=== PATIENT | male | born 1945 | race Hispanic/Latino ===

== ENCOUNTER 2016-10-09 11:49 | Inpatient (IN) | payer MEDICARE, OTHER ==
[2016-10-09 11:49] VITALS: BMI 27.1
[2016-10-09] MEDS ORDERED: Sodium Chloride 0.9% 1,000 ML IV STA (12:28)
--- NOTE | 2016-10-09 12:30 | ED PDOC ---
Arrival/HPI - General Chief Complaint: Abdominal Pain Time Seen by Provider: 10/09/16 12:14 Historian: Patient - History of Present Illness Narrative History of Present Illness (Text): 10/09/16 12:29 71 year old male with a past medical history that includes GI bleed, stage 4 prostate cancer, COPD, and hypertension, presents to the emergency department complaining of rectal bleeding overnight. Patient reports bright red blood. Denies vomiting, hematemesis, or other symptoms. PMD: Dr. Sandhu Oncologist: Dr. Clemens GI: Dr. Anderson Time/Duration: 24 hours Symptom Onset: Sudden Symptom Course: Unchanged Modifying Factors (Text): None Past Medical History - Provider Review Nursing Documentation Reviewed: Yes - Past History Past History: No Previous - Infectious Disease Hx of Infectious Diseases: None - Tetanus Immunization Tetanus Immunization: Unknown - Cardiac Hx Cardiac Disorders: Yes Hx Hypertension: Yes - Pulmonary Hx Respiratory Disorders: Yes Hx Chronic Obstructive Pulmonary Disease (COPD): Yes - Neurological Hx Neurological Disorder: Yes HX Cerebrovascular Accident: Yes - HEENT Hx HEENT Disorder: No - Renal Hx Renal Disorder: No - Endocrine/Metabolic Hx Endocrine Disorders: No - Hematological/Oncological Hx Blood Disorders: Yes Hx Blood Transfusions: No Hx Blood Transfusion Reaction: No Hx Cancer: Yes (prostate) Hx Chemotherapy: Yes - Integumentary Hx Dermatological Disorder: No - Musculoskeletal/Rheumatological Hx Arthritis: No Hx Fractures: No Hx Osteoarthritis: No - Gastrointestinal Hx Gastrointestinal Disorders: Yes Hx Gall Bladder Disease: Yes (Cholesctectomy) - Genitourinary/Gynecological Hx Genitourinary Disorders: Yes Hx Prostate Problems: Yes - Psychiatric Hx Psychophysiologic Disorder: Yes Hx Anxiety: No Hx Depression: Yes Hx Substance Use: No - Surgical History Hx Appendectomy: Yes Hx Orthopedic Surgery: Yes Other/Comment: prostate - Anesthesia Hx Anesthesia Reactions: No Hx Malignant Hyperthermia: No - Suicidal Assessment Feels Threatened In Home Enviroment: No Family/Social History - Physician Review Nursing Documentation Reviewed: Yes Family/Social History: Unknown Family HX Smoking Status: Former Smoker Hx Alcohol Use: No Hx Substance Use: No Hx Substance Use Treatment: No Allergies/Home Meds Allergies/Adverse Reactions: Allergies No Known Allergies Allergy (Verified 10/09/16 12:07) Home Medications: Home Meds Medication Instructions Recorded Confirmed Enoxaparin [Lovenox] 40 mg SC DAILY 11/09/13 10/09/16 Losartan [Cozaar] 25 mg PO DAILY 03/22/14 10/09/16 Ergocalciferol (Vitamin D2) 50,000 unit PO QWK 08/07/16 10/09/16 [Vitamin D] Fluticasone/Salmeterol 250/50 1 dsk IH DAILY 08/07/16 10/09/16 [Advair Diskus 250/50] Pantoprazole [Protonix EC Tab] 20 mg PO DAILY 08/07/16 10/09/16 Prednisone [Orin] 5 mg PO BID 08/07/16 10/09/16 Risperidone [Risperdal] 0.25 mg PO BID 08/07/16 10/09/16 Zolpidem [Ambien] 5 mg PO HS 08/07/16 10/09/16 Abiraterone Acetate [Zytiga] 250 mg PO DAILY 10/09/16 10/09/16 Review of Systems - Physician Review All systems were reviewed & negative as marked: Yes - Review of Systems Respiratory: absent: SOB Cardiovascular: absent: Chest Pain Gastrointestinal: Other (Rectal bleed). absent: Vomiting, Hematemesis Neurological: absent: Dizziness Physical Exam Vital Signs Reviewed: Yes Vital Signs Temp Pulse Resp BP Pulse Ox 10/09/16 13:44 73 16 126/67 94 L 10/09/16 12:08 98.5 F 83 16 111/72 93 L Temperature: Afebrile Blood Pressure: Normal Pulse: Regular Respiratory Rate: Normal Appearance: Positive for: Well-Appearing, Non-Toxic, Comfortable Pain Distress: None Mental Status: Positive for: Alert and Oriented X 3 - Systems Exam Head: Present: Atraumatic, Normocephalic Pupils: Present: PERRL Extroacular Muscles: Present: EOMI Conjunctiva: Present: Normal Mouth: Present: Moist Mucous Membranes Neck: Present: Normal Range of Motion Respiratory/Chest: Present: Clear to Auscultation, Good Air Exchange. No: Respiratory Distress, Accessory Muscle Use Cardiovascular: Present: Regular Rate and Rhythm, Normal S1, S2. No: Murmurs Abdomen: Present: Normal Bowel Sounds. No: Tenderness, Distention, Peritoneal Signs Rectal: Present: Other (Brown stool, guaiac positive) Back: Present: Normal Inspection Upper Extremity: Present: Normal Inspection. No: Cyanosis, Edema Lower Extremity: Present: Normal Inspection. No: Edema Neurological: Present: GCS=15, CN II-XII Intact, Speech Normal Skin: Present: Warm, Dry, Normal Color. No: Rashes Psychiatric: Present: Alert, Oriented x 3, Normal Insight, Normal Concentration Medical Decision Making ED Course and Treatment: Impression: 71 year old male with a past medical history that includes GI bleed , stage 4 prostate cancer, COPD, and hypertension, presents to the emergency department complaining of rectal bleeding overnight. Differential Diagnosis include but are not limited to: GI bleed Plan: -- EKG, Chest X-ray -- Labs -- Reassess and disposition Prior Visits: Notes and results from previous visits were reviewed. Patient last seen in ED on 08/07/16 for rectal bleed and admitted for GI bleed. Progress Notes: Chest X-ray Pottery Decoration Designer: Donovan Damon MD IMPRESSION: No active disease 10/09/16 14:[address] Clemens, accepts for admission. Case discussed with Dr. Anderson who states plan for colonoscopy tomorrow. - Lab Interpretations Lab Results: 10/09/16 13:28 10/09/16 13:28 Lab Results 10/09/16 13:28: WBC 8.0, RBC 3.87, Hgb 11.3 L, Hct 35.3 L, MCV 91.2, MCH 29.2, MCHC 32.0, RDW 15.1 H, Plt Count 215, MPV 9.5, Gran % 78.3 H, Lymph % (Auto) 13.3 L, Coke % (Auto) 6.8 H, Eos % (Auto) 1.1 L, Baso % (Auto) 0.5, Gran # 6.27 , Lymph # 1.1 L, Coke # 0.5, Eos # 0.1, Baso # 0.04, PT 10.0, INR 0.93, APTT 19.2 L, Sodium 136, Potassium 3.9, Chloride 100, Carbon Dioxide 29, Anion Gap 11 , BUN 16, Creatinine 0.7, Est GFR ( Amer) > 60, Est GFR (Non-Af Amer) > 60, Random Glucose 84, Calcium 9.1, Total Bilirubin 0.6, AST 26, ALT 31, Alkaline Phosphatase 83, Lactate Dehydrogenase 364, Total Creatine Kinase 39, Troponin I < 0.01, Total Protein 7.1, Albumin 3.6, Globulin 3.5, Albumin/ Globulin Ratio 1.0 L, Amylase 43, Lipase 12 L, Urine Color Straw, Urine Appearance Cloudy, Urine pH 7.5, Ur Specific [place] 1.015, Urine Protein Negative, Urine Glucose (UA) Negative, Urine Ketones Negative, Urine Blood Small H, Urine Nitrate Positive H, Urine Bilirubin Negative, Urine Urobilinogen 0.2, Ur Leukocyte Esterase Large H, Urine RBC 10 - 15, Urine WBC 15 - 20, Ur Epithelial Cells Many, Amorphous Sediment Moderate, Urine Bacteria Trace 10/09/16 13:20: Blood Type A POSITIVE, Antibody Screen Negative, BBK History Checked Patient has bt - RAD Interpretation Radiology Orders: 10/09/16 12:28 CHEST PORTABLE [RAD] Stat - EKG Interpretation EKG Interpretation (Text): EKG shows NSR at [address]/T wave changes Interpreted by ED Physician: Yes Type: 12 lead EKG - Medication Orders Current Medication Orders: Sodium Chloride (Sodium Chloride 0.9%) 1,000 mls @ 100 mls/hr IV .Q10H STA Stop: 10/09/16 22:27 Last Admin: 10/09/16 13:31 Dose: 100 MLS/HR eMAR Start Stop Document 10/09/16 13:31 HI (Rec: 10/09/16 13:31 [place] [id number]) Intravenous Solution Start Date 10/09/16 Start Time 13:31 Discontinued Medications Ceftriaxone Sodium (Rocephin 1 Gram Ivpb) 100 mls @ 200 mls/hr IVPB STAT STA PRN Reason: Protocol Stop: 10/09/16 14:27 Last Admin: 10/09/16 15:17 Dose: 200 MLS/HR eMAR Start Stop Document 10/09/16 15:17 HI (Rec: 10/09/16 15:17 [id number] Intravenous Solution Start Date 10/09/16 Start Time 15:17 Polyethylene Glycol/Electrolytes (Golytely) 4,000 ml PO ONCE ONE Stop: 10/09/16 16:36 Last Admin: 10/09/16 17:02 Dose: Not Given Non-Admin Reason: Patient Refused - Scribe Statement The provider has reviewed the documentation as recorded by the Laura Chau Provider Scribe Attestation: All medical record entries made by the Scribe were at my direction and personally dictated by me. I have reviewed the chart and agree that the record accurately reflects my personal performance of the history, physical exam, medical decision making, and the department course for this patient. I have also personally directed, reviewed, and agree with the discharge instructions and disposition. Disposition/Present on Arrival - Present on Arrival Any Indicators Present on Arrival: No History of DVT/PE: No History of Uncontrolled Diabetes: No Urinary Catheter: Yes History of Decub. Ulcer: No History Surgical Site Infection Following: None - Disposition Have Diagnosis and Disposition been Completed?: Yes Diagnosis: Gastrointestinal hemorrhage Disposition: HOSPITALIZED Disposition Time: 17:37 Patient Problems: Current Active Problems Problem Status Diagnosed Rectal bleeding Acute Hypotension Acute Prostate carcinoma Acute Retroperitoneal hematoma Acute Condition: FAIR
--- NOTE | 2016-10-09 13:14 | RAD ---
HISTORY: abd pain COMPARISON: 08/08/2016 FINDINGS: LUNGS: No active pulmonary disease. PLEURA: No significant pleural effusion identified, no pneumothorax apparent. CARDIOVASCULAR: Normal. OSSEOUS STRUCTURES: No significant abnormalities. VISUALIZED UPPER ABDOMEN: Normal. OTHER FINDINGS: Mild aortic tortuosity. Left-sided central line terminates in the SVC IMPRESSION: No active disease.
[2016-10-09 13:46] LABS: ADD MANUAL DIFF? NO
[2016-10-09 13:55] LABS: BASO # 0.04 K/mm3 (0.0-2.0); BASO % 0.5 % (0.0-3.0); EOS # 0.1 (0.0-0.7); EOS % 1.1 % (1.5-5.0); GRAN # 6.27 (1.4-6.5); GRAN % 78.3 % (50.0-68.0); HEMATOCRIT 35.3 % (42.0-52.0); LYMPH # 1.1 (1.2-3.4); LYMPH % 13.3 % (22.0-35.0); MEAN CELL VOLUME 91.2 fL (80.0-105.0); MEAN CORPUSCULAR HEMOGLOBIN 29.2 pg (25.0-35.0); MEAN PLATELET VOLUME 9.5 fl (7.0-11.0); MONO # 0.5 (0.1-0.6); MONO % 6.8 % (1.0-6.0); PH,URINE 7.5 (4.7-8.0); PLATELET COUNT 215 10^3/uL (120.0-450.0); RED CELL DISTRIBUTION WIDTH 15.1 % (11.5-14.5); URINE BILIRUBIN NEGATIVE (NEGATIVE); URINE BLOOD SMALL (NEGATIVE); URINE GLUCOSE (UA) NEGATIVE (NEGATIVE); URINE KETONE NEGATIVE (NEGATIVE); URINE LEUKOCYTE ESTERASE LARGE Leu/uL (NEGATIVE); URINE PROTEIN NEGATIVE mg/dL (<30 mg/dL); URINE UROBILINOGEN 0.2 E.U./dL (<1 E.U./dL)
[2016-10-09 13:57] LABS: URINE APPEARANCE CLOUDY (CLEAR); URINE COLOR STRAW (YELLOW)
[2016-10-09] MEDS ORDERED: cefTRIAXone 1 gm 100 ML IVPB STA (13:58)
[2016-10-09 14:01] LABS: INR 0.93 (0.93-1.08); PARTIAL THROMBOPLASTIN TIME 19.2 Seconds (23.7-30.8)
[2016-10-09 14:07] LABS: ALKALINE PHOSPHATASE 83 U/L (38-133); ALT/SGPT 31 U/L (7-56); AMYLASE 43 U/L (35-125); AST/SGOT 26 U/L (15-59); BILIRUBIN,TOTAL 0.6 mg/dL (0.2-1.3); BLOOD UREA NITROGEN 16 mg/dL (7-21); CALCIUM 9.1 mg/dL (8.4-10.5); CARBON DIOXIDE 29 mmol/L (21-33); CHLORIDE 100 mmol/L (98-107); GFR AFRICAN-AMERICAN > 60; GLUCOSE,RANDOM 84 mg/dL (70-110); LIPASE 12 U/L (23-300); POTASSIUM 3.9 mmol/L (3.6-5.0); SODIUM 136 mmol/L (132-148); TOTAL PROTEIN 7.1 g/dL (5.8-8.3)
[2016-10-09 14:17] LABS: TROPONIN I < 0.01 ng/mL
[2016-10-09 14:18] LABS: URINE AMORPHOUS SEDIMENT MODERATE; URINE BACTERIA TRACE (NEG); URINE EPITHELIAL CELLS MANY /hpf (0-5); URINE WBC 15 - 20 /hpf (0-6)
--- NOTE | 2016-10-09 14:33 | CARD ---
APPROVED REPORT EKG Measurement Heart [id number] <Conclusion> Normal sinus rhythm Left anterior fascicular block Abnormal ECG
[2016-10-09] MEDS ORDERED: Peg-Electrolyte Oral Soln 4L (Golytely) PO ONE (16:35)
[2016-10-09] MEDS ORDERED: Bisacodyl 5mg EC Tab PO STA (17:47)
[2016-10-09] MEDS ORDERED: Magnesium Citrate Oral SOL (300 ml) PO ONE (17:47)
--- NOTE | 2016-10-09 19:33 | CON ---
DATE: 10/09/2016 This patient was seen and evaluated earlier in the Emergency Room. 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 He also has a larger polyp in the ascending colon measuring about close to 3 cm. Biopsies were don e, which was reported ____, only tubular adenoma. In view of the large polypectomy done on the right side and the left side, and the patient needs to be on anticoagulation, the decision was made to marguerite ctively consider the colonoscopy for removal of the right polyp. Meanwhile, the patient has been on home Lovenox in view of the history of DVT, PE in the past. The patient had a few episodes of rectal bleeding. The patient presented to the Emergency Room. No complaints of vomiting blood. No abdomi nal pain. His other past medical history is significant as above, history of status post cholecystec patel, status post appendectomy, spine surgery. SOCIAL HISTORY: Ex-smoker. Denies alcohol. ALLERGIES: No known drug allergy. FAMILY HISTORY: Noncontributory. REVIEW OF SYSTEMS: Positive as above. All other systems reviewed. Just including the past medical history. Also, history of hypertension, COPD, dyslipidemia, status post cerebrovascular accident, se izure disorder. PHYSICAL EXAMINATION: GENERAL: The patient is lying on the bed, not in acute distress. Temperature is 98.5, pulse is 73, blood pressure 126/87. HEENT: Atraumatic, anicteric. NECK: Supple. HEART: S1, S2 heard. LUNGS: Bilateral air entry present. ABDOMEN: Soft. There is no mass palpable. No tenderness. EXTREMITIES: No cyanosis. No clubbing. LABORATORY DATA: Hemoglobin 11.3, hematocrit 35.3, WBC is 8, platelets 215. BUN 16, creatinine 0.7. ASSESSMENT AND PLAN: This 71-year-old patient admitted with gastrointestinal bleeding, history of la rge polyp, status post EMR in the past, has a large polyp in right colon. Also, has hemorrhoids and diverticulosis. This patient has multiple comorbidities. With limited mobility at home, it is reaso nable to consider colonoscopic evaluation and close monitoring of the hemoglobin and hematocrit. Wou ld recommend followup of the hemoglobin, hematocrit and place the patient on a clear liquid diet. Wi ll prepare the patient for colonoscopy tomorrow. To further evaluate his other comorbidities includi ng metastatic prostate cancer status post decompressive laminectomy, seizure disorder, status post ce rebrovascular accident. Will continue to closely follow up his care. Thank you very much for allowing us to participate in the care of the patient. Afua Anderson MD cc: [id number] TT: 10/09/2016 19:32:30 Confirmation # [id number] Dictation # [id number] mn
--- NOTE | 2016-10-09 23:09 | HP ---
HISTORY OF PRESENT ILLNESS: This is a 71-year-old white male well known to me for many years, has a diagnosis of metastatic stage IV carcinoma of the prostate with documented bone metastasis, status po st decompressive laminectomy of the thoracic spine for cord compression about 5 years ago, currently maintained Zytiga and Zoladex along with oral prednisone, who is now admitted through the ER with new onset of rectal bleeding. The patient was also noted to be anemic. In the recent past, in May , the patient had several episodes of rectal bleeding. He was admitted to the hospital, had a colono scopy and was found to have a large polyp in the rectosigmoid area for which he underwent EMR which w as a tubulovillous adenoma, which was removed. Colonoscopy at that time showed a polyp in the ascend ing colon, which was not removed at the same time as the EMR because of the patient's medical status including history of hypercoag state and being on Lovenox with history of DVT and PE. The biopsy of a right colonic lesion showed tubular adenoma. The patient was told that somewhere down the road, he will need an elective colonoscopy for removal of the right-sided colonic polyp. The patient has bee n maintained on Lovenox for DVT and PE in the past. The patient since then has had few episodes of r ectal bleeding and he came into the ER now with complaints of rectal bleeding on and off for the past 2-3 days without any complaints of nausea, vomiting blood or abdominal pain. PAST MEDICAL AND SURGICAL HISTORY: The patient has a history of cholecystectomy, status post appende ctomy and more importantly status post decompressive laminectomy for metastatic prostate cancer. SOCIAL HISTORY: The patient is an ex-smoker, denies any ethanolism. ALLERGIES: No known drug allergies. FAMILY HISTORY: Not contributory. REVIEW OF SYSTEMS: A 14 point review of systems is noncontributory except for the HPI. PAST MEDICAL HISTORY: Hypertension, COPD, dyslipidemia and seizure disorder for which he is on appro priate medicines. PHYSICAL EXAMINATION: GENERAL: The patient is awake, alert, and oriented, in no acute distress. The patient is examined i n bed. VITAL SIGNS: T-max is 98.4, pulse is 73, blood pressure is 126/87. HEENT: Head is normocephalic, atraumatic. Conjunctivae are pale. Sclerae are anicteric. Pupils ar e equally reactive to light and accommodation. Examination of the oropharynx reveals no oropharyngea l lesions. NECK: Supple. There is no adenopathy. No jugular venous distention is noted. LUNGS: Reveal good air entry bilaterally. No adventitious sounds are heard. HEART: Reveals PMI to be in the 5th intercostal space inside the midclavicular line. S1 and S2 are normal. No gallop or murmur is heard. ABDOMEN: Soft, nontender. Bowel sounds are present. Liver and spleen are not palpable. The patien t has an indwelling Shipman catheter. EXTREMITIES: Reveals no cyanosis, clubbing or edema. NEUROLOGIC: Reveals no gross focal deficits given even though the patient has difficulty in getting in and out of bed and ambulating. The patient is able to use a walker for activities of daily living . He has no focalizing findings. LABORATORY DATA: Reveals a hemoglobin of 11.3, hematocrit 36. White count is 8 with a platelet coun t of 215, BUN is 16, creatinine 0.7. ASSESSMENT NOTES AND PLAN: The patient has stage IV metastatic carcinoma of the prostate, bone metas tasis, new onset of lower gastrointestinal bleeding in the presence of colonic adenoma on the right s arielle which was a villous adenoma that probably needs to come out. Dr. Anderson has already seen the p atient, has been scheduled for a colonoscopy in the a.m. In the meantime, will continue to monitor t he patient. Hold off on Lovenox 12 hours before the procedure and will continue all his other medica tions that he is currently on at home. Routine post exam instructions have been given to the patient . We will make sure that all his home medicines are carried through into the hospital. Labs for a.m. have been requested. Ant Clemens MD cc: [id number] TT: 10/09/2016 23:08:00 jn
--- NOTE | 2016-10-09 23:33 | CP.PCM.PN ---
Subjective - Date & Time of Evaluation Date of Evaluation: 10/09/16 Time of Evaluation: 23:30 - Subjective Subjective: s:Patient was seen because he requested a sleeping pill. States that he takes Ambien 5 mg at home for sleep. Has no other complaints now. Denies chest pain, sob. Pertinent medical record was reviewed. O: Last Vital Signs 3 Temp 98.5 F 10/09/16 12:08 Pulse 65 10/09/16 16:36 Resp 16 10/09/16 16:36 BP 122/69 10/09/16 16:36 Pulse Ox 95 10/09/16 16:36 Awake, alert, not in distress. LUNGS:Normal breathing pattern. NEURO:Speech - normal . A:Insomnia. P:Ambien 5 mg PO now. Objective - Vital Signs/Intake and Output Vital Signs (last 24 hours): Temp Pulse Resp BP Pulse Ox 98.5 F 65 16 122/69 95 10/09/16 12:08 10/09/16 16:36 10/09/16 16:36 10/09/16 16:36 10/09/16 16:36 Intake and Output: 10/09/16 10/10/16 18:59 06:59 Intake Total 720 Output Total 1500 Balance -780 - Medications Medications: Current Medications Bisacodyl (Dulcolax) 10 mg PO ONCE ONE Stop: 10/10/16 05:01 Bisacodyl (Dulcolax) 10 mg PO ONCE ONE Stop: 10/10/16 08:01 Magnesium Citrate (Citrate Of Mag) 300 ml PO ONCE ONE Stop: 10/10/16 05:01 - Labs Labs: PT 10.0 Seconds (9.9-11.8) 10/09/16 13:28 INR 0.93 (0.93-1.08) 10/09/16 13:28 APTT 19.2 Seconds (23.7-30.8) L 10/09/16 13:28
[2016-10-10] MEDS ORDERED: Pneumococcal 23-Valent Vaccine IM ONE (00:50)
[2016-10-10] MEDS ORDERED: Bisacodyl 5mg EC Tab PO ONE ×2 (05:00→08:00)
[2016-10-10] MEDS ORDERED: Magnesium Citrate Oral SOL (300 ml) PO ONE (05:00)
[2016-10-10] MEDS ORDERED: Fluticasone-Salmeterol 250-50mcg Diskus IH SCH ×2 (11:00→11:08)
[2016-10-10] MEDS: ABIRATERONE ACETATE 250 MG PO SCH (11:10)
[2016-10-10] MEDS: Pantoprazole 20 mg EC Tab PO SCH (11:20)
[2016-10-10] MEDS ORDERED: Nystatin 100,000 Units/gm Topical Pow(15 gm) TOP SCH (14:00)
[2016-10-10] MEDS: Budesonide 0.5 mg/2 ml Inhal Susp UD IH SCH (16:58)
[2016-10-10] MEDS: Arformoterol 15 mcg/2 ml Inh Sol IH SCH (16:58)
[2016-10-10] MEDS ORDERED: Peg-Electrolyte Oral Soln 4L (Golytely) PO ONE (18:22)
--- NOTE | 2016-10-10 22:53 | PN ---
DATE: 10/10/2016 This patient was seen and evaluated earlier. The patient is scheduled for a colonoscopy in view of the history of bleeding per rectum. The patient needs to be on anticoagulation, Lovenox, in view of the history of DVT/PE. On examination, afebrile. Temperature is 98.4, pulse 92, blood pressure 124/80 , respirations 18. HENT: Anicteric. Atraumatic. NECK: Supple. HEART: S1, S2 heard. LUNGS: Bilateral air entry present. ABDOMEN: Soft. No tenderness. RECTAL: Revealed semi-solid stool material. LABORATORY DATA: Hemoglobin ____ CBC the patient will benefit from. IMPRESSION: This patient is admitted with lower gastrointestinal bleeding. The patient does have a large polypoid lesion in the right colon. The patient needs to be on Lovenox for history of DVT/PE. The concern is in view the setting of active bleeding, need to have colonoscopy and evaluation prior to restarting the anticoagulation. Unfortunately, the patient, in spite of bowel preparation, he was not clear, and we will consider restarting the patient on GoLYTELY preparation. Yesterday the patient was completely reluctant about having GoLYTELY. After persuasion, he is now agreeable for GoLYTELY. The patient will be rescheduled for the procedure. The patient has a history of metastatic prostate cancer with status post laminectomy, with limited mobility. This patient is not an ideal candidate for outpatient evaluation of the colonoscopy in view of this existing comorbidities and history of his active bleeding at the time of admission. I explained to the patient again, and finally is agreeable to taking half- of GoLYTELY. Will reevaluate the patient again in the morning, and we have given him half- in the morning. Will continue to closely follow up his care and suggest further management based on the clinical course. The case was also discussed with Dr. Clemens. Afua Anderson MD cc: [id number] TT: 10/10/2016 22:52:47 Confirmation # [id number] Dictation # [id number] janice HERNDON
--- NOTE | 2016-10-10 23:37 | PN ---
DATE: 10/10/2016 LOCATION: The patient is in room 260, bed 1. HISTORY OF PRESENT ILLNESS: This is a 71-year-old white male well known to me for many years, has a diagnosis of metastatic stage IV carcinoma of the prostate and documented bone metastasis, status pos t decompressive laminectomy of the thoracic spine for cord compression about 5 years ago, currently m aintained on Zytiga and Zoladex along with oral prednisone and is now admitted through the Emergency Room with new onset of rectal bleeding. The patient was also noted to be anemic in the recent past i n May. The patient had several episodes of rectal bleeding, was admitted to the hospital, had a colonoscopy and found to have a large polyp in the sigmoid, especially in the high rectum, , f or which he underwent EMR. This turned out to be a tubulovillous adenoma, which was removed. Colon oscopy at that time showed a polyp in the ascending colon, which was not removed at the same time as the EMR because of the patient's medical status including history of hypercoag state and being on Danny enox for history of DVT and PE. Bilateral right colonic lesion showed tubular adenoma. The patient was told that, somewhere down the road, he would need an elective colonoscopy for the removal of the right-sided colonic polyp. The patient has been maintained on Lovenox for DVT and PE in the past. T he patient, since then, has had a few episodes of rectal bleeding, came to the ER with complaints of rectal bleeding on and off for the last 2-3 days without any complaints of nausea, vomiting, or abdom inal pain. The patient was scheduled to have the endoscopy for colonoscopy today, but could not have it done as he was not completely prepped and the colonoscopy has been rescheduled for tomorrow. The patient's medications were reviewed and he is still on all his home medicines except the Lovenox. PHYSICAL EXAMINATION: GENERAL: The patient is awake, alert, and oriented, in no acute distress. The patient is examined i n bed. VITAL SIGNS: Stable as stated on the chart. HEENT: Head is normocephalic, atraumatic. Conjunctivae pale. Sclerae are anicteric. Pupils are eq ually reactive to light and accommodation. Examination of the oropharynx reveals no oropharyngeal le sions. NECK: Supple. There is no adenopathy. LUNGS: Clear to percussion and auscultation with good air entry bilaterally. No adventitious sounds are heard. HEART: Reveals PMI in the 5th intercostal space inside the midclavicular line, S1 and S2 are normal. No gallop or murmur is heard. ABDOMEN: Soft, nontender. Bowel sounds are present. No rebound, rigidity or guarding is noted. Th e patient has an indwelling Shipman catheter. EXTREMITIES: Reveals no cyanosis, clubbing or edema. NEUROLOGIC: Reveals no gross focal deficits. The patient is weak. He is able to and has difficulty getting in and out of the bed, ambulating, uses a walker, but he has been able to get around with hi s walker for his activities of daily living. LABORATORY DATA: From today were reviewed and, basically, the patient has not had a tremendous drop in his counts. Today's lab data is unchanged from last night. Chemistries are holding. PLAN: Since the patient's test has been on hold, I spoke with Dr. Anderson. They are going to give him additional GoLYTELY to clean out his colon so he can go for the procedure first thing in the [facility]. Routine post exam instructions have been given to the patient. Blood work for him has been req uested. Ant Clemens MD cc: [id number] TT: 10/10/2016 23:37:02 Confirmation # [id number] Dictation # [id number] libby
[2016-10-11] MEDS ORDERED: Bisacodyl 5mg EC Tab PO ONE (07:55)
[2016-10-11] MEDS ORDERED: Magnesium Citrate Oral SOL (300 ml) PO ONE (07:55)
[2016-10-11] MEDS: Budesonide 0.5 mg/2 ml Inhal Susp UD IH SCH (08:00)
[2016-10-11] MEDS: Arformoterol 15 mcg/2 ml Inh Sol IH SCH (08:49)
[2016-10-11] MEDS: ABIRATERONE ACETATE 250 MG PO SCH (11:14)
[2016-10-11] MEDS: Pantoprazole 20 mg EC Tab PO SCH (11:16)
[2016-10-11 13:46] LABS: HEMATOCRIT 33.7 % (42.0-52.0); MEAN CELL VOLUME 90.8 fL (80.0-105.0); MEAN CORPUSCULAR HEMOGLOBIN 29.1 pg (25.0-35.0); RED CELL DISTRIBUTION WIDTH 14.8 % (11.5-14.5); WHITE BLOOD COUNT 7.2 10^3/ul (4.5-11.0)
[2016-10-11 13:55] LABS: ALKALINE PHOSPHATASE 88 U/L (38-133); ALT/SGPT 42 U/L (7-56); AST/SGOT 24 U/L (15-59); BILIRUBIN,TOTAL 0.6 mg/dL (0.2-1.3); BLOOD UREA NITROGEN 9 mg/dL (7-21); CALCIUM 7.3 mg/dL (8.4-10.5); CARBON DIOXIDE 30 mmol/L (21-33); CHLORIDE 103 mmol/L (98-107); GFR AFRICAN-AMERICAN > 60; GLUCOSE,RANDOM 85 mg/dL (70-110); POTASSIUM 3.5 mmol/L (3.6-5.0); SODIUM 141 mmol/L (132-148); TOTAL PROTEIN 6.5 g/dL (5.8-8.3)
[2016-10-11] MEDS ORDERED: Methylene Blue 10 mg/ml (1ml) Inj ONE (13:59)
[2016-10-11] MEDS ORDERED: Midazolam 2 MG/2 ML VIAL ONE (14:23)
[2016-10-11] MEDS ORDERED: Propofol 10 mg/ml Inj (20 ML) ONE (14:23)
[2016-10-11] MEDS ORDERED: Etomidate 20 mg/10ml Inj IV ONE (14:24)
--- NOTE | 2016-10-11 15:20 | CP.PCM.CON ---
History of Present Illness - History of Present Illness History of Present Illness: 71 year old male with PMH of Methicillin resistant Coagulase negative Staph bacteremia, E. 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 He was noted to have irritation of his sacral skin area and Infectious Diseases consult is requested to further evaluate and manage. The patient denies fever or chills, no nausea or vomiting, no chest pain, no SOB, no cough or colds, no sore throat, no headache or dizziness, no diarrhea, no dysuria. Review of Systems - Review of Systems All systems: reviewed and no additional remarkable complaints except (as per HPI ) Past Patient History - Infectious Disease Hx of Infectious Diseases: None - Tetanus Immunizations Tetanus Immunization: Unknown - Past Social History Smoking Status: Current Some Days Smoker - CARDIAC Hx Pacemaker: No - PULMONARY Hx Respiratory Disorders: Yes (SMOKES CIGARETTES 10 CIG) Hx Chronic Obstructive Pulmonary Disease (COPD): Yes - NEUROLOGICAL Hx Neurological Disorder: Yes HX Cerebrovascular Accident: Yes - HEENT Hx HEENT Problems: No - RENAL Hx Chronic Kidney Disease: No - ENDOCRINE/METABOLIC Hx Endocrine Disorders: No - HEMATOLOGICAL/ONCOLOGICAL Hx Blood Transfusions: No Hx Blood Transfusion Reaction: No - INTEGUMENTARY Hx Dermatological Problems: Yes (SKIN CA WITH SKIN DRYNESS,SKIN LUMPS AND INDENTATION.) Other/Comment: [id number] BUTTOCKS WITH REDDENEDRASH. IASD. BILATERAL GROIN RASH- IASD. SKIN FOLDS OF BREAST AND STOMACH FOLD-MASD - MUSCULOSKELETAL/RHEUMATOLOGICAL Hx Musculoskeletal Disorders: Yes (DECOMPRESSED LAMINECTOMY) - GASTROINTESTINAL Hx Gastrointestinal Disorders: Yes (GI BLEED) Hx Diverticulitis: Yes Hx Gall Bladder Disease: Yes (CholecYStectomy) Other/Comment: LARGE POLYP - GENITOURINARY/GYNECOLOGICAL Hx Genitourinary Disorders: Yes Hx Incontinence: Yes Hx Prostate Problems: Yes - PSYCHIATRIC Hx Emotional Abuse: No Hx Physical Abuse: No Hx Substance Use: No - SURGICAL HISTORY Hx Surgeries: Yes - ANESTHESIA Hx Anesthesia Reactions: No Meds Allergies/Adverse Reactions: Allergies Allergy/AdvReac Type Severity Reaction Status Date / Time No Known Allergies Allergy Verified 10/09/16 19:54 - Medications Medications: Current Medications Arformoterol Tartrate (Brovana) 15 mcg IH DAILY [facility] Last Admin: 10/10/16 16:58 Dose: Not Given Budesonide (Pulmicort Respules) 0.5 mg IH DAILY [facility] Last Admin: 10/10/16 16:58 Dose: Not Given Ergocalciferol (Drisdol 50,000 Intl Units Cap) 1 cap PO QWK [facility] Fluconazole (Diflucan) 100 mg PO DAILY [facility] PRN Reason: Protocol Stop: 10/13/16 10:00 Last Admin: 10/10/16 18:48 Dose: 100 mg Ketoconazole (Nizoral) 1 gm TOP Q8H [facility] Last Admin: 10/10/16 18:48 Dose: 2 cre Levetiracetam (Keppra) 500 mg PO BID [facility] Last Admin: 10/10/16 18:47 Dose: 500 mg Losartan Potassium (Cozaar) 25 mg PO DAILY [facility] Abiraterone Acetate [Zytiga] 250 Mg ( Home Med) 250 mg PO DAILY [facility] Last Admin: 10/10/16 11:10 Dose: Not Given Pantoprazole Sodium (Protonix Ec Tab) 20 mg PO DAILY [facility] Last Admin: 10/10/16 11:20 Dose: 20 mg Prednisone (Prednisone Tab) 5 mg PO BID [facility] Last Admin: 10/10/16 18:48 Dose: 5 mg Risperidone (Risperdal Tab) 0.25 mg PO BID [facility] PRN Reason: Protocol Last Admin: 10/10/16 18:47 Dose: 0.25 mg Zolpidem Tartrate (Ambien) 5 mg PO [facility] PRN Reason: Protocol Last Admin: 10/10/16 22:03 Dose: 5 mg Physical Exam - Constitutional Appears: Non-toxic, No Acute Distress - Head Exam Head Exam: NORMAL INSPECTION - ENT Exam ENT Exam: Mucous Membranes Moist - Neck Exam Neck exam: Negative for: Lymphadenopathy, Meningismus - Respiratory Exam Respiratory Exam: Decreased Breath Sounds - Cardiovascular Exam Cardiovascular Exam: +S1, +S2 - GI/Abdominal Exam GI & Abdominal Exam: Soft. absent: Tenderness - Skin Skin Exam: Rash (noted on the sacral area without note of ulcer, no discharge) Results - Vital Signs Recent Vital Signs: Last Vital Signs Temp 98.4 F 10/10/16 18:10 Pulse 92 H 10/10/16 18:10 Resp 18 10/10/16 18:10 BP 124/80 10/10/16 18:10 Pulse Ox 96 10/10/16 17:55 - Labs Result Diagrams: 10/11/16 13:35 10/11/16 13:35 Assessment & Plan - Assessment and Plan (Free Text) Plan: Assessment Sacral area irritant dermatitis GI bleeding history of Methicillin resistant Coagulase negative Staph bacteremia, E. 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
[2016-10-11] MEDS ORDERED: Sodium Chloride 0.9% 1,000 ML IV SCH (16:45)
--- NOTE | 2016-10-11 19:26 | PN ---
DATE: 10/11/2016 This is patient's hospital visit on the telemetry floor. For Dr. Clemens. SUBJECTIVE: The patient is a 71-year-old male admitted via the Emergency Room for rectal bleeding, n oted to have metastatic stage IV cancer of the prostate with bony metastases, status post decompressi ve laminectomy approximately 5 years ago for cord compression, maintained on Zytiga and Zoladex rachel g with oral prednisone, admitted via the Emergency Room for rectal bleed. With this, the patient did have colonoscopy for which a polyp was determined by Dr. Anderson after prep was redone. He also has history of DVT, PE and is on Lovenox for a significant period of time. With this, the patient is no w feeling better. Bleeding has stopped and he is possibly for discharge tomorrow if stable. OBJECTIVE: PHYSICAL EXAMINATION: VITAL SIGNS: Temperature 97.8, pulse 73, respirations 16, blood pressure 112/71, pulse ox 95%. HEENT: Unremarkable. The patient has poor dentition. NECK: Supple. HEART: Regular rate. LUNGS: Clear. ABDOMEN: Soft, nontender. EXTREMITIES: No edema. However, significant weakness of the lower extremities with patient unable t o ambulate except for transfers to bed and wheelchair with a walker at times. NEUROLOGIC: Awake, alert, except as above. SKIN: Otherwise, warm, dry and clear. LABORATORY DATA: The patient's labs were done. White blood cell count of 7.2, hemoglobin 10.8, colin tocrit 33.7, platelet count of 190,000 with a chem metabolic panel showing a potassium of 3.5 with a calcium of 7.3, INR of 0.9 two days prior. His urine was positive for a small amount of blood, nitri te positive. He does have a large amount of leukocyte esterase. He does have a chronic indwelling F oley, which is changed periodically by the visiting nurses. The patient did have a colonoscopy done earlier today with EMR tattooing argon laser plasma coagulati on. Preop diagnosis is rectal bleeding. Postop diagnosis is colon polyp. ASSESSMENT: Rectal bleed, colon polyp, anemia, stage IV metastatic carcinoma of the prostate, bony me ts, status post decompressive laminectomy, gait disturbance, history of pulmonary embolism, deep veno us thrombosis, seizure disorder, history of cerebrovascular accident, chronic indwelling Shipman. PLAN: The patient is to repeat his labs in the a.m. We will advance his diet. Will ask for a socia l worker evaluation for discharge planning with planned discharge tomorrow home if he is stable on pr esent medical regimen, and as per Dr. Anderson's recommendations. Will ask for a urine culture. Brent Dawson MD cc: [phone] TT: 10/11/2016 19:25:50 Confirmation # [id number] Dictation # [id number] rn
--- NOTE | 2016-10-11 23:04 | PN ---
DATE: 10/11/2016 This patient had underwent a colonoscopy and a large piecemeal endoscopic mucosal resection of the la rge polypoid lesion in the ascending colon. The patient tolerated the procedure. Polyp fragments we re sent for histology. The patient has been on Lovenox, but will hold the Lovenox in view of the lar ge piecemeal EMR, the risk of bleeding. The patient was started on a clear liquid diet and slowly ad vanced the diet. Will consider restarting the anticoagulation after 48 hours. We are going to follo w up the hemoglobin and hematocrit. Thank you very much for allowing us to participate in the care of the patient. Afua Anderson MD cc: [phone] TT: 10/11/2016 23:03:19 Confirmation # [id number] Dictation # [id number] lily
--- NOTE | 2016-10-12 01:26 | CP.PCM.PN ---
Subjective - Date & Time of Evaluation Date of Evaluation: 10/12/16 Time of Evaluation: 01:26 (Earlier.) - Subjective Subjective: # 16 F Shipman catheter was reinserted. Objective - Vital Signs/Intake and Output Vital Signs (last 24 hours): Temp Pulse Resp BP Pulse Ox 97 F L 88 23 134/86 95 10/11/16 18:45 10/11/16 18:45 10/11/16 18:45 10/11/16 18:45 10/11/16 17:12 Intake and Output: 10/11/16 10/12/16 18:59 06:59 Intake Total 480 Output Total 1300 Balance -820 - Medications Medications: Current Medications Arformoterol Tartrate (Brovana) 15 mcg IH DAILY [facility] Last Admin: 10/11/16 08:49 Dose: Not Given Budesonide (Pulmicort Respules) 0.5 mg IH DAILY [facility] Last Admin: 10/11/16 08:00 Dose: Not Given Ergocalciferol (Drisdol 50,000 Intl Units Cap) 1 cap PO QWK [facility] Fluconazole (Diflucan) 100 mg PO DAILY [facility] PRN Reason: Protocol Stop: 10/13/16 10:00 Last Admin: 10/11/16 11:15 Dose: 100 mg Ketoconazole (Nizoral) 1 gm TOP Q8H [facility] Last Admin: 10/11/16 18:30 Dose: 1 cre Levetiracetam (Keppra) 500 mg PO BID [facility] Last Admin: 10/11/16 18:31 Dose: 500 mg Losartan Potassium (Cozaar) 25 mg PO DAILY [facility] Last Admin: 10/11/16 11:15 Dose: 25 mg Mupirocin (Bactroban Ointment) 0 gm TOP BID [facility] Last Admin: 10/11/16 18:30 Dose: 1 applic Abiraterone Acetate [Zytiga] 250 Mg ( Home Med) 250 mg PO DAILY [facility] Last Admin: 10/11/16 11:14 Dose: Not Given Pantoprazole Sodium (Protonix Ec Tab) 20 mg PO DAILY [facility] Last Admin: 10/11/16 11:16 Dose: 20 mg Prednisone (Prednisone Tab) 5 mg PO BID [facility] Last Admin: 10/11/16 18:31 Dose: 5 mg Risperidone (Risperdal Tab) 0.25 mg PO BID [facility] PRN Reason: Protocol Last Admin: 10/11/16 18:29 Dose: 0.25 mg Zolpidem Tartrate (Ambien) 5 mg PO HS [facility] PRN Reason: Protocol Last Admin: 10/11/16 22:49 Dose: 5 mg - Labs Labs: 10/11/16 13:35 10/11/16 13:35 PT 10.0 Seconds (9.9-11.8) 10/09/16 13:28 INR 0.93 (0.93-1.08) 10/09/16 13:28 APTT 19.2 Seconds (23.7-30.8) L 10/09/16 13:28
[2016-10-12 06:09] LABS: ADD MANUAL DIFF? NO
[2016-10-12 06:11] VITALS: O2SAT 94
[2016-10-12 06:26] LABS: ALB/GLOB RATIO 0.9 (1.1-1.8); ALKALINE PHOSPHATASE 79 U/L (38-133); ALT/SGPT 43 U/L (7-56); AST/SGOT 27 U/L (15-59); BILIRUBIN,TOTAL 0.5 mg/dL (0.2-1.3); BLOOD UREA NITROGEN 7 mg/dL (7-21); CARBON DIOXIDE 28 mmol/L (21-33); CHLORIDE 106 mmol/L (98-107); GFR AFRICAN-AMERICAN > 60; GLUCOSE,RANDOM 81 mg/dL (70-110); POTASSIUM 3.9 mmol/L (3.6-5.0); SODIUM 140 mmol/L (132-148); TOTAL PROTEIN 6.1 g/dL (5.8-8.3)
[2016-10-12 06:27] LABS: BASO # 0.02 K/mm3 (0.0-2.0); BASO % 0.3 % (0.0-3.0); EOS # 0.2 (0.0-0.7); EOS % 2.5 % (1.5-5.0); GRAN # 4.96 (1.4-6.5); HEMATOCRIT 32.2 % (42.0-52.0); LYMPH # 1.3 (1.2-3.4); LYMPH % 18.5 % (22.0-35.0); MEAN CELL VOLUME 91.5 fL (80.0-105.0); MEAN CORPUSCULAR HEMOGLOBIN 29.3 pg (25.0-35.0); MEAN PLATELET VOLUME 9.2 fl (7.0-11.0); MONO # 0.4 (0.1-0.6); MONO % 5.7 % (1.0-6.0); PLATELET COUNT 192 10^3/uL (120.0-450.0); RED CELL DISTRIBUTION WIDTH 14.7 % (11.5-14.5); WHITE BLOOD COUNT 6.8 10^3/ul (4.5-11.0)
[2016-10-12 07:16] LABS: CALCIUM 6.9 mg/dL (8.4-10.5)
[2016-10-12] MEDS: Budesonide 0.5 mg/2 ml Inhal Susp UD IH SCH (07:33)
[2016-10-12] MEDS: Arformoterol 15 mcg/2 ml Inh Sol IH SCH (07:33)
[2016-10-12] MEDS: Pantoprazole 20 mg EC Tab PO SCH (09:16)
[2016-10-12 11:53] VITALS: BP 141/89; RESP 18; TEMP 98.6
[2016-10-12 13:17] VITALS: PULSE 89
--- NOTE | 2016-10-12 22:24 | DS ---
This is the patient's discharge summary. For Dr. Clemens. SUBJECTIVE: The patient is a 71-year-old male for discharge home today, feeling better. Admitted to the telemetry floor for rectal bleeding. Known to suffer from stage IV metastatic prostate CA with bony metastases, with cord compression with decompression laminectomy 5 years prior. Now for dischar ge home after colonoscopy showed colonic polyp, with laser coagulation done by Dr. Anderson. The pat ient is in no acute distress for discharge today. OBJECTIVE: PHYSICAL EXAMINATION: VITAL SIGNS: Temperature 98.6, pulse 89, respirations 18, blood pressure 141/89, pulse ox of 94%. HEENT: Unremarkable. Poor dentition. NECK: Supple. HEART: Regular rate, occasional ectopic beat. LUNGS: Clear. ABDOMEN: Soft, nontender. EXTREMITIES: No edema. SKIN: Warm, dry, and clear. NEUROLOGIC: Awake, alert, however, weakness of lower extremities, with the patient noted to have a F oley catheter recently changed. Chronic indwelling Shipman. The patient's labs were done. White blood cell count of 6.8, hemoglobin 10.3, hematocrit 32.2, plate let count 192,000, with a chem metabolic panel showing a normal chem metabolic panel, except for calc ium of 6.9 which will be repeated, with an otherwise normal chem metabolic panel. The patient's discharge medications are his medications on admission, to include prednisone 5 mg b.i. d., Lovenox once a day, Ambien p.r.n., Zytiga 250 mg once a day, Advair Diskus, Keppra, Protonix, R isperdal, Nizoral, Cozaar, Brovana, Pulmicort, Bactroban, vitamin D once a week. The assessment for this patient is that of rectal bleeding, colon polyp, anemia, stage IV metastatic carcinoma of the prostate, bony metastases, status post decompressive laminectomy, gait disturbance, history of pulmonary embolism, DVT, seizure disorder, history of CVA, chronic indwelling Shipman. The plan for this patient is to continue present medical regimen as listed above with his medications , to follow up with Dr. Clemens in 1 week's time, or earlier in the office, with a regular diet. Brent Samir NULL cc: [phone] TT: 10/12/2016 22:23:46 jn
[2016-10-17] MEDS ORDERED: Ergocalciferol 50,000 Intl Units Cap PO SCH (10:00)
== END 2016-10-12 16:11 | disposition home health service (06) | DRG 378 ==
LOC: ED 11:49 → ERH 14:52 → 2RNO 17:32
PROVIDERS: ADMIT Family Medicine; ATTEND Family Medicine
PROC: 3E0F7GC Introduction of Other Therapeutic Substance into Respiratory Tract, Via Natural or Artificial Opening (ICD-10-PCS; principal; 2016-10-11 13:30)
PROC: 0DBK8ZZ Excision of Ascending Colon, Via Natural or Artificial Opening Endoscopic (ICD-10-PCS; 2016-10-11 13:30)
DX: K62.5 Hemorrhage of anus and rectum (principal); C79.51 Secondary malignant neoplasm of bone; F03.90 Unspecified dementia, unspecified severity, without behavioral disturbance, psychotic disturbance, mood disturbance, and anxiety; C61 Malignant neoplasm of prostate; D64.9 Anemia, unspecified; I10 Essential (primary) hypertension; D12.2 Benign neoplasm of ascending colon; J44.9 Chronic obstructive pulmonary disease, unspecified; G40.909 Epilepsy, unspecified, not intractable, without status epilepticus; E78.5 Hyperlipidemia, unspecified; I25.10 Atherosclerotic heart disease of native coronary artery without angina pectoris; L30.9 Dermatitis, unspecified; G47.00 Insomnia, unspecified; R26.9 Unspecified abnormalities of gait and mobility; K64.8 Other hemorrhoids; K57.30 Diverticulosis of large intestine without perforation or abscess without bleeding; Z86.73 Personal history of transient ischemic attack (TIA), and cerebral infarction without residual deficits; Z86.010 Personal history of colon polyps; Z86.711 Personal history of pulmonary embolism; Z86.718 Personal history of other venous thrombosis and embolism; Z79.01 Long term (current) use of anticoagulants; Z90.49 Acquired absence of other specified parts of digestive tract; Z87.891 Personal history of nicotine dependence

== ENCOUNTER 2017-05-31 07:46 | Inpatient (IN) | payer MEDICARE, OTHER ==
--- NOTE | 2017-05-31 08:10 | ED PDOC ---
Arrival/HPI - General Chief Complaint: Male Genitourinary Time Seen by Provider: 05/31/17 07:50 Historian: Patient, Family - History of Present Illness Narrative History of Present Illness (Text): 05/31/17 08:01 A 71 year old male, whose past medical history includes GI bleed, stage 4 prostate cancer, COPD, and hypertension, presents to the emergency department for blood in Willson catheter. The patient reports last night his son noticed there was some blood in his catheter and this morning there was a larger amount. The patient states he is completely asymptomatic and feels fine. He denies any recent traumas, fever, abdominal pain, back pain, or any other complaints at this time. Time/Duration: Other (x 12 hours) Symptom Onset: Sudden Symptom Course: Unchanged Activities at Onset: Rest Context: Home Past Medical History - Provider Review Nursing Documentation Reviewed: Yes - Past History Past History: No Previous - Infectious Disease Hx of Infectious Diseases: None - Tetanus Immunization Tetanus Immunization: Unknown - Cardiac Hx Pacemaker: No - Pulmonary Hx Respiratory Disorders: Yes (SMOKES CIGARETTES 10 CIG) Hx Chronic Obstructive Pulmonary Disease (COPD): Yes - Neurological Hx Neurological Disorder: Yes HX Cerebrovascular Accident: Yes - HEENT Hx HEENT Disorder: No - Renal Hx Renal Disorder: No - Endocrine/Metabolic Hx Endocrine Disorders: No - Hematological/Oncological Hx Blood Transfusions: No Hx Blood Transfusion Reaction: No - Integumentary Hx Dermatological Disorder: Yes (SKIN CA WITH SKIN DRYNESS,SKIN LUMPS AND INDENTATION.) Other/Comment: [id number] BUTTOCKS WITH REDDENEDRASH. IASD. BILATERAL GROIN RASH- IASD. SKIN FOLDS OF BREAST AND STOMACH FOLD-MASD - Musculoskeletal/Rheumatological Hx Musculoskeletal Disorders: Yes (DECOMPRESSED LAMINECTOMY) - Gastrointestinal Hx Gastrointestinal Disorders: Yes (GI BLEED) Hx Diverticulitis: Yes Hx Gall Bladder Disease: Yes (CholecYStectomy) Other/Comment: LARGE POLYP - Genitourinary/Gynecological Hx Genitourinary Disorders: Yes Hx Incontinence: Yes Hx Prostate Problems: Yes - Psychiatric Hx Emotional Abuse: No Hx Physical Abuse: No Hx Substance Use: No - Surgical History Hx Appendectomy: Yes Hx Orthopedic Surgery: Yes Other/Comment: prostate - Anesthesia Hx Anesthesia: No Hx Anesthesia Reactions: No Hx Malignant Hyperthermia: No - Suicidal Assessment Feels Threatened In Home Enviroment: No Family/Social History - Physician Review Nursing Documentation Reviewed: Yes Family/Social History: Unknown Family HX Smoking Status: Current Some Days Smoker Hx Alcohol Use: No Hx Substance Use: No Hx Substance Use Treatment: No Allergies/Home Meds Allergies/Adverse Reactions: Allergies No Known Allergies Allergy (Verified 10/09/16 19:54) Home Medications: Home Meds Medication Instructions Recorded Confirmed Enoxaparin [Lovenox] 40 mg SC DAILY 11/09/13 05/31/17 Losartan [Cozaar] 25 mg PO DAILY 03/22/14 05/31/17 Ergocalciferol (Vitamin D2) 50,000 unit PO QWK 08/07/16 05/31/17 [Vitamin D] Fluticasone/Salmeterol 250/50 1 dsk IH DAILY 08/07/16 05/31/17 [Advair Diskus 250/50] Pantoprazole [Protonix EC Tab] 20 mg PO DAILY 08/07/16 05/31/17 Prednisone [Orin] 5 mg PO BID 08/07/16 05/31/17 Risperidone [Risperdal] 0.25 mg PO BID 08/07/16 05/31/17 Zolpidem [Ambien] 5 mg PO HS 08/07/16 05/31/17 Abiraterone Acetate [Zytiga] 250 mg PO DAILY 10/09/16 05/31/17 Methenamine Hippurate [Hiprex] 1 gm PO DAILY 05/31/17 05/31/17 Review of Systems - Physician Review All systems were reviewed & negative as marked: Yes - Review of Systems Constitutional: absent: Fevers Gastrointestinal: absent: Abdominal Pain Genitourinary Male: Other (blood in willson catheter ) Musculoskeletal: absent: Back Pain Physical Exam Vital Signs Reviewed: Yes Vital Signs Temp Pulse Resp BP Pulse Ox 05/31/17 10:54 98.0 F 72 18 130/70 95 05/31/17 09:47 92 H 18 142/80 92 L 05/31/17 07:55 97.9 F 91 H 18 147/88 90 L Temperature: Afebrile Blood Pressure: Normal Pulse: Tachycardic Respiratory Rate: Apneic Appearance: Positive for: Well-Appearing, Non-Toxic, Comfortable Pain Distress: None Mental Status: Positive for: Alert and Oriented X 3 - Systems Exam Head: Present: Atraumatic, Normocephalic Pupils: Present: PERRL Extroacular Muscles: Present: EOMI Conjunctiva: Present: Normal Mouth: Present: Moist Mucous Membranes Neck: Present: Normal Range of Motion Respiratory/Chest: Present: Clear to Auscultation, Good Air Exchange. No: Respiratory Distress, Accessory Muscle Use Cardiovascular: Present: Regular Rate and Rhythm, Normal S1, S2. No: Murmurs Abdomen: Present: Normal Bowel Sounds. No: Tenderness, Distention, Peritoneal Signs Genitourinary Male: Present: Other (gross blood in Willson catheter) Back: Present: Normal Inspection Upper Extremity: Present: Normal Inspection. No: Cyanosis, Edema Lower Extremity: Present: Normal Inspection. No: Edema Neurological: Present: GCS=15, CN II-XII Intact, Speech Normal Skin: Present: Warm, Dry, Normal Color. No: Rashes Psychiatric: Present: Alert, Oriented x 3, Normal Insight, Normal Concentration Medical Decision Making ED Course and Treatment: 05/31/17 08:02 Impression: A 81 year old male with blood in Willson catheter. Differential Diagnosis included but are not limited to: Plan: -- Labs -- Urinalysis -- Reassess and disposition Progress Notes: 05/31/17 09:[address] Olivo who is covering for Dr. Madera, who recommends the patient have a Willson catheter and bladder irrigation and be admitted to the hospital. 05/31/17 10:56 EKG: Ordered, reviewed, and independently interpreted the EKG. Rate : 79 BPM Rhythm : NSR Interpretation : No ST-segment elevations or depressions, no T-wave inversions, normal intervals. Comparison : No previous EKG for comparison. - Lab Interpretations Microbiology Results: Microbiology Results 05/31/17 08:06 Urine Urine Culture - Final > 100,000 CFU/ML. MULTIPLE SPECIES. SUGGEST REPEAT SPECIMEM. Lab Results: 05/31/17 08:20 05/31/17 08:20 Lab Results 05/31/17 08:20: Sodium 140, Potassium 3.7, Chloride 102, Carbon Dioxide 27, Anion Gap 14, BUN 10, Creatinine 0.8, Est GFR ( Amer) > 60, Est GFR (Non- Af Amer) > 60, Random Glucose 92, Calcium 9.0, Total Bilirubin 0.4, AST 25, ALT 34, Alkaline Phosphatase 84, Total Protein 6.9, Albumin 3.7, Globulin 3.3, Albumin/Globulin Ratio 1.1 05/31/17 08:20: PT 11.0, INR 1.00, APTT 29.6 05/31/17 08:20: WBC 8.6 D, RBC 4.13, Hgb 11.9 L, Hct 37.6 L, MCV 91.0, MCH 28.8 , MCHC 31.6, RDW 14.9 H, Plt Count 224, MPV 9.6, Gran % 71.1 H, Lymph % (Auto) 18.4 L, Stearns % (Auto) 7.0 H, Eos % (Auto) 3.0, Baso % (Auto) 0.5, Gran # 6.13, Lymph # 1.6, Stearns # 0.6, Eos # 0.3, Baso # 0.04 - Medication Orders Current Medication Orders: Discontinued Medications Arformoterol Tartrate (Brovana) 15 mcg IH [id number] [facility] Last Admin: 06/01/17 08:19 Dose: 15 mcg Budesonide (Pulmicort Respules) 0.5 mg IH [id number] [facility] Last Admin: 06/01/17 08:19 Dose: 0.5 mg Home Med (Home Med) 1 unit PO DAILY [facility] Home Med (Home Med) 1 unit PO DAILY [facility] Levetiracetam (Keppra) 500 mg PO BID [facility] Last Admin: 06/01/17 10:16 Dose: 500 mg Losartan Potassium (Cozaar) 25 mg PO DAILY [facility] Last Admin: 06/01/17 10:15 Dose: 25 mg [facility] Pulse and Blood Pressure Document 06/01/17 10:15 [facility] (Rec: 06/01/17 10:15 [facility] [id number]) Pulse Pulse Rate (60-90) 86 Blood Pressure Blood Pressure (100/60-150/90) 122/73 Nystatin/Triamcinolone Acetonide (Nystatin/Triamcinolone Cream) 0 ea TOP BID [facility] Last Admin: 05/31/17 18:21 Dose: 1 applic Pantoprazole Sodium (Protonix Ec Tab) 20 mg PO DAILY [facility] Last Admin: 06/01/17 10:15 Dose: 20 mg Pneumococcal Polyvalent Vaccine (Pneumovax 23 Vaccine) 0.5 ml IM .ONCE ONE Stop: 05/31/17 13:48 Last Admin: 05/31/17 16:05 Dose: Immunization Registry Document 05/31/17 16:05 [facility] (Rec: 05/31/17 16:05 [facility] [id number]) Immunization Registry Consent Date 05/31/17 Prednisone (Prednisone Tab) 5 mg PO BID [facility] Last Admin: 06/01/17 10:16 Dose: 5 mg Risperidone (Risperdal Tab) 0.25 mg PO BID [facility] PRN Reason: Protocol Last Admin: 06/01/17 10:16 Dose: 0.25 mg Behavioural Document 06/01/17 10:16 [facility] (Rec: 06/01/17 10:16 [facility] [id number]) Maintenance Maintenance Dose Yes Nonmedicinal Nonmedicinal Interventions Therapeutic Communication Re-Assess: Reassess Psych Meds Document 06/01/17 11:16 [facility] (Rec: 06/01/17 14:01 [facility] [id number]) Reassess Psych Med Effective Zolpidem Tartrate (Ambien) 5 mg PO HS [facility] PRN Reason: Protocol Last Admin: 05/31/17 21:40 Dose: 5 mg Behavioural Document 05/31/17 21:40 [place] (Rec: 05/31/17 21:41 [place] [id number]) Maintenance Maintenance Dose Yes Re-Assess: Reassess Psych Meds Document 05/31/17 22:40 [place] (Rec: 06/01/17 02:28 [place] [id number]) Reassess Psych Med Effective - Scribe Statement The provider has reviewed the documentation as recorded by the Winstonibkait Solares Provider Scribe Attestation: All medical record entries made by the Scribe were at my direction and personally dictated by me. I have reviewed the chart and agree that the record accurately reflects my personal performance of the history, physical exam, medical decision making, and the department course for this patient. I have also personally directed, reviewed, and agree with the discharge instructions and disposition. Disposition/Present on Arrival - Present on Arrival Any Indicators Present on Arrival: No History of DVT/PE: No History of Uncontrolled Diabetes: No Urinary Catheter: Yes History of Decub. Ulcer: No History Surgical Site Infection Following: None - Disposition Have Diagnosis and Disposition been Completed?: Yes Diagnosis: Hematuria Disposition: HOSPITALIZED Disposition Time: 05:00 Condition: GOOD
[2017-05-31 08:31] LABS: BASO # 0.04 K/mm3 (0.0-2.0); BASO % 0.5 % (0.0-3.0); EOS # 0.3 (0.0-0.7); GRAN # 6.13 (1.4-6.5); GRAN % 71.1 % (50.0-68.0); HEMATOCRIT 37.6 % (42.0-52.0); LYMPH # 1.6 (1.2-3.4); LYMPH % 18.4 % (22.0-35.0); MEAN CORPUSCULAR HEMOGLOBIN 28.8 pg (25.0-35.0); MEAN CORPUSCULAR HGB CONC 31.6 g/dl (31.0-37.0); MEAN PLATELET VOLUME 9.6 fl (7.0-11.0); MONO # 0.6 (0.1-0.6); RED CELL DISTRIBUTION WIDTH 14.9 % (11.5-14.5); WHITE BLOOD COUNT 8.6 10^3/ul (4.5-11.0)
[2017-05-31 08:40] LABS: PARTIAL THROMBOPLASTIN TIME 29.6 Seconds (25.1-36.5)
[2017-05-31 09:02] LABS: ALB/GLOB RATIO 1.1 (1.1-1.8); ALKALINE PHOSPHATASE 84 U/L (38-126); ALT/SGPT 34 U/L (7-56); AST/SGOT 25 U/L (17-59); BILIRUBIN,TOTAL 0.4 mg/dL (0.2-1.3); BLOOD UREA NITROGEN 10 mg/dL (7-21); CARBON DIOXIDE 27 mmol/L (21-33); CHLORIDE 102 mmol/L (98-107); GFR AFRICAN-AMERICAN > 60; GLUCOSE,RANDOM 92 mg/dL (70-110); POTASSIUM 3.7 mmol/L (3.6-5.0); SODIUM 140 mmol/L (132-148); TOTAL PROTEIN 6.9 g/dL (5.8-8.3)
[2017-05-31 10:54] VITALS: O2SAT 95
--- NOTE | 2017-05-31 13:04 | CP.PCM.HP ---
<DaysisgRadha joe - Last Filed: 05/31/17 14:26> History of Present Illness - History of Present Illness History of Present Illness: CC: Hematuria since yesterday Mr. 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 Patient states last night his son noticed blood in the Shipman bag. Then this morning he noticed blood blood. Patient states this has never happened before. Patient thinks he might have pushed on the Shipman. Denies pain, denies burning, denies abdominal pain. Denies nausea, vomiting or diarrhea. No fever or chills. No dizziness, lightheadedness. 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 PShx: appendectomy, cholecystectomy, prostate surgery, hip surgery and decompressive laminectomy. FMHx: mom is alive age 98, has multiple medical problems, dad at age 78 from alcohol related issues. Social: former tobacco, stopped 1 yr and 9 months ago, denies alcohol or illicit drug use. Lives with son and . walks with a walker. Son helps with everything. Allergy: NKDA Home meds: please see emr for full list. Present on Admission - Present on Admission Any Indicators Present on Admission: No History of DVT/PE: Yes History of Uncontrolled Diabetes: No Urinary Catheter: No Decubitus Ulcer Present: No History Surgical Site Infection Following: None Review of Systems - Review of Systems All systems: reviewed and no additional remarkable complaints except Review of Systems: As per HPI. Past Patient History - Infectious Disease Hx of Infectious Diseases: None - Tetanus Immunizations Tetanus Immunization: Unknown - Past Social History Smoking Status: Former Smoker Alcohol: None Drugs: Denies Home Situation {Lives}: With Family - CARDIAC Hx Pacemaker: No - PULMONARY Hx Respiratory Disorders: Yes (SMOKES CIGARETTES 10 CIG) Hx Chronic Obstructive Pulmonary Disease (COPD): Yes - NEUROLOGICAL Hx Neurological Disorder: Yes HX Cerebrovascular Accident: Yes - HEENT Hx HEENT Problems: No - RENAL Hx Chronic Kidney Disease: No - ENDOCRINE/METABOLIC Hx Endocrine Disorders: No - HEMATOLOGICAL/ONCOLOGICAL Hx Blood Transfusions: No Hx Blood Transfusion Reaction: No - INTEGUMENTARY Hx Dermatological Problems: Yes (SKIN CA WITH SKIN DRYNESS,SKIN LUMPS AND INDENTATION.) Other/Comment: [id number] BUTTOCKS WITH REDDENEDRASH. IASD. BILATERAL GROIN RASH- IASD. SKIN FOLDS OF BREAST AND STOMACH FOLD-MASD - MUSCULOSKELETAL/RHEUMATOLOGICAL Hx Musculoskeletal Disorders: Yes (DECOMPRESSED LAMINECTOMY) - GASTROINTESTINAL Hx Gastrointestinal Disorders: Yes (GI BLEED) Hx Diverticulitis: Yes Hx Gall Bladder Disease: Yes (CholecYStectomy) Other/Comment: LARGE POLYP - GENITOURINARY/GYNECOLOGICAL Hx Genitourinary Disorders: Yes Hx Incontinence: Yes Hx Prostate Problems: Yes - PSYCHIATRIC Hx Emotional Abuse: No Hx Physical Abuse: No Hx Substance Use: No - SURGICAL HISTORY Hx Appendectomy: Yes Hx Orthopedic Surgery: Yes Other/Comment: prostate - ANESTHESIA Hx Anesthesia: No Hx Anesthesia Reactions: No Hx Malignant Hyperthermia: No Meds Allergies/Adverse Reactions: Allergies Allergy/AdvReac Type Severity Reaction Status Date / Time No Known Allergies Allergy Verified 10/09/16 19:54 Physical Exam - Constitutional Appears: No Acute Distress, Chronically Ill - Head Exam Head Exam: ATRAUMATIC, NORMAL INSPECTION, NORMOCEPHALIC - Eye Exam Eye Exam: Normal appearance Pupil Exam: NORMAL ACCOMODATION - ENT Exam ENT Exam: Mucous Membranes Moist - Neck Exam Neck exam: Positive for: Normal Inspection - Respiratory Exam Respiratory Exam: Clear to Auscultation Bilateral, NORMAL BREATHING PATTERN. absent: Rales, Rhonchi, Wheezes, Respiratory Distress, Stridor - Cardiovascular Exam Cardiovascular Exam: REGULAR RHYTHM, RRR, +S1, +S2 - GI/Abdominal Exam GI & Abdominal Exam: Normal Bowel Sounds, Soft. absent: Distended, Firm, Guarding, Rigid, Tenderness - Extremities Exam Extremities exam: Positive for: normal inspection - Back Exam Back exam: NORMAL INSPECTION - Neurological Exam Neurological exam: Alert, Oriented x3, Reflexes Normal - Psychiatric Exam Psychiatric exam: Normal Affect, Normal Mood - Skin Skin Exam: Dry, Intact, Warm Results - Vital Signs Recent Vital Signs: Last Vital Signs Temp 98.0 F 12/07/17 10:54 Pulse 72 05/31/17 10:54 Resp 18 05/31/17 10:54 BP 130/70 05/31/17 10:54 Pulse Ox 95 05/31/17 10:54 - Labs Result Diagrams: 05/31/17 08:20 05/31/17 08:20 Assessment & Plan - Assessment and Plan (Free Text) Assessment: Mr. Lopez kameron 71 y/o male with pmhx of stage IV hormone refractory prostate cancer (on zytegia and prednione) with bone metastasis with cord compression s/p decompressive laminectomy and XRT, with chronic indwelling Shipman catheter, previous remote hx of PE and DVT on Lovenox , h/o rectal bleeding after recent polypectomy on screening colonoscopy whom presented with hematuria likely due to trauma. Nurses were not able to change the Shipman catheter, thus patient is admitted on the floor pending urology eval. Plan: 1) Hematurtia likely due to trauma - Urology consulted - H/h stable - will continue to monitor 2) history of PE/DVT - Lovenox on hold pending urology eval 3) history stage 4 prostate cancer - patient to bring zytiga from home, continue with prednisone 4) h/o seizures- continue with keppra 5) Insomnia- c/w Ambien 6) Chronic indwelling Shipman catheter- will bring hiprex from home 7) COPD: Continue with brovana and pulmocort. No advair inhouse. 8) Htn- continue with cozaar 9) DVT and Gi prophylaxis: compressive device and protonix. Patient seen, examined and case discussed with Dr Clemens. - Date & Time Date: 05/31/17 Time: 14:20 <Ant Clemens P - Last Filed: 06/02/17 23:17> Results - Vital Signs Recent Vital Signs: Last Vital Signs Temp 98.5 F 06/01/17 08:49 Pulse 86 06/01/17 10:15 Resp 18 06/01/17 08:49 BP 122/73 06/01/17 10:15 Pulse Ox 95 06/01/17 08:49 - Labs Result Diagrams: 06/01/17 06:00 06/01/17 06:00 Attending/Attestation - Attestation I have personally seen and examined this patient.: Yes I have fully participated in the care of the patient.: Yes I have reviewed all pertinent clinical information: Yes
[2017-05-31 13:46] VITALS: BMI 27.8
[2017-05-31] MEDS ORDERED: Pneumococcal 23-Valent Vaccine IM ONE (13:47)
[2017-05-31] MEDS ORDERED: Influenza Vaccine 60 mcg/0.5 mL SYR (4YR UP) IM ONE (13:47)
--- NOTE | 2017-05-31 15:04 | CP.PCM.CON ---
History of Present Illness - History of Present Illness History of Present Illness: 71 year old male seen and evaluated at bedside for painful elongated nails. Patient hemodynamically stable and NAD. Patient states his nails cause him discomfort when wearing shoes and with ambulation. Denies N/V/F/D/C/SOB/calf pain. No other pedal complaints. Review of Systems - Review of Systems All systems: reviewed and no additional remarkable complaints except (as per HPI ) Past Patient History - Infectious Disease Hx of Infectious Diseases: None - Tetanus Immunizations Tetanus Immunization: Unknown - Past Social History Smoking Status: Former Smoker Alcohol: None Drugs: Denies Home Situation {Lives}: With Family - CARDIAC Hx Pacemaker: No - PULMONARY Hx Respiratory Disorders: Yes (SMOKES CIGARETTES 10 CIG) Hx Chronic Obstructive Pulmonary Disease (COPD): Yes - NEUROLOGICAL Hx Neurological Disorder: Yes HX Cerebrovascular Accident: Yes - HEENT Hx HEENT Problems: No - RENAL Hx Chronic Kidney Disease: No - ENDOCRINE/METABOLIC Hx Endocrine Disorders: No - HEMATOLOGICAL/ONCOLOGICAL Hx Blood Transfusions: No Hx Blood Transfusion Reaction: No - INTEGUMENTARY Hx Dermatological Problems: Yes (SKIN CA WITH SKIN DRYNESS,SKIN LUMPS AND INDENTATION.) Other/Comment: [id number] BUTTOCKS WITH REDDENEDRASH. IASD. BILATERAL GROIN RASH- IASD. SKIN FOLDS OF BREAST AND STOMACH FOLD-MASD - MUSCULOSKELETAL/RHEUMATOLOGICAL Hx Musculoskeletal Disorders: Yes (DECOMPRESSED LAMINECTOMY) - GASTROINTESTINAL Hx Gastrointestinal Disorders: Yes (GI BLEED) Hx Diverticulitis: Yes Hx Gall Bladder Disease: Yes (CholecYStectomy) Other/Comment: LARGE POLYP - GENITOURINARY/GYNECOLOGICAL Hx Genitourinary Disorders: Yes Hx Incontinence: Yes Hx Prostate Problems: Yes - PSYCHIATRIC Hx Emotional Abuse: No Hx Physical Abuse: No Hx Substance Use: No - SURGICAL HISTORY Hx Appendectomy: Yes Hx Orthopedic Surgery: Yes Other/Comment: prostate - ANESTHESIA Hx Anesthesia: No Hx Anesthesia Reactions: No Hx Malignant Hyperthermia: No Meds Allergies/Adverse Reactions: Allergies Allergy/AdvReac Type Severity Reaction Status Date / Time No Known Allergies Allergy Verified 10/09/16 19:54 - Medications Medications: Current Medications Arformoterol Tartrate (Brovana) 15 mcg IH [id number] NIALL Budesonide (Pulmicort Respules) 0.5 mg IH [id number] NIALL Home Med (Home Med) 1 unit PO DAILY NIALL Home Med (Home Med) 1 unit PO DAILY NIALL Levetiracetam (Keppra) 500 mg PO BID NIALL Losartan Potassium (Cozaar) 25 mg PO DAILY NIALL Nystatin/Triamcinolone Acetonide (Nystatin/Triamcinolone Cream) 0 ea TOP BID NIALL Pantoprazole Sodium (Protonix Ec Tab) 20 mg PO DAILY NIALL Prednisone (Prednisone Tab) 5 mg PO BID NIALL Risperidone (Risperdal Tab) 0.25 mg PO BID NIALL PRN Reason: Protocol Zolpidem Tartrate (Ambien) 5 mg PO HS NIALL PRN Reason: Protocol Physical Exam - Constitutional Appears: Well, Non-toxic, No Acute Distress - Extremities Exam Additional comments: VASC: DP and PT pulses palpable. CFT WNL b/l. Temperature gradient warm to warm. No edema noted. NEURO: Gross sensation intact bilaterally. DERM: Nails 1-5 are thickened, elongated, and dystrophic with the presence of subungual debris. No open lesions noted. Erythema and xerosis noted to plantar aspect of foot b/l in a moccasin distribution. ORTHO: Tenderness to palpation nails 1-5 b/l. - Neurological Exam Neurological exam: Alert, Oriented x3 - Psychiatric Exam Psychiatric exam: Normal Affect, Normal Mood Results - Vital Signs Recent Vital Signs: Last Vital Signs Temp 97.7 F 05/31/17 13:07 Pulse 95 H 05/31/17 13:07 Resp 17 05/31/17 13:07 BP 138/101 H 05/31/17 13:07 Pulse Ox 95 05/31/17 10:54 - Labs Result Diagrams: 05/31/17 08:20 05/31/17 08:20 Assessment & Plan - Assessment and Plan (Free Text) Assessment: 71 year old male with onychomycosis Plan: Patient seen and evaluated at bedside with attending, Dr. Miller Labs and vitals reviewed Nails 1-5 b/l debrided in thickness and length without incident Stable per podiatry standpoint Thank you for the consult, please reconsult podiatry as needed Will sign off at this time.
[2017-05-31 17:40] VITALS: RESP 18
[2017-05-31] MEDS ORDERED: Nystatin-Triamcinolone Cream(30 gm) TOP SCH (18:00)
--- NOTE | 2017-05-31 18:38 | CARD ---
APPROVED REPORT EKG Measurement Heart [id number] <Conclusion> Sinus rhythm with 1st degree AV block with premature supraventricular complexes Pulmonary disease pattern Left anterior fascicular block Prolonged QT Abnormal ECG
[2017-05-31] MEDS: Arformoterol 15 mcg/2 ml Inh Sol IH SCH (19:37)
[2017-05-31] MEDS: Budesonide 0.5 mg/2 ml Inhal Susp UD IH SCH (19:37)
--- NOTE | 2017-06-01 01:39 | CON ---
CONSULTATION DATE: 05/31/2017 CHIEF COMPLAINT: Gross hematuria. HISTORY OF PRESENT ILLNESS: This is a 71-year-old male with known stage IV metastatic prostate cancer, COPD, hypertension and DVT. The patient has a history of urinary retention for many years and has been managed with a chronic indwelling Shipman, which is changed monthly. The patient reports taking Lovenox injections at home as he had a DVT and a large pulmonary embolus in the past. Yesterday, the patient had some blood in the Shipman catheter, this seemed to worsen overnight and the patient was brought to the hospital. In the emergency room, the Shipman catheter was changed, bladder was irrigated, and the patient was started on CBI. No noted fever or chills. There is question that the patient may have pulled the Shipman unintentionally yesterday. PAST MEDICAL HISTORY: Significant for metastatic prostate cancer, COPD, hypertension, skin cancer, DVT, pulmonary embolus. MEDICATIONS: Currently include Ambien, Brovana, Cozaar, Keppra, nystatin, prednisone, Protonix, Pulmicort and Risperdal. ALLERGIES: NO KNOWN DRUG ALLERGIES. FAMILY HISTORY: Noncontributory. SOCIAL HISTORY: No smoking or EtOH use. REVIEW OF SYSTEMS: The patient is awake, alert and answering questions. He reports gross hematuria. He denies any chest pain or palpitations. Denies any cough or shortness of breath. He denies any acute bony pain or any acute problems other than the gross hematuria. All systems were asked and the patient denied any other significant symptoms. PHYSICAL EXAMINATION: GENERAL: The patient is awake, alert, answering questions. VITAL SIGNS: He is afebrile, temperature 97.7, pulse 95, respirations 16, BP 138/101. NECK: Supple. There is no noted adenopathy. CHEST: Reveals a normal inspiratory effort. CARDIAC: Shows positive S1 and S2. There is mild peripheral edema noted. ABDOMEN: The abdomen is soft, nontender, nondistended. There is no hepatosplenomegaly. There is no costovertebral angle tenderness. Bladder is not palpably distended. GENITOURINARY: Phallus has a splitting of the urethra down to the midshaft. There is a 3-way Shipman catheter in place, which is draining clear urine on slow CBI. Scrotum, mild edema. Testes bilaterally descended, nontender, no masses. Epididymides are normal. EXTREMITIES: No cyanosis. There is some mild peripheral edema noted. LABORATORY EXAMINATION: WBC count 8.6, hemoglobin 11.9. Creatinine 0.8 with GFR of greater than 60. No pertinent imaging was done. IMPRESSION AND PLAN: A 71-year-old male with metastatic prostate cancer. The patient has been maintained on Zytiga and prednisone and is reportedly doing very well with no evidence of active disease. Urologically, Shipman catheter with gross hematuria and this is likely from trauma to the Shipman catheter and the patient being on Lovenox. The plan for now will be to hold Lovenox temporarily. We will shut off the CBI at this point and if the urine remains clear, the patient can be discharged home with the Shipman catheter. From my standpoint, Shipman catheter should be changed on a regular schedule. The patient will restart Lovenox as per Dr. Clemens's instructions. He should continue the Zytiga and prednisone and continue his followup with Dr. Clemens regarding the metastatic prostate cancer. Lonnie Olivo MD
[2017-06-01 06:50] LABS: BASO # 0.04 K/mm3 (0.0-2.0); BASO % 0.5 % (0.0-3.0); EOS # 0.2 (0.0-0.7); GRAN # 5.29 (1.4-6.5); GRAN % 67.9 % (50.0-68.0); HEMATOCRIT 33.6 % (42.0-52.0); LYMPH # 1.7 (1.2-3.4); LYMPH % 21.9 % (22.0-35.0); MEAN CELL VOLUME 91.3 fl (80.0-105.0); MEAN CORPUSCULAR HEMOGLOBIN 28.8 pg (25.0-35.0); MEAN CORPUSCULAR HGB CONC 31.5 g/dl (31.0-37.0); MEAN PLATELET VOLUME 10.1 fl (7.0-11.0); MONO # 0.5 (0.1-0.6); MONO % 6.7 % (1.0-6.0); WHITE BLOOD COUNT 7.8 10^3/ul (4.5-11.0)
[2017-06-01 07:02] LABS: ALB/GLOB RATIO 1.1 (1.1-1.8); ALKALINE PHOSPHATASE 76 U/L (38-126); ALT/SGPT 39 U/L (7-56); AST/SGOT 24 U/L (17-59); BILIRUBIN,TOTAL 0.5 mg/dL (0.2-1.3); BLOOD UREA NITROGEN 10 mg/dL (7-21); CALCIUM 8.2 mg/dL (8.4-10.5); CARBON DIOXIDE 28 mmol/L (21-33); CHLORIDE 104 mmol/L (98-107); GFR AFRICAN-AMERICAN > 60; GLUCOSE,RANDOM 87 mg/dL (70-110); POTASSIUM 3.6 mmol/L (3.6-5.0); SODIUM 139 mmol/L (132-148); TOTAL PROTEIN 6.3 g/dL (5.8-8.3)
--- NOTE | 2017-06-01 07:20 | CP.PCM.DIS ---
<Radha Wahl - Last Filed: 06/01/17 11:04> Provider - Provider Date of Admission: 05/31/17 09:26 Attending physician: Brent Dawson MD Consults: Urology: Dr Pritchard Time Spent in preparation of Discharge (in minutes): 45 Diagnosis - Discharge Diagnosis (1) Urinary retention Status: Chronic (2) Hematuria Status: Resolved (3) Prostate carcinoma Status: Chronic Hospital Course - Lab Results Lab Results: Most Recent Lab Values WBC 7.8 10^3/ul (4.5-11.0) 06/01/17 06:00 RBC 3.68 10^6/uL (3.5-6.1) 06/01/17 06:00 Hgb 10.6 g/dL (14.0-18.0) L 06/01/17 06:00 Hct 33.6 % (42.0-52.0) L 06/01/17 06:00 MCV 91.3 fl (80.0-105.0) 06/01/17 06:00 MCH 28.8 pg (25.0-35.0) 06/01/17 06:00 MCHC 31.5 g/dl (31.0-37.0) 06/01/17 06:00 RDW 15.0 % (11.5-14.5) H 06/01/17 06:00 Plt Count 210 10^3/uL (120.0-450.0) 06/01/17 06:00 MPV 10.1 fl (7.0-11.0) 06/01/17 06:00 Gran % 67.9 % (50.0-68.0) 06/01/17 06:00 Lymph % (Auto) 21.9 % (22.0-35.0) L 06/01/17 06:00 Jessamine % (Auto) 6.7 % (1.0-6.0) H 06/01/17 06:00 Eos % (Auto) 3.0 % (1.5-5.0) 06/01/17 06:00 Baso % (Auto) 0.5 % (0.0-3.0) 06/01/17 06:00 Gran # 5.29 (1.4-6.5) 06/01/17 06:00 Lymph # 1.7 (1.2-3.4) 06/01/17 06:00 Jessamine # 0.5 (0.1-0.6) 06/01/17 06:00 Eos # 0.2 (0.0-0.7) 06/01/17 06:00 Baso # 0.04 K/mm3 (0.0-2.0) 06/01/17 06:00 PT 11.0 SECONDS (9.4-12.5) 05/31/17 08:20 INR 1.00 (0.93-1.08) 05/31/17 08:20 APTT 29.6 Seconds (25.1-36.5) 05/31/17 08:20 Sodium 139 mmol/L (132-148) 06/01/17 06:00 Potassium 3.6 mmol/L (3.6-5.0) 06/01/17 06:00 Chloride 104 mmol/L (98-107) 06/01/17 06:00 Carbon Dioxide 28 mmol/L (21-33) 06/01/17 06:00 Anion Gap 12 (10-20) 06/01/17 06:00 BUN 10 mg/dL (7-21) 06/01/17 06:00 Creatinine 0.7 mg/dl (0.8-1.5) L 06/01/17 06:00 Est GFR ( Amer) > 60 06/01/17 06:00 Est GFR (Non-Af Amer) > 60 06/01/17 06:00 Random Glucose 87 mg/dL (70-110) 06/01/17 06:00 Calcium 8.2 mg/dL (8.4-10.5) L 06/01/17 06:00 Total Bilirubin 0.5 mg/dL (0.2-1.3) 06/01/17 06:00 AST 24 U/L (17-59) 06/01/17 06:00 ALT 39 U/L (7-56) 06/01/17 06:00 Alkaline Phosphatase 76 U/L (38-126) 06/01/17 06:00 Total Protein 6.3 g/dL (5.8-8.3) 06/01/17 06:00 Albumin 3.2 g/dL (3.0-4.8) 06/01/17 06:00 Globulin 3.1 gm/dL 06/01/17 06:00 Albumin/Globulin Ratio 1.1 (1.1-1.8) 06/01/17 06:00 - Hospital Course Hospital Course: Mr. Lopez kameron 71 y/o male with pmhx of stage IV hormone refractory prostate cancer (on zytega and prednione) with bone metastasis with cord compression s/p decompressive laminectomy and XRT, with chronic indwelling Willson catheter, previous remote hx of PE and DVT on Lovenox , h/o rectal bleeding after recent polypectomy on screening colonoscopy whom presented with hematuria. Attempts were made to change willson in the ED, with no success. Patient's private urologist, Dr Madera was contacted, and his partner Dr Olivo recommended patient be admitted for CBI. CBI was performed, Willson catheter replaced and patient was observed overnight, with resolution of the hematuria. Hematuria was deemed to be likely 2nd to Lovenox and trauma. Lovenox was held, and to be resumed this Sunday at home. Furthermore, patient had infected looking toe nails, patient requested demurrage clerk consult to help trim the nails. Patient was also noted to have rashes on the arm pit, and buttocks region, nystatin was applied to the region. Script for nystatin sent to patient's pharmacy. Patient to be discharged and to fallow up with Dr Clemens as outpatient. Diet: heart healthy Activity: encouraged ambulation as tolerated with the help from a family member. - Date & Time of H&P Date of H&P: 06/01/17 Time of H&P: 13:03 Discharge Exam - Head Exam Head Exam: ATRAUMATIC, NORMAL INSPECTION, NORMOCEPHALIC - Eye Exam Eye Exam: Normal appearance Pupil Exam: NORMAL ACCOMODATION - ENT Exam ENT Exam: Mucous Membranes Moist - Neck Exam Neck exam: Normal Inspection - Respiratory Exam Respiratory Exam: Clear to PA & Lateral, NORMAL BREATHING PATTERN, UNREMARKABLE. absent: Prolonged Expiratory Phase, Rales, Rhonchi, Wheezes, Respiratory Distress, Stridor - Cardiovascular Exam Cardiovascular Exam: REGULAR RHYTHM, RRR, +S1, +S2 - GI/Abdominal Exam GI & Abdominal Exam: Normal Bowel Sounds, Unremarkable. absent: Distended, Firm , Guarding, Rigid, Soft, Tenderness - Extremities Exam Extremities exam: normal inspection - Back Exam Back exam: NORMAL INSPECTION - Neurological Exam Neurological exam: Alert, Oriented x3, Reflexes Normal - Psychiatric Exam Psychiatric exam: Normal Affect, Normal Mood - Skin Skin Exam: Dry, Intact, Normal Color, Warm Discharge Plan - Discharge Medications Prescriptions: Nystatin/Triamcinolone [Nystatin/Triamcinolone Cream] 1 tub TOP BID 30 Days #1 tube - Follow Up Plan Condition: GOOD Disposition: HOME/ ROUTINE Patient education suggested?: Yes Instructions: Urinary Retention in Men (GEN), Acute Hematuria (DC) Additional Instructions: Hold off Lovenox and start it on Sunday Follow up with Dr Clemens as scheduled Continue with the rest of your medications Use the nystatin cream for the rash area ( sent to your pharmacy). If there is a return of your symptoms, please go to the ER. If you experience shortness of breath, chest pain or unusual bleeding, please call 911 or go to the ER. Referrals: Ant Clemens MD [Staff Provider] - Zohaib Pritchard MD [Staff Provider] - <Ant Clemens - Last Filed: 06/02/17 22:57> Provider - Provider Date of Admission: 05/31/17 09:26 Attending physician: Brent Dawson MD Hospital Course - Lab Results Lab Results: Most Recent Lab Values WBC 7.8 10^3/ul (4.5-11.0) 06/01/17 06:00 RBC 3.68 10^6/uL (3.5-6.1) 06/01/17 06:00 Hgb 10.6 g/dL (14.0-18.0) L 06/01/17 06:00 Hct 33.6 % (42.0-52.0) L 06/01/17 06:00 MCV 91.3 fl (80.0-105.0) 06/01/17 06:00 MCH 28.8 pg (25.0-35.0) 06/01/17 06:00 MCHC 31.5 g/dl (31.0-37.0) 06/01/17 06:00 RDW 15.0 % (11.5-14.5) H 06/01/17 06:00 Plt Count 210 10^3/uL (120.0-450.0) 06/01/17 06:00 MPV 10.1 fl (7.0-11.0) 06/01/17 06:00 Gran % 67.9 % (50.0-68.0) 06/01/17 06:00 Lymph % (Auto) 21.9 % (22.0-35.0) L 06/01/17 06:00 Jessamine % (Auto) 6.7 % (1.0-6.0) H 06/01/17 06:00 Eos % (Auto) 3.0 % (1.5-5.0) 06/01/17 06:00 Baso % (Auto) 0.5 % (0.0-3.0) 06/01/17 06:00 Gran # 5.29 (1.4-6.5) 06/01/17 06:00 Lymph # 1.7 (1.2-3.4) 06/01/17 06:00 Jessamine # 0.5 (0.1-0.6) 06/01/17 06:00 Eos # 0.2 (0.0-0.7) 06/01/17 06:00 Baso # 0.04 K/mm3 (0.0-2.0) 06/01/17 06:00 PT 11.0 SECONDS (9.4-12.5) 05/31/17 08:20 INR 1.00 (0.93-1.08) 05/31/17 08:20 APTT 29.6 Seconds (25.1-36.5) 05/31/17 08:20 Sodium 139 mmol/L (132-148) 06/01/17 06:00 Potassium 3.6 mmol/L (3.6-5.0) 06/01/17 06:00 Chloride 104 mmol/L (98-107) 06/01/17 06:00 Carbon Dioxide 28 mmol/L (21-33) 06/01/17 06:00 Anion Gap 12 (10-20) 06/01/17 06:00 BUN 10 mg/dL (7-21) 06/01/17 06:00 Creatinine 0.7 mg/dl (0.8-1.5) L 06/01/17 06:00 Est GFR ( Amer) > 60 06/01/17 06:00 Est GFR (Non-Af Amer) > 60 06/01/17 06:00 Random Glucose 87 mg/dL (70-110) 06/01/17 06:00 Calcium 8.2 mg/dL (8.4-10.5) L 06/01/17 06:00 Total Bilirubin 0.5 mg/dL (0.2-1.3) 06/01/17 06:00 AST 24 U/L (17-59) 06/01/17 06:00 ALT 39 U/L (7-56) 06/01/17 06:00 Alkaline Phosphatase 76 U/L (38-126) 06/01/17 06:00 Total Protein 6.3 g/dL (5.8-8.3) 06/01/17 06:00 Albumin 3.2 g/dL (3.0-4.8) 06/01/17 06:00 Globulin 3.1 gm/dL 06/01/17 06:00 Albumin/Globulin Ratio 1.1 (1.1-1.8) 06/01/17 06:00 Attending/Attestation - Attestation I have personally seen and examined this patient.: Yes I have fully participated in the care of the patient.: Yes I have reviewed all pertinent clinical information, including history, physical exam and plan: Yes
[2017-06-01] MEDS: Arformoterol 15 mcg/2 ml Inh Sol IH SCH (08:19)
[2017-06-01] MEDS: Budesonide 0.5 mg/2 ml Inhal Susp UD IH SCH (08:19)
[2017-06-01 08:50] VITALS: BP 122/73; PULSE 86; TEMP 98.5
[2017-06-01] MEDS ORDERED: Fluticasone-Salmeterol 250-50mcg Diskus IH SCH (10:00)
[2017-06-01] MEDS ORDERED: ZYTIGA 250 MG PO SCH (10:00)
[2017-06-01] MEDS ORDERED: HIPREX 1 GM PO SCH (10:00)
[2017-06-01] MEDS ORDERED: Pantoprazole 20 mg EC Tab PO SCH (10:00)
[2017-06-01] MEDS ORDERED: Influenza Vaccine 60 mcg/0.5 mL SYR (4YR UP) IM ONE (14:46)
== END 2017-06-01 15:56 | disposition home health service (06) | DRG 696 ==
LOC: ED 07:46 → ERH 09:26 → 3RNO 11:32
PROVIDERS: ADMIT Family Medicine; ATTEND Family Medicine
PROC: 0HBRXZZ Excision of Toe Nail, External Approach (ICD-10-PCS; principal; 2017-05-31)
PROC: 0HBRXZZ Excision of Toe Nail, External Approach (ICD-10-PCS; 2017-05-31)
PROC: 0HBRXZZ Excision of Toe Nail, External Approach (ICD-10-PCS; 2017-05-31)
PROC: 0HBRXZZ Excision of Toe Nail, External Approach (ICD-10-PCS; 2017-05-31)
PROC: 0HBRXZZ Excision of Toe Nail, External Approach (ICD-10-PCS; 2017-05-31)
PROC: 0HBRXZZ Excision of Toe Nail, External Approach (ICD-10-PCS; 2017-05-31)
PROC: 0HBRXZZ Excision of Toe Nail, External Approach (ICD-10-PCS; 2017-05-31)
PROC: 0HBRXZZ Excision of Toe Nail, External Approach (ICD-10-PCS; 2017-05-31)
PROC: 0HBRXZZ Excision of Toe Nail, External Approach (ICD-10-PCS; 2017-05-31)
PROC: 0HBRXZZ Excision of Toe Nail, External Approach (ICD-10-PCS; 2017-05-31)
DX: R31.0 Gross hematuria (principal); C79.51 Secondary malignant neoplasm of bone; C61 Malignant neoplasm of prostate; R33.9 Retention of urine, unspecified; B35.1 Tinea unguium; I10 Essential (primary) hypertension; G40.909 Epilepsy, unspecified, not intractable, without status epilepticus; J44.9 Chronic obstructive pulmonary disease, unspecified; Y84.6 Urinary catheterization as the cause of abnormal reaction of the patient, or of later complication, without mention of misadventure at the time of the procedure; R21 Rash and other nonspecific skin eruption; Z86.711 Personal history of pulmonary embolism; Z87.891 Personal history of nicotine dependence; Z86.718 Personal history of other venous thrombosis and embolism; Z79.01 Long term (current) use of anticoagulants; Z79.52 Long term (current) use of systemic steroids; Z85.828 Personal history of other malignant neoplasm of skin; Z79.890 Hormone replacement therapy

== ENCOUNTER 2018-03-21 21:26 | Inpatient (IN) | payer MEDICARE, OTHER ==
[2018-03-21 21:41] VITALS: BMI 26.4
--- NOTE | 2018-03-21 21:58 | ED PDOC ---
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 Patient states onset of symptoms after coming back from the doctor's office this morning and has been unchanged since then. Patient informs good compliance with diet and fluid intake and denies any recent changes to physical exertion. Patient denies any other associated symptoms. Patient denies any fever, chills, nausea, vomiting, diarrhea, abdominal pain, chest pain, shortness of breath, back pain, neck pain, headache or any other complaints. Patient states he has a reducible ventral hernia but denies any discomfort to the area. PMD: Dr. Sandhu Oncologist: Dr. Clemens Time/Duration: 4-6 hours Symptom Onset: Gradual Symptom Course: Unchanged Activities at Onset: Light Context: Home Past Medical History - Provider Review Nursing Documentation Reviewed: Yes - Past History Past History: No Previous - Infectious Disease Hx of Infectious Diseases: None - Tetanus Immunization Tetanus Immunization: Unknown - Cardiac Hx Pacemaker: No - Pulmonary Hx Respiratory Disorders: Yes (SMOKES CIGARETTES 10 CIG) Hx Chronic Obstructive Pulmonary Disease (COPD): Yes - Neurological Hx Neurological Disorder: Yes HX Cerebrovascular Accident: Yes - HEENT Hx HEENT Disorder: No - Renal Hx Renal Disorder: No - Endocrine/Metabolic Hx Endocrine Disorders: No - Hematological/Oncological Hx Blood Transfusions: No Hx Blood Transfusion Reaction: No - Integumentary Hx Dermatological Disorder: Yes (SKIN CA WITH SKIN DRYNESS,SKIN LUMPS AND INDENTATION.) Other/Comment: [id number] BUTTOCKS WITH REDDENEDRASH. IASD. BILATERAL GROIN RASH- IASD. SKIN FOLDS OF BREAST AND STOMACH FOLD-MASD - Musculoskeletal/Rheumatological Hx Musculoskeletal Disorders: Yes (DECOMPRESSED LAMINECTOMY) - Gastrointestinal Hx Gastrointestinal Disorders: Yes (GI BLEED) Hx Diverticulitis: Yes Hx Gall Bladder Disease: Yes (CholecYStectomy) Other/Comment: LARGE POLYP - Genitourinary/Gynecological Hx Genitourinary Disorders: Yes Hx Incontinence: Yes Hx Prostate Problems: Yes - Psychiatric Hx Emotional Abuse: No Hx Physical Abuse: No Hx Substance Use: No - Surgical History Hx Appendectomy: Yes Hx Orthopedic Surgery: Yes Other/Comment: prostate - Anesthesia Hx Anesthesia: No Hx Anesthesia Reactions: No Hx Malignant Hyperthermia: No - Suicidal Assessment Feels Threatened In Home Enviroment: No Family/Social History - Physician Review Nursing Documentation Reviewed: Yes Family/Social History: No Known Family HX Smoking Status: Current Some Days Smoker Hx Alcohol Use: No Hx Substance Use: No Hx Substance Use Treatment: No Allergies/Home Meds Allergies/Adverse Reactions: Allergies No Known Allergies Allergy (Verified 10/09/16 19:54) Home Medications: Home Meds Medication Instructions Recorded Confirmed Enoxaparin [Lovenox] 40 mg SC DAILY 11/09/13 03/21/18 Losartan [Cozaar] 25 mg PO DAILY 03/22/14 03/21/18 Ergocalciferol (Vitamin D2) 50,000 unit PO QWK 08/07/16 03/21/18 [Vitamin D] Fluticasone/Salmeterol 250/50 1 dsk IH DAILY 08/07/16 03/21/18 [Advair Diskus 250/50] Pantoprazole [Protonix EC Tab] 20 mg PO DAILY 08/07/16 03/21/18 Prednisone [Orin] 5 mg PO BID 08/07/16 03/21/18 Risperidone [Risperdal] 0.25 mg PO BID 08/07/16 03/21/18 Zolpidem [Ambien] 5 mg PO HS 08/07/16 03/21/18 Abiraterone Acetate [Zytiga] 250 mg PO DAILY 10/09/16 03/21/18 Methenamine Hippurate [Hiprex] 1 gm PO DAILY 05/31/17 03/21/18 Review of Systems - Physician Review All systems were reviewed & negative as marked: Yes - Review of Systems Constitutional: Other (generalized weakness). absent: Fevers Respiratory: absent: SOB Cardiovascular: absent: Chest Pain Gastrointestinal: absent: Abdominal Pain, Diarrhea, Nausea, Vomiting Musculoskeletal: absent: Back Pain, Neck Pain Neurological: absent: Headache, Dizziness Physical Exam Vital Signs Reviewed: Yes Vital Signs Temp Pulse Resp BP Pulse Ox 03/21/18 21:41 98.9 F 96 H 18 128/82 94 L Temperature: Afebrile Blood Pressure: Normal Pulse: Regular Respiratory Rate: Normal Appearance: Positive for: Well-Appearing, Non-Toxic, Comfortable Pain Distress: None Mental Status: Positive for: Alert and Oriented X 3 - Systems Exam Head: Present: Atraumatic, Normocephalic Pupils: Present: PERRL Extroacular Muscles: Present: EOMI Conjunctiva: Present: Normal Mouth: Present: Moist Mucous Membranes Neck: Present: Normal Range of Motion Respiratory/Chest: Present: Clear to Auscultation, Good Air Exchange. No: Respiratory Distress, Accessory Muscle Use Cardiovascular: Present: Regular Rate and Rhythm, Normal S1, S2. No: Murmurs Abdomen: Present: Hernias (reducible ventral hernia). No: Tenderness, Distention, Peritoneal Signs Back: Present: Normal Inspection Upper Extremity: Present: Normal Inspection. No: Cyanosis, Edema Lower Extremity: Present: Normal Inspection. No: Edema Neurological: Present: GCS=15, CN II-XII Intact, Speech Normal Skin: Present: Warm, Dry, Normal Color. No: Rashes Psychiatric: Present: Alert, Oriented x 3, Normal Insight, Normal Concentration Medical Decision Making ED Course and Treatment: 03/21/18 22:01 Impression: 72 year old male presents to the Emergency Department complaining of generalized weakness. Differential Diagnosis included but are not limited to: Infection vs. dehydration Plan: -- VBG -- EKG -- Labs -- Chest X-ray -- Blood Culture -- Urine Culture -- Procalcitonin -- Reassess and disposition Prior Visits: Notes and results from previous visits were reviewed. Progress Notes: 03/21/18 22:36: Code sepsis called. 03/21/18 23:14: Case discussed in detail with Dr. Clemens who requested a consult with Dr. Rich for ID. Patient's treated with Rocephin. Dr. Clemens recommended placing the patient only on observation and he will reassess patient tomorrow morning. - RAD Interpretation Radiology Orders: 03/21/18 21:49 CHEST PORTABLE [RAD] Stat - Scribe Statement The provider has reviewed the documentation as recorded by the Scribe Tayler Olsen. All medical record entries made by the Scribe were at my direction and personally dictated by me. I have reviewed the chart and agree that the record accurately reflects my personal performance of the history, physical exam, medical decision making, and the department course for this patient. I have also personally directed, reviewed, and agree with the discharge instructions and disposition. Disposition/Present on Arrival - Present on Arrival Any Indicators Present on Arrival: Yes History of DVT/PE: No History of Uncontrolled Diabetes: No Urinary Catheter: Yes History of Decub. Ulcer: No History Surgical Site Infection Following: None - Disposition Have Diagnosis and Disposition been Completed?: Yes Diagnosis: UTI (urinary tract infection), Weakness Disposition: HOSPITALIZED Disposition Time: 23:17 Patient Plan: Observation Condition: FAIR Discharge Instructions (ExitCare): Weakness (ED) Referrals: Shay Sandhu MD [Primary Care Provider] - Follow up with primary Forms: [email or web address] (Slovak)
[2018-03-21 22:20] LABS: VENOUS BLOOD GAS BASE EXCESS -1.3 mmol/L (0.0-2.0); VENOUS BLOOD GAS PO2 75 mm/Hg (30-55); VENOUS BLOOD PH 7.38 (7.32-7.43)
[2018-03-21 22:25] LABS: BASO # 0.03 K/mm3 (0.0-2.0); BASO % 0.3 % (0.0-3.0); EOS % 0.3 % (1.5-5.0); GRAN % 89.9 % (50.0-68.0); HEMOGLOBIN 11.5 g/dL (14.0-18.0); LYMPH # 0.5 (1.2-3.4); LYMPH % 4.7 % (22.0-35.0); MEAN CELL VOLUME 87.3 fl (80.0-105.0); MEAN CORPUSCULAR HEMOGLOBIN 28.7 pg (25.0-35.0); MEAN CORPUSCULAR HGB CONC 32.9 g/dl (31.0-37.0); MONO # 0.5 (0.1-0.6); MONO % 4.8 % (1.0-6.0); PLATELET COUNT 248 10^3/uL (120.0-450.0); RBC 4.01 10^6/uL (3.5-6.1); RED CELL DISTRIBUTION WIDTH 14.5 % (11.5-14.5); WHITE BLOOD COUNT 11.3 10^3/ul (4.5-11.0)
[2018-03-21] MEDS ORDERED: cefTRIAXone 1 gm 1 GM/100 ML BAG IVPB STA (22:35)
[2018-03-21] MEDS ORDERED: Sodium Chloride 0.9% 1,000 ML IV STA (22:35)
[2018-03-21 22:39] LABS: INR 0.97; PARTIAL THROMBOPLASTIN TIME 26.5 Seconds (25.1-36.5)
[2018-03-21 22:40] LABS: ALB/GLOB RATIO 1.2 (1.1-1.8); ALBUMIN 3.8 g/dL (3.0-4.8); ALT/SGPT 72 U/L (7-56); AST/SGOT 39 U/L (17-59); BLOOD UREA NITROGEN 13 mg/dL (7-21); CALCIUM 9.1 mg/dL (8.4-10.5); GFR NON-AFRICAN AMERICAN > 60
[2018-03-21 23:22] LABS: BASOPHIL 1 % (0.0-1.0); LYMPHOCYTE 7 % (22.0-35.0); MONOCYTE 5 % (1.0-6.0); NEUTROPHIL 87 % (50.0-70.0); PLATELET ESTIMATE NORMAL (NORMAL)
[2018-03-22 00:17] LABS: URINE BILIRUBIN NEGATIVE (NEGATIVE); URINE BLOOD MODERATE (NEGATIVE); URINE GLUCOSE (UA) NEGATIVE (NEGATIVE); URINE LEUKOCYTE ESTERASE LARGE Leu/uL (NEGATIVE); URINE PROTEIN TRACE mg/dL (<30 mg/dL); URINE UROBILINOGEN 0.2 E.U./dL (<1 E.U./dL)
[2018-03-22 00:19] LABS: URINE APPEARANCE SL CLOUDY (CLEAR); URINE COLOR YELLOW (YELLOW)
[2018-03-22 00:30] LABS: URINE BACTERIA SMALL (NEG); URINE EPITHELIAL CELLS 0 - 2 /hpf (0-5)
[2018-03-22 02:14] LABS: VENOUS BLOOD GAS BASE EXCESS -1.1 mmol/L (0.0-2.0); VENOUS BLOOD GAS PO2 47 mm/Hg (30-55)
--- NOTE | 2018-03-22 04:21 | PCM.SEPTIC ---
<Nabila Call - Last Filed: 03/23/18 00:46> Sepsis Progress Note - Reassessment Type Date of Evaluation: 03/22/18 Time of Evaluation: 04:20 Reassessment Type: Non-invasive reassessment - Non Invasive Reassessment Were the most recent vital sign reviewed: Yes Vital Sign (Latest): Temp Pulse Resp BP Pulse Ox 98.6 F 82 20 138/74 96 03/22/18 00:40 03/22/18 00:40 03/22/18 01:14 03/22/18 00:40 03/22/18 00:40 Cardiovascular: Yes: Regular Rate, Rhythm. No: Murmur Respiratory: Yes: Normal Breath Sounds. No: Crackles, Rales Capillary Refill: Normal (Less than 2 sec) Pulses: Normal Radial, Normal Dorsalis Pedis Skin: Warm, Dry <Megan Mcfarlane - Last Filed: 03/23/18 02:15> Sepsis Progress Note - Non Invasive Reassessment Vital Sign (Latest): Temp Pulse Resp BP Pulse Ox 97.9 F 85 20 150/98 H 95 03/23/18 00:12 03/23/18 00:12 03/23/18 00:12 03/23/18 00:12 03/23/18 00:12 Attending/Attestation - Attestation I have personally seen and examined this patient.: No I have fully participated in the care of the patient.: Yes I have reviewed all pertinent clinical information, including history, physical exam and plan: Yes
[2018-03-22] MEDS: Sodium Chloride 0.9% 1,000 ML IV SCH (05:15)
--- NOTE | 2018-03-22 08:08 | RAD ---
Date of service: 03/21/2018 HISTORY: Sepsis Patient COMPARISON: Portable chest 10/09/2016. FINDINGS: LUNGS: Left PICC unchanged in position. No right-sided airspace disease. Limited left basilar patchy airspace disease is in question potentially underlying small pleural effusion. No right pleural effusion. No pneumothorax bilaterally. PLEURA: As above. CARDIOVASCULAR: Stable cardiac silhouette. No pulmonary vascular congestion. OSSEOUS STRUCTURES: Thoracolumbar fusion hardware reiterated. VISUALIZED UPPER ABDOMEN: Normal. OTHER FINDINGS: None. IMPRESSION: Increased left basilar density may reflect increased small pleural effusion with underlying airspace disease not excluded.
--- NOTE | 2018-03-22 08:25 | CP.PCM.CON ---
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 Patient states he felt weak while walking yesterday and fell multiple times. Denies fever or chills. No nausea, vomiting or diarrhea. No focal weakness. Denies abdominal pain, no pain in the groin. Patient's Willson catheter was replaced in the ED. 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 PSHx: Appendectomy, cholecystectomy, prostate surgery, hip surgery and dec ompressive laminectomy. FMHx: Non contributory Social: former tobacco, denies alcohol or illicit drug use. Lives with son and . walks with a walker. Son helps with everything. Allergy: NKDA Home meds: Please see MAR for full list Review of Systems - Constitutional Constitutional: absent: Chills, Fatigue, Fever, Headache, Lethargy - EENT Eyes: absent: Blurred Vision, Pain Ears: absent: Dizziness Nose/Mouth/Throat: absent: Nasal Congestion, Neck Pain - Cardiovascular Cardiovascular: absent: Chest Pain, Edema, Lightheadedness, Syncope - Respiratory Respiratory: absent: Cough, Dyspnea, Wheezing - Gastrointestinal Gastrointestinal: absent: Abdominal Pain, Bloating, Nausea, Vomiting - Genitourinary Genitourinary: Urinary Incontinence (chronic willson catheter ), Freq UTI, Hx /R enal Surgery - Musculoskeletal Musculoskeletal: Deformity, Limited Range of Motion, Other (bone metastasis) - Integumentary Integumentary: Rash (on the neck and face, erythema, flaky scales. ) - Neurological Neurological: Abnormal Gait, Tremor, Other (recurrent falls.). absent: Diz ziness, Weakness - Psychiatric Psychiatric: absent: Anxiety - Endocrine Endocrine: Fatigue, Other (diabetic). absent: Palpitations - Hematologic/Lymphatic Hematologic: absent: Lymphadenopathy Past Patient History - Infectious Disease Hx of Infectious Diseases: None - Tetanus Immunizations Tetanus Immunization: Unknown - Past Social History Smoking Status: Former Smoker Alcohol: None Drugs: Denies Home Situation {Lives}: With Family - CARDIAC Hx Cardiac Disorders: Yes Hx Hypertension: Yes Hx Pacemaker: No - PULMONARY Hx Respiratory Disorders: Yes (SMOKES CIGARETTES 10 CIG) Hx Chronic Obstructive Pulmonary Disease (COPD): Yes - NEUROLOGICAL Hx Neurological Disorder: Yes HX Cerebrovascular Accident: Yes Hx Seizures: Yes - HEENT Hx HEENT Problems: No - RENAL Hx Chronic Kidney Disease: No - ENDOCRINE/METABOLIC Hx Endocrine Disorders: No - HEMATOLOGICAL/ONCOLOGICAL Hx Blood Disorders: Yes (sepsis) Hx Anemia: No Hx Cancer: Yes (prostate WITH METS TO BONES STAGE 4) Hx Chemotherapy: Yes (ON PILLS) - INTEGUMENTARY Hx Dermatological Problems: Yes (SKIN CA WITH SKIN DRYNESS,SKIN LUMPS AND INDENTATION.) Other/Comment: BILATERAL BUTTOCKS WITH REDDENEDRASH. IASD. SKIN FOLDS OF BREAST AND STOMACH FOLD-MASD - MUSCULOSKELETAL/RHEUMATOLOGICAL Hx Falls: Yes - GASTROINTESTINAL Hx Gastrointestinal Disorders: Yes (GI BLEED) Hx Diverticulitis: Yes Hx Gall Bladder Disease: Yes (CholecYStectomy) Other/Comment: LARGE POLYP - GENITOURINARY/GYNECOLOGICAL Hx Genitourinary Disorders: Yes Hx Incontinence: Yes Hx Prostate Problems: Yes Hx Urinary Tract Infection: Yes - PSYCHIATRIC Hx Emotional Abuse: No Hx Physical Abuse: No - SURGICAL HISTORY Hx Surgeries: Yes (laminectomy) Hx Appendectomy: Yes Hx Orthopedic Surgery: Yes Other/Comment: prostatectomy - ANESTHESIA Hx Anesthesia: No Hx Anesthesia Reactions: No Hx Malignant Hyperthermia: No Meds Allergies/Adverse Reactions: Allergies Allergy/AdvReac Type Severity Reaction Status Date / Time No Known Allergies Allergy Verified 10/09/16 19:54 - Medications Medications: Current Medications Sodium Chloride (Sodium Chloride 0.9%) 1,000 mls @ 30 mls/hr IV .Q24H [facility] Last Admin: 03/22/18 05:15 Dose: 30 mls/hr Zolpidem Tartrate (Ambien) 5 mg PO HS [facility]; Protocol Physical Exam - Constitutional Appears: No Acute Distress, Chronically Ill - Head Exam Head Exam: ATRAUMATIC, NORMAL INSPECTION, NORMOCEPHALIC - Eye Exam Eye Exam: EOMI, Normal appearance Pupil Exam: NORMAL ACCOMODATION - ENT Exam ENT Exam: Mucous Membranes Moist - Neck Exam Neck exam: Positive for: Normal Inspection - Respiratory Exam Respiratory Exam: Clear to Auscultation Bilateral, NORMAL BREATHING PATTERN. absent: Rales, Rhonchi, Wheezes, Respiratory Distress, Stridor - Cardiovascular Exam Cardiovascular Exam: REGULAR RHYTHM, +S1, +S2 - GI/Abdominal Exam GI & Abdominal Exam: Normal Bowel Sounds, Soft. absent: Distended, Firm, Guarding, Rigid, Tenderness Additional comments: Obese abdomen. - Extremities Exam Extremities exam: Negative for: tenderness Additional comments: Chronic skin discoloration. - Back Exam Back exam: tenderness. absent: CVA tenderness (L), CVA tenderness (R) - Neurological Exam Neurological exam: Alert, Oriented x3 - Psychiatric Exam Psychiatric exam: Normal Affect, Normal Mood - Skin Skin Exam: Rash (multiple scaly rashes on the face and neck with erythema.), Warm Results - Vital Signs Recent Vital Signs: Last Vital Signs Temp 97.7 F 03/22/18 01:00 Pulse 84 03/22/18 01:00 Resp 20 03/22/18 01:14 BP 153/86 H 03/22/18 01:00 Pulse Ox 95 03/22/18 01:00 - Labs Result Diagrams: 03/21/18 22:19 03/21/18 22:19 Labs: Laboratory Results - last 24 hr 03/21/18 03/21/18 03/21/18 22:16 22:19 22:19 WBC 11.3 H D RBC 4.01 Hgb 11.5 L Hct 35.0 L MCV 87.3 D MCH 28.7 MCHC 32.9 RDW 14.5 Plt Count 248 MPV 9.0 Gran % 89.9 H Lymph % (Auto) 4.7 L [place] % (Auto) 4.8 Eos % (Auto) 0.3 L Baso % (Auto) 0.3 Gran # 10.20 H Lymph # (Auto) 0.5 L [place] # (Auto) 0.5 Eos # (Auto) 0.0 Baso # (Auto) 0.03 Neutrophils % (Manual) 87 H Lymphocytes % (Manual) 7 L Monocytes % (Manual) 5 Basophils % (Manual) 1 Platelet Evaluation Normal PT 11.0 INR 0.97 APTT 26.5 pO2 75 H VBG pH 7.38 VBG pCO2 40.0 VBG HCO3 23.7 VBG Total CO2 24.9 VBG O2 Sat (Calc) 95.8 H VBG Base Excess -1.3 L VBG Potassium 3.7 Sodium 131.0 L Chloride 98.0 Glucose 124 H Lactate 3.7 H FiO2 21.0 Potassium Carbon Dioxide Anion Gap BUN Creatinine Est GFR ( Amer) Est GFR (Non-Af Amer) Random Glucose Calcium Phosphorus Magnesium Total Bilirubin AST ALT Alkaline Phosphatase Total Protein Albumin Globulin Albumin/Globulin Ratio Venous Blood Potassium 3.7 Urine Color Urine Appearance Urine pH Ur Specific [place] Urine Protein Urine Glucose (UA) Urine Ketones Urine Blood Urine Nitrate Urine Bilirubin Urine Urobilinogen Ur Leukocyte Esterase Urine RBC Urine WBC Ur Epithelial Cells Urine Bacteria 03/21/18 03/22/18 03/22/18 22:19 00:04 01:50 WBC RBC Hgb Hct MCV MCH MCHC RDW Plt Count MPV Gran % Lymph % (Auto) [place] % (Auto) Eos % (Auto) Baso % (Auto) Gran # Lymph # (Auto) [place] # (Auto) Eos # (Auto) Baso # (Auto) Neutrophils % (Manual) Lymphocytes % (Manual) Monocytes % (Manual) Basophils % (Manual) Platelet Evaluation PT INR APTT pO2 47 VBG pH 7.30 L VBG pCO2 53.0 VBG HCO3 26.1 VBG Total CO2 27.7 VBG O2 Sat (Calc) 79.0 H VBG Base Excess -1.1 L VBG Potassium 3.5 L Sodium 132 135.0 Chloride 97 L 102.0 Glucose 144 H Lactate 2.2 H FiO2 21.0 Potassium 3.7 Carbon Dioxide 23 Anion Gap 16 BUN 13 Creatinine 0.9 Est GFR ( Amer) > 60 Est GFR (Non-Af Amer) > 60 Random Glucose 123 H Calcium 9.1 Phosphorus 3.3 Magnesium 1.8 Total Bilirubin 0.6 AST 39 ALT 72 H Alkaline Phosphatase 102 Total Protein 6.9 Albumin 3.8 Globulin 3.1 Albumin/Globulin Ratio 1.2 Venous Blood Potassium 3.5 L Urine Color Yellow Urine Appearance Sl cloudy Urine pH 7.0 Ur Specific [place] <= 1.005 Urine Protein Trace H Urine Glucose (UA) Negative Urine Ketones Negative Urine Blood Moderate H Urine Nitrate Negative Urine Bilirubin Negative Urine Urobilinogen 0.2 Ur Leukocyte Esterase Large H Urine RBC 2 - 5 Urine WBC 10 - 15 Ur Epithelial Cells 0 - 2 Urine Bacteria Small Assessment & Plan - Assessment and Plan (Free Text) Assessment: 72 y/o male with r/o UTI Less likely sepsis Chronic indwelling Willson catheter Weakness H/o multiple UTIs with pseudomona, enterococcus feacalus, ecoli, klebsiella Stage IV hormone refractory prostate cancer with bone metastasis with cord compression s/p decompressive laminectomy and XRT, on chemo, Prostate surgery Anemia CVA, seizures, h/o DVT/PE s/p IVC filter. H/o appendectomy, cholecystectomy, hip surgery Plan: On presentation patient's was afebrile, no tachycardia, and hemodynamically stable, wbc, mild leukocytosis. UA with large leukocyte esterase, moderate blood, trace protein, 10-15 wbc, small bacteria and 0-2 epithelial in the setting of chronic indwelling Willson catheter. S/p a dose of Rocephin in the ED. Patient is at risk for UTI, will start Cefepime 1gm q12 hour based on previous urine cultures. Blood and urine culture sent. Chest x-ray with small pleural effusions with airspace disease. Lactic acidosis, however less likely sepsis. Continue with medical management as per primary. Neurology consulted for weakness. Patient seen, examined and case discussed with Dr. Cruz. - Date & Time Date: 03/22/18 Time: 10:25 <Manan Cruz - Last Filed: 03/22/18 18:24> Meds - Medications Medications: Current Medications Arformoterol Tartrate (Brovana) 15 mcg IH [id number] [facility] Budesonide (Pulmicort Respules) 0.5 mg IH [id number] [facility] Enoxaparin Sodium (Lovenox) 40 mg SC DAILY [facility]; Protocol Last Admin: 03/22/18 13:34 Dose: 40 mg Ergocalciferol (Drisdol 50,000 Intl Units Cap) 1 cap PO Q7D [facility] Sodium Chloride (Sodium Chloride 0.9%) 1,000 mls @ 30 mls/hr IV .Q24H [facility] Last Admin: 03/22/18 05:15 Dose: 30 mls/hr Cefepime HCl (Maxipime 1gm) 1 gm in 100 mls @ 100 mls/hr IVPB Q12 [facility]; Protocol Levetiracetam (Keppra) 500 mg PO BID [facility] Last Admin: 03/22/18 17:19 Dose: 500 mg Losartan Potassium (Cozaar) 25 mg PO DAILY [facility] Last Admin: 03/22/18 13:31 Dose: 25 mg Abiraterone Acetate [Zytiga] 250 Mg ( Home Med) 250 mg PO DAILY [facility] Last Admin: 03/22/18 13:31 Dose: Not Given Nystatin/Triamcinolone Acetonide (Nystatin/Triamcinolone Cream) 0 ea TOP BID [facility] Last Admin: 03/22/18 17:19 Dose: 1 applic Pantoprazole Sodium (Protonix Ec Tab) 20 mg PO DAILY [facility] Last Admin: 03/22/18 13:35 Dose: 20 mg Prednisone (Prednisone Tab) 5 mg PO BID [facility] Last Admin: 03/22/18 17:19 Dose: 5 mg Risperidone (Risperdal Tab) 0.25 mg PO BID [facility]; Protocol Last Admin: 03/22/18 17:20 Dose: 0.25 mg Zolpidem Tartrate (Ambien) 5 mg PO HS [facility]; Protocol Results - Vital Signs Recent Vital Signs: Last Vital Signs Temp 97.6 F 03/22/18 16:45 Pulse 104 H 03/22/18 16:45 Resp 20 03/22/18 16:45 BP 150/93 H 03/22/18 16:45 Pulse Ox 96 03/22/18 16:45 - Labs Result Diagrams: 03/21/18 22:19 03/21/18 22:19 Labs: Laboratory Results - last 24 hr 03/21/18 03/21/18 03/21/18 22:16 22:19 22:19 WBC 11.3 H D RBC 4.01 Hgb 11.5 L Hct 35.0 L MCV 87.3 D MCH 28.7 MCHC 32.9 RDW 14.5 Plt Count 248 MPV 9.0 Gran % 89.9 H Lymph % (Auto) 4.7 L [place] % (Auto) 4.8 Eos % (Auto) 0.3 L Baso % (Auto) 0.3 Gran # 10.20 H Lymph # (Auto) 0.5 L [place] # (Auto) 0.5 Eos # (Auto) 0.0 Baso # (Auto) 0.03 Neutrophils % (Manual) 87 H Lymphocytes % (Manual) 7 L Monocytes % (Manual) 5 Basophils % (Manual) 1 Platelet Evaluation Normal PT INR APTT pO2 75 H VBG pH 7.38 VBG pCO2 40.0 VBG HCO3 23.7 VBG Total CO2 24.9 VBG O2 Sat (Calc) 95.8 H VBG Base Excess -1.3 L VBG Potassium 3.7 Sodium 131.0 L Chloride 98.0 Glucose 124 H Lactate 3.7 H FiO2 21.0 Potassium Carbon Dioxide Anion Gap BUN Creatinine Est GFR ( Amer) Est GFR (Non-Af Amer) Random Glucose Calcium Phosphorus Magnesium Total Bilirubin AST ALT Alkaline Phosphatase Total Protein Albumin Globulin Albumin/Globulin Ratio Vitamin B12 Procalcitonin 0.07 L Venous Blood Potassium 3.7 Urine Color Urine Appearance Urine pH Ur Specific [place] Urine Protein Urine Glucose (UA) Urine Ketones Urine Blood Urine Nitrate Urine Bilirubin Urine Urobilinogen Ur Leukocyte Esterase Urine RBC Urine WBC Ur Epithelial Cells Urine Bacteria 03/21/18 03/21/18 03/22/18 22:19 22:19 00:04 WBC RBC Hgb Hct MCV MCH MCHC RDW Plt Count MPV Gran % Lymph % (Auto) [place] % (Auto) Eos % (Auto) Baso % (Auto) Gran # Lymph # (Auto) [place] # (Auto) Eos # (Auto) Baso # (Auto) Neutrophils % (Manual) Lymphocytes % (Manual) Monocytes % (Manual) Basophils % (Manual) Platelet Evaluation PT 11.0 INR 0.97 APTT 26.5 pO2 VBG pH VBG pCO2 VBG HCO3 VBG Total CO2 VBG O2 Sat (Calc) VBG Base Excess VBG Potassium Sodium 132 Chloride 97 L Glucose Lactate FiO2 Potassium 3.7 Carbon Dioxide 23 Anion Gap 16 BUN 13 Creatinine 0.9 Est GFR ( Amer) > 60 Est GFR (Non-Af Amer) > 60 Random Glucose 123 H Calcium 9.1 Phosphorus 3.3 Magnesium 1.8 Total Bilirubin 0.6 AST 39 ALT 72 H Alkaline Phosphatase 102 Total Protein 6.9 Albumin 3.8 Globulin 3.1 Albumin/Globulin Ratio 1.2 Vitamin B12 Procalcitonin Venous Blood Potassium Urine Color Yellow Urine Appearance Sl cloudy Urine pH 7.0 Ur Specific [place] <= 1.005 Urine Protein Trace H Urine Glucose (UA) Negative Urine Ketones Negative Urine Blood Moderate H Urine Nitrate Negative Urine Bilirubin Negative Urine Urobilinogen 0.2 Ur Leukocyte Esterase Large H Urine RBC 2 - 5 Urine WBC 10 - 15 Ur Epithelial Cells 0 - 2 Urine Bacteria Small 03/22/18 03/22/18 01:50 11:45 WBC RBC Hgb Hct MCV MCH MCHC RDW Plt Count MPV Gran % Lymph % (Auto) [place] % (Auto) Eos % (Auto) Baso % (Auto) Gran # Lymph # (Auto) [place] # (Auto) Eos # (Auto) Baso # (Auto) Neutrophils % (Manual) Lymphocytes % (Manual) Monocytes % (Manual) Basophils % (Manual) Platelet Evaluation PT INR APTT pO2 47 VBG pH 7.30 L VBG pCO2 53.0 VBG HCO3 26.1 VBG Total CO2 27.7 VBG O2 Sat (Calc) 79.0 H VBG Base Excess -1.1 L VBG Potassium 3.5 L Sodium 135.0 Chloride 102.0 Glucose 144 H Lactate 2.2 H FiO2 21.0 Potassium Carbon Dioxide Anion Gap BUN Creatinine Est GFR ( Amer) Est GFR (Non-Af Amer) Random Glucose Calcium Phosphorus Magnesium Total Bilirubin AST ALT Alkaline Phosphatase Total Protein Albumin Globulin Albumin/Globulin Ratio Vitamin B12 231 L Procalcitonin Venous Blood Potassium 3.5 L Urine Color Urine Appearance Urine pH Ur Specific [place] Urine Protein Urine Glucose (UA) Urine Ketones Urine Blood Urine Nitrate Urine Bilirubin Urine Urobilinogen Ur Leukocyte Esterase Urine RBC Urine WBC Ur Epithelial Cells Urine Bacteria Assessment & Plan - Assessment and Plan (Free Text) Plan: Infectious diseases attending physician addendum Patient discussed with medical insurance biller. I have reviewed the pertinent clinical information. I agree with the above findings, assessment and plan and in addition, will start Cefepime for possible complicated UTI with SIRS in this patient with chronic Willson catheter use. Will follow up urine cx.
--- NOTE | 2018-03-22 10:15 | CARD ---
APPROVED REPORT Date of service: 03/21/2018 EKG Measurement Heart [id number] <Conclusion> Normal sinus rhythm with 1st degree A VB and sinus arrhythmia Left anterior fascicular block PRWP V 1 - 6 Prolonged QTc No change
--- NOTE | 2018-03-22 11:21 | CP.PCM.HP ---
History of Present Illness - History of Present Illness History of Present Illness: Steve Parker PGY2 Heme/Onc H&P Note for Dr. Clemens cc: weakness and leg giving out Mr. 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 Clemens in the office earlier in the day for infusion of Xgeva, Lupron and Zytiva. He states that he "felt his legs go "and did not have his usual strength. He denies any fevers/chills, nausea/vomiting/diarrhea/constipation, chest pain, shortness of breath, leg swelling, dizziness, headaches, changes in vision/hearing. 12 point ROS was reviewed and is otherwise unremarkable. In the ED, UA was positive for leukocyte esterase with WBCs and lactate on VBG was noted to be 3.7, so code sepsis was activated. Patient has a history of UTIs secondary to Pseudomonas, Klebsiella and E. coli PMH: As above PSH: Decompressive thoracic laminectomy, appendectomy, cholecystectomy Meds: As per MAR, reviewed Allergies: NKDA SHx: Former smoker, denies any ethanol or drug use. Uses walker for ambulation. Lives with and child FHx: Noncontributory Present on Admission - Present on Admission Any Indicators Present on Admission: No History of DVT/PE: Yes Review of Systems - Review of Systems All systems: reviewed and no additional remarkable complaints except (as per hPI) Past Patient History - Infectious Disease Hx of Infectious Diseases: None - Tetanus Immunizations Tetanus Immunization: Unknown - Past Medical History & Family History Past Medical History?: Yes Past Family History: Reviewed and not pertinent - Past Social History Smoking Status: Former Smoker Alcohol: None Drugs: Denies Home Situation {Lives}: With Family - CARDIAC Hx Cardiac Disorders: Yes Hx Hypercholesterolemia: Yes Hx Hypertension: Yes Hx Pacemaker: No - PULMONARY Hx Chronic Obstructive Pulmonary Disease (COPD): Yes - NEUROLOGICAL Hx Neurological Disorder: Yes HX Cerebrovascular Accident: Yes Hx Seizures: Yes - HEENT Hx HEENT Problems: No - RENAL Hx Chronic Kidney Disease: No - ENDOCRINE/METABOLIC Hx Endocrine Disorders: No - HEMATOLOGICAL/ONCOLOGICAL Hx Blood Disorders: Yes (sepsis) Hx Anemia: No Hx Cancer: Yes (prostate WITH METS TO BONES STAGE 4) Hx Chemotherapy: Yes - INTEGUMENTARY Hx Dermatological Problems: Yes Other/Comment: BILATERAL BUTTOCKS WITH REDDENEDRASH. IASD. SKIN FOLDS OF BREAST AND STOMACH FOLD-MASD - MUSCULOSKELETAL/RHEUMATOLOGICAL Hx Falls: Yes Hx Unsteady Gait: Yes - GASTROINTESTINAL Hx Gastrointestinal Disorders: Yes (GI BLEED) Hx Diverticulitis: Yes Hx Gall Bladder Disease: Yes Other/Comment: LARGE POLYP - GENITOURINARY/GYNECOLOGICAL Hx Genitourinary Disorders: Yes Hx Incontinence: Yes Hx Prostate Problems: Yes Hx Urinary Tract Infection: Yes - PSYCHIATRIC Hx Emotional Abuse: No Hx Physical Abuse: No - SURGICAL HISTORY Hx Surgeries: Yes (laminectomy) Hx Appendectomy: Yes Hx Orthopedic Surgery: Yes Other/Comment: prostatectomy - ANESTHESIA Hx Anesthesia: No Hx Anesthesia Reactions: No Hx Malignant Hyperthermia: No Meds Allergies/Adverse Reactions: Allergies Allergy/AdvReac Type Severity Reaction Status Date / Time No Known Allergies Allergy Verified 10/09/16 19:54 Physical Exam - Constitutional Appears: Well, Non-toxic, No Acute Distress - Head Exam Head Exam: NORMAL INSPECTION - Eye Exam Eye Exam: EOMI, Normal appearance, PERRL - ENT Exam ENT Exam: Mucous Membranes Moist - Neck Exam Neck exam: Negative for: Lymphadenopathy Additional comments: chronic erythematous at base of neck - Respiratory Exam Respiratory Exam: NORMAL BREATHING PATTERN. absent: Rales, Rhonchi, Wheezes - Cardiovascular Exam Cardiovascular Exam: RRR, +S1, +S2 - GI/Abdominal Exam GI & Abdominal Exam: Normal Bowel Sounds, Soft. absent: Distended, Tenderness - Exam Additional comments: chronic indwelling willson catheter - Extremities Exam Extremities exam: Positive for: normal inspection. Negative for: pedal edema - Back Exam Back exam: rash noted (sacral) - Neurological Exam Neurological exam: Alert, Oriented x3 Additional comments: limited ROM in RLE due to hip discomfort otherwise 5/5 muscle strength - Psychiatric Exam Psychiatric exam: Normal Mood - Skin Skin Exam: Rash (sacral, groin and neck), Warm Results - Vital Signs Recent Vital Signs: Last Vital Signs Temp 98 F 03/22/18 06:00 Pulse 81 03/22/18 06:00 Resp 18 03/22/18 06:00 BP 145/88 03/22/18 06:00 Pulse Ox 94 L 03/22/18 06:00 - Labs Result Diagrams: 03/21/18 22:19 03/21/18 22:19 Labs: Laboratory Results - last 24 hr 03/21/18 03/21/18 03/21/18 22:16 22:19 22:19 WBC 11.3 H D RBC 4.01 Hgb 11.5 L Hct 35.0 L MCV 87.3 D MCH 28.7 MCHC 32.9 RDW 14.5 Plt Count 248 MPV 9.0 Gran % 89.9 H Lymph % (Auto) 4.7 L [place] % (Auto) 4.8 Eos % (Auto) 0.3 L Baso % (Auto) 0.3 Gran # 10.20 H Lymph # (Auto) 0.5 L [place] # (Auto) 0.5 Eos # (Auto) 0.0 Baso # (Auto) 0.03 Neutrophils % (Manual) 87 H Lymphocytes % (Manual) 7 L Monocytes % (Manual) 5 Basophils % (Manual) 1 Platelet Evaluation Normal PT 11.0 INR 0.97 APTT 26.5 pO2 75 H VBG pH 7.38 VBG pCO2 40.0 VBG HCO3 23.7 VBG Total CO2 24.9 VBG O2 Sat (Calc) 95.8 H VBG Base Excess -1.3 L VBG Potassium 3.7 Sodium 131.0 L Chloride 98.0 Glucose 124 H Lactate 3.7 H FiO2 21.0 Potassium Carbon Dioxide Anion Gap BUN Creatinine Est GFR ( Amer) Est GFR (Non-Af Amer) Random Glucose Calcium Phosphorus Magnesium Total Bilirubin AST ALT Alkaline Phosphatase Total Protein Albumin Globulin Albumin/Globulin Ratio Venous Blood Potassium 3.7 Urine Color Urine Appearance Urine pH Ur Specific [place] Urine Protein Urine Glucose (UA) Urine Ketones Urine Blood Urine Nitrate Urine Bilirubin Urine Urobilinogen Ur Leukocyte Esterase Urine RBC Urine WBC Ur Epithelial Cells Urine Bacteria 03/21/18 03/22/18 03/22/18 22:19 00:04 01:50 WBC RBC Hgb Hct MCV MCH MCHC RDW Plt Count MPV Gran % Lymph % (Auto) [place] % (Auto) Eos % (Auto) Baso % (Auto) Gran # Lymph # (Auto) [place] # (Auto) Eos # (Auto) Baso # (Auto) Neutrophils % (Manual) Lymphocytes % (Manual) Monocytes % (Manual) Basophils % (Manual) Platelet Evaluation PT INR APTT pO2 47 VBG pH 7.30 L VBG pCO2 53.0 VBG HCO3 26.1 VBG Total CO2 27.7 VBG O2 Sat (Calc) 79.0 H VBG Base Excess -1.1 L VBG Potassium 3.5 L Sodium 132 135.0 Chloride 97 L 102.0 Glucose 144 H Lactate 2.2 H FiO2 21.0 Potassium 3.7 Carbon Dioxide 23 Anion Gap 16 BUN 13 Creatinine 0.9 Est GFR ( Amer) > 60 Est GFR (Non-Af Amer) > 60 Random Glucose 123 H Calcium 9.1 Phosphorus 3.3 Magnesium 1.8 Total Bilirubin 0.6 AST 39 ALT 72 H Alkaline Phosphatase 102 Total Protein 6.9 Albumin 3.8 Globulin 3.1 Albumin/Globulin Ratio 1.2 Venous Blood Potassium 3.5 L Urine Color Yellow Urine Appearance Sl cloudy Urine pH 7.0 Ur Specific [place] <= 1.005 Urine Protein Trace H Urine Glucose (UA) Negative Urine Ketones Negative Urine Blood Moderate H Urine Nitrate Negative Urine Bilirubin Negative Urine Urobilinogen 0.2 Ur Leukocyte Esterase Large H Urine RBC 2 - 5 Urine WBC 10 - 15 Ur Epithelial Cells 0 - 2 Urine Bacteria Small Assessment & Plan - Assessment and Plan (Free Text) Assessment: 72-year-old male with a PMH of 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 CODE SEPSIS was activated. Given history of resistance bacteria in urine and his hypercoagulable state, the patient is admitted for ruling out neurologic cause of stroke and for IV antibiotics. Plan: 1. Weakness likely due to UTI and hx bone mets - urine and blood cultures ordered - ID consulted, recs appreciated - started on cefepime by ID; was given Rocephin in ED - Continue NS 30 - Neurology consulted to rule out neurological cause, recs appreciated - Wound nurse consulted for rashes - PT eval pending 2. History of prostate CA - Continue home Zytiga and prednisone therapy - Indwelling Willson was changed in the ED 3. History of seizures - Continue home Keppra 4. History DVT/PE - Continue home Lovenox (dose was confirmed with pharmacy) 5. History of HTN - Continue home losartan 6. History of COPD - Continue home Advair or equivalent 7. Prophylactic measures - Continue Pepcid for GI prophylaxis - Continue Lovenox for DVT prophylaxis - HHD Case was reviewed and discussed with attending, Dr. Sarath Parker PGY2
[2018-03-22] MEDS ORDERED: Fluticasone-Salmeterol 250-50mcg Diskus IH SCH (11:30)
[2018-03-22] MEDS: ABIRATERONE ACETATE 250 MG PO SCH (13:31)
[2018-03-22] MEDS: Enoxaparin 40 mg Syringe SC SCH (13:34)
[2018-03-22] MEDS: Pantoprazole 20 mg EC Tab PO SCH (13:35)
[2018-03-22] MEDS: Nystatin-Triamcinolone Cream(30 gm) TOP SCH ×2 (13:36→17:19)
--- NOTE | 2018-03-22 14:55 | CP.PCM.CON ---
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 Patient states that he usually has LE weakness due to his bone mets, uses a walker normally. Reports left lower extremity weakness more than right. However, yesterday, he was having more difficulty getting up on his feet. Once he was up with difficulty and walking, he also felt weak on his feet and fell down on his knees. His son then brought him to ED. Denies any other focal weakness, headache, fevers, chills, nausea, vomiting, sob, cp, leg swelling. Neurology consulted for worsening lower extremity weakness. 12 point ROS obtained and negative, except as per HPI. PMD: Dr. Sandhu Oncologist: Dr. 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 PSHx: Appendectomy, cholecystectomy, prostate surgery, hip surgery and decompressive laminectomy. FMHx: Non contributory Social: former tobacco, denies alcohol or illicit drug use. Lives with son and . walks with a walker. Son helps with everything. Allergy: NKDA Home meds: Please see MAR for full list Review of Systems - Review of Systems All systems: reviewed and no additional remarkable complaints except Review of Systems: as per hPI Past Patient History - Infectious Disease Hx of Infectious Diseases: None - Tetanus Immunizations Tetanus Immunization: Unknown - Past Social History Smoking Status: Former Smoker Alcohol: None Drugs: Denies Home Situation {Lives}: With Family - CARDIAC Hx Cardiac Disorders: Yes Hx Hypertension: Yes Hx Pacemaker: No - PULMONARY Hx Respiratory Disorders: Yes (SMOKES CIGARETTES 10 CIG) Hx Chronic Obstructive Pulmonary Disease (COPD): Yes - NEUROLOGICAL Hx Neurological Disorder: Yes HX Cerebrovascular Accident: Yes Hx Seizures: Yes - HEENT Hx HEENT Problems: No - RENAL Hx Chronic Kidney Disease: No - ENDOCRINE/METABOLIC Hx Endocrine Disorders: No - HEMATOLOGICAL/ONCOLOGICAL Hx Blood Disorders: Yes (sepsis) Hx Anemia: No Hx Cancer: Yes (prostate WITH METS TO BONES STAGE 4) Hx Chemotherapy: Yes (ON PILLS) - INTEGUMENTARY Hx Dermatological Problems: Yes (SKIN CA WITH SKIN DRYNESS,SKIN LUMPS AND INDENTATION.) Other/Comment: BILATERAL BUTTOCKS WITH REDDENEDRASH. IASD. SKIN FOLDS OF BREAST AND STOMACH FOLD-MASD - MUSCULOSKELETAL/RHEUMATOLOGICAL Hx Falls: Yes - GASTROINTESTINAL Hx Gastrointestinal Disorders: Yes (GI BLEED) Hx Diverticulitis: Yes Hx Gall Bladder Disease: Yes (CholecYStectomy) Other/Comment: LARGE POLYP - GENITOURINARY/GYNECOLOGICAL Hx Genitourinary Disorders: Yes Hx Incontinence: Yes Hx Prostate Problems: Yes Hx Urinary Tract Infection: Yes - PSYCHIATRIC Hx Emotional Abuse: No Hx Physical Abuse: No - SURGICAL HISTORY Hx Surgeries: Yes (laminectomy) Hx Appendectomy: Yes Hx Orthopedic Surgery: Yes Other/Comment: prostatectomy - ANESTHESIA Hx Anesthesia: No Hx Anesthesia Reactions: No Hx Malignant Hyperthermia: No Meds Allergies/Adverse Reactions: Allergies Allergy/AdvReac Type Severity Reaction Status Date / Time No Known Allergies Allergy Verified 10/09/16 19:54 - Medications Medications: Current Medications Arformoterol Tartrate (Brovana) 15 mcg IH [id number] [facility] Budesonide (Pulmicort Respules) 0.5 mg IH [id number] [facility] Enoxaparin Sodium (Lovenox) 40 mg SC DAILY [facility]; Protocol Last Admin: 03/22/18 13:34 Dose: 40 mg Ergocalciferol (Drisdol 50,000 Intl Units Cap) 1 cap PO Q7D [facility] Sodium Chloride (Sodium Chloride 0.9%) 1,000 mls @ 30 mls/hr IV .Q24H [facility] Last Admin: 03/22/18 05:15 Dose: 30 mls/hr Cefepime HCl (Maxipime 1gm) 1 gm in 100 mls @ 100 mls/hr IVPB Q12 [facility]; Protocol Levetiracetam (Keppra) 500 mg PO BID [facility] Last Admin: 03/22/18 13:33 Dose: 500 mg Losartan Potassium (Cozaar) 25 mg PO DAILY [facility] Last Admin: 03/22/18 13:31 Dose: 25 mg Abiraterone Acetate [Zytiga] 250 Mg ( Home Med) 250 mg PO DAILY [facility] Last Admin: 03/22/18 13:31 Dose: Not Given Nystatin/Triamcinolone Acetonide (Nystatin/Triamcinolone Cream) 0 ea TOP BID [facility] Last Admin: 03/22/18 13:36 Dose: 1 applic Pantoprazole Sodium (Protonix Ec Tab) 20 mg PO DAILY [facility] Last Admin: 03/22/18 13:35 Dose: 20 mg Prednisone (Prednisone Tab) 5 mg PO BID [facility] Last Admin: 03/22/18 13:34 Dose: 5 mg Risperidone (Risperdal Tab) 0.25 mg PO BID [facility]; Protocol Zolpidem Tartrate (Ambien) 5 mg PO HS [facility]; Protocol Physical Exam - Constitutional Appears: Non-toxic, No Acute Distress - Head Exam Head Exam: ATRAUMATIC, NORMOCEPHALIC - Eye Exam Eye Exam: EOMI, PERRL. absent: Conjunctival injection, Nystagmus, Scleral icterus Pupil Exam: NORMAL ACCOMODATION, PERRL. absent: Fixed, Irregular, Miosis, Unequal - ENT Exam ENT Exam: Mucous Membranes Moist - Neck Exam Neck exam: Positive for: Full Rom - Respiratory Exam Respiratory Exam: Clear to Auscultation Bilateral, NORMAL BREATHING PATTERN. absent: Accessory Muscle Use, Rhonchi, Wheezes - Cardiovascular Exam Cardiovascular Exam: RRR, +S1, +S2. absent: Systolic Murmur - GI/Abdominal Exam GI & Abdominal Exam: Normal Bowel Sounds, Soft. absent: Distended, Firm, Guarding, Organomegaly, Rebound, Tenderness - Extremities Exam Extremities exam: Negative for: calf tenderness, pedal edema Additional comments: venous stasis changes b/l - Neurological Exam Neurological exam: Alert, CN II-XII Intact, Oriented x3, Reflexes Normal - Expanded Neurological Exam Expanded Cranial nerves: EOM's Intact: Normal Upper motor neuron: Babinski Sign: Normal, Anthony Neglect: Normal Neuro motor strength exam: Left Upper Extremity: 4, Right Upper Extremity: 4, Left Lower Extremity: 2/1, Right Lower Extremity: 2/1 DTR: Achilles Tendon Left: 2+, Achilles Tendon Right: 2+, Bicep Left: 2+, Bicep Right: 2+, Brachioradialis Left: 2+, Brachioradialis Right: 2+ Coma Scale Eye Opening: SPONTANEOUS Coma Scale Motor Response: OBEYS COMMANDS Coma Scale Verbal: Oriented Coma Scale Total: 15 - Psychiatric Exam Psychiatric exam: Normal Affect, Normal Mood - Skin Skin Exam: Normal Color, Warm Results - Vital Signs Recent Vital Signs: Last Vital Signs Temp 98 F 03/22/18 06:00 Pulse 81 03/22/18 13:31 Resp 18 03/22/18 06:00 BP 145/88 03/22/18 13:31 Pulse Ox 94 L 03/22/18 06:00 - Labs Result Diagrams: 03/21/18 22:19 03/21/18 22:19 Labs: Laboratory Results - last 24 hr 03/21/18 03/21/18 03/21/18 22:16 22:19 22:19 WBC 11.3 H D RBC 4.01 Hgb 11.5 L Hct 35.0 L MCV 87.3 D MCH 28.7 MCHC 32.9 RDW 14.5 Plt Count 248 MPV 9.0 Gran % 89.9 H Lymph % (Auto) 4.7 L [place] % (Auto) 4.8 Eos % (Auto) 0.3 L Baso % (Auto) 0.3 Gran # 10.20 H Lymph # (Auto) 0.5 L [place] # (Auto) 0.5 Eos # (Auto) 0.0 Baso # (Auto) 0.03 Neutrophils % (Manual) 87 H Lymphocytes % (Manual) 7 L Monocytes % (Manual) 5 Basophils % (Manual) 1 Platelet Evaluation Normal PT INR APTT pO2 75 H VBG pH 7.38 VBG pCO2 40.0 VBG HCO3 23.7 VBG Total CO2 24.9 VBG O2 Sat (Calc) 95.8 H VBG Base Excess -1.3 L VBG Potassium 3.7 Sodium 131.0 L Chloride 98.0 Glucose 124 H Lactate 3.7 H FiO2 21.0 Potassium Carbon Dioxide Anion Gap BUN Creatinine Est GFR ( Amer) Est GFR (Non-Af Amer) Random Glucose Calcium Phosphorus Magnesium Total Bilirubin AST ALT Alkaline Phosphatase Total Protein Albumin Globulin Albumin/Globulin Ratio Procalcitonin 0.07 L Venous Blood Potassium 3.7 Urine Color Urine Appearance Urine pH Ur Specific [place] Urine Protein Urine Glucose (UA) Urine Ketones Urine Blood Urine Nitrate Urine Bilirubin Urine Urobilinogen Ur Leukocyte Esterase Urine RBC Urine WBC Ur Epithelial Cells Urine Bacteria 03/21/18 03/21/18 03/22/18 22:19 22:19 00:04 WBC RBC Hgb Hct MCV MCH MCHC RDW Plt Count MPV Gran % Lymph % (Auto) [place] % (Auto) Eos % (Auto) Baso % (Auto) Gran # Lymph # (Auto) [place] # (Auto) Eos # (Auto) Baso # (Auto) Neutrophils % (Manual) Lymphocytes % (Manual) Monocytes % (Manual) Basophils % (Manual) Platelet Evaluation PT 11.0 INR 0.97 APTT 26.5 pO2 VBG pH VBG pCO2 VBG HCO3 VBG Total CO2 VBG O2 Sat (Calc) VBG Base Excess VBG Potassium Sodium 132 Chloride 97 L Glucose Lactate FiO2 Potassium 3.7 Carbon Dioxide 23 Anion Gap 16 BUN 13 Creatinine 0.9 Est GFR ( Amer) > 60 Est GFR (Non-Af Amer) > 60 Random Glucose 123 H Calcium 9.1 Phosphorus 3.3 Magnesium 1.8 Total Bilirubin 0.6 AST 39 ALT 72 H Alkaline Phosphatase 102 Total Protein 6.9 Albumin 3.8 Globulin 3.1 Albumin/Globulin Ratio 1.2 Procalcitonin Venous Blood Potassium Urine Color Yellow Urine Appearance Sl cloudy Urine pH 7.0 Ur Specific [place] <= 1.005 Urine Protein Trace H Urine Glucose (UA) Negative Urine Ketones Negative Urine Blood Moderate H Urine Nitrate Negative Urine Bilirubin Negative Urine Urobilinogen 0.2 Ur Leukocyte Esterase Large H Urine RBC 2 - 5 Urine WBC 10 - 15 Ur Epithelial Cells 0 - 2 Urine Bacteria Small 03/22/18 01:50 WBC RBC Hgb Hct MCV MCH MCHC RDW Plt Count MPV Gran % Lymph % (Auto) [place] % (Auto) Eos % (Auto) Baso % (Auto) Gran # Lymph # (Auto) [place] # (Auto) Eos # (Auto) Baso # (Auto) Neutrophils % (Manual) Lymphocytes % (Manual) Monocytes % (Manual) Basophils % (Manual) Platelet Evaluation PT INR APTT pO2 47 VBG pH 7.30 L VBG pCO2 53.0 VBG HCO3 26.1 VBG Total CO2 27.7 VBG O2 Sat (Calc) 79.0 H VBG Base Excess -1.1 L VBG Potassium 3.5 L Sodium 135.0 Chloride 102.0 Glucose 144 H Lactate 2.2 H FiO2 21.0 Potassium Carbon Dioxide Anion Gap BUN Creatinine Est GFR ( Amer) Est GFR (Non-Af Amer) Random Glucose Calcium Phosphorus Magnesium Total Bilirubin AST ALT Alkaline Phosphatase Total Protein Albumin Globulin Albumin/Globulin Ratio Procalcitonin Venous Blood Potassium 3.5 L Urine Color Urine Appearance Urine pH Ur Specific [place] Urine Protein Urine Glucose (UA) Urine Ketones Urine Blood Urine Nitrate Urine Bilirubin Urine Urobilinogen Ur Leukocyte Esterase Urine RBC Urine WBC Ur Epithelial Cells Urine Bacteria Assessment & Plan - Assessment and Plan (Free Text) Assessment: 72 year old male with PMH CVA, seizures, 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 Patient's son to bring [employer]'s number tomorrow to contact regarding compatibility with MRI - neuro checks - Physical therapy eval - monitor Case reviewed and discussed with attending, Dr Zhang.
[2018-03-22] MEDS: Arformoterol 15 mcg/2 ml Inh Sol IH SCH (19:46)
[2018-03-22] MEDS: Budesonide 0.5 mg/2 ml Inhal Susp UD IH SCH (19:46)
[2018-03-22] MEDS: Cefepime 1gm in NS 100ml 1 GM/100 ML BAG IVPB SCH (21:27)
[2018-03-23] MEDS: Budesonide 0.5 mg/2 ml Inhal Susp UD IH SCH ×2 (07:47→20:50)
[2018-03-23] MEDS: Arformoterol 15 mcg/2 ml Inh Sol IH SCH ×2 (07:47→20:50)
[2018-03-23] MEDS: ABIRATERONE ACETATE 250 MG PO SCH (09:14)
[2018-03-23] MEDS: Enoxaparin 40 mg Syringe SC SCH (09:15)
[2018-03-23] MEDS: Cefepime 1gm in NS 100ml 1 GM/100 ML BAG IVPB SCH ×2 (09:15→22:03)
[2018-03-23] MEDS: Nystatin-Triamcinolone Cream(30 gm) TOP SCH ×2 (09:16→17:17)
[2018-03-23] MEDS: Pantoprazole 20 mg EC Tab PO SCH (09:16)
[2018-03-23] MEDS: Sodium Chloride 0.9% 1,000 ML IV SCH (09:17)
--- NOTE | 2018-03-23 12:56 | CP.PCM.PN ---
Subjective - Date & Time of Evaluation Date of Evaluation: 03/23/18 Time of Evaluation: 12:15 - Subjective Subjective: No fevers, not in distress, more awake today, no vomiting, no diarrhea. Objective - Vital Signs/Intake and Output Vital Signs (last 24 hours): Temp Pulse Resp BP Pulse Ox 97.7 F 86 20 133/81 95 03/23/18 06:00 03/23/18 09:14 03/23/18 06:00 03/23/18 09:14 03/23/18 06:00 Intake and Output: 03/23/18 03/23/18 06:59 18:59 Intake Total 720 Output Total 900 Balance -180 - Medications Medications: Current Medications Arformoterol Tartrate (Brovana) 15 mcg IH [id number] [facility] Last Admin: 03/23/18 07:47 Dose: 15 mcg Budesonide (Pulmicort Respules) 0.5 mg IH [id number] [facility] Last Admin: 03/23/18 07:47 Dose: 0.5 mg Enoxaparin Sodium (Lovenox) 40 mg SC DAILY [facility]; Protocol Last Admin: 03/23/18 09:15 Dose: 40 mg Ergocalciferol (Drisdol 50,000 Intl Units Cap) 1 cap PO Q7D [facility] Sodium Chloride (Sodium Chloride 0.9%) 1,000 mls @ 30 mls/hr IV .Q24H [facility] Last Admin: 03/23/18 09:17 Dose: 30 mls/hr Cefepime HCl (Maxipime 1gm) 1 gm in 100 mls @ 100 mls/hr IVPB Q12 [facility]; Protocol Last Admin: 03/23/18 09:15 Dose: 100 mls/hr Levetiracetam (Keppra) 500 mg PO BID [facility] Last Admin: 03/23/18 09:15 Dose: 500 mg Losartan Potassium (Cozaar) 25 mg PO DAILY [facility] Last Admin: 03/23/18 09:14 Dose: 25 mg Abiraterone Acetate [Zytiga] 250 Mg ( Home Med) 250 mg PO DAILY [facility] Last Admin: 03/23/18 09:14 Dose: Not Given Nystatin/Triamcinolone Acetonide (Nystatin/Triamcinolone Cream) 0 ea TOP BID [facility] Last Admin: 03/23/18 09:16 Dose: 1 applic Pantoprazole Sodium (Protonix Ec Tab) 20 mg PO DAILY [facility] Last Admin: 03/23/18 09:16 Dose: 20 mg Prednisone (Prednisone Tab) 5 mg PO BID [facility] Last Admin: 03/23/18 09:16 Dose: 5 mg Risperidone (Risperdal Tab) 0.25 mg PO BID [facility]; Protocol Last Admin: 03/23/18 09:17 Dose: 0.25 mg Zolpidem Tartrate (Ambien) 5 mg PO HS [facility]; Protocol Last Admin: 03/23/18 00:02 Dose: 5 mg - Labs Labs: 03/21/18 22:19 03/21/18 22:19 PT 11.0 SECONDS (9.4-12.5) 03/21/18 22:19 INR 0.97 03/21/18 22:19 APTT 26.5 Seconds (25.1-36.5) 03/21/18 22:19 - Constitutional Appears: No Acute Distress, Chronically Ill - Head Exam Head Exam: NORMAL INSPECTION - Neck Exam Neck Exam: absent: Meningismus - Respiratory Exam Respiratory Exam: Decreased Breath Sounds - Cardiovascular Exam Cardiovascular Exam: +S1, +S2 - GI/Abdominal Exam GI & Abdominal Exam: Soft. absent: Tenderness Assessment and Plan - Assessment and Plan (Free Text) Plan: Assessment SIRS, R/O due to UTI history of Sacral area irritant dermatitis GI bleeding history of Methicillin resistant Coagulase negative Staph bacteremia, E. 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
--- NOTE | 2018-03-24 02:59 | PN ---
DATE: 03/22/2018 LOCATION: Patient is in room 361. 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 Currently on medications consisting of Zytiga, Lupron, prednisone, and several oral inhalers, has a chronic indwelling Shipman catheter with leg bag, has chronic mobility issues and usually in a wheelchair, able to walk with assistance, was in the office recently and then had new onset of weakness in the left lower extremity with a tendency to fall after he had gone home from a physician's office visit. Patient was admitted to make sure no new neurologic problems were involved especially from his metastatic CA of the prostate. Has significant weakness in the left lower extremity compared to the right. Patient also was noted to have slightly elevated white count and elevated lactic acid and evidence of urinary infection for which he was put empirically on antibiotics and IV fluids and has been seen by ID as well. 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 Subjectively, patient today has no fevers, not in any distress, more awake today. No nausea. No vomiting or diarrhea. Still bed bound with weakness in the left lower extremity. OBJECTIVE: VITAL SIGNS: Stable. T-max is 97.7, pulse is 86, respirations 20, blood pressure 133/81, pulse ox is 95% on room air. GENERAL: Patient is awake, alert, and oriented, appears to be chronically ill. HEENT: Head is normocephalic and atraumatic. Examination of the oropharynx reveals the patient to be edentulous. No oral lesions are noted. NECK: Supple. SKIN: No skin lesions per se are noted. Skin is dry with some erythema along the neck area. No major skin lesions are noted. LUNGS: Clear to percussion and auscultation with scattered wheezes bilaterally. CARDIOVASCULAR SYSTEM: PMI to be in the fifth intercostal space inside the midclavicular line. S1 and S2 are normal. No gallop or murmur is heard. ABDOMEN: Soft and nontender. Liver and spleen are not palpable. No other masses are noted. Patient has an indwelling Shipman catheter attached to a leg bag because the patient has difficulty voiding and the catheter has been exchanged every 4 weeks by the visiting nurses and he is under the care of Dr. Lonnie Olivo, the urologist. GENITOURINARY AND RECTAL: Deferred at this time. LABORATORY DATA: Patient's labs were reviewed. White count is 11.3, hemoglobin 11.5, hematocrit 35, platelet count 248,000. Sodium is 132, K is 3.7, chloride is 97, CO2 is 23, BUN 13, creatinine is 0.9, blood sugar is 123. PT and INR are within normal limit. MEDICATIONS: Meds were reviewed. He is on Brovana 15 mcg inhaled every 12 hours, budesonide/Pulmicort 0.5 mg every 12 hours, Lovenox 40 mg daily, and ergocalciferol one capsule every 7 days. He is on IV fluids 1000 mL at 60 mL an hour, cefepime 1 g every 12 hours. He is on Keppra 500 b.i.d., Cozaar 25 mg daily, Zytiga 250 mg 4 tablets daily. He is on nystatin and triamcinolone cream topically b.i.d. He is on pantoprazole 20 mg daily, prednisone 5 mg b.i.d. He is on risperidone 0.25 mg b.i.d., Ambien 5 mg p.o. at bedtime. 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 Neurologic consult has been appreciated. Workup is in progress. PLAN: We will continue current medications including antibiotics. Get neurologic input after assessing the scans including scans of the lower lumbar spine to rule out local regional disease. We will need change of his Shipman catheter as well and request for the same. Labs for a.m. have been requested. Patient will need to be started on aggressive physical therapy once the neurologic clearance is obtained. Time spent with the patient is greater than 80 minutes, out of which more than 50% of the time was spent in [id number] contact. Patient is agreed to go for a CAT scan which should be having today of the head. Please make a note, this is a complex patient with multiple comorbid medical issues. Family is at the bedside. Discussed in detail with his and his son. Ant Clemens MD
[2018-03-24 07:21] LABS: BASO # 0.01 K/mm3 (0.0-2.0); BASO % 0.1 % (0.0-3.0); EOS # 0.2 (0.0-0.7); EOS % 2.6 % (1.5-5.0); GRAN # 5.35 (1.4-6.5); GRAN % 76.3 % (50.0-68.0); HEMOGLOBIN 9.4 g/dL (14.0-18.0); LYMPH % 14.4 % (22.0-35.0); MEAN CELL VOLUME 88.6 fl (80.0-105.0); MEAN CORPUSCULAR HEMOGLOBIN 28.2 pg (25.0-35.0); MEAN CORPUSCULAR HGB CONC 31.9 g/dl (31.0-37.0); MEAN PLATELET VOLUME 8.9 fl (7.0-11.0); MONO # 0.5 (0.1-0.6); MONO % 6.6 % (1.0-6.0); RBC 3.33 10^6/uL (3.5-6.1); RED CELL DISTRIBUTION WIDTH 14.6 % (11.5-14.5)
[2018-03-24 07:40] LABS: ALB/GLOB RATIO 1.2 (1.1-1.8); ALBUMIN 2.8 g/dL (3.0-4.8); ALT/SGPT 65 U/L (7-56); AST/SGOT 25 U/L (17-59); BLOOD UREA NITROGEN 8 mg/dL (7-21); CALCIUM 7.6 mg/dL (8.4-10.5); GFR NON-AFRICAN AMERICAN > 60
[2018-03-24] MEDS: Arformoterol 15 mcg/2 ml Inh Sol IH SCH ×2 (08:30→20:50)
[2018-03-24] MEDS: Budesonide 0.5 mg/2 ml Inhal Susp UD IH SCH ×2 (08:30→20:50)
[2018-03-24] MEDS: Cefepime 1gm in NS 100ml 1 GM/100 ML BAG IVPB SCH (09:34)
[2018-03-24] MEDS: Pantoprazole 20 mg EC Tab PO SCH (09:34)
[2018-03-24] MEDS: Enoxaparin 40 mg Syringe SC SCH (09:35)
[2018-03-24] MEDS: Nystatin-Triamcinolone Cream(30 gm) TOP SCH ×2 (09:35→17:24)
[2018-03-24] MEDS: ABIRATERONE ACETATE 250 MG PO SCH (09:36)
--- NOTE | 2018-03-24 10:45 | CP.PCM.PN ---
Subjective - Date & Time of Evaluation Date of Evaluation: 03/24/18 Time of Evaluation: 09:50 - Subjective Subjective: No fevers, much more awake and alert, no nausea, no abdominal pain. Objective - Vital Signs/Intake and Output Vital Signs (last 24 hours): Temp Pulse Resp BP Pulse Ox 99.0 F 67 18 138/81 96 03/24/18 06:00 03/24/18 06:00 03/24/18 06:00 03/24/18 06:00 03/24/18 06:00 Intake and Output: 03/24/18 03/24/18 06:59 18:59 Intake Total 1640 Output Total 1800 Balance -160 - Medications Medications: Current Medications Arformoterol Tartrate (Brovana) 15 mcg IH [id number] [facility] Last Admin: 03/24/18 08:30 Dose: 15 mcg Budesonide (Pulmicort Respules) 0.5 mg IH [id number] [facility] Last Admin: 03/24/18 08:30 Dose: 0.5 mg Enoxaparin Sodium (Lovenox) 40 mg SC DAILY [facility]; Protocol Last Admin: 03/23/18 09:15 Dose: 40 mg Ergocalciferol (Drisdol 50,000 Intl Units Cap) 1 cap PO Q7D [facility] Sodium Chloride (Sodium Chloride 0.9%) 1,000 mls @ 30 mls/hr IV .Q24H [facility] Last Admin: 03/23/18 09:17 Dose: 30 mls/hr Cefepime HCl (Maxipime 1gm) 1 gm in 100 mls @ 100 mls/hr IVPB Q12 [facility]; Protocol Last Admin: 03/23/18 22:03 Dose: 100 mls/hr Levetiracetam (Keppra) 500 mg PO BID [facility] Last Admin: 03/23/18 17:17 Dose: 500 mg Losartan Potassium (Cozaar) 25 mg PO DAILY [facility] Last Admin: 03/23/18 09:14 Dose: 25 mg Abiraterone Acetate [Zytiga] 250 Mg ( Home Med) 250 mg PO DAILY [facility] Last Admin: 03/23/18 09:14 Dose: Not Given Nystatin/Triamcinolone Acetonide (Nystatin/Triamcinolone Cream) 0 ea TOP BID [facility] Last Admin: 03/23/18 17:17 Dose: 1 applic Pantoprazole Sodium (Protonix Ec Tab) 20 mg PO DAILY [facility] Last Admin: 03/23/18 09:16 Dose: 20 mg Prednisone (Prednisone Tab) 5 mg PO BID [facility] Last Admin: 03/23/18 17:18 Dose: 5 mg Risperidone (Risperdal Tab) 0.25 mg PO BID [facility]; Protocol Last Admin: 03/23/18 17:18 Dose: 0.25 mg Zolpidem Tartrate (Ambien) 5 mg PO HS [facility]; Protocol Last Admin: 03/23/18 22:03 Dose: 5 mg - Labs Labs: 03/24/18 06:30 03/24/18 06:30 PT 11.0 SECONDS (9.4-12.5) 03/21/18 22:19 INR 0.97 03/21/18 22:19 APTT 26.5 Seconds (25.1-36.5) 03/21/18 22:19 - Constitutional Appears: No Acute Distress, Chronically Ill - Head Exam Head Exam: NORMAL INSPECTION - Respiratory Exam Respiratory Exam: Decreased Breath Sounds - Cardiovascular Exam Cardiovascular Exam: +S1, +S2 - GI/Abdominal Exam GI & Abdominal Exam: Soft. absent: Tenderness Assessment and Plan - Assessment and Plan (Free Text) Plan: Assessment SIRS, unlikely UTI with less than 10k mixed organisms which probably more of contamination history of Sacral area irritant dermatitis GI bleeding history of Methicillin resistant Coagulase negative Staph bacteremia, E. coli UTI; Methicillin sensitive staph aureus colonization of the neck area Prostate CA with mets S/P appendectomy S/P cholecystectomy COPD CAD history of PE Plan on Cefepime day 3 and will discontinue and monitor clinically since he is still at risk for nosocomial infections will need regular change of his Shipman catheter
--- NOTE | 2018-03-24 12:10 | CT ---
Date of service: 03/24/2018 PROCEDURE: CT HEAD WITHOUT CONTRAST. HISTORY: weakness COMPARISON: 04/29/2014. TECHNIQUE: Axial computed tomography images were obtained through the head/brain without intravenous contrast. Supplemental Coronal and Sagittal projections created and reviewed. Radiation dose: Total exam DLP = 782.83 mGy-cm. This CT exam was performed using one or more of the following dose reduction techniques: Automated exposure control, adjustment of the mA and/or kV according to patient size, and/or use of iterative reconstruction technique. FINDINGS: HEMORRHAGE: No intracranial hemorrhage. BRAIN: No mass effect or edema. Cortical and cerebellar atrophy, periventricular small vessel disease. VENTRICLES: Unremarkable. No hydrocephalus. CALVARIUM: Unremarkable. PARANASAL SINUSES: Unremarkable as visualized. No significant inflammatory changes. MASTOID AIR CELLS: Unremarkable as visualized. No inflammatory changes. OTHER FINDINGS: None. IMPRESSION: No acute intracranial abnormalities. No significant findings to account for the clinical presentation. No significant interval change compared to the prior examination(s).
[2018-03-24 16:34] VITALS: O2SAT 95
[2018-03-24] MEDS: Sodium Chloride 0.9% 1,000 ML IV SCH (17:29)
--- NOTE | 2018-03-25 03:11 | PN ---
DATE: 03/24/2018 LOCATION: Patient is in room 361, bed 1. PROBLEMS: This is a 72-year-old white male with metastatic stage IV hormone refractory prostate cancer, currently on combination of medicines including Lupron, Zytiga, prednisone, and Xgeva; was admitted to the hospital with new onset of weakness in the left lower extremity, which has gotten progressively worse over the past few days. Along with this, patient had a low-grade temperature, elevated white count, elevated lactic acid. Patient was admitted to the hospital for systemic inflammatory response syndrome versus infection. Blood cultures and urine cultures were drawn, all of which have been negative. The patient received on three doses of antibiotics. Patient is getting a whole lot better. Subjectively, patient has no fevers, more awake and alert. No nausea, vomiting, or abdominal pain. The patient's Shipman catheter was exchanged in the ER upon this admission. MEDICATIONS: Patient's medications are reviewed, they are unchanged and include, she is Brovana 15 mcg inhaled every 12 hours, he is on Pulmicort Respules 0.5 mg inhaled every 12 hours, he is on Lovenox 40 mg subcu daily, vitamin D 50,000 units . He is on IV fluids 50 mL an hour. He is on cefepime 1 g IV piggyback every 12 hours, Keppra 500 b.i.d., Cozaar 25 mg daily, Zytiga 250 mg 4 tablets daily. He is on pantoprazole 20 mg daily. He is on prednisone 5 mg b.i.d. He is on Risperdal 0.25 mg p.o. b.i.d. and Ambien 5 mg p.o. at bedtime. OBJECTIVE: GENERAL: Patient is examined in bed. Patient appears in no acute distress, appears chronically ill. VITAL SIGNS: Stable. T-max is 99, pulse of 57, respirations are 18, blood pressure is 130/81, pulse ox is 96%. HEENT: Temporal muscle wasting is noted. Head is normocephalic and atraumatic. Patient has poor dentition. NECK: Supple. There is no adenopathy. No jugular venous distention noted. LUNGS: Relatively clear to percussion and auscultation with scattered wheezes bilaterally in the bases. CARDIOVASCULAR SYSTEM: Reveals PMI to be in the fifth intercostal space inside the midclavicular line. S1 and S2 are normal. No gallop or murmur is heard. Abdomen: Soft and nontender. Bowel sounds are present. No rebound, rigidity or guarding is noted. EXTREMITIES: Reveals no cyanosis, clubbing, or edema of both upper and lower extremities. Patient has chronic indwelling catheter with leg bag that was recently changed. LABORATORY DATA: Reveals the white count of 7, hemoglobin 9.4, hematocrit 29.5, platelet count 325,000. Sodium is 138, K is 3.8, chloride is 106, CO2 is 26, BUN is 18, creatinine 0.6, blood sugar is 90. Coags are within normal limit. ASSESSMENT: Systemic inflammatory response syndrome, unlikely urinary tract infection, , history of gastrointestinal bleeding, history of methicillin-resistant coagulase-negative staphylococcus bacteremia Escherichia coli urinary tract infection, methicillin-sensitive staphylococcus aureus colonization of the neck area, stage IV metastatic prostate cancer with documented metastasis, new onset of weakness in the left lower extremity, which appears to be more from deconditioning rather than progressive metastatic disease. Patient has already been evaluated by the neurologist. He had CAT scan of the head done yesterday, was negative. PLAN: Discussed with the nursing staff, reviewed Dr. Cruz of Infectious Disease notes. Cefepime is going to be discontinued after today. We will evaluate the patient for active physical therapy for deconditioning to strengthen his cord muscles, and specifically his lower extremities, so patient could be able to ambulate and use the walker and get back to doing the activities of daily living that he was doing at home. It appears that his son was recently sick who was the main person who was doing the therapy for his dad at home; and since son was not around for about a week, the patient had a deterioration in his physical condition. Labs for a.m. have been requested. We will try to see if the patient can be a candidate for TCU for deconditioning and active physical therapy. Time spent with the patient is greater than 45 minutes, in reviewing all the labs, discussing with the family regarding the findings of the CAT scan and treatment plans. Son and were present in the room during the entire conversation. Ant Clemens MD [facility] # [id number]
[2018-03-25 08:38] VITALS: BP 166/91; PULSE 71; RESP 20; TEMP 99.2
[2018-03-25] MEDS: Arformoterol 15 mcg/2 ml Inh Sol IH SCH (09:35)
[2018-03-25] MEDS: Budesonide 0.5 mg/2 ml Inhal Susp UD IH SCH (09:35)
[2018-03-25] MEDS: Pantoprazole 20 mg EC Tab PO SCH (09:39)
[2018-03-25] MEDS: Nystatin-Triamcinolone Cream(30 gm) TOP SCH ×2 (09:39→17:05)
[2018-03-25] MEDS: Enoxaparin 40 mg Syringe SC SCH (09:39)
[2018-03-25] MEDS: ABIRATERONE ACETATE 250 MG PO SCH (10:50)
[2018-03-25 11:11] LABS: HEMOGLOBIN 9.8 g/dL (14.0-18.0); MEAN CELL VOLUME 88.4 fl (80.0-105.0); MEAN CORPUSCULAR HEMOGLOBIN 28.3 pg (25.0-35.0); MEAN PLATELET VOLUME 8.5 fl (7.0-11.0); RBC 3.46 10^6/uL (3.5-6.1); RED CELL DISTRIBUTION WIDTH 14.5 % (11.5-14.5); WHITE BLOOD COUNT 6.4 10^3/ul (4.5-11.0)
[2018-03-25 11:29] LABS: ALB/GLOB RATIO 1.1 (1.1-1.8); ALT/SGPT 49 U/L (7-56); AST/SGOT 30 U/L (17-59); BLOOD UREA NITROGEN 7 mg/dL (7-21); GFR NON-AFRICAN AMERICAN > 60
--- NOTE | 2018-03-25 13:47 | CP.PCM.PN ---
Subjective - Date & Time of Evaluation Date of Evaluation: 03/25/18 Time of Evaluation: 10:40 - Subjective Subjective: Comfortable in bed, no fevers, no abdominal pain, no nausea, awake and alert. Objective - Vital Signs/Intake and Output Vital Signs (last 24 hours): Temp Pulse Resp BP Pulse Ox 99.2 F 71 20 166/91 H 95 03/25/18 08:35 03/25/18 09:38 03/25/18 08:35 03/25/18 09:38 03/25/18 08:35 Intake and Output: 03/25/18 03/25/18 06:59 18:59 Intake Total 2730 Output Total 2100 Balance 630 - Medications Medications: Current Medications Arformoterol Tartrate (Brovana) 15 mcg IH [id number] [facility] Last Admin: 03/25/18 09:35 Dose: 15 mcg Budesonide (Pulmicort Respules) 0.5 mg IH [id number] [facility] Last Admin: 03/25/18 09:35 Dose: 0.5 mg Enoxaparin Sodium (Lovenox) 40 mg SC DAILY [facility]; Protocol Last Admin: 03/25/18 09:39 Dose: 40 mg Ergocalciferol (Drisdol 50,000 Intl Units Cap) 1 cap PO Q7D [facility] Sodium Chloride (Sodium Chloride 0.9%) 1,000 mls @ 30 mls/hr IV .Q24H [facility] Last Admin: 03/24/18 17:29 Dose: 30 mls/hr Levetiracetam (Keppra) 500 mg PO BID [facility] Last Admin: 03/25/18 09:38 Dose: 500 mg Losartan Potassium (Cozaar) 25 mg PO DAILY [facility] Last Admin: 03/25/18 09:38 Dose: 25 mg Abiraterone Acetate [Zytiga] 250 Mg ( Home Med) 250 mg PO DAILY [facility] Last Admin: 03/25/18 10:50 Dose: Not Given Nystatin/Triamcinolone Acetonide (Nystatin/Triamcinolone Cream) 0 ea TOP BID [facility] Last Admin: 03/25/18 09:39 Dose: 1 applic Pantoprazole Sodium (Protonix Ec Tab) 20 mg PO DAILY [facility] Last Admin: 03/25/18 09:39 Dose: 20 mg Prednisone (Prednisone Tab) 5 mg PO BID [facility] Last Admin: 03/25/18 09:39 Dose: 5 mg Risperidone (Risperdal Tab) 0.25 mg PO BID [facility]; Protocol Last Admin: 03/25/18 09:40 Dose: 0.25 mg Zolpidem Tartrate (Ambien) 5 mg PO HS [facility]; Protocol Last Admin: 03/24/18 23:43 Dose: 5 mg - Labs Labs: 03/25/18 11:05 03/25/18 11:05 PT 11.0 SECONDS (9.4-12.5) 03/21/18 22:19 INR 0.97 03/21/18 22:19 APTT 26.5 Seconds (25.1-36.5) 03/21/18 22:19 - Constitutional Appears: Chronically Ill - Head Exam Head Exam: NORMAL INSPECTION - Respiratory Exam Respiratory Exam: Decreased Breath Sounds - Cardiovascular Exam Cardiovascular Exam: +S1, +S2 - GI/Abdominal Exam GI & Abdominal Exam: Soft. absent: Tenderness Assessment and Plan - Assessment and Plan (Free Text) Plan: Assessment SIRS, unlikely UTI with less than 10k mixed organisms which probably more of contamination history of Sacral area irritant dermatitis GI bleeding history of Methicillin resistant Coagulase negative Staph bacteremia, E. 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
--- NOTE | 2018-03-26 12:42 | CON ---
DATE: 03/26/2018 HISTORY OF PRESENT ILLNESS: In short, the patient is 72-year-old male with multiple medical issues including prostate cancer, history of GI bleed, COPD, CVA, seizures. The patient was admitted on the medical side for weakness. This tech writer got involved into the patient care because the patient is on Risperdal twice a day 0.5 mg. The patient was seen and examined today at the Transitional Care Unit. The patient presented to be alert, pleasant, cooperative. The patient denied that he feels depressed. Denied thoughts of harming himself or others. The patient is not aware why he is on Risperdal. This tech writer educated about risks, benefits and alternatives of that medication. The patient verbalized understanding. This tech writer also offered the patient to give medication as needed to make sure that the patient tolerated discontinuation of the medication well. The patient agreed with the plan. Besides that, there is no acute issues from the psychiatric standpoint. The patient denied being anxious. Denied any thoughts of harming himself. No psychosis was observed or reported. Vital signs were stable. Temperature 99.2, pulse 71, blood pressure 166/91, respiration 20, oxygen saturation is 95. Medications reviewed. This tech writer reviewed the previous orders. The patient was on Risperdal 0.25 mg twice a day as scheduled and the patient is on Ambien 5 mg at the nighttime. The patient reported that he has difficulty to fall asleep and to stay asleep and it was always like that for the patient. Labs reviewed. Microbiology reviewed. Reports reviewed. MENTAL STATUS EXAMINATION: The patient presented to be alert and oriented, pleasant, cooperative, seems to be in good spirit. Mood described, "I am not depressed." Affect was reactive. Mood congruent. Thought process was coherent and goal directed. Thought content, the patient denied visual, auditory, or tactile hallucinations. Denied paranoid ideation. The patient denied thoughts of harming himself or others. Denied intent or plan. The patient is not psychotic, not agitated. Insight and judgment seems to be improving. Impulses are well controlled. IMPRESSION: Most likely the patient was on psychotropic medication because of delirium. This tech writer is not sure. Overall, the patient presented well. Insomnia could be related to the medical issues. PLAN: Risperdal will be as needed for psychosis. The patient denied that he feels depressed. Denied any thoughts of killing himself. We will follow up on this patient tomorrow to make sure that the patient tolerates discontinuation of the Risperdal well. Thank you very much for letting me participate in the care of your patient. Should you have any questions give me a call back. Angela Quintero MD
--- NOTE | 2018-03-27 19:27 | PN ---
DATE: 03/27/2018 SUBJECTIVE: This fha underwriter changed the patient's Risperdal to as-needed. The patient did not have any agitation or aggression or confusion. The patient was seen today. The patient presented with a good spirit. The patient remembered this fha underwriter by her name. The patient reports his mood to be very good. The patient reports that his weakness is improving. The patient said that he is working with the physical therapist as well as feeling optimistic. VITAL SIGNS: Reviewed, seems to be stable. Temperature 99.2, blood pressure 166/91, respiration 20, oxygen saturation is 95. MEDICATIONS: The patient is only on ergocalciferol. LABORATORY DATA: Reviewed. MENTAL STATUS EXAMINATION: The patient presented to be alert and oriented, pleasant, cooperative. Mood described, "I feel better. I feel stronger." Affect was constricted, but reactive. Mood congruent. Thought process seems to be coherent and goal directed. Thought content, the patient denied visual, auditory, or tactile hallucinations. Denied paranoid ideation. The patient denied thoughts of harming himself or others. Denied intent or plan. Insight and judgment seems to be improving. Impulses are well controlled. IMPRESSION: Most likely, the patient was taking Risperdal for confusion and delirium. PLAN: Risperdal could be discontinued. There is no agitation or aggression. The patient pose no imminent danger to self or others. The patient denied being depressed. Denied thoughts of harming himself or others. This fha underwriter will sign off. Should you have any questions give me a call back. Thank you very much for letting me participate in care of your patient. Angela Quintero MD
[2018-03-29] MEDS ORDERED: Ergocalciferol 50,000 Intl Units Cap PO SCH (10:00)
== END 2018-03-25 18:02 | DRG 948 ==
LOC: ED 21:26 → ERH 23:14 → 3RNO 03-22 00:45 → OBSVTOIN 03-22 15:03
PROVIDERS: ADMIT Family Medicine; ATTEND Family Medicine
DX: R53.1 Weakness (principal); R65.10 Systemic inflammatory response syndrome (SIRS) of non-infectious origin without acute organ dysfunction; C79.51 Secondary malignant neoplasm of bone; D68.59 Other primary thrombophilia; J44.9 Chronic obstructive pulmonary disease, unspecified; C61 Malignant neoplasm of prostate; I10 Essential (primary) hypertension; G40.909 Epilepsy, unspecified, not intractable, without status epilepticus; D12.7 Benign neoplasm of rectosigmoid junction; Z86.718 Personal history of other venous thrombosis and embolism; I25.10 Atherosclerotic heart disease of native coronary artery without angina pectoris; Z86.711 Personal history of pulmonary embolism; K43.9 Ventral hernia without obstruction or gangrene; Z86.73 Personal history of transient ischemic attack (TIA), and cerebral infarction without residual deficits; R29.6 Repeated falls; Z87.891 Personal history of nicotine dependence; D64.9 Anemia, unspecified; E78.00 Pure hypercholesterolemia, unspecified; G47.00 Insomnia, unspecified; W19.XXXA Unspecified fall, initial encounter; Z74.01 Bed confinement status; Z85.46 Personal history of malignant neoplasm of prostate; Z87.440 Personal history of urinary (tract) infections; Z90.49 Acquired absence of other specified parts of digestive tract; R40.2412 Glasgow coma scale score 13-15, at arrival to emergency department

== ENCOUNTER 2018-03-25 18:02 | Inpatient (IN) | payer OTHER ==
[2018-03-25 18:42] VITALS: BMI 28.4
[2018-03-25] MEDS ORDERED: Sodium Chloride 0.9% 1,000 ML IV SCH (18:45)
[2018-03-25] MEDS: Arformoterol 15 mcg/2 ml Inh Sol IH SCH (20:40)
[2018-03-25] MEDS: Budesonide 0.5 mg/2 ml Inhal Susp UD IH SCH (20:40)
[2018-03-25] MEDS ORDERED: Pneumococcal 23-Valent Vaccine IM ONE (22:28)
[2018-03-25] MEDS ORDERED: Influenza Vaccine 60 mcg/0.5 mL SYR (4YR UP) IM ONE (22:28)
[2018-03-26] MEDS: Pantoprazole 20 mg EC Tab PO SCH (05:33)
[2018-03-26] MEDS: Enoxaparin 40 mg Syringe SC SCH (05:33)
[2018-03-26 07:12] LABS: BASO # 0.04 K/mm3 (0.0-2.0); BASO % 0.6 % (0.0-3.0); EOS # 0.2 (0.0-0.7); EOS % 3.4 % (1.5-5.0); GRAN # 4.23 (1.4-6.5); GRAN % 66.2 % (50.0-68.0); HEMOGLOBIN 9.8 g/dL (14.0-18.0); LYMPH # 1.4 (1.2-3.4); MEAN CORPUSCULAR HEMOGLOBIN 27.9 pg (25.0-35.0); MEAN CORPUSCULAR HGB CONC 31.7 g/dl (31.0-37.0); MONO # 0.5 (0.1-0.6); MONO % 7.8 % (1.0-6.0); RBC 3.51 10^6/uL (3.5-6.1); RED CELL DISTRIBUTION WIDTH 14.5 % (11.5-14.5); WHITE BLOOD COUNT 6.4 10^3/ul (4.5-11.0)
[2018-03-26] MEDS: Budesonide 0.5 mg/2 ml Inhal Susp UD IH SCH ×2 (07:19→19:45)
[2018-03-26] MEDS: Arformoterol 15 mcg/2 ml Inh Sol IH SCH ×2 (07:19→19:45)
[2018-03-26 07:27] LABS: ALB/GLOB RATIO 1.1 (1.1-1.8); ALBUMIN 3.1 g/dL (3.0-4.8); ALT/SGPT 47 U/L (7-56); AST/SGOT 21 U/L (17-59); BLOOD UREA NITROGEN 7 mg/dL (7-21); CALCIUM 7.8 mg/dL (8.4-10.5); GFR NON-AFRICAN AMERICAN > 60
[2018-03-26] MEDS ORDERED: levETIRAcetam Solution 100 MG/ML BOTTLE PO SCH (10:00)
[2018-03-26] MEDS ORDERED: Ergocalciferol 50,000 Intl Units Cap PO SCH (10:00)
--- NOTE | 2018-03-26 10:07 | CP.PCM.HP ---
Past Patient History - Infectious Disease Hx of Infectious Diseases: None - Tetanus Immunizations Tetanus Immunization: Unknown - Past Medical History & Family History Past Medical History?: Yes - Past Social History Smoking Status: Former Smoker - CARDIAC Hx Cardiac Disorders: Yes Hx Hypercholesterolemia: Yes Hx Hypertension: Yes Hx Pacemaker: No - PULMONARY Hx Chronic Obstructive Pulmonary Disease (COPD): Yes - NEUROLOGICAL Hx Neurological Disorder: Yes HX Cerebrovascular Accident: Yes Hx Seizures: Yes - HEENT Hx HEENT Problems: No - RENAL Hx Chronic Kidney Disease: No - ENDOCRINE/METABOLIC Hx Endocrine Disorders: No - HEMATOLOGICAL/ONCOLOGICAL Hx Blood Disorders: Yes (sepsis) Hx Anemia: No Hx Cancer: Yes (prostate WITH METS TO BONES STAGE 4) Hx Chemotherapy: Yes - INTEGUMENTARY Hx Dermatological Problems: Yes Other/Comment: BILATERAL BUTTOCKS WITH REDDENEDRASH. IASD. SKIN FOLDS OF BREAST AND STOMACH FOLD-MASD - MUSCULOSKELETAL/RHEUMATOLOGICAL Hx Falls: Yes - GASTROINTESTINAL Hx Gastrointestinal Disorders: Yes (RECTAL BLEED HERNIA ED, CHOLECYSTECTOMY,APPENDECTOMY) - GENITOURINARY/GYNECOLOGICAL Hx Genitourinary Disorders: Yes (UROSEPSIS) Hx Reproductive Disorders: Yes (PROSTATE CA STAGE 4,ENLARGED PROSTATE) - PSYCHIATRIC Hx Emotional Abuse: No Hx Physical Abuse: No - SURGICAL HISTORY Hx Surgeries: Yes (laminectomy) Hx Appendectomy: Yes Hx Orthopedic Surgery: Yes Other/Comment: prostatectomy - ANESTHESIA Hx Anesthesia: No Hx Anesthesia Reactions: No Hx Malignant Hyperthermia: No Meds Allergies/Adverse Reactions: Allergies Allergy/AdvReac Type Severity Reaction Status Date / Time No Known Allergies Allergy Verified 10/09/16 19:54 Results - Vital Signs Recent Vital Signs: Last Vital Signs Temp 98.1 F 03/25/18 22:04 Pulse 75 03/25/18 22:04 Resp 20 03/25/18 22:04 BP 160/91 H 03/25/18 22:04 Pulse Ox - Labs Result Diagrams: 03/26/18 07:00 03/26/18 07:00 Labs: Laboratory Results - last 24 hr 03/26/18 03/26/18 07:00 07:00 WBC 6.4 RBC 3.51 Hgb 9.8 L Hct 30.9 L MCV 88.0 MCH 27.9 MCHC 31.7 RDW 14.5 Plt Count 197 MPV 8.0 Gran % 66.2 Lymph % (Auto) 22.0 Bartholomew % (Auto) 7.8 H Eos % (Auto) 3.4 Baso % (Auto) 0.6 Gran # 4.23 Lymph # (Auto) 1.4 Bartholomew # (Auto) 0.5 Eos # (Auto) 0.2 Baso # (Auto) 0.04 Sodium 139 Potassium 3.6 Chloride 106 Carbon Dioxide 26 Anion Gap 10 BUN 7 Creatinine 0.5 L Est GFR ( Amer) > 60 Est GFR (Non-Af Amer) > 60 Random Glucose 83 Calcium 7.8 L Total Bilirubin 0.2 AST 21 ALT 47 Alkaline Phosphatase 70 Total Protein 5.9 Albumin 3.1 Globulin 2.8 Albumin/Globulin Ratio 1.1
[2018-03-26] MEDS: Nystatin 100,000 Units/gm Cream(15 gm) TOP SCH ×2 (11:26→18:17)
--- NOTE | 2018-03-26 13:50 | HP ---
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 In the emergency room, thought to having possibility of the infection, was treated with broad-spectrum antibiotics, improved. Blood cultures and urine cultures have been negative. The patient's antibiotics after course of 3 days were stopped. Impression is the patient has systemic inflammatory response syndrome. His Shipman catheter, which is permanent for now, was exchanged in the ER itself on admission. The patient's condition improved. CAT scan of the head was negative. The patient was then deemed to be just weak from multifactorial causes and has not been on therapy at home prior to the admission because his son has been sick who was primarily instrumental for the patient getting some form of physical therapy on the daily basis at home. Neurologically, there was no worsening of symptoms and the patient is not transferred to TCU for deconditioning and aggressive rehab was being maintained on his medications. The patient has long history of metastatic carcinoma of the prostate over the last 8 years with history of cord compression and decompression of the spine in the mid thoracic region. The patient with history of DVT, PE, and also has an IVC filter and maintained on Lovenox. He has advanced COPD. He is on multiple medications, which will be listed below. MEDICATIONS: The patient's active medications included Ambien 5 mg p.o. at bedtime, Brovana 15 mcg inhaled every 12 hours, losartan 25 mg p.o. daily, vitamin D3 50,000 units one time every 7 days. He is on Keppra 500 b.i.d. He is on nystatin cream topically to the neck area and to the lower back as needed and prednisone 5 mg b.i.d., Protonix 20 mg p.o. daily and Pulmicort Respules 0.5 mg inhaled every 12 hours. He is on risperidone 0.25 mg b.i.d. He is on Pulmicort 0.5 mg inhaled every 12 hours . REVIEW OF SYSTEMS: A 12-system review of systems was done and there was nothing contributory except what is mentioned in the HPI. PHYSICAL EXAMINATION: VITAL SIGNS: Revealed vital signs to be stable. T-max is 98.4, pulse of 75, blood pressure is 150/91, respiration is 20 on room air. HEENT: Head is normocephalic and atraumatic. Conjunctivae pale. Sclerae anicteric. Pupils are equally reactive to light and accommodation. Examination of the oropharynx reveals no oropharyngeal lesion. The patient is edentulous. There is no evidence of fungal infection. NECK: Supple. There is no adenopathy. No jugular venous distention noted. LUNGS: Relatively clear to percussion and auscultation. CARDIOVASCULAR SYSTEM: Reveals PMI to be in the fifth intercostal space inside the midclavicular line. S1 and S2 normal. No gallop or murmur is heard. ABDOMEN: Soft and nontender. Mildly protuberant. Liver and spleen are not palpable. No rebound, rigidity or guarding is noted. EXTREMITIES: Reveals no cyanosis or clubbing. The patient has trace edema in both ankles. The patient has an indwelling Shipman catheter with a leg bag. Urine is normal in color. Catheter was recently changed. NEUROLOGIC: No gross new findings. The patient had some weakness in the left lower extremity, probably proximal muscle weakness from lack of exercise. No new findings are noted at this point in time. GENITOURINARY: Deferred. RECTAL: Deferred. ASSESSMENT NOTES AND PLAN: Deconditioning with a background history of having extensive stage IV metastatic carcinoma of the prostate and documented bone metastasis, on multiple medications; chronic obstructive pulmonary disease; history of deep venous thrombosis and pulmonary embolism, on Lovenox. Plan is to start the patient is on aggressive physical therapy with the patient become independent in the activities of daily living. I have encouraged the patient to participate in the activity as far as physical therapy is concerned twice a day, so that he can go home and be independent again. The patient and the family are quite cognizant of all the things required for the patient to get better and they are going to try to help the patient now. Ant Clemens MD
[2018-03-26] MEDS: ABIRATERONE ACETATE PO SCH (18:13)
[2018-03-27] MEDS: Enoxaparin 40 mg Syringe SC SCH (05:29)
[2018-03-27] MEDS: Pantoprazole 20 mg EC Tab PO SCH (05:29)
--- NOTE | 2018-03-27 06:11 | CON ---
DATE: 03/26/2018 LOCATION: The patient seen earlier this morning in room 316. CHIEF COMPLAINT: Weakness times several days. HISTORY OF PRESENT ILLNESS: This is a 72-year-old male with prostate cancer with metastases who was in the acute care, who is being treated, now transferred to the Transitional Care for continuation of therapy, physical therapy and medical therapy. The patient initially was admitted for urinary tract infection and the patient has been on hormonal therapy and stage IV prostate cancer with bone metastases, cord compression and has had decompressive laminectomy and chemotherapy and radiation therapy and a patient with chronic obstructive lung disease, cerebrovascular accident, seizures, history of DVT and PE, history of IVC filter placement, GI bleed, hypertension and urinary tract infection. REVIEW OF SYSTEMS: A 12-point review of systems is performed. PAST MEDICAL HISTORY: Significant for prostate cancer with metastases, cord compression, chemotherapy, radiation, chronic obstructive lung disease, cerebrovascular accident, seizures, DVT, PE, GI bleed, hypertension, urinary tract infection. PAST SURGICAL HISTORY: Significant for decompressive laminectomy, IVC filter, cholecystectomy, appendectomy. ALLERGIES: NO KNOWN ALLERGIES. MEDICATIONS: Reviewed. PHYSICAL EXAMINATION: VITAL SIGNS: The patient's temperature is 98, blood pressure is 120/70, respiratory rate of 18. HEENT: Unremarkable. NECK: Supple. LUNGS: Have decreased breath sounds. HEART: Normal S1, S2. ABDOMEN: Soft, nontender. LABORATORY EXAMINATION: Reviewed. ASSESSMENT AND PLAN: A 72-year-old male with systemic inflammatory response syndrome with low count urinary tract infection of 10,000, history of gastrointestinal bleed, history of prostate cancer with metastases, chronic obstructive lung disease, coronary artery disease, off of antibiotics. The patient is at risk for developing nosocomial infections. We will follow with you. At this time, the patient has been afebrile. White count is normal. Cultures of multiple species is less than 10,000 colonies. Review of orders confirms the patient to be on no antibiotics. He is on prednisone which leave him at risk for nosocomial infections. Naman Rich MD
[2018-03-27] MEDS: Budesonide 0.5 mg/2 ml Inhal Susp UD IH SCH ×2 (07:19→19:27)
[2018-03-27] MEDS: Arformoterol 15 mcg/2 ml Inh Sol IH SCH ×2 (07:19→19:27)
[2018-03-27] MEDS: Nystatin 100,000 Units/gm Cream(15 gm) TOP SCH ×2 (09:53→17:44)
[2018-03-27] MEDS: levETIRAcetam 500 mg/5ml UD cups PO SCH ×2 (09:53→17:44)
[2018-03-27] MEDS: ABIRATERONE ACETATE PO SCH (10:57)
--- NOTE | 2018-03-27 11:28 | CP.PCM.PN ---
Subjective - Date & Time of Evaluation Date of Evaluation: 03/27/18 Time of Evaluation: 10:27 - Subjective Subjective: Steve Parker PGY 2 Heme/Onc Progress Note for Dr. Clemens Patient was seen and examined at bedside in TCU. He is complaining of mild epigastric pain, but denies nausea/vomiting, diarrhea/constipation. His last BM was yesterday. He is tolerating his diet and participating in his PT. Objective - Vital Signs/Intake and Output Vital Signs (last 24 hours): Temp Pulse Resp BP Pulse Ox 98.5 F 74 20 175/98 H 94 L 03/26/18 16:00 03/26/18 16:00 03/26/18 16:00 03/27/18 09:53 03/26/18 16:00 - Medications Medications: Current Medications Arformoterol Tartrate (Brovana) 15 mcg IH [id number] NIALL; Protocol Last Admin: 03/27/18 07:19 Dose: 15 mcg Budesonide (Pulmicort Respules) 0.5 mg IH [id number] NIALL; Protocol Last Admin: 03/27/18 07:19 Dose: 0.5 mg Enoxaparin Sodium (Lovenox) 40 mg SC 0600 NIALL; Protocol Last Admin: 03/27/18 05:29 Dose: 40 mg Ergocalciferol (Drisdol 50,000 Intl Units Cap) 1 cap PO Q7D NIALL; Protocol Last Admin: 03/26/18 11:22 Dose: 1 cap Home Med (Home Med) 1 unit PO DAILY NIALL; Protocol Last Admin: 03/27/18 10:57 Dose: Not Given Sodium Chloride (Sodium Chloride 0.9%) 1,000 mls @ 30 mls/hr IV .Q24H NIALL Last Admin: 03/25/18 22:00 Dose: 30 mls/hr Levetiracetam (Keppra) 500 mg PO BID NIALL; Protocol Last Admin: 03/27/18 09:53 Dose: 500 mg Losartan Potassium (Cozaar) 25 mg PO DAILY NIALL; Protocol Last Admin: 03/27/18 09:53 Dose: 25 mg Nystatin (Mycostatin Cream) 0 ea TOP BID NIALL; Protocol Last Admin: 03/27/18 09:53 Dose: 1 cre Pantoprazole Sodium (Protonix Ec Tab) 20 mg PO 0600 NIALL; Protocol Last Admin: 03/27/18 05:29 Dose: 20 mg Prednisone (Prednisone Tab) 5 mg PO 0800,1800 NIALL; Protocol Last Admin: 03/27/18 10:57 Dose: 5 mg Risperidone (Risperdal Tab) 0.25 mg PO BID PRN; Protocol PRN Reason: confusion/agitation Zolpidem Tartrate (Ambien) 5 mg PO HS NIALL; Protocol Last Admin: 03/26/18 21:36 Dose: 5 mg - Labs Labs: 03/26/18 07:00 03/26/18 07:00 - Additional Findings Additional findings: - Constitutional Appears: Well, Non-toxic, No Acute Distress - Head Exam Head Exam: NORMAL INSPECTION - Eye Exam Eye Exam: EOMI, Normal appearance, PERRL - ENT Exam ENT Exam: Mucous Membranes Moist - Neck Exam Neck exam: Negative for: Lymphadenopathy Additional comments: chronic erythematous at base of neck - Respiratory Exam Respiratory Exam: NORMAL BREATHING PATTERN. absent: Rales, Rhonchi, Wheezes - Cardiovascular Exam Cardiovascular Exam: RRR, +S1, +S2 - GI/Abdominal Exam GI & Abdominal Exam: Normal Bowel Sounds, Soft. absent: Distended, Tenderness - Exam Additional comments: chronic indwelling willson catheter - Extremities Exam Extremities exam: Positive for: normal inspection. 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 CODE SEPSIS was activated. Given history of resistance bacteria in urine and his hypercoagulable state, the patient was admitted for ruling out neurologic cause of stroke and for IV antibiotics. Patient improved and neurologic reasons were ruled out. Symptoms likely due to deconditioning and bone mets Plan: 1. Deconditioning - continue PT in TCU 2. Weakness likely due to hx bone mets - urine and blood cultures were negative - ID consulted, recs appreciated - off abx - Neurology evaluated as likely non-neurological, recs appreciated - Wound nurse consulted for rashes - PT eval pending 3. History of prostate CA - Continue home Zytiga and prednisone therapy - monitor U/O 4. History of seizures - Continue home Keppra 5. History DVT/PE - Continue home Lovenox (dose was confirmed with pharmacy) 6. History of HTN - Continue home losartan 7. History of COPD - Continue home Advair or equivalent 8. Prophylactic measures - Continue Pepcid for GI prophylaxis - Continue Lovenox for DVT prophylaxis - HHD Case was reviewed and discussed with attending, Dr. Sarath Parker PGY2
--- NOTE | 2018-03-27 17:56 | CP.PCM.CON ---
<Malissa Mei - Last Filed: 03/27/18 17:44> History of Present Illness - History of Present Illness History of Present Illness: Neurology Consult Note for Dr Huang: CC: lower extremity weakness 72 year old male with PMH CVA, seizures, stage IV hormone refractory prostate cancer with bone metastasis with cord compression s/p decompressive laminectomy and XRT, with chronic indwelling Shipman catheter, DVT/PE s/p IVC filter, presents for lower extremity weakness that started the day prior to arrival. Patient states that he usually has LE weakness due to his bone mets, uses a walker normally. However, prior to arrival, patient states that he was having more difficulty getting up on his feet. Once he was up with difficulty and walking, he also felt weak on his feet and fell down on his knees. His son then brought him to ED. He denied any other focal weakness, headache, fevers, chills, nausea, vomiting, sob, cp, leg swelling. At [facility], head CT negative for any acute changes. MRI spine could not be performed due to prior rods in his back and left hip. It was concluded that patient's lower extremity weakness is likely from bone mets, deconditioning. Patient transferred to TCU for further rehab and management. 12 point ROS obtained and negative, except as per HPI. PMD: Dr. Sandhu Oncologist: Dr. Clemens PMHx: CVA, seizures, stage IV hormone refractory prostate cancer with bone met astasis with cord compression s/p decompressive laminectomy and XRT, with chronic indwelling Shipman catheter, DVT/PE s/p IVC filter. PSHx: Appendectomy, cholecystectomy, prostate surgery, hip surgery and decompressive laminectomy. FMHx: Non contributory Social: former tobacco, denies alcohol or illicit drug use. Lives with son and . walks with a walker. Son helps with everything. Allergy: NKDA Home meds: Please see MAR for full list Review of Systems - Review of Systems All systems: reviewed and no additional remarkable complaints except Review of Systems: as per HPI Past Patient History - Infectious Disease Hx of Infectious Diseases: None - Tetanus Immunizations Tetanus Immunization: Unknown - Past Medical History & Family History Past Medical History?: Yes - Past Social History Smoking Status: Former Smoker - CARDIAC Hx Hypertension: Yes - PULMONARY Hx Chronic Obstructive Pulmonary Disease (COPD): Yes - NEUROLOGICAL HX Cerebrovascular Accident: Yes - HEENT Hx HEENT Problems: No - RENAL Hx Chronic Kidney Disease: No - ENDOCRINE/METABOLIC Hx Endocrine Disorders: No - HEMATOLOGICAL/ONCOLOGICAL Hx Blood Disorders: Yes (sepsis) Hx Anemia: No Hx Cancer: Yes (prostate WITH METS TO BONES STAGE 4) Hx Chemotherapy: Yes - INTEGUMENTARY Hx Dermatological Problems: Yes Other/Comment: BILATERAL BUTTOCKS WITH REDDENEDRASH. IASD. SKIN FOLDS OF BREAST AND STOMACH FOLD-MASD - MUSCULOSKELETAL/RHEUMATOLOGICAL Hx Falls: Yes - GASTROINTESTINAL Hx Gastrointestinal Disorders: Yes (RECTAL BLEED HERNIA ED, CHOLECYSTECTOMY, APPENDECTOMY) - GENITOURINARY/GYNECOLOGICAL Hx Genitourinary Disorders: Yes (UROSEPSIS) Hx Reproductive Disorders: Yes (PROSTATE CA STAGE 4,ENLARGED PROSTATE) - PSYCHIATRIC Hx Emotional Abuse: No Hx Physical Abuse: No - SURGICAL HISTORY Hx Surgeries: Yes (laminectomy) Hx Appendectomy: Yes Hx Orthopedic Surgery: Yes Other/Comment: prostatectomy - ANESTHESIA Hx Anesthesia: No Hx Anesthesia Reactions: No Hx Malignant Hyperthermia: No Meds Allergies/Adverse Reactions: Allergies Allergy/AdvReac Type Severity Reaction Status Date / Time No Known Allergies Allergy Verified 10/09/16 19:54 - Medications Medications: Current Medications Arformoterol Tartrate (Brovana) 15 mcg IH [id number] NIALL; Protocol Last Admin: 03/27/18 07:19 Dose: 15 mcg Budesonide (Pulmicort Respules) 0.5 mg IH [id number] NIALL; Protocol Last Admin: 03/27/18 07:19 Dose: 0.5 mg Enoxaparin Sodium (Lovenox) 40 mg SC 0600 NIALL; Protocol Last Admin: 03/27/18 05:29 Dose: 40 mg Ergocalciferol (Drisdol 50,000 Intl Units Cap) 1 cap PO Q7D NIALL; Protocol Last Admin: 03/26/18 11:22 Dose: 1 cap Home Med (Home Med) 1 unit PO DAILY NIALL; Protocol Last Admin: 03/27/18 10:57 Dose: Not Given Levetiracetam (Keppra) 500 mg PO BID NIALL; Protocol Last Admin: 03/27/18 09:53 Dose: 500 mg Losartan Potassium (Cozaar) 25 mg PO DAILY NIALL; Protocol Last Admin: 03/27/18 09:53 Dose: 25 mg Nystatin (Mycostatin Cream) 0 ea TOP BID NIALL; Protocol Last Admin: 03/27/18 09:53 Dose: 1 cre Pantoprazole Sodium (Protonix Ec Tab) 20 mg PO 0600 NIALL; Protocol Last Admin: 03/27/18 05:29 Dose: 20 mg Prednisone (Prednisone Tab) 5 mg PO 0800,1800 NIALL; Protocol Last Admin: 03/27/18 10:57 Dose: 5 mg Risperidone (Risperdal Tab) 0.25 mg PO BID PRN; Protocol PRN Reason: confusion/agitation Zolpidem Tartrate (Ambien) 5 mg PO HS NIALL; Protocol Last Admin: 03/26/18 21:36 Dose: 5 mg Physical Exam - Additional Findings Additional findings: - Constitutional Appears: Non-toxic, No Acute Distress - Head Exam Head Exam: ATRAUMATIC, NORMOCEPHALIC - Eye Exam Eye Exam: EOMI, PERRL. absent: Conjunctival injection, Nystagmus, Scleral icterus Pupil Exam: NORMAL ACCOMODATION, PERRL. absent: Fixed, Irregular, Miosis, Unequal - ENT Exam ENT Exam: Mucous Membranes Moist - Neck Exam Neck exam: Positive for: Full Rom - Respiratory Exam Respiratory Exam: Clear to Auscultation Bilateral, NORMAL BREATHING PATTERN. absent: Accessory Muscle Use, Rhonchi, Wheezes - Cardiovascular Exam Cardiovascular Exam: RRR, +S1, +S2. absent: Systolic Murmur - GI/Abdominal Exam GI & Abdominal Exam: Normal Bowel Sounds, Soft. absent: Distended, Firm, Guarding, Organomegaly, Rebound, Tenderness - Extremities Exam Extremities exam: Negative for: calf tenderness, pedal edema Additional comments: venous stasis changes b/l - Neurological Exam Neurological exam: Alert, CN II-XII Intact, Oriented x3, Reflexes Normal - Expanded Neurological Exam Expanded Cranial nerves: EOM's Intact: Normal Upper motor neuron: Babinski Sign: Normal, Anthony Neglect: Normal Neuro motor strength exam: Left Upper Extremity: 4, Right Upper Extremity: 4, Left Lower Extremity: 2/1, Right Lower Extremity: 2/1 DTR: Achilles Tendon Left: 2+, Achilles Tendon Right: 2+, Bicep Left: 2+, Bicep Right: 2+, Brachioradialis Left: 2+, Brachioradialis Right: 2+ Coma Scale Eye Opening: SPONTANEOUS Coma Scale Motor Response: OBEYS COMMANDS Coma Scale Verbal: Oriented Coma Scale Total: 15 - Psychiatric Exam Psychiatric exam: Normal Affect, Normal Mood - Skin Skin Exam: Normal Color, Warm Results - Vital Signs Recent Vital Signs: Last Vital Signs Temp 98.2 F 03/27/18 16:00 Pulse 90 03/27/18 16:00 Resp 20 03/27/18 16:00 BP 154/89 H 03/27/18 16:00 Pulse Ox 95 03/27/18 16:00 - Labs Result Diagrams: 03/26/18 07:00 03/26/18 07:00 Assessment & Plan - Assessment and Plan (Free Text) Assessment: 72 year old male with PMH CVA, seizures, stage IV hormone refractory prostate cancer with bone metastasis with cord compression s/p decompressive laminectomy and XRT, with chronic indwelling Shipman catheter, DVT/PE s/p IVC filter, presents for worsening lower extremity weakness: - likely bone mets, deconditioning, ruled out stroke. - head CT negative for acute changes - could not obtain MRI brain and lumbosacral spine as patient has 2 rods in the back as well as left hip. - continue with rehab in TCU. - Rest of care per primary team - Please re-consult us if necessary Case reviewed and discussed with attending, Dr Huang. <Eliza Huang - Last Filed: 03/28/18 13:08> Meds - Medications Medications: Current Medications Arformoterol Tartrate (Brovana) 15 mcg IH [id number] NIALL; Protocol Last Admin: 03/28/18 07:10 Dose: 15 mcg Budesonide (Pulmicort Respules) 0.5 mg IH [id number] NIALL; Protocol Last Admin: 03/28/18 07:10 Dose: 0.5 mg Enoxaparin Sodium (Lovenox) 40 mg SC 0600 NIALL; Protocol Last Admin: 03/28/18 06:02 Dose: 40 mg Ergocalciferol (Drisdol 50,000 Intl Units Cap) 1 cap PO Q7D NIALL; Protocol Last Admin: 03/26/18 11:22 Dose: 1 cap Home Med (Home Med) 1 unit PO DAILY NIALL; Protocol Last Admin: 03/28/18 10:36 Dose: Not Given Levetiracetam (Keppra) 500 mg PO BID NIALL; Protocol Last Admin: 03/28/18 09:37 Dose: 500 mg Losartan Potassium (Cozaar) 25 mg PO DAILY NIALL; Protocol Last Admin: 03/28/18 09:09 Dose: 25 mg Nystatin (Mycostatin Cream) 0 ea TOP BID NIALL; Protocol Last Admin: 03/27/18 17:44 Dose: 1 cre Pantoprazole Sodium (Protonix Ec Tab) 20 mg PO 0600 NIALL; Protocol Last Admin: 03/28/18 06:02 Dose: 20 mg Prednisone (Prednisone Tab) 5 mg PO 0800,1800 NIALL; Protocol Last Admin: 03/28/18 08:04 Dose: 5 mg Risperidone (Risperdal Tab) 0.25 mg PO BID PRN; Protocol PRN Reason: confusion/agitation Zolpidem Tartrate (Ambien) 5 mg PO HS NIALL; Protocol Last Admin: 03/27/18 21:01 Dose: 5 mg Results - Vital Signs Recent Vital Signs: Last Vital Signs Temp 97.4 F L 03/28/18 10:00 Pulse 92 H 03/28/18 10:00 Resp 14 03/28/18 10:00 BP 144/91 H 03/28/18 10:00 Pulse Ox 94 L 03/28/18 10:00 - Labs Result Diagrams: 03/26/18 07:00 03/26/18 07:00 Assessment & Plan - Assessment and Plan (Free Text) Assessment: All medical record entries made by the Resident were at my direction and perso jocelyn dictated by me. I have reviewed the chart and agree that the record accurately reflects my personal performance of the history, physical exam, medical decision making, and the department course for this patient. I have also personally directed, reviewed, and agree with the discharge instructions and disposition. Patient with normal neurological exam except for lower limb weakness. Plan as above. Dr huang
--- NOTE | 2018-03-28 01:05 | PN ---
DATE: 03/27/2018 SUBJECTIVE: The patient is in bed, in no acute distress, nontoxic. PHYSICAL EXAMINATION: VITAL SIGNS: On exam, temperature is 98, blood pressure is 150/80, respiratory rate 20, heart rate of 60. HEENT: Examination of HEENT is unremarkable. NECK: Supple. LUNGS: Have decreased breath sounds. HEART: Normal S1, S2. ABDOMEN: Soft, nontender. LABORATORY DATA: Laboratory examination reveals a white count of 6.4, hemoglobin of 9, platelets of 197. Chemistries are noted. Microbiology is noted. ASSESSMENT AND PLAN: A 72-year-old man who was seen early this morning in room 316, who is admitted to acute care with systemic inflammatory response syndrome, low count urinary tract infection of 10,000 and history of gastrointestinal bleeding, history of prostate cancer with metastases, chronic obstructive lung disease, coronary artery disease, off of antibiotics. Review of orders confirms the patient to be off of antibiotics. The patient is on prednisone. The patient is at risk for developing nosocomial infections. Naman Rich MD
[2018-03-28] MEDS: Enoxaparin 40 mg Syringe SC SCH (06:02)
[2018-03-28] MEDS: Pantoprazole 20 mg EC Tab PO SCH (06:02)
[2018-03-28] MEDS: Budesonide 0.5 mg/2 ml Inhal Susp UD IH SCH (07:10)
[2018-03-28] MEDS: Arformoterol 15 mcg/2 ml Inh Sol IH SCH (07:10)
--- NOTE | 2018-03-28 07:40 | CP.PCM.PN ---
Subjective - Date & Time of Evaluation Date of Evaluation: 03/28/18 Time of Evaluation: 07:20 - Subjective Subjective: Steve Parker PGY 2 Heme/Onc Progress Note for Dr. Clemens Patient was seen and examined at bedside in TCU. He states that his abdominal discomfort has improved and has no complaints today. There were no acute overnight events. The patient had a large BM. Patient denies chest pain, shortness of breath, fevers/chills, nausea/vomiting. Objective - Vital Signs/Intake and Output Vital Signs (last 24 hours): Temp Pulse Resp BP Pulse Ox 98.5 F 72 18 155/89 H 98 03/28/18 06:00 03/28/18 06:00 03/28/18 06:00 03/28/18 06:00 03/28/18 06:00 Intake and Output: 03/28/18 03/28/18 06:59 18:59 Intake Total 960 Output Total 2200 Balance -1240 - Medications Medications: Current Medications Arformoterol Tartrate (Brovana) 15 mcg IH [id number] NIALL; Protocol Last Admin: 03/28/18 07:10 Dose: 15 mcg Budesonide (Pulmicort Respules) 0.5 mg IH [id number] NIALL; Protocol Last Admin: 03/28/18 07:10 Dose: 0.5 mg Enoxaparin Sodium (Lovenox) 40 mg SC 0600 NIALL; Protocol Last Admin: 03/28/18 06:02 Dose: 40 mg Ergocalciferol (Drisdol 50,000 Intl Units Cap) 1 cap PO Q7D NIALL; Protocol Last Admin: 03/26/18 11:22 Dose: 1 cap Home Med (Home Med) 1 unit PO DAILY NIALL; Protocol Last Admin: 03/27/18 10:57 Dose: Not Given Levetiracetam (Keppra) 500 mg PO BID NIALL; Protocol Last Admin: 03/27/18 17:44 Dose: 500 mg Losartan Potassium (Cozaar) 25 mg PO DAILY NIALL; Protocol Last Admin: 03/27/18 09:53 Dose: 25 mg Nystatin (Mycostatin Cream) 0 ea TOP BID NIALL; Protocol Last Admin: 03/27/18 17:44 Dose: 1 cre Pantoprazole Sodium (Protonix Ec Tab) 20 mg PO 0600 NIALL; Protocol Last Admin: 10/04/18 06:02 Dose: 20 mg Prednisone (Prednisone Tab) 5 mg PO 0800,1800 NIALL; Protocol Last Admin: 03/27/18 17:45 Dose: 5 mg Risperidone (Risperdal Tab) 0.25 mg PO BID PRN; Protocol PRN Reason: confusion/agitation Zolpidem Tartrate (Ambien) 5 mg PO HS NIALL; Protocol Last Admin: 03/27/18 21:01 Dose: 5 mg - Labs Labs: 03/26/18 07:00 03/26/18 07:00 - Additional Findings Additional findings: - Constitutional Appears: Well, Non-toxic, No Acute Distress - Head Exam Head Exam: NORMAL INSPECTION - Eye Exam Eye Exam: EOMI, Normal appearance, PERRL - ENT Exam ENT Exam: Mucous Membranes Moist - Neck Exam Neck exam: Negative for: Lymphadenopathy Additional comments: chronic erythematous at base of neck - Respiratory Exam Respiratory Exam: NORMAL BREATHING PATTERN. absent: Rales, Rhonchi, Wheezes - Cardiovascular Exam Cardiovascular Exam: RRR, +S1, +S2 - GI/Abdominal Exam GI & Abdominal Exam: Normal Bowel Sounds, Soft. absent: Distended, Tenderness - Exam Additional comments: chronic indwelling willson catheter - Extremities Exam Extremities exam: Positive for: normal inspection. 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 CODE SEPSIS was activated. Given history of resistance bacteria in urine and his hypercoagulable state, the patient was admitted for ruling out neurologic cause of stroke and for IV antibiotics. Patient improved and neurologic reasons were ruled out. Symptoms likely due to deconditioning and bone mets Plan: 1. Deconditioning - continue PT in TCU 2. Weakness likely due to hx bone mets - urine and blood cultures were negative - ID consulted, recs appreciated - off abx - Neurology evaluated as likely non-neurological, recs appreciated - Wound nurse consulted for rashes - PT eval pending 3. History of prostate CA - Continue home Zytiga and prednisone therapy - monitor U/O 4. History of seizures - Continue home Keppra 5. History of DVT/PE - Continue home Lovenox (dose was confirmed with pharmacy) 6. History of HTN - Continue home losartan 7. History of COPD - Continue home Advair or equivalent 8. Prophylactic measures - Continue Pepcid for GI prophylaxis - Continue Lovenox for DVT prophylaxis - HHD Case was reviewed and discussed with attending, Dr. Sarath Parker PGY2
[2018-03-28] MEDS: levETIRAcetam 500 mg/5ml UD cups PO SCH ×2 (09:37→18:18)
[2018-03-28] MEDS: ABIRATERONE ACETATE PO SCH (10:36)
[2018-03-28] MEDS: Nystatin 100,000 Units/gm Cream(15 gm) TOP SCH (13:51)
--- NOTE | 2018-03-28 22:06 | PN ---
DATE: 03/28/2018 SUBJECTIVE: The patient is in bed, in no acute distress, nontoxic. PHYSICAL EXAMINATION: VITAL SIGNS: On exam, temperature is 98, blood pressure is 140/80, respiratory rate of 18. HEENT: Examination of HEENT is unremarkable. NECK: Supple. LUNGS: Have decreased breath sounds. HEART: Normal S1, S2. ABDOMEN: Soft, nontender. LABORATORY DATA: Laboratory examination reveals a white count of 6.4, hemoglobin of 9. Chemistries reveals a BUN of 7, creatinine of 0.5. Microbiology is noted. Review of orders reveals the patient is off of antibiotics. ASSESSMENT AND PLAN: This is a 72-year-old male who was seen earlier today with systemic inflammatory response syndrome, lower urinary tract infection with 10,000, history of GI bleed, prostate cancer with metastases, chronic obstructive lung disease, coronary artery disease, currently now off of antibiotics, afebrile. The patient is at risk for developing nosocomial infections. Naman Rich MD
[2018-03-29] MEDS: Enoxaparin 40 mg Syringe SC SCH (06:00)
[2018-03-29] MEDS: Pantoprazole 20 mg EC Tab PO SCH (06:00)
[2018-03-29] MEDS: Arformoterol 15 mcg/2 ml Inh Sol IH SCH ×3 (07:11→20:36)
[2018-03-29] MEDS: Budesonide 0.5 mg/2 ml Inhal Susp UD IH SCH ×3 (07:11→20:37)
--- NOTE | 2018-03-29 09:04 | CP.PCM.PN ---
Subjective - Date & Time of Evaluation Date of Evaluation: 03/29/18 Time of Evaluation: 09:58 - Subjective Subjective: Steve Parker PGY 2 Heme/Onc Progress Note for Dr. Clemens Patient was seen and examined at bedside in TCU. He states that his abdominal discomfort has improved and has no complaints today. There were no acute overnight events. The patient had a large BM. Patient denies chest pain, shortness of breath, fevers/chills, nausea/vomiting. Objective - Vital Signs/Intake and Output Vital Signs (last 24 hours): Temp Pulse Resp BP Pulse Ox 98.9 F 76 18 148/85 96 03/28/18 16:00 03/28/18 16:00 03/28/18 16:00 03/28/18 16:00 03/28/18 16:00 Intake and Output: 03/29/18 03/29/18 06:59 18:59 Intake Total 560 Output Total 1600 Balance -1040 - Medications Medications: Current Medications Arformoterol Tartrate (Brovana) 15 mcg IH [id number] NIALL; Protocol Last Admin: 03/29/18 07:13 Dose: Not Given Budesonide (Pulmicort Respules) 0.5 mg IH [id number] NIALL; Protocol Last Admin: 03/29/18 07:13 Dose: Not Given Enoxaparin Sodium (Lovenox) 40 mg SC 0600 NIALL; Protocol Last Admin: 03/29/18 06:00 Dose: 40 mg Ergocalciferol (Drisdol 50,000 Intl Units Cap) 1 cap PO Q7D NIALL; Protocol Last Admin: 03/26/18 11:22 Dose: 1 cap Home Med (Home Med) 1 unit PO DAILY NIALL; Protocol Last Admin: 03/28/18 10:36 Dose: Not Given Levetiracetam (Keppra) 500 mg PO BID NIALL; Protocol Last Admin: 03/28/18 18:18 Dose: 500 mg Losartan Potassium (Cozaar) 25 mg PO DAILY NIALL; Protocol Last Admin: 03/28/18 09:09 Dose: 25 mg Nystatin (Mycostatin Cream) 0 ea TOP BID NIALL; Protocol Last Admin: 03/28/18 13:51 Dose: 1 cre Pantoprazole Sodium (Protonix Ec Tab) 20 mg PO 0600 NIALL; Protocol Last Admin: 03/29/18 06:00 Dose: 20 mg Prednisone (Prednisone Tab) 5 mg PO 0800,1800 NIALL; Protocol Last Admin: 03/29/18 07:57 Dose: 5 mg Risperidone (Risperdal Tab) 0.25 mg PO BID PRN; Protocol PRN Reason: confusion/agitation Zolpidem Tartrate (Ambien) 5 mg PO HS NIALL; Protocol Last Admin: 03/28/18 22:06 Dose: 5 mg - Labs Labs: 03/26/18 07:00 03/26/18 07:00 - Additional Findings Additional findings: - Constitutional Appears: Well, Non-toxic, No Acute Distress - Head Exam Head Exam: NORMAL INSPECTION - Eye Exam Eye Exam: EOMI, Normal appearance, PERRL - ENT Exam ENT Exam: Mucous Membranes Moist - Neck Exam Neck exam: Negative for: Lymphadenopathy Additional comments: chronic erythematous at base of neck - Respiratory Exam Respiratory Exam: NORMAL BREATHING PATTERN. absent: Rales, Rhonchi, Wheezes - Cardiovascular Exam Cardiovascular Exam: RRR, +S1, +S2 - GI/Abdominal Exam GI & Abdominal Exam: Normal Bowel Sounds, Soft. absent: Distended, Tenderness - Exam Additional comments: chronic indwelling willson catheter - Extremities Exam Extremities exam: Positive for: normal inspection. 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 CODE SEPSIS was activated. Given history of resistance bacteria in urine and his hypercoagulable state, the patient was admitted for ruling out neurologic cause of stroke and for IV antibiotics. Patient improved and neurologic reasons were ruled out. Symptoms likely due to deconditioning and bone mets Plan: 1. Deconditioning - continue PT in TCU 2. Weakness likely due to hx bone mets - urine and blood cultures were negative - ID consulted, recs appreciated - off abx - Neurology evaluated as likely non-neurological, recs appreciated - Wound nurse consulted for rashes - PT eval pending 3. History of prostate CA - Continue home Zytiga and prednisone therapy - monitor U/O 4. History of seizures - Continue home Keppra 5. History of DVT/PE - Continue home Lovenox (dose was confirmed with pharmacy) 6. History of HTN - Continue home losartan 7. History of COPD - Continue home Advair or equivalent 8. Prophylactic measures - Continue Pepcid for GI prophylaxis - Continue Lovenox for DVT prophylaxis - HHD Case was reviewed and discussed with attending, Dr. Sarath Parker PGY2
[2018-03-29] MEDS: levETIRAcetam 500 mg/5ml UD cups PO SCH ×2 (10:06→17:35)
[2018-03-29] MEDS: ABIRATERONE ACETATE PO SCH (10:06)
[2018-03-29] MEDS: Nystatin 100,000 Units/gm Cream(15 gm) TOP SCH ×2 (10:07→17:32)
--- NOTE | 2018-03-29 17:53 | CP.PCM.PN ---
Subjective - Date & Time of Evaluation Date of Evaluation: 03/29/18 Time of Evaluation: 09:05 - Subjective Subjective: Afebrile, not in distress. Objective - Vital Signs/Intake and Output Vital Signs (last 24 hours): Temp Pulse Resp BP Pulse Ox 98.9 F 76 18 148/85 96 03/28/18 16:00 03/28/18 16:00 03/28/18 16:00 03/28/18 16:00 03/28/18 16:00 Intake and Output: 03/28/18 03/29/18 18:59 06:59 Intake Total 560 Output Total 1600 Balance -1040 - Medications Medications: Current Medications Arformoterol Tartrate (Brovana) 15 mcg IH [id number] NIALL; Protocol Last Admin: 03/28/18 07:10 Dose: 15 mcg Budesonide (Pulmicort Respules) 0.5 mg IH [id number] NIALL; Protocol Last Admin: 03/28/18 07:10 Dose: 0.5 mg Enoxaparin Sodium (Lovenox) 40 mg SC 0600 NIALL; Protocol Last Admin: 03/28/18 06:02 Dose: 40 mg Ergocalciferol (Drisdol 50,000 Intl Units Cap) 1 cap PO Q7D NIALL; Protocol Last Admin: 03/26/18 11:22 Dose: 1 cap Home Med (Home Med) 1 unit PO DAILY NIALL; Protocol Last Admin: 03/28/18 10:36 Dose: Not Given Levetiracetam (Keppra) 500 mg PO BID NIALL; Protocol Last Admin: 03/28/18 18:18 Dose: 500 mg Losartan Potassium (Cozaar) 25 mg PO DAILY NIALL; Protocol Last Admin: 03/28/18 09:09 Dose: 25 mg Nystatin (Mycostatin Cream) 0 ea TOP BID NIALL; Protocol Last Admin: 03/28/18 13:51 Dose: 1 cre Pantoprazole Sodium (Protonix Ec Tab) 20 mg PO 0600 NIALL; Protocol Last Admin: 03/28/18 06:02 Dose: 20 mg Prednisone (Prednisone Tab) 5 mg PO 0800,1800 NIALL; Protocol Last Admin: 03/28/18 18:18 Dose: 5 mg Risperidone (Risperdal Tab) 0.25 mg PO BID PRN; Protocol PRN Reason: confusion/agitation Zolpidem Tartrate (Ambien) 5 mg PO HS NIALL; Protocol Last Admin: 03/28/18 22:06 Dose: 5 mg - Labs Labs: 03/26/18 07:00 03/26/18 07:00 - Constitutional Appears: Non-toxic, Chronically Ill - ENT Exam ENT Exam: Mucous Membranes Moist - Neck Exam Neck Exam: absent: Meningismus - Respiratory Exam Respiratory Exam: Decreased Breath Sounds - Cardiovascular Exam Cardiovascular Exam: +S1, +S2 - GI/Abdominal Exam GI & Abdominal Exam: Soft. absent: Tenderness Assessment and Plan - Assessment and Plan (Free Text) Plan: Assessment SIRS, unlikely UTI with less than 10k mixed organisms which probably more of contamination history of Sacral area irritant dermatitis GI bleeding history of Methicillin resistant Coagulase negative Staph bacteremia, E. 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
[2018-03-30] MEDS: Pantoprazole 20 mg EC Tab PO SCH (05:05)
[2018-03-30] MEDS: Enoxaparin 40 mg Syringe SC SCH (05:05)
[2018-03-30] MEDS: Budesonide 0.5 mg/2 ml Inhal Susp UD IH SCH ×2 (07:18→20:39)
[2018-03-30] MEDS: Arformoterol 15 mcg/2 ml Inh Sol IH SCH ×2 (07:18→20:39)
[2018-03-30] MEDS: ABIRATERONE ACETATE PO SCH (09:45)
[2018-03-30] MEDS: Nystatin 100,000 Units/gm Cream(15 gm) TOP SCH ×2 (09:46→17:35)
--- NOTE | 2018-03-30 16:54 | CP.PCM.PN ---
Subjective - Date & Time of Evaluation Date of Evaluation: 03/30/18 Time of Evaluation: 13:45 - Subjective Subjective: Comfortable in bed, no fevers. Objective - Vital Signs/Intake and Output Vital Signs (last 24 hours): Temp Pulse Resp BP Pulse Ox 97.9 F 88 16 161/84 H 94 L 03/30/18 10:00 03/30/18 10:00 03/30/18 10:00 03/30/18 10:00 03/30/18 10:00 Intake and Output: 03/30/18 03/30/18 06:59 18:59 Intake Total 420 Output Total 2400 Balance -1979 - Medications Medications: Current Medications Arformoterol Tartrate (Brovana) 15 mcg IH [id number] NIALL; Protocol Last Admin: 03/30/18 07:18 Dose: 15 mcg Budesonide (Pulmicort Respules) 0.5 mg IH [id number] NIALL; Protocol Last Admin: 03/30/18 07:18 Dose: 0.5 mg Enoxaparin Sodium (Lovenox) 40 mg SC 0600 NIALL; Protocol Last Admin: 03/30/18 05:05 Dose: 40 mg Ergocalciferol (Drisdol 50,000 Intl Units Cap) 1 cap PO Q7D NIALL; Protocol Last Admin: 03/26/18 11:22 Dose: 1 cap Home Med (Home Med) 1 unit PO DAILY NIALL; Protocol Last Admin: 03/30/18 09:45 Dose: Not Given Levetiracetam (Keppra) 500 mg PO BID NIALL; Protocol Last Admin: 03/30/18 10:23 Dose: 500 mg Losartan Potassium (Cozaar) 25 mg PO DAILY NIALL; Protocol Last Admin: 03/30/18 09:45 Dose: 25 mg Nystatin (Mycostatin Cream) 0 ea TOP BID NIALL; Protocol Last Admin: 03/30/18 09:46 Dose: 1 applic Pantoprazole Sodium (Protonix Ec Tab) 20 mg PO 0600 NIALL; Protocol Last Admin: 03/30/18 05:05 Dose: 20 mg Prednisone (Prednisone Tab) 5 mg PO 0800,1800 NIALL; Protocol Last Admin: 03/30/18 09:46 Dose: 5 mg Zolpidem Tartrate (Ambien) 5 mg PO HS NIALL; Protocol Last Admin: 03/29/18 22:18 Dose: 5 mg - Labs Labs: 03/26/18 07:00 03/26/18 07:00 - Constitutional Appears: Non-toxic, No Acute Distress, Chronically Ill - Head Exam Head Exam: NORMAL INSPECTION - Respiratory Exam Respiratory Exam: Decreased Breath Sounds - Cardiovascular Exam Cardiovascular Exam: +S1, +S2 - GI/Abdominal Exam GI & Abdominal Exam: Soft. absent: Tenderness Assessment and Plan - Assessment and Plan (Free Text) Plan: Assessment SIRS, unlikely UTI with less than 10k mixed organisms which probably more of contamination history of Sacral area irritant dermatitis GI bleeding history of Methicillin resistant Coagulase negative Staph bacteremia, E. 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
[2018-03-30 17:07] VITALS: O2SAT 98
[2018-03-31] MEDS: Pantoprazole 20 mg EC Tab PO SCH (06:19)
[2018-03-31] MEDS: Enoxaparin 40 mg Syringe SC SCH (06:19)
[2018-03-31] MEDS: Arformoterol 15 mcg/2 ml Inh Sol IH SCH ×2 (07:19→20:22)
[2018-03-31] MEDS: Budesonide 0.5 mg/2 ml Inhal Susp UD IH SCH ×2 (07:19→20:22)
[2018-03-31] MEDS: ABIRATERONE ACETATE PO SCH (09:23)
[2018-03-31] MEDS: Nystatin 100,000 Units/gm Cream(15 gm) TOP SCH ×2 (09:24→17:38)
[2018-03-31 09:35] VITALS: RESP 20; TEMP 97
--- NOTE | 2018-03-31 14:46 | CP.PCM.PN ---
Subjective - Date & Time of Evaluation Date of Evaluation: 03/31/18 Time of Evaluation: 11:45 - Subjective Subjective: No fevers, not in distress. No nausea, no diarrhea. Objective - Vital Signs/Intake and Output Vital Signs (last 24 hours): Temp Pulse Resp BP Pulse Ox 98.2 F 76 18 137/87 98 03/30/18 16:00 03/30/18 16:00 03/30/18 16:00 03/30/18 16:00 03/30/18 16:00 - Medications Medications: Current Medications Arformoterol Tartrate (Brovana) 15 mcg IH [id number] NIALL; Protocol Last Admin: 03/31/18 07:19 Dose: 15 mcg Budesonide (Pulmicort Respules) 0.5 mg IH [id number] NIALL; Protocol Last Admin: 03/31/18 07:19 Dose: 0.5 mg Enoxaparin Sodium (Lovenox) 40 mg SC 0600 NIALL; Protocol Last Admin: 03/31/18 06:19 Dose: 40 mg Ergocalciferol (Drisdol 50,000 Intl Units Cap) 1 cap PO Q7D NIALL; Protocol Last Admin: 03/26/18 11:22 Dose: 1 cap Home Med (Home Med) 1 unit PO DAILY NIALL; Protocol Last Admin: 03/30/18 09:45 Dose: Not Given Levetiracetam (Keppra) 500 mg PO BID NIALL; Protocol Last Admin: 03/30/18 17:35 Dose: 500 mg Losartan Potassium (Cozaar) 25 mg PO DAILY NIALL; Protocol Last Admin: 03/30/18 09:45 Dose: 25 mg Nystatin (Mycostatin Cream) 0 ea TOP BID NIALL; Protocol Last Admin: 03/30/18 17:35 Dose: 1 applic Pantoprazole Sodium (Protonix Ec Tab) 20 mg PO 0600 NIALL; Protocol Last Admin: 03/31/18 06:19 Dose: 20 mg Prednisone (Prednisone Tab) 5 mg PO 0800,1800 NIALL; Protocol Last Admin: 03/30/18 17:35 Dose: 5 mg Zolpidem Tartrate (Ambien) 5 mg PO HS NIALL; Protocol Last Admin: 03/30/18 21:33 Dose: 5 mg - Labs Labs: 03/26/18 07:00 03/26/18 07:00 - Constitutional Appears: Non-toxic, Chronically Ill - Head Exam Head Exam: NORMAL INSPECTION - ENT Exam ENT Exam: Mucous Membranes Moist - Respiratory Exam Respiratory Exam: Decreased Breath Sounds - Cardiovascular Exam Cardiovascular Exam: +S1, +S2 - GI/Abdominal Exam GI & Abdominal Exam: Soft. absent: Tenderness Assessment and Plan - Assessment and Plan (Free Text) Plan: Assessment S/P SIRS, unlikely UTI with less than 10k mixed organisms which probably more of contamination history of Sacral area irritant dermatitis GI bleeding history of Methicillin resistant Coagulase negative Staph bacteremia, E. 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
--- NOTE | 2018-04-01 04:45 | PN ---
DATE: 03/31/2018 ONCOLOGY PROGRESS NOTE LOCATION: The patient is in room 316, bed #1. SUBJECTIVE: Tyron is a 72-year-old white male with metastatic stage IV carcinoma of the prostate with documented bone metastasis, status post cord compression with a decompression and placement of rods in thoracic spine, history of indwelling Shipman catheter as a results are sequelae of the cord compression left in place because of lack of bladder tone and the catheter has been exchanged every 6 weeks, who was admitted to the hospital with p progressive weakness in left lower extremity with a concern for either back involvement by progressive disease or MANAGER PROVIDER RELATIONS involvement including possible stroke. Workup in the acute side was negative. The patient was thought to have defunctioning related to lack of activity at home as prior to admission, his son was in the hospital. There was nobody else to ambulate him at home for about 10 days and the patient had fallen back as far as therapy was concerned and that is why could have gotten weak with failure to thrive at home. The patient's has improved. In the TCU, the patient has been able to walk with assistance, has been walking more than 25 feet without significant pain and using a walker. The patient tells me he has had no fevers, he is not in any distress. No diarrhea. Back pain is well controlled, had no difficulty in breathing as well. Appetite is reasonable. OBJECTIVE PHYSICAL EXAMINATION: GENERAL: The patient was examined in bed. VITAL SIGNS: Stable. T-max is 92.4, pulse is 76, respirations 18, blood pressure is 137/87, pulse ox is 98% on room air. HEENT: Head is normocephalic, atraumatic. Conjunctivae pale. Sclerae is anicteric. Examination of the oropharynx reveals poor dentition. NECK: Supple. There is no adenopathy. No jugular venous distention noted. LUNGS: Reveals prolonged expiratory phase, scattered wheezes noted. Otherwise no other adventitious sounds are heard. CARDIOVASCULAR: Reveals S1, S2 to be normal. No gallop or murmur is heard. ABDOMEN: Soft, mildly protuberant, nontender. No rebound, rigidity or guarding is noted. Liver and spleen are not palpable. EXTREMITIES: Reveals no significant cyanosis, clubbing or edema. The patient has full range of motion of both lower extremities with gravity eliminated. The patient has an indwelling Shipman catheter, which is attached to a leg bag. MEDICATIONS: The patient's medications were reviewed. He is on Brovana, budesonide, Pulmicort Respules. He is on Lovenox 40 mg subcu once a day. He is on 50,000 units of vitamin D once a week. He is on Keppra 500 mg b.i.d. He is on Zytiga 1 g daily. He is on Cozaar 25 mg daily, he is on Nizoral cream, nystatin cream to apply topically to the sacral area. He is on pantoprazole 20 mg p.,o., daily. He is on prednisone 5 mg b.i.d. He has Ambien 5 mg at bedtime. LABORATORY DATA: Labs that were drawn on 03/27/2018 reveals a white count of 6.4, hemoglobin 9.8, hematocrit 30.9, platelet count 197,000. Electrolytes are normal. BUN is 7, creatinine 0.5 and blood sugar of 85. ASSESSMENT NOTES AND PLAN: The patient has had history of stage IV carcinoma of the prostate, documented bone metastasis on a combination of Lupron, Xgeva, Zytiga and oral supplementation of prednisone, status post systemic inflammatory response syndrome, unlikely transient ischemic attack with less than 10,000 mixed organisms in the urinary catheter, most likely contamination, history of gastrointestinal; bleeding, history of methicillin-resistant coagulase negative Staphylococcus bacteremia, history of Escherichia coli urinary tract infection, status post appendectomy, status post cholecystectomy, chronic obstructive pulmonary disease, history of villous adenoma of the rectum, 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 Plan was to continue with active physical therapy. The patient is going to be assessed with possible discharge for home tomorrow if he continues to improve in the fashion that he has been. The patient has been setup for regular Shipman catheter exchange as an outpatient with the visiting nurses. I explained all of my findings in detail and our plans to the patient who is going to communicate that with his family. Time spent with the patient greater than 80 minutes, out of which much time was spent in correlating all the facts and coordinating the discharge plan. Please make the note this is a complex patient with multiple comorbid medical issues. Ant Clemens MD [facility] # [id number]
[2018-04-01] MEDS ORDERED: ZYTIGA PO SCH (06:00)
[2018-04-01] MEDS: Pantoprazole 20 mg EC Tab PO SCH (06:14)
[2018-04-01] MEDS: Enoxaparin 40 mg Syringe SC SCH (06:14)
[2018-04-01] MEDS: Arformoterol 15 mcg/2 ml Inh Sol IH SCH (07:18)
[2018-04-01] MEDS: Budesonide 0.5 mg/2 ml Inhal Susp UD IH SCH (07:18)
[2018-04-01] MEDS: Nystatin 100,000 Units/gm Cream(15 gm) TOP SCH (09:57)
[2018-04-01 10:02] VITALS: BP 140/86; PULSE 73
--- NOTE | 2018-04-01 13:14 | CP.PCM.DIS ---
Provider - Provider Date of Admission: 03/25/18 18:02 Attending physician: Brent Dawson MD Primary care physician: Shay Sandhu MD Time Spent in preparation of Discharge (in minutes): 35 Hospital Course - Lab Results Lab Results: Most Recent Lab Values WBC 6.4 10^3/ul (4.5-11.0) 03/26/18 07:00 RBC 3.51 10^6/uL (3.5-6.1) 03/26/18 07:00 Hgb 9.8 g/dL (14.0-18.0) L 03/26/18 07:00 Hct 30.9 % (42.0-52.0) L 03/26/18 07:00 MCV 88.0 fl (80.0-105.0) 03/26/18 07:00 MCH 27.9 pg (25.0-35.0) 03/26/18 07:00 MCHC 31.7 g/dl (31.0-37.0) 03/26/18 07:00 RDW 14.5 % (11.5-14.5) 03/26/18 07:00 Plt Count 197 10^3/uL (120.0-450.0) 03/26/18 07:00 MPV 8.0 fl (7.0-11.0) 03/26/18 07:00 Gran % 66.2 % (50.0-68.0) 03/26/18 07:00 Lymph % (Auto) 22.0 % (22.0-35.0) 03/26/18 07:00 Todd % (Auto) 7.8 % (1.0-6.0) H 03/26/18 07:00 Eos % (Auto) 3.4 % (1.5-5.0) 03/26/18 07:00 Baso % (Auto) 0.6 % (0.0-3.0) 03/26/18 07:00 Gran # 4.23 (1.4-6.5) 03/26/18 07:00 Lymph # (Auto) 1.4 (1.2-3.4) 03/26/18 07:00 Todd # (Auto) 0.5 (0.1-0.6) 10/02/18 07:00 Eos # (Auto) 0.2 (0.0-0.7) 03/26/18 07:00 Baso # (Auto) 0.04 K/mm3 (0.0-2.0) 03/26/18 07:00 Sodium 139 mmol/L (132-148) 03/26/18 07:00 Potassium 3.6 mmol/L (3.6-5.0) 03/26/18 07:00 Chloride 106 mmol/L (98-107) 03/26/18 07:00 Carbon Dioxide 26 mmol/L (21-33) 03/26/18 07:00 Anion Gap 10 (10-20) 03/26/18 07:00 BUN 7 mg/dL (7-21) 03/26/18 07:00 Creatinine 0.5 mg/dl (0.8-1.5) L 03/26/18 07:00 Est GFR ( Amer) > 60 03/26/18 07:00 Est GFR (Non-Af Amer) > 60 03/26/18 07:00 Random Glucose 83 mg/dL (70-110) 03/26/18 07:00 Calcium 7.8 mg/dL (8.4-10.5) L 03/26/18 07:00 Total Bilirubin 0.2 mg/dL (0.2-1.3) 03/26/18 07:00 AST 21 U/L (17-59) 03/26/18 07:00 ALT 47 U/L (7-56) 03/26/18 07:00 Alkaline Phosphatase 70 U/L (38-126) 03/26/18 07:00 Total Protein 5.9 g/dL (5.8-8.3) 03/26/18 07:00 Albumin 3.1 g/dL (3.0-4.8) 03/26/18 07:00 Globulin 2.8 gm/dL 03/26/18 07:00 Albumin/Globulin Ratio 1.1 (1.1-1.8) 03/26/18 07:00 - Hospital Course Hospital Course: Mr. 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 Workup for any neurological etiology was negative, and the patient was started on antibiotics for suspected UTI. Patient was transferred to TCU for further physical therapy due to deconditioning. In TCU, the patient has been walking with assistance, and tolerated therapies well and his strength has improved. On day of discharge, the patient denies any fever/chills, nausea/vomiting/diarrhea, he is tolerating his diet, and there is no shortness of breath or chest pain. The patient has been set up for regular Willson catheter exchange as an outpatient with visiting nurses, please refer to use SW notes for further information. Dr. Clemens will relay the information and plans with the patient's family. The patient is medically optimized for discharge and will follow up with PMD and Dr. Clemens in office. Discharge Exam - Additional Findings Additional findings: - Constitutional Appears: Well, Non-toxic, No Acute Distress - Head Exam Head Exam: NORMAL INSPECTION - Eye Exam Eye Exam: EOMI, Normal appearance, PERRL - ENT Exam ENT Exam: Mucous Membranes Moist - Neck Exam Neck exam: Negative for: Lymphadenopathy Additional comments: chronic erythematous at base of neck, improved - Respiratory Exam Respiratory Exam: NORMAL BREATHING PATTERN. absent: Rales, Rhonchi, Wheezes - Cardiovascular Exam Cardiovascular Exam: RRR, +S1, +S2 - GI/Abdominal Exam GI & Abdominal Exam: Normal Bowel Sounds, Soft. absent: Distended, Tenderness - Exam Additional comments: chronic indwelling willson catheter - Extremities Exam Extremities exam: Positive for: normal inspection. Negative for: pedal edema - Back Exam Back exam: rash noted (sacral) - Neurological Exam Neurological exam: Alert, Oriented x3 - Psychiatric Exam Psychiatric exam: Normal Mood - Skin Skin Exam: Rash, Warm Discharge Plan - Follow Up Plan Condition: GOOD Disposition: HOME/ ROUTINE Instructions: How to Care for Your Willson Catheter, Male, Skin Rash (DC), Preventing Falls, Urinary Tract Infection in Men (DC), Weakness (GEN) Additional Instructions: - please follow-up with Dr. Clemens in clinic in 2 weeks - please follow-up with Dr. Sandhu in clinic within 2 weeks - please visit ER for evaluation if any new symptoms arise Referrals: Shay Sandhu MD [Primary Care Provider] - Ant Clemens MD [Staff Provider] -
--- NOTE | 2018-04-01 15:45 | CP.PCM.PN ---
Subjective - Date & Time of Evaluation Date of Evaluation: 04/01/18 Time of Evaluation: 12:10 - Subjective Subjective: No fevers, not in distress, eating well, no diarrhea. Objective - Vital Signs/Intake and Output Vital Signs (last 24 hours): Temp Pulse Resp BP Pulse Ox 97 F L 73 20 140/86 98 03/31/18 09:34 04/01/18 09:57 03/31/18 09:34 04/01/18 09:57 03/30/18 16:00 Intake and Output: 04/01/18 04/01/18 06:59 18:59 Output Total 1950 Balance -1950 - Labs Labs: 03/26/18 07:00 03/26/18 07:00 - Constitutional Appears: No Acute Distress, Chronically Ill - Head Exam Head Exam: NORMAL INSPECTION - Respiratory Exam Respiratory Exam: Decreased Breath Sounds - Cardiovascular Exam Cardiovascular Exam: +S1, +S2 - GI/Abdominal Exam GI & Abdominal Exam: Soft. absent: Tenderness Assessment and Plan - Assessment and Plan (Free Text) Plan: Assessment S/P SIRS, unlikely UTI with less than 10k mixed organisms which probably more of contamination history of Sacral area irritant dermatitis GI bleeding history of Methicillin resistant Coagulase negative Staph bacteremia, E. 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
== END 2018-04-01 15:05 | disposition home health service (06) | DRG 543 ==
LOC: TRCU 18:02
PROVIDERS: ADMIT Family Medicine; ATTEND Family Medicine
PROC: 3E0F7GC Introduction of Other Therapeutic Substance into Respiratory Tract, Via Natural or Artificial Opening (ICD-10-PCS; 2018-03-25)
PROC: F07Z9FZ Gait Training/Functional Ambulation Treatment using Assistive, Adaptive, Supportive or Protective Equipment (ICD-10-PCS; principal; 2018-03-26)
PROC: F08Z4FZ Home Management Treatment using Assistive, Adaptive, Supportive or Protective Equipment (ICD-10-PCS; 2018-03-26)
DX: C79.51 Secondary malignant neoplasm of bone (principal); N39.0 Urinary tract infection, site not specified; R53.1 Weakness; J44.9 Chronic obstructive pulmonary disease, unspecified; C61 Malignant neoplasm of prostate; I25.10 Atherosclerotic heart disease of native coronary artery without angina pectoris; R56.9 Unspecified convulsions; I10 Essential (primary) hypertension; Z86.73 Personal history of transient ischemic attack (TIA), and cerebral infarction without residual deficits; Z86.718 Personal history of other venous thrombosis and embolism; Z86.711 Personal history of pulmonary embolism; Z87.891 Personal history of nicotine dependence

== ENCOUNTER 2018-04-18 16:21 | Inpatient (IN) | payer MEDICARE, OTHER ==
[2018-04-18 16:43] VITALS: BMI 27.3
--- NOTE | 2018-04-18 17:55 | ED PDOC ---
Arrival/HPI - General Time Seen by Provider: 04/18/18 17:09 Historian: Patient, Spouse - History of Present Illness Narrative History of Present Illness (Text): 04/18/18 17:55 Tyron Lopez is a 72 year old male, with a past medical history of hypertens ion, GI bleed, COPD, CVA, seizures, stage IV hormone refractory prostate cancer on chemotherapy, and XRT, with chronic indwelling willson catheter who presents to the Emergency Department with complaints of generalized weakness today. Patient reports, today while being transported to the doctor's office, he suddenly felt weak and began feeling so weak he "slid out of my wheelchair". He denies synco pe or loss of conciousness. Patient denies experiencing any dizziness or lightheadedness prior to onset. Denies any fever, shakes, or chills. Patient also denies any chest pain or shortness of breath. He denies any abdominal pain, dysuria, hematauria, urinary output changes. hematochezia. Denies any loss of appetite or any other complaints. He was sent for evaluation by his DR. Adam Dawson. PMD: DR. Sandhu 04/18/18 20:01 Time/Duration: 4-6 hours Symptom Onset: Gradual Symptom Course: Unchanged Activities at Onset: Light Context: Other (Doctor's office) Past Medical History - Provider Review Nursing Documentation Reviewed: Yes - Past History Past History: No Previous - Infectious Disease Hx of Infectious Diseases: None - Tetanus Immunization Tetanus Immunization: Unknown - Cardiac Hx Hypertension: Yes - Pulmonary Hx Chronic Obstructive Pulmonary Disease (COPD): Yes - Neurological HX Cerebrovascular Accident: Yes - HEENT Hx HEENT Disorder: No - Renal Hx Renal Disorder: No - Endocrine/Metabolic Hx Endocrine Disorders: No - Hematological/Oncological Hx Blood Disorders: Yes (sepsis) Hx Anemia: No Hx Cancer: Yes (prostate WITH METS TO BONES STAGE 4) Hx Chemotherapy: Yes - Integumentary Hx Dermatological Disorder: Yes Other/Comment: BILATERAL BUTTOCKS WITH REDDENEDRASH. IASD. SKIN FOLDS OF BREAST AND STOMACH FOLD-MASD - Musculoskeletal/Rheumatological Hx Falls: Yes - Gastrointestinal Hx Gastrointestinal Disorders: Yes (GI BLEED) - Genitourinary/Gynecological Hx Genitourinary Disorders: Yes Hx Reproductive Disorders: No - Psychiatric Hx Emotional Abuse: No Hx Physical Abuse: No Hx Substance Use: No - Surgical History Hx Appendectomy: Yes Hx Orthopedic Surgery: Yes Other/Comment: prostatectomy - Anesthesia Hx Anesthesia: No Hx Anesthesia Reactions: No Hx Malignant Hyperthermia: No - Suicidal Assessment Feels Threatened In Home Enviroment: No Family/Social History - Physician Review Nursing Documentation Reviewed: Yes Family/Social History: Unknown Family HX Smoking Status: Former Smoker Hx Alcohol Use: No Hx Substance Use: No Hx Substance Use Treatment: No Allergies/Home Meds Allergies/Adverse Reactions: Allergies No Known Allergies Allergy (Verified 10/09/16 19:54) Home Medications: Home Meds Medication Instructions Recorded Confirmed Enoxaparin [Lovenox] 40 mg SC DAILY 11/09/13 03/25/18 Losartan [Cozaar] 25 mg PO DAILY 03/22/14 03/25/18 Ergocalciferol (Vitamin D2) 50,000 unit PO QWK 08/07/16 03/25/18 [Vitamin D] Fluticasone/Salmeterol 250/50 1 dsk IH DAILY 08/07/16 03/25/18 [Advair Diskus 250/50] Pantoprazole [Protonix EC Tab] 20 mg PO DAILY 08/07/16 03/25/18 Abiraterone Acetate [Zytiga] 250 mg PO DAILY 10/09/16 03/25/18 Methenamine Hippurate [Hiprex] 1 gm PO DAILY 05/31/17 03/25/18 Review of Systems - Review of Systems Constitutional: Other (Generalized weakness). absent: Fevers Eyes: absent: Vision Changes Respiratory: absent: SOB Cardiovascular: absent: Chest Pain Gastrointestinal: absent: Abdominal Pain, Stool Changes, Nausea, Hematochezia Genitourinary Male: Urinary Output Changes. absent: Dysuria, Hematuria Musculoskeletal: absent: Back Pain, Neck Pain Skin: absent: Rash Neurological: absent: Headache, Dizziness Psychiatric: absent: Anxiety, Depression Physical Exam - Physical Exam Narrative Physical Exam (Text): 04/18/18 17:54 Head: Atraumatic. Normocephalic. Eyes: PERRL. EOMI. Conjunctivae are not pale. ENT: Mucous membranes are moist and intact. Oropharynx is clear and symmetric. Neck: Supple. Full ROM. No JVD. No lymphadenopathy. Cardiovascular: Regular rate. Regular rhythm. Systolic murmur. Distal pulses are 2+ and symmetric. Pulmonary/Chest: No evidence of respiratory distress. Clear to auscultation b ilaterally. No wheezing, rales or rhonchi. Abdominal: Soft and non-distended. Abdominal wall hernia noted. Soft and nontender with no incarceration noted. There is no tenderness. No rebound, guarding, or rigidity. No organomegaly. Good bowel sounds. Genitourinary: willson cathether noted with dark urine, nonbloody, not cloudy Rectal: no gross bleeding or melena Back: No CVA tenderness. Extremities: Bilateral lower extremity edema, symmetric. No cyanosis. No clubbing. Full range of motion in all extremities. No calf tenderness. Skin: Skin is warm and dry. No petechiae. No purpura. Neurological: Alert, awake, and oriented to person, place, time, and situation. Normal speech. No facial droop. No focal weakness noted in upper or lower extremities. No meningeal signs. Psychiatric: Good eye contact. Normal interaction, affect, and behavior. Vital Signs Reviewed: Yes Vital Signs Temp Pulse Resp BP Pulse Ox 04/18/18 16:42 98.0 F 71 18 135/88 98 Temperature: Afebrile Blood Pressure: Normal Pulse: Regular Respiratory Rate: Normal Appearance: Positive for: Non-Toxic Pain Distress: None Mental Status: Positive for: Alert and Oriented X 3 Medical Decision Making ED Course and Treatment: 04/18/18 17:54 Impression: 72 year old male who presents to the ED with generalized weakness. Differential Diagnosis included but are not limited to: Plan: -- VBG -- EKG -- Labs -- Chest X-ray -- Blood Culture -- Urine Culture -- UA -- Reassess and disposition Prior Visits: Notes and results from previous visits were reviewed. Progress Notes: Patient is afebrile in ED. Vital signs stable. Denies chest pain or shortness of breath. Denies syncope. Neuro exam is intact. Lactate unremarkable. Urinalysis suggesitve of UTI, currently patient is not hypotensive or tachycardic. No abdominal pain noted. Will initiate iv antibiotics, admit to Dr. Adam Dawson's service, case reviewed with admitting physician. Patient on re-evaluation remains comfortable on stretcher, with no respiratory distress or fever. CXR reviewed. Reveals chronic changes with ? interstitial prominence, although patient with no cough or shortness of breath with serial exams. - RAD Interpretation Radiology Orders: 04/18/18 17:39 CHEST PORTABLE [RAD] Stat - EKG Interpretation EKG Interpretation (Text): EKG at 16:41 normal sinus rhythm with first degree av block, left anterior fascicular block, left ventricular hypertrophy Interpreted by ED Physician: Yes Type: 12 lead EKG - Scribe Statement The provider has reviewed the documentation as recorded by the Laura miles with [facility]. All medical record entries made by the Laura were at my direction and personally dictated by me. I have reviewed the chart and agree that the record accurately reflects my personal performance of the history, physical exam, medical decision making, and the department course for this patient. I have also personally directed, reviewed, and agree with the discharge instructions and disposition. Disposition/Present on Arrival - Present on Arrival Any Indicators Present on Arrival: Yes History of DVT/PE: Yes History of Uncontrolled Diabetes: No Urinary Catheter: Yes History Surgical Site Infection Following: None - Disposition Have Diagnosis and Disposition been Completed?: Yes Diagnosis: UTI (urinary tract infection) Disposition: HOSPITALIZED Disposition Time: 19:00 Patient Plan: Admission Patient Problems: Current Active Problems Problem Status Onset UTI (urinary tract infection) Acute Condition: FAIR
[2018-04-18 18:33] LABS: BASO # 0.04 K/mm3 (0.0-2.0); BASO % 0.4 % (0.0-3.0); EOS # 0.1 (0.0-0.7); EOS % 0.5 % (1.5-5.0); GRAN # 8.53 (1.4-6.5); GRAN % 82.3 % (50.0-68.0); HEMOGLOBIN 10.3 g/dL (14.0-18.0); LYMPH # 1.1 (1.2-3.4); LYMPH % 10.5 % (22.0-35.0); MEAN CELL VOLUME 87.3 fl (80.0-105.0); MEAN CORPUSCULAR HEMOGLOBIN 28.5 pg (25.0-35.0); MEAN CORPUSCULAR HGB CONC 32.6 g/dl (31.0-37.0); MONO # 0.7 (0.1-0.6); MONO % 6.3 % (1.0-6.0); RBC 3.62 10^6/uL (3.5-6.1); RED CELL DISTRIBUTION WIDTH 14.5 % (11.5-14.5); WHITE BLOOD COUNT 10.4 10^3/uL (4.5-11.0)
[2018-04-18 18:37] LABS: VENOUS BLOOD GAS BASE EXCESS 2.7 mmol/L (0.0-2.0); VENOUS BLOOD GAS PO2 42 mm/Hg (30-55); VENOUS BLOOD PH 7.37 (7.32-7.43)
[2018-04-18 18:40] LABS: INR 1.01; PARTIAL THROMBOPLASTIN TIME 36.4 Seconds (25.1-36.5); PROTHROMBIN TIME 11.5 SECONDS (9.4-12.5)
[2018-04-18 18:43] LABS: ALB/GLOB RATIO 1.1 (1.1-1.8); ALBUMIN 3.6 g/dL (3.0-4.8); ALT/SGPT 70 U/L (7-56); AST/SGOT 38 U/L (17-59); BLOOD UREA NITROGEN 12 mg/dL (7-21); GFR NON-AFRICAN AMERICAN > 60
[2018-04-18 18:47] LABS: URINE BILIRUBIN NEGATIVE (NEGATIVE); URINE BLOOD LARGE (NEGATIVE); URINE GLUCOSE (UA) NEGATIVE (NEGATIVE); URINE LEUKOCYTE ESTERASE LARGE Leu/uL (NEGATIVE); URINE PROTEIN 30 mg/dL (<30 mg/dL); URINE UROBILINOGEN 0.2 E.U./dL (<1 E.U./dL)
[2018-04-18 18:49] LABS: URINE APPEARANCE CLOUDY (CLEAR); URINE COLOR YELLOW (YELLOW)
[2018-04-18 18:53] LABS: TROPONIN I 0.02 ng/mL
[2018-04-18 18:57] LABS: URINE BACTERIA LARGE (NEG)
[2018-04-18] MEDS ORDERED: Ergocalciferol 50,000 Intl Units Cap PO SCH (19:15)
[2018-04-18] MEDS ORDERED: cefTRIAXone 1 gm 1 GM/100 ML BAG IVPB STA (19:40)
[2018-04-18] MEDS ORDERED: Potassium Chloride 20 mEq ER Tab PO STA (20:07)
[2018-04-18] MEDS: Enoxaparin 40 mg Syringe SC SCH (20:41)
[2018-04-18] MEDS: Arformoterol 15 mcg/2 ml Inh Sol IH SCH (20:42)
[2018-04-18] MEDS: Budesonide 0.25 mg/2 ml Inhal Susp UD IH SCH (20:42)
--- NOTE | 2018-04-19 06:43 | HP ---
DATE OF EXAM: 04/18/[address] Clemens. CHIEF COMPLAINT: Weakness and UTI. HISTORY OF PRESENT ILLNESS: The patient is a 72-year-old wheelchair-bound male, who transfers only to bed and toilet; otherwise with a chronic indwelling Shipman, known to have stage IV prostate cancer, reporting that he has profound weakness with the patient having significant difficulty in transferring from the ambulance to the wheelchair in order to be evaluated today in the office with Dr. Clemens for his Xgeva and Lupron and port flush. With this, the patient is now being admitted for evaluation of these findings. The patient is known to have had episodes of urosepsis in the past, one is referred to previous records. With patient now more comfortable, being seen in the emergency room, with patient to be observed with admission as indicated for early urosepsis versus a presyncope episode as he is known to suffer from seizure disorder also. PAST MEDICAL HISTORY: Significant for stage IV prostate cancer with bony metastasis, status post stabilization with Crain rods in the past, medullary tristin placement, history of pulmonary embolism, DVTs, hypertension, seizure disorder, mild dementia, COPD, history of septic shock, dehydration, gait disturbance, hypercoagulable state, on Lovenox, hyperlipidemia, depression, coronary artery disease, and history of CVA. FAMILY HISTORY AND SOCIAL HISTORY: The patient quit smoking after 50 pack year history, , lives with his and son. Otherwise noncontributory. ALLERGIES: NO KNOWN ALLERGIES. MEDICATIONS: Include Advair Diskus, Keppra, Losartan, Lovenox, methenamine hippurate, Protonix, prednisone, Risperdal, Silvadene, and Zytiga, which he takes 4 tablets daily and also vitamin D once a week. REVIEW OF SYSTEMS: Twelve-point review of systems was done, which was negative except for items mentioned in the history of present illness. OBJECTIVE PHYSICAL EXAMINATION: VITAL SIGNS: Temperature 98, pulse 65, respirations 18, blood pressure 128/71, pulse ox 98%. HEENT: Eczematous changes of the face are noted. Otherwise is unremarkable. NECK: Supple. HEART: Regular rate. LUNGS: Clear. ABDOMEN: Soft and nontender. EXTREMITIES: A +1 edema on the feet bilateral, chronic in nature with decreased strength in lower extremities. Chronic indwelling Shipman catheter. The patient is wheelchair-bound. NEUROLOGICAL: Awake and alert. SKIN: Warm and dry and clear except for eczematous changes to face of scaly nature, which is a chronic problem for the patient. LABORATORY DATA: Patient's labs were done. White blood cell count of 10.4, hemoglobin 10.3, hematocrit 31.6. platelet count of 274,000 with a chem metabolic panel showing a potassium of 3.5, which would be replenished, creatinine 0.7, ALT of 70; otherwise normal chem metabolic panel with a venous potassium noted to be 3.4. Urine specimen showed large amount of blood, positive nitrites, large amount of leukocyte esterase. Culture is pending. The patient's ABG on room air showed a pH of 7.37, with a pO2 of 42, this will be reevaluated as his pulse ox is at 98% on room air. His INR is 1.0. ASSESSMENT: For this patient is that of urinary tract infection versus early urosepsis, seizure disorder with questionable presyncope, weakness, stage IV prostate cancer with metastasis to the bones; status post medullary tristin placement, history of gastrointestinal bleed, history of pulmonary embolism with hypocoagulable state, on Lovenox, gait disturbance, the patient is wheelchair-bound, chronic indwelling Shipman, history of transient ischemic attack, chronic obstructive pulmonary disease. PLAN: For this patient after conversation with Dr. Clemens is to admit to the medical floor. We will ask for consult with Dr. Rich, Infectious Disease, Dr. Cole, Neurology and Dr. Olivo regarding his prostate cancer and chronic indwelling Shipman catheter. We will wait cultures of blood in urine. We will refill his current medical regimen to be continued with the labs to be checked and the patient will be monitored clinically. This is a complex patient with a comprehensive medically necessary and appropriate visit carried out in excess of 90 minutes with the patient's questions answered to his satisfaction. Prognosis for this patient is guarded. Brent Dawson MD
[2018-04-19 07:14] LABS: BASO # 0.03 K/mm3 (0.0-2.0); BASO % 0.3 % (0.0-3.0); EOS # 0.2 (0.0-0.7); EOS % 1.8 % (1.5-5.0); GRAN # 7.1 (1.4-6.5); GRAN % 77.3 % (50.0-68.0); HEMOGLOBIN 9.9 g/dL (14.0-18.0); LYMPH # 1.3 (1.2-3.4); LYMPH % 13.6 % (22.0-35.0); MEAN CELL VOLUME 87.6 fl (80.0-105.0); MEAN CORPUSCULAR HGB CONC 31.9 g/dl (31.0-37.0); MEAN PLATELET VOLUME 9.1 fl (7.0-11.0); MONO # 0.6 (0.1-0.6); RBC 3.54 10^6/uL (3.5-6.1); RED CELL DISTRIBUTION WIDTH 14.7 % (11.5-14.5); WHITE BLOOD COUNT 9.2 10^3/uL (4.5-11.0)
[2018-04-19] MEDS: Arformoterol 15 mcg/2 ml Inh Sol IH SCH ×2 (07:31→20:46)
[2018-04-19] MEDS: Budesonide 0.25 mg/2 ml Inhal Susp UD IH SCH ×2 (07:32→20:46)
[2018-04-19 07:40] LABS: ALB/GLOB RATIO 1.1 (1.1-1.8); ALBUMIN 3.5 g/dL (3.0-4.8); ALT/SGPT 65 U/L (7-56); AST/SGOT 32 U/L (17-59); BLOOD UREA NITROGEN 11 mg/dL (7-21); CALCIUM 8.5 mg/dL (8.4-10.5); GFR NON-AFRICAN AMERICAN > 60
[2018-04-19] MEDS: Enoxaparin 40 mg Syringe SC SCH ×2 (08:01→22:53)
[2018-04-19] MEDS: Pantoprazole 40 mg EC Tab PO SCH (09:33)
--- NOTE | 2018-04-19 09:58 | RAD ---
Date of service: 04/18/2018 HISTORY: Shortness of breath COMPARISON: No prior. FINDINGS: LUNGS: No active pulmonary disease. PLEURA: No significant pleural effusion identified, no pneumothorax apparent. CARDIOVASCULAR: Atherosclerotic calcifications identified primarily aortic arch. PICC line in satisfactory position unchanged compared to the prior study. Cardiomegaly. No evidence of acute, significant cardiovascular disease. OSSEOUS STRUCTURES: No significant abnormalities. VISUALIZED UPPER ABDOMEN: Normal. OTHER FINDINGS: None. IMPRESSION: No active disease. No significant interval change compared to the prior examination(s).
[2018-04-19] MEDS ORDERED: ABIRATERONE 250 MG PO SCH (10:00)
--- NOTE | 2018-04-19 10:56 | CARD ---
APPROVED REPORT Date of service: 04/18/2018 EKG Measurement Heart [id number] <Conclusion> Sinus rhythm with 1st degree AV block Left anterior fascicular block PRWP No change
[2018-04-19] MEDS: Cefepime 1gm in NS 100ml 1 GM/100 ML BAG IVPB SCH ×3 (12:20→22:56)
--- NOTE | 2018-04-19 14:31 | CON ---
DATE: 04/19/2018 The patient is seen earlier today in room 571, bed 1. CHIEF COMPLAINT: Weakness x1 day duration. HISTORY OF PRESENT ILLNESS: This is a 72-year-old male with history of prostate cancer stage IV with metastases to with chemotherapy, hyperlipidemia, coronary artery disease, chronic obstructive lung disease, cerebrovascular accident, DVT, seizures, osteoarthritis, pulmonary emboli and chronic Shipman catheter who was admitted with diagnosis of urinary tract infection, possible sepsis. Infectious Disease consultation requested. The patient is seen earlier this morning. He is awake and he states he is feeling weak. He denied any fevers and chills. No abdominal pain, diarrhea or constipation. No chest pain, questionable shortness of breath but no cough. No headaches. REVIEW OF SYSTEMS: A 12-point review of systems was performed. PAST MEDICAL HISTORY: Significant for coronary artery disease, chronic obstructive lung disease, DVT, seizures, cerebrovascular accident, osteoarthritis, chronic Shipman catheter. PAST SURGICAL HISTORY: Significant for cholecystectomy, appendectomy, lumbar spine surgery, laminectomy, Port-A-Cath and IVC filter placement. ALLERGIES: THE PATIENT HAS NO KNOWN ALLERGIES. MEDICATIONS: At home are reviewed and include the patient to be on prednisone 5 mg b.i.d. in addition to Lovenox and Protonix. PHYSICAL EXAMINATION: VITAL SIGNS: The patient's temperature is 98, blood pressure is 120/60, heart rate of 74, respiratory rate of 18 and the patient's O2 saturation was 92 on room air and the BMI is 27. Examination of HEENT is unremarkable. NECK: Supple. LUNGS: Have decreased breath sounds. HEART: Normal S1 and S2. ABDOMEN: Soft, nontender. LABORATORY EXAMINATION: Reveals the patient has a white count of 10,000, hemoglobin of 10, platelets of 274. Chemistries reveals a BUN of 12, creatinine of 0.7. ALT is mildly elevated. Urinalysis is unremarkable for only 2-5 wbc's, large leukocyte esterase, positive nitrites and positive proteinuria, large bacteria. Review of microbiology is pending. Review of previous microbiology reveals the urine with Pseudomonas and yeast in the past and the patient also had E. coli in the urine, which was sensitive in the past and coag-negative Staph in the blood in the past and another Pseudomonas in the urine in the past was sensitive to cefepime. Review of report reveals the patient has a chest x-ray, no results are available. EKG results are not available. ASSESSMENT AND PLAN: This is a 72-year-old male with prostate disease, multiple urinary tract infections, prostatic cancer with mets to bone and had chemotherapy, hyperlipidemia, coronary artery disease, osteoarthritis, pulmonary emboli and chronic Shipman catheter, now presenting with number 1 is a complicated urinary tract infection. We will start the patient on Maxipime 1 g every 8 hours. We will discontinue the ceftriaxone. We will check on the blood cultures, urine cultures and we will make further recommendations. Naman Rich MD
[2018-04-19] MEDS: Silver Sulfadiazine 1% Cream (25 gm) TP SCH (15:49)
--- NOTE | 2018-04-19 16:22 | CP.PCM.PN ---
Subjective - Date & Time of Evaluation Date of Evaluation: 04/19/18 Time of Evaluation: 16:12 - Subjective Subjective: Hematology/Oncology Progress Note (Dr. Clemens's Service) Patient seen and assessed at bedside. No acute events noted overnight. Patient reports that he needs to have someone look at a lesion on his face but otherwise reports that he feels subjectively well. Patient denies any further complaints at this time including fevers, chills, headache, chest pain, SOB, abdominal pain, N/V/D/C, changes in urine output, skin changes or any numbness/tingling of any extremity. Objective - Vital Signs/Intake and Output Vital Signs (last 24 hours): Temp Pulse Resp BP Pulse Ox 98.0 F 94 H 19 123/87 94 L 04/19/18 14:00 04/19/18 14:00 04/19/18 14:00 04/19/18 14:00 04/19/18 14:00 Intake and Output: 04/19/18 04/19/18 06:59 18:59 Output Total 1100 Balance -1100 - Medications Medications: Current Medications Arformoterol Tartrate (Brovana) 15 mcg IH [id number] [facility] Last Admin: 04/19/18 07:31 Dose: 15 mcg Budesonide (Pulmicort Respules) 0.25 mg IH [id number] [facility] Last Admin: 04/19/18 07:32 Dose: 0.25 mg Enoxaparin Sodium (Lovenox) 40 mg SC Q12H [facility]; Protocol Last Admin: 04/19/18 08:01 Dose: 40 mg Ergocalciferol (Drisdol 50,000 Intl Units Cap) 1 cap PO Q7D [facility] Last Admin: 04/18/18 23:14 Dose: 1 cap Home Med (Home Med) 0 unit PO DAILY [facility] Home Med (Home Med) 0 unit PO BID [facility] Cefepime HCl (Maxipime 1gm) 1 gm in 100 mls @ 100 mls/hr IVPB Q8 [facility]; Protocol Last Admin: 04/19/18 15:00 Dose: 100 mls/hr Levetiracetam (Keppra) 500 mg PO BID [facility] Last Admin: 04/19/18 09:33 Dose: 500 mg Losartan Potassium (Cozaar) 25 mg PO DAILY [facility] Last Admin: 04/19/18 09:33 Dose: 25 mg Pantoprazole Sodium (Protonix Ec Tab) 40 mg PO DAILY [facility] Last Admin: 04/19/18 09:33 Dose: 40 mg Prednisone (Prednisone Tab) 5 mg PO BID [facility] Last Admin: 04/19/18 09:33 Dose: 5 mg Risperidone (Risperdal Tab) 0.25 mg PO BID [facility]; Protocol Last Admin: 04/19/18 09:33 Dose: 0.25 mg Silver Sulfadiazine (Silvadene 1% 25 Gm) 0 gm TP DAILY [facility] Last Admin: 04/19/18 15:49 Dose: 1 gm Zolpidem Tartrate (Ambien) 5 mg PO HS [facility]; Protocol - Labs Labs: 04/19/18 06:40 04/19/18 06:40 PT 11.5 SECONDS (9.4-12.5) 04/18/18 18:25 INR 1.01 04/18/18 18:25 APTT 36.4 Seconds (25.1-36.5) 04/18/18 18:25 - Constitutional Appears: Non-toxic, No Acute Distress - Head Exam Additional comments: Approximately 1x1cm circular lesion on left mandibular angle with overlying sc abbing; Erythematous base - Eye Exam Eye Exam: EOMI - ENT Exam ENT Exam: Mucous Membranes Moist - Neck Exam Neck Exam: Full ROM - Respiratory Exam Respiratory Exam: Clear to Ausculation Bilateral, NORMAL BREATHING PATTERN. absent: Rales, Rhonchi, Wheezes - Cardiovascular Exam Cardiovascular Exam: RRR, +S1, +S2 - GI/Abdominal Exam GI & Abdominal Exam: Soft, Normal Bowel Sounds. 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 Plan: 1. UTI in setting of Chronic Indwelling Shipman -UA resulted reviewed -Blood and urine cultures pending -Continue Cefepime 1gm IVPB Q8 -ID and Urology consulted, all recommendations appreciated 2. Facial Lesion -Suspicious for BCC -Surgery consulted for removal evaluation, all recommendations appreciated 3. History of Stage IV Prostate Cancer -Continue home Zytiga and Hiprex 4. History of Seizure Disorder -Continue home Keppra -Neurology consulted, all recommendations appreciated 5. History of DVT/PE -Continue home Lovenox 6. History of COPD -Continue Brovana and Pulmicort -Continue home Prednisone 7. History of HTN -Continue home Cozaar GI Prophylaxis: Protonix DVT Prophylaxis: Lovenox Patient seen and case discussed with attending, Dr. Dawson. Woody Edwards PGY2
--- NOTE | 2018-04-19 16:28 | CON ---
DATE: 04/19/2018 NEUROLOGY CONSULTATION CHIEF COMPLAINT: Generalized weakness and UTI. HISTORY OF PRESENT ILLNESS: This is a 72-year-old man wheelchair-bound, who transfers only to bed and toilet; history of chronic indwelling catheter, history of stage IV prostate cancer status post radiation and chemo, history of mets to the bone, status post stabilization with Crain rods in the past, history of medullary tristin placement, history of pulmonary embolism, DVT, hypertension, seizure disorder, cognitive impairment, COPD, hypercoagulable state, on Lovenox, hyperlipidemia, coronary artery disease, who came to the hospital, was having burning sensation in the urine, profound generalized weakness and difficulty in transfer. He was found to have been in urosepsis with antibiotics on board and felt lightheaded. There are no new seizures. He has been stable. He is on his Keppra 500 mg p.o. b.i.d. and stable in regards to that. He is definitely deconditioned. PAST MEDICAL HISTORY: As above. SOCIAL HISTORY: Quit smoking 50 years ago, , lives with his and son. Otherwise noncontributory. ALLERGIES: NO KNOWN DRUG ALLERGIES. MEDICATIONS: Reviewed by nurses' reconciliation sheet. REVIEW OF SYSTEMS: Fourteen-point review of systems is negative except as per the HPI. PHYSICAL EXAMINATION: VITAL SIGNS: Temperature 98, pulse rate of 94, blood pressure 123/87, respiratory rate 19, oxygen saturation 92% on room air. GENERAL: The patient is sitting up in bed, in no acute distress. HEENT: Atraumatic, normocephalic. PERRLA. Extraocular muscles intact. NECK: Supple. No JVD. No adenopathy noted. LUNGS: Clear to auscultation. No adventitious sounds. HEART: S1 and S2, normal rate and rhythm. No murmurs, rubs or gallops. ABDOMEN: Soft, nontender and nondistended. Bowel sounds are present. EXTREMITIES: No clubbing. No cyanosis. Peripheral pulses 2+ felt bilaterally. NEUROLOGIC: The patient is alert and oriented to person, place, and year. Recall after 5 minutes is 0/3. Poor attention span. Slow thought process. Cranial nerves II through XII intact. Motor: definitely deconditioned. Moves all extremities equally. No pronator drift seen. Sensory: Decreased light touch and pinprick up to the calves bilaterally. Decreased vibration of the toes. Mild neuropathy. DTRs are 2+ throughout at both knees and absent at the ankles. Coordination: Vitmem-kc-phtf intact. No dysmetria noted. LABORATORY DATA: Sodium is 134, potassium 4, chloride 99, carbon dioxide 26, BUN of 11, creatinine 0.8, random glucose of 93. ASSESSMENT AND PLAN: His generalized weakness is secondary to the urosepsis, superimposed underlying deconditioned state and history of seizures. We will recommend to continue his Keppra 500 mg p.o. b.i.d. and recommend intravenous fluids and monitor electrolytes and correct accordingly . Thank you for this consult. Evans Cole MD
[2018-04-19] MEDS: METHENAMINE HIPPURATE 1 GM PO SCH (17:41)
[2018-04-19] MEDS: Vancomycin 1gm in NS 250ml 1 GM/250 ML BAG IVPB SCH (21:18)
[2018-04-20] MEDS: Cefepime 1gm in NS 100ml 1 GM/100 ML BAG IVPB SCH ×3 (05:08→21:38)
[2018-04-20 05:49] LABS: BASO # 0.04 K/mm3 (0.0-2.0); BASO % 0.5 % (0.0-3.0); EOS # 0.2 (0.0-0.7); EOS % 2.1 % (1.5-5.0); GRAN # 5.44 (1.4-6.5); GRAN % 70.9 % (50.0-68.0); HEMOGLOBIN 9.3 g/dL (14.0-18.0); LYMPH # 1.4 (1.2-3.4); LYMPH % 18.8 % (22.0-35.0); MEAN CELL VOLUME 88.7 fl (80.0-105.0); MEAN CORPUSCULAR HEMOGLOBIN 27.6 pg (25.0-35.0); MEAN CORPUSCULAR HGB CONC 31.1 g/dl (31.0-37.0); MEAN PLATELET VOLUME 8.8 fl (7.0-11.0); MONO # 0.6 (0.1-0.6); MONO % 7.7 % (1.0-6.0); RBC 3.37 10^6/uL (3.5-6.1); RED CELL DISTRIBUTION WIDTH 14.8 % (11.5-14.5); WHITE BLOOD COUNT 7.7 10^3/uL (4.5-11.0)
[2018-04-20 05:59] LABS: ALB/GLOB RATIO 1.1 (1.1-1.8); ALBUMIN 3.1 g/dL (3.0-4.8); ALT/SGPT 53 U/L (7-56); AST/SGOT 29 U/L (17-59); BLOOD UREA NITROGEN 10 mg/dL (7-21); CALCIUM 7.8 mg/dL (8.4-10.5); GFR NON-AFRICAN AMERICAN > 60
--- NOTE | 2018-04-20 06:12 | CP.PCM.CON ---
History of Present Illness - History of Present Illness History of Present Illness: General Surgery Consult Note for Dr. Xavier CC: Left Cheek Lesion suspicious for basal cell CA This is a 72M with a PMH of Prostate CA with spinal mets, with indwelling Shipman catheter, seizures, HTN, COPD, DVT/PE status post IVC filter on Lovenox who presented with UTI. When here it was noted that he had an ulcerative lesion on his left cheek. He reports that it has been there for two years. He reports that it does not hurt however it bleeds when he picks at it. Otherwise his only other complaint is weekness. PMH: See above PSH: Appendectomy, cholecystectomy, prostate surgery, hip surgery and decompressive laminectomy. Social: Social: former tobacco, denies alcohol or illicit drug use. ALL: NKDA Review of Systems - Review of Systems Review of Systems: 12 point review of symptoms conducted and negative aside from weakness and bleeding ulcerative lesion on his left cheek Past Patient History - Infectious Disease Hx of Infectious Diseases: None - Tetanus Immunizations Tetanus Immunization: Unknown - Past Medical History & Family History Past Medical History?: Yes - Past Social History Smoking Status: Former Smoker - CARDIAC Hx Cardiac Disorders: Yes Hx Hypercholesterolemia: Yes Hx Hypertension: Yes - PULMONARY Hx Chronic Obstructive Pulmonary Disease (COPD): Yes - NEUROLOGICAL HX Cerebrovascular Accident: Yes (04/28/14) - HEENT Hx HEENT Problems: No - RENAL Hx Chronic Kidney Disease: No - ENDOCRINE/METABOLIC Hx Endocrine Disorders: No - HEMATOLOGICAL/ONCOLOGICAL Hx Blood Disorders: Yes (sepsis) Hx Anemia: No Hx Cancer: Yes (prostate WITH METS TO BONES STAGE 4) Hx Chemotherapy: Yes (oral) - INTEGUMENTARY Hx Dermatological Problems: Yes Other/Comment: BILATERAL BUTTOCKS WITH REDDENEDRASH. IASD. SKIN FOLDS OF BREAST AND STOMACH FOLD-MASD. Abrasion left frontal face/cheek - MUSCULOSKELETAL/RHEUMATOLOGICAL Hx Falls: Yes - GASTROINTESTINAL Hx Gastrointestinal Disorders: Yes (GI BLEED) - GENITOURINARY/GYNECOLOGICAL Hx Genitourinary Disorders: Yes Hx Hematuria: Yes Hx Incontinence: Yes Hx Prostate Problems: Yes Hx Urinary Tract Infection: Yes - PSYCHIATRIC Hx Substance Use: No - SURGICAL HISTORY Hx Surgeries: Yes Hx Appendectomy: Yes Hx Orthopedic Surgery: Yes Other/Comment: prostatectomy. decompressed laminectomy - ANESTHESIA Hx Anesthesia: No Hx Anesthesia Reactions: No Hx Malignant Hyperthermia: No Meds Allergies/Adverse Reactions: Allergies Allergy/AdvReac Type Severity Reaction Status Date / Time No Known Allergies Allergy Verified 10/09/16 19:54 - Medications Medications: Current Medications Arformoterol Tartrate (Brovana) 15 mcg IH [id number] [facility] Last Admin: 04/19/18 20:46 Dose: 15 mcg Budesonide (Pulmicort Respules) 0.25 mg IH [id number] [facility] Last Admin: 04/19/18 20:46 Dose: 0.25 mg Enoxaparin Sodium (Lovenox) 40 mg SC Q12H [facility]; Protocol Last Admin: 04/19/18 22:53 Dose: 40 mg Ergocalciferol (Drisdol 50,000 Intl Units Cap) 1 cap PO Q7D [facility] Last Admin: 04/18/18 23:14 Dose: 1 cap Home Med (Home Med) 0 unit PO DAILY [facility] Home Med (Home Med) 0 unit PO BID [facility] Last Admin: 04/19/18 17:41 Dose: 1 unit Cefepime HCl (Maxipime 1gm) 1 gm in 100 mls @ 100 mls/hr IVPB Q8 [facility]; Protocol Last Admin: 04/20/18 05:08 Dose: 100 mls/hr Vancomycin HCl (Vancomycin 1gm) 1 gm in 250 mls @ 167 mls/hr IVPB Q12H [facility]; Protocol Stop: 04/28/18 20:31 Last Admin: 04/19/18 21:18 Dose: 167 mls/hr Levetiracetam (Keppra) 500 mg PO BID [facility] Last Admin: 04/19/18 17:40 Dose: 500 mg Losartan Potassium (Cozaar) 25 mg PO DAILY [facility] Last Admin: 04/19/18 09:33 Dose: 25 mg Pantoprazole Sodium (Protonix Ec Tab) 40 mg PO DAILY [facility] Last Admin: 04/19/18 09:33 Dose: 40 mg Prednisone (Prednisone Tab) 5 mg PO BID [facility] Last Admin: 04/19/18 17:40 Dose: 5 mg Risperidone (Risperdal Tab) 0.25 mg PO BID [facility]; Protocol Last Admin: 04/19/18 17:40 Dose: 0.25 mg Silver Sulfadiazine (Silvadene 1% 25 Gm) 0 gm TP DAILY [facility] Last Admin: 04/19/18 15:49 Dose: 1 gm Zolpidem Tartrate (Ambien) 5 mg PO HS [facility]; Protocol Last Admin: 04/19/18 21:44 Dose: 5 mg Physical Exam - Constitutional Appears: Non-toxic, No Acute Distress - Head Exam Head Exam: ATRAUMATIC, NORMOCEPHALIC - Eye Exam Eye Exam: EOMI - ENT Exam ENT Exam: Mucous Membranes Moist - Respiratory Exam Respiratory Exam: NORMAL BREATHING PATTERN - Cardiovascular Exam Cardiovascular Exam: +S1, +S2 - GI/Abdominal Exam GI & Abdominal Exam: Soft. absent: Guarding, Tenderness - Neurological Exam Neurological exam: Alert - Psychiatric Exam Psychiatric exam: Normal Affect, Normal Mood - Skin Additional comments: Ulcerating lesion approximatly 1cm on his left angle of his mandible Results - Vital Signs Recent Vital Signs: Last Vital Signs Temp 97.7 F 04/19/18 22:16 Pulse 97 H 04/19/18 22:16 Resp 20 04/19/18 22:16 BP 128/83 04/19/18 22:16 Pulse Ox 92 L 04/19/18 22:16 - Labs Result Diagrams: 04/20/18 05:20 04/20/18 05:20 Labs: Laboratory Results - last 24 hr 04/19/18 04/19/18 04/20/18 06:40 06:40 05:20 WBC 9.2 7.7 RBC 3.54 3.37 L Hgb 9.9 L 9.3 L Hct 31.0 L 29.9 L MCV 87.6 88.7 MCH 28.0 27.6 MCHC 31.9 31.1 RDW 14.7 H 14.8 H Plt Count 271 259 MPV 9.1 8.8 Gran % 77.3 H 70.9 H Lymph % (Auto) 13.6 L 18.8 L [place] % (Auto) 7.0 H 7.7 H Eos % (Auto) 1.8 2.1 Baso % (Auto) 0.3 0.5 Gran # 7.10 H 5.44 Lymph # (Auto) 1.3 1.4 [place] # (Auto) 0.6 0.6 Eos # (Auto) 0.2 0.2 Baso # (Auto) 0.03 0.04 Sodium 134 Potassium 4.0 Chloride 99 Carbon Dioxide 26 Anion Gap 13 BUN 11 Creatinine 0.8 Est GFR ( Amer) > 60 Est GFR (Non-Af Amer) > 60 Random Glucose 93 Calcium 8.5 Total Bilirubin 0.4 AST 32 ALT 65 H Alkaline Phosphatase 80 Total Protein 6.6 Albumin 3.5 Globulin 3.1 Albumin/Globulin Ratio 1.1 04/20/18 05:20 WBC RBC Hgb Hct MCV MCH MCHC RDW Plt Count MPV Gran % Lymph % (Auto) [place] % (Auto) Eos % (Auto) Baso % (Auto) Gran # Lymph # (Auto) [place] # (Auto) Eos # (Auto) Baso # (Auto) Sodium 135 Potassium 3.9 Chloride 102 Carbon Dioxide 27 Anion Gap 9 L BUN 10 Creatinine 0.7 L Est GFR ( Amer) > 60 Est GFR (Non-Af Amer) > 60 Random Glucose 99 Calcium 7.8 L Total Bilirubin 0.2 AST 29 ALT 53 Alkaline Phosphatase 71 Total Protein 6.0 Albumin 3.1 Globulin 2.8 Albumin/Globulin Ratio 1.1 Assessment & Plan - Assessment and Plan (Free Text) Assessment: 72M with left cheek lesion likely basal cell carcinoma admitted for urinary sepsis Recommend medical management of current acute infection Will plan surgical excision after acute infection is resolved either on this hospital admission or pt may return as an outpatient for same day surgery. Discussed with Dr. Duc Thomas PGY3
[2018-04-20] MEDS: Arformoterol 15 mcg/2 ml Inh Sol IH SCH ×2 (07:13→21:00)
[2018-04-20] MEDS: Budesonide 0.25 mg/2 ml Inhal Susp UD IH SCH ×2 (07:13→21:00)
[2018-04-20] MEDS: Vancomycin 1gm in NS 250ml 1 GM/250 ML BAG IVPB SCH ×2 (09:10→21:39)
[2018-04-20] MEDS: Enoxaparin 40 mg Syringe SC SCH ×2 (09:10→21:46)
[2018-04-20] MEDS: METHENAMINE HIPPURATE 1 GM PO SCH ×2 (10:56→17:53)
[2018-04-20] MEDS: Pantoprazole 40 mg EC Tab PO SCH (10:56)
[2018-04-20] MEDS: [UNRECOGNIZED DRUG - OTHER] PO SCH (10:57)
[2018-04-20] MEDS: Silver Sulfadiazine 1% Cream (25 gm) TP SCH (10:59)
--- NOTE | 2018-04-20 14:37 | PN ---
DATE: 04/20/2018 This is [facility] on the medical floor. For Dr. Clemens. SUBJECTIVE: The patient is a 72-year-old male, seen lying awake in bed, feeling better since admission. Now, being treated for early urosepsis, urinary tract infection, which he unfortunately has due to his chronic indwelling Shipman catheter. He also suffers from stage IV prostate cancer with metastasis to the bone. He is also on Lovenox on a daily basis for significant period of time for pulmonary embolism due to hypercoagulable state and is wheelchair bound ordinarily. With this, the patient's left lower cheek/upper neck was noted to have a significant change with basal cell carcinoma to be ruled out with surgical evaluation now pending. He is otherwise resting comfortably, in no acute distress this visit after antibiotics were begun by Dr. Rich. He also suffers from seizure disorder for which Dr. Cole is following him, Neurology. OBJECTIVE PHYSICAL EXAMINATION: VITAL SIGNS: Temperature 97.6, pulse 90, respirations 20, blood pressure 120/82, pulse ox 95%. HEENT: Left lower cheek shows a quarter-sized scabbed lesion to the left angle of the mandible. The patient nor his reported these changes and when the patient is seen, he usually seen sitting in his wheelchair with his head down and this was not appreciated on previous visit; however, now it will be evaluated. Tongue is moist, midline. NECK: Supple. HEART: Regular rate. Occasional ectopic beats. LUNGS: Clear. ABDOMEN: Soft, obese, nontender. EXTREMITIES: Faint +1 edema of the chronic nature. NEUROLOGICAL: Decreased strength in the lower extremities greater than upper extremities with chronic indwelling Shipman. SKIN: Otherwise, warm and dry except for eczematous changes to the face. LABORATORY DATA: The patient's labs were done. White blood cell count of 7.7, down from 10.7 on admission; hemoglobin 9.3; hematocrit 29.9; platelet count of 259,000 with a chem metabolic panel showing a calcium of 7.8, otherwise normal findings. His urinalysis done earlier showed positive blood, large positive nitrite, large amount of leukocyte esterase with his urine culture ordered, but not reported yet; however, his blood cultures were positive on 2 specimens for coagulase-negative Staph or gram-positive cocci in clusters. Sensitivities are pending. ASSESSMENT: The assessment for this patient is that of urinary tract infection versus early urosepsis, stage IV prostate cancer with medullary tristin placement, bony involvement, mild dementia, history of pulmonary embolism, on Lovenox, degenerative joint disease, chronic indwelling Shipman catheter, gait disturbance, wheelchair bound, history of transient ischemic attack, chronic obstructive pulmonary disease, history of gastrointestinal bleed, seizure disorder. PLAN: Plan for this patient, after conversation with Dr. Rich, Dr. Clemens and Dr. Cole, we will continue his present medical regimen with IV antibiotics with a consult for Dr. Xavier for his suspected basal cell lesion on his cheek with a consult with Dr. Mliler, Podiatry for his onychomycotic changes of his nails. This is a complex patient with a comprehensive medically necessary and appropriate visit carried out in excess of 30 minutes with the patient's questions answered to his satisfaction. Prognosis for this patient is guarded. Brent Dawson MD
--- NOTE | 2018-04-20 17:41 | PN ---
DATE: 04/20/2018 SUBJECTIVE: The patient is in bed, in no acute distress. PHYSICAL EXAMINATION: VITAL SIGNS: Temperature is 98, blood pressure is 120/80, respiratory rate of 20. HEENT: Unremarkable. NECK: Supple. LUNGS: Have decreased breath sounds. HEART: Normal S1 and S2. ABDOMEN: Soft. LABORATORY EXAMINATION: Reveals a white count of 7.7, hemoglobin of 9. Coagulation is noted. Blood gases are noted. Chemistry reveals the patient's BUN of 10, creatinine 0.7. Urinalysis is unremarkable and microbiology reveals the blood cultures are positive for gram-positive cocci, for coag-negative Staph by PNA FISH to both bottles. The patient had a chest x-ray, which is negative. The patient does have a PICC line in. ASSESSMENT AND PLAN: This is a 72-year-old male with prostate cancer stage IV, metastases with chemotherapy, hyperlipidemia, coronary artery disease, chronic obstructive lung disease, cerebrovascular accident, deep vein thrombosis, seizure, osteoarthritis, pulmonary emboli, chronic Shipman catheter, diagnosis of urinary tract infection, who is admitted with weakness. The gram-positive cocci bacteremia maybe secondary to a peripherally inserted central catheter line. Currently, on cefepime and vancomycin. We will check on the urine culture, which is pending. We will order an echocardiogram and we will also order repeat blood cultures. If the repeat blood cultures are positive, we will need a transesophageal echocardiogram. Must rule out endocarditis. We will follow with you. Naman Rich MD
[2018-04-21] MEDS: Cefepime 1gm in NS 100ml 1 GM/100 ML BAG IVPB SCH (05:34)
[2018-04-21] MEDS: Vancomycin 1gm in NS 250ml 1 GM/250 ML BAG IVPB SCH ×2 (08:25→21:14)
[2018-04-21] MEDS: Enoxaparin 40 mg Syringe SC SCH ×2 (08:26→21:14)
[2018-04-21] MEDS: Arformoterol 15 mcg/2 ml Inh Sol IH SCH ×2 (08:30→21:38)
[2018-04-21] MEDS: Budesonide 0.25 mg/2 ml Inhal Susp UD IH SCH ×2 (08:30→21:38)
[2018-04-21] MEDS: Pantoprazole 40 mg EC Tab PO SCH (09:20)
[2018-04-21] MEDS: [UNRECOGNIZED DRUG - OTHER] PO SCH (09:24)
[2018-04-21] MEDS: METHENAMINE HIPPURATE 1 GM PO SCH ×2 (09:24→17:00)
--- NOTE | 2018-04-21 12:57 | PN ---
DATE: 04/21/2018 SUBJECTIVE: The patient is in bed, in no acute distress, nontoxic. PHYSICAL EXAMINATION: VITAL SIGNS: On exam, temperature is 98, blood pressure is 130/80, respiratory rate of 20, heart rate of 96. HEENT: Examination of HEENT is unremarkable. NECK: Supple. LUNGS: Have decreased breath sounds. HEART: Normal S1, S2. ABDOMEN: Soft. LABORATORY DATA: Laboratory examination reveals a white count of 7.7, hemoglobin of 9, BUN of 10, creatinine 0.7. Urinalysis is noted with microbiology reveals coag-negative Staph in 2 bottles. Urine cultures, multiple organisms and sensitivity is relatively sensitive coag-negative Staph. The patient's creatinine is 0.7. Currently, on vancomycin. Repeat blood cultures are negative from 04/19/2018. ASSESSMENT AND PLAN: A 72-year-old male with prostate cancer, stage IV metastasis, chemotherapy, hyperlipidemia, coronary artery disease, chronic obstructive lung disease, cerebrovascular accident, deep venous thrombosis, seizures, osteoarthritis, pulmonary emboli, chronic Shipman catheter, who has a central catheter in his left arm and now is admitted with a coagulase-negative Staphylococcus bacteremia with repeat cultures no growth. On vancomycin day #3, would treat with 7-10 days assuming his echo is negative for any vegetations and endocarditis and we will discontinue the cefepime and order a vancomycin trough level. The patient receives his vancomycin on 08:30 in the morning and 08:30 at night. We will order a vancomycin level at 07:30 tonight, an hour before tonight's dose at 1930 tonight, it will be 07:30. Naman Rich MD
[2018-04-21] MEDS: Silver Sulfadiazine 1% Cream (25 gm) TP SCH (16:56)
--- NOTE | 2018-04-22 00:18 | PN ---
DATE: 04/21/2018 [facility] is [facility] floor. For Dr. Clemens. SUBJECTIVE: The patient is a 72-year-old male seen sitting up in the chair, feeling better since admission, treated for early urosepsis, urinary tract infection which he is susceptible to due to having chronic indwelling Shipman catheter. He suffers from stage IV prostate cancer with metastasis to the bone with Lovenox on a daily basis being given. With this, the patient continues his antibiotics as per Dr. Rich. He is otherwise in no acute distress this visit. PHYSICAL EXAMINATION VITAL SIGNS: Temperature 98, pulse 85, respirations 20, blood pressure 130/78, pulse ox 92%. HEENT: He has a quarter-sized bandaged lesion to the left jaw line suspicious for basal cell carcinoma. Otherwise, eczematous changes on his face. Tongue is moist, midline. NECK: Supple. HEART: Regular rate. LUNGS: Clear. ABDOMEN: Obese, soft, and nontender. EXTREMITIES: Faint +1 edema with a chronic indwelling Shipman catheter. NEUROLOGICAL: Decreased strength, lower extremities. SKIN: Warm and dry except for eczematous changes to the face. LABORATORY DATA: The patient's labs were done. White blood cell count of 7.7, hemoglobin 9.3, hematocrit 29.9, platelet count of 259,000 with a chem metabolic panel within normal range except for calcium of 7.8. The patient's blood cultures were positive for coagulase-negative Staphylococci, resistant to penicillin, but sensitive to other antibiotics in aerobic bottles. His urine cultures were showing multiple species, suggest repeat the specimen. ASSESSMENT: For this patient is that of coagulase-negative Staphylococcal bacteremia, treated by Dr. 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 PLAN: For this patient after conversation with Dr. Clemens and Dr. Rich is to continue his IV antibiotics, with echocardiogram to be ordered to rule out endocarditis, with continuation of his present medical regimen with reconditioning as indicated. The prognosis for this patient is guarded. This is a complex patient with a comprehensive medically necessary and appropriate visit carried out in excess of 20 minutes with the patient's questions answered to his satisfaction. His labs will be checked again in the morning. Brent Dawson MD
[2018-04-22 01:32] VITALS: O2SAT 95
[2018-04-22 07:27] LABS: BASO # 0.03 K/mm3 (0.0-2.0); BASO % 0.4 % (0.0-3.0); EOS # 0.3 (0.0-0.7); EOS % 4.1 % (1.5-5.0); GRAN # 4.74 (1.4-6.5); GRAN % 68.9 % (50.0-68.0); LYMPH # 1.3 (1.2-3.4); LYMPH % 19.2 % (22.0-35.0); MEAN CELL VOLUME 89.9 fl (80.0-105.0); MEAN CORPUSCULAR HEMOGLOBIN 28.3 pg (25.0-35.0); MEAN CORPUSCULAR HGB CONC 31.5 g/dl (31.0-37.0); MEAN PLATELET VOLUME 8.9 fl (7.0-11.0); MONO # 0.5 (0.1-0.6); MONO % 7.4 % (1.0-6.0); RBC 3.18 10^6/uL (3.5-6.1); RED CELL DISTRIBUTION WIDTH 14.7 % (11.5-14.5); WHITE BLOOD COUNT 6.9 10^3/uL (4.5-11.0)
[2018-04-22] MEDS: Budesonide 0.25 mg/2 ml Inhal Susp UD IH SCH (07:36)
[2018-04-22] MEDS: Arformoterol 15 mcg/2 ml Inh Sol IH SCH (07:36)
[2018-04-22] MEDS: Enoxaparin 40 mg Syringe SC SCH (08:13)
[2018-04-22] MEDS: Vancomycin 1gm in NS 250ml 1 GM/250 ML BAG IVPB SCH (08:14)
[2018-04-22 08:18] VITALS: RESP 18
[2018-04-22 08:35] LABS: ALBUMIN 2.9 g/dL (3.0-4.8); ALT/SGPT 36 U/L (7-56); AST/SGOT 17 U/L (17-59); BLOOD UREA NITROGEN 11 mg/dL (7-21); CALCIUM 7.3 mg/dL (8.4-10.5); GFR NON-AFRICAN AMERICAN > 60
[2018-04-22] MEDS: Pantoprazole 40 mg EC Tab PO SCH (09:37)
[2018-04-22] MEDS: Silver Sulfadiazine 1% Cream (25 gm) TP SCH (09:38)
[2018-04-22] MEDS: [UNRECOGNIZED DRUG - OTHER] PO SCH (09:39)
[2018-04-22] MEDS: METHENAMINE HIPPURATE 1 GM PO SCH ×2 (09:40→18:28)
--- NOTE | 2018-04-22 10:36 | CP.PCM.CON ---
History of Present Illness - History of Present Illness History of Present Illness: Podiatry consult Note for Dr. 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 Patient states he usually sees a sports journalist for the nails. Denies any other pedal complains, denies f/n/v/sob. ALL: NKDA Past Patient History - Infectious Disease Hx of Infectious Diseases: None - Tetanus Immunizations Tetanus Immunization: Unknown - Past Medical History & Family History Past Medical History?: Yes - Past Social History Smoking Status: Former Smoker - CARDIAC Hx Cardiac Disorders: Yes Hx Hypercholesterolemia: Yes Hx Hypertension: Yes - PULMONARY Hx Chronic Obstructive Pulmonary Disease (COPD): Yes - NEUROLOGICAL HX Cerebrovascular Accident: Yes (04/28/14) - HEENT Hx HEENT Problems: No - RENAL Hx Chronic Kidney Disease: No - ENDOCRINE/METABOLIC Hx Endocrine Disorders: No - HEMATOLOGICAL/ONCOLOGICAL Hx Blood Disorders: Yes (sepsis) Hx Anemia: No Hx Cancer: Yes (prostate WITH METS TO BONES STAGE 4) Hx Chemotherapy: Yes (oral) - INTEGUMENTARY Hx Dermatological Problems: Yes Other/Comment: BILATERAL BUTTOCKS WITH REDDENEDRASH. IASD. SKIN FOLDS OF BREAST AND STOMACH FOLD-MASD. Abrasion left frontal face/cheek - MUSCULOSKELETAL/RHEUMATOLOGICAL Hx Falls: Yes - GASTROINTESTINAL Hx Gastrointestinal Disorders: Yes (GI BLEED) - GENITOURINARY/GYNECOLOGICAL Hx Genitourinary Disorders: Yes Hx Hematuria: Yes Hx Incontinence: Yes Hx Prostate Problems: Yes Hx Urinary Tract Infection: Yes - PSYCHIATRIC Hx Substance Use: No - SURGICAL HISTORY Hx Surgeries: Yes Hx Appendectomy: Yes Hx Orthopedic Surgery: Yes Other/Comment: prostatectomy. decompressed laminectomy - ANESTHESIA Hx Anesthesia: No Hx Anesthesia Reactions: No Hx Malignant Hyperthermia: No Meds Allergies/Adverse Reactions: Allergies Allergy/AdvReac Type Severity Reaction Status Date / Time No Known Allergies Allergy Verified 10/09/16 19:54 - Medications Medications: Current Medications Arformoterol Tartrate (Brovana) 15 mcg IH [id number] [facility] Last Admin: 04/22/18 07:36 Dose: 15 mcg Budesonide (Pulmicort Respules) 0.25 mg IH [id number] [facility] Last Admin: 04/22/18 07:36 Dose: 0.25 mg Enoxaparin Sodium (Lovenox) 40 mg SC Q12H [facility]; Protocol Last Admin: 04/22/18 08:13 Dose: 40 mg Ergocalciferol (Drisdol 50,000 Intl Units Cap) 1 cap PO Q7D [facility] Last Admin: 04/18/18 23:14 Dose: 1 cap Home Med (Home Med) 0 unit PO DAILY [facility] Last Admin: 04/22/18 09:39 Dose: 1 unit Home Med (Home Med) 0 unit PO BID [facility] Last Admin: 04/22/18 09:40 Dose: 1 unit Vancomycin HCl (Vancomycin 1gm) 1 gm in 250 mls @ 167 mls/hr IVPB Q12H [facility]; Protocol Stop: 04/28/18 20:31 Last Admin: 04/22/18 08:14 Dose: 167 mls/hr Levetiracetam (Keppra) 500 mg PO BID [facility] Last Admin: 04/22/18 09:37 Dose: 500 mg Losartan Potassium (Cozaar) 25 mg PO DAILY [facility] Last Admin: 04/22/18 09:37 Dose: 25 mg Pantoprazole Sodium (Protonix Ec Tab) 40 mg PO DAILY [facility] Last Admin: 04/22/18 09:37 Dose: 40 mg Prednisone (Prednisone Tab) 5 mg PO BID [facility] Last Admin: 04/22/18 09:37 Dose: 5 mg Risperidone (Risperdal Tab) 0.25 mg PO BID [facility]; Protocol Last Admin: 04/22/18 09:37 Dose: 0.25 mg Silver Sulfadiazine (Silvadene 1% 25 Gm) 0 gm TP DAILY [facility] Last Admin: 04/22/18 09:38 Dose: 25 gm Zolpidem Tartrate (Ambien) 5 mg PO HS [facility]; Protocol Last Admin: 04/21/18 21:14 Dose: 5 mg Physical Exam - Constitutional Appears: Well, Non-toxic - Extremities Exam Additional comments: LE focused exam: Vascular: DP/PT palpable 2/4 b/l, CFT < 3 seconds to all digits, pedal hair diminished, +1 pitting edema noted to b/l lower extremities Ortho: tenderness on palpation to all toes and foot. Neuro: Gross sensation intact Derm: Elongated, mycotic, dystrophic nails x10. no IDM, no open lesions, no clinical signs of infection. - Neurological Exam Neurological exam: Alert - Psychiatric Exam Psychiatric exam: Normal Affect - Skin Skin Exam: Normal Color Results - Vital Signs Recent Vital Signs: Last Vital Signs Temp 98.3 F 04/22/18 08:17 Pulse 84 04/22/18 09:37 Resp 18 04/22/18 08:17 BP 147/84 04/22/18 09:37 Pulse Ox 95 04/22/18 08:17 - Labs Result Diagrams: 04/22/18 06:50 04/22/18 06:50 Labs: Laboratory Results - last 24 hr 04/21/18 04/22/18 04/22/18 19:30 06:50 06:50 WBC 6.9 RBC 3.18 L Hgb 9.0 L Hct 28.6 L MCV 89.9 MCH 28.3 MCHC 31.5 RDW 14.7 H Plt Count 236 MPV 8.9 Gran % 68.9 H Lymph % (Auto) 19.2 L Burt % (Auto) 7.4 H Eos % (Auto) 4.1 Baso % (Auto) 0.4 Gran # 4.74 Lymph # (Auto) 1.3 Burt # (Auto) 0.5 Eos # (Auto) 0.3 Baso # (Auto) 0.03 Sodium 138 Potassium 3.8 Chloride 107 Carbon Dioxide 23 Anion Gap 12 BUN 11 Creatinine 0.6 L Est GFR ( Amer) > 60 Est GFR (Non-Af Amer) > 60 Random Glucose 81 Calcium 7.3 L Total Bilirubin 0.4 AST 17 D ALT 36 Alkaline Phosphatase 65 Total Protein 5.8 Albumin 2.9 L Globulin 2.8 Albumin/Globulin Ratio 1.0 L Vancomycin Trough 14.9 H Assessment & Plan - Assessment and Plan (Free Text) Assessment: 72 yo male patient seen and evaluated for elongated dystrophic painful nails. Plan: Patient seen and evaluated Patient plan discussed in detail with Dr. patel Afebrile/Absent leukocytosis Elongated, dystrophic nails debrided with a large nail nipper to patient tolerance without incident. Podiatry to sign off at this time Thank you for the consult
--- NOTE | 2018-04-22 10:44 | PN ---
DATE: 04/22/2018 SUBJECTIVE: The patient is in bed, in no acute distress. PHYSICAL EXAMINATION: VITAL SIGNS: On exam, temperature is 98, blood pressure is 130/70, respiratory rate of 18. HEENT: Examination of HEENT is unremarkable. NECK: Supple. LUNGS: Have decreased breath sounds. HEART: Normal S1, S2. ABDOMEN: Soft, nontender. LABORATORY DATA: Laboratory examination reveals a white count of 6.9, hemoglobin of 9, BUN of 11, creatinine of 0.6. Urinalysis is noted. Vanco trough is 14.9. Review of orders confirms the patient to be on vancomycin. Repeat blood cultures are negative. ASSESSMENT AND PLAN: A 72-year-old male with prostate cancer, stage IV metastasis, chemotherapy, hyperlipidemia, coronary artery disease, chronic obstructive lung disease, cerebrovascular accident, deep venous thrombosis, seizures, osteoarthritis, pulmonary emboli, chronic Shipman catheter, who has a central catheter in his left arm and now is admitted with coagulase-negative Staphylococcus bacteremia, now with repeat blood cultures. Today is vancomycin day #4, will need 7-10 days. The patient's vancomycin level is noted. Waiting for echocardiogram results. If the echo is negative, will need 10 days, today is day #4 of 10 days if the echo is negative. Naman Rich MD
--- NOTE | 2018-04-22 14:42 | CARD ---
APPROVED REPORT Date of service: 04/22/2018 EXAM: Two-dimensional and M-mode echocardiogram with Doppler and color Doppler. INDICATION Infection:Rule out subacute bacterial endocarditis positive blood cultures 2D DIMENSIONS Left Atrium (2D)3.8 (1.6-4.0cm)IVSd1.4 (0.7-1.1cm) LVDd4.4 (3.9-5.9cm)PWd1.2 (0.7-1.1cm) LVDs3.2 (2.5-4.0cm)FS (%) 25.9 % LVEF (%)51.2 (>50%) M-Mode DIMENSIONS Aortic Root3.40 (2.2-3.7cm)Aortic Cusp Exc.1.90 (1.5-2.0cm) Aortic Valve AoV Peak Wdnorhrb057.0cm/Naun Peak GR.6mmHg Mitral Valve MV E Zdxbqnuq49.3cm/sMV A Xfsphwgz85.9cm/sE/A ratio0.8 TDI E/Lateral E'0.0E/Medial E'0.0 Tricuspid Valve TR Peak [id number]/sRAP [id number] Peak Gr.24mmHg [id number] LEFT VENTRICLE The left ventricle is normal size. There is mild to moderate concentric left ventricular hypertrophy. The left ventricular function is normal. The left ventricular ejection fraction is within the normal range. There is normal LV segmental wall motion. Transmitral Doppler flow pattern is Grade I-abnormal relaxation pattern. RIGHT VENTRICLE The right ventricle is normal size. There is normal right ventricular wall thickness. The right ventricular systolic function is normal. ATRIA The left atrium size is normal. The right atrium size is normal. AORTIC VALVE The aortic valve is not well visualized. There is trace aortic regurgitation. There is no aortic valvular stenosis. MITRAL VALVE The mitral valve is mildly thickened. Mitral regurgitation is trace. There is no mitral valve stenosis. TRICUSPID VALVE The tricuspid valve is normal in structure. There is trace to mild tricuspid regurgitation. There is mild pulmonary hypertension. PULMONIC VALVE The pulmonary valve is normal in structure. There is no pulmonic valvular regurgitation. GREAT VESSELS The aortic root is normal in size. PERICARDIAL EFFUSION There is a small loculated anterior pericardial effusion. <Conclusion> The left ventricle is normal size. There is mild to moderate concentric left ventricular hypertrophy. The left ventricular function is normal. The left ventricular ejection fraction is within the normal range. There is normal LV segmental wall motion. Transmitral Doppler flow pattern is Grade I-abnormal relaxation pattern. No vegitation seen
[2018-04-22 14:44] VITALS: BP 166/74; PULSE 80
[2018-04-22 15:59] VITALS: TEMP 98.8
--- NOTE | 2018-04-22 16:22 | CP.PCM.DIS ---
Provider - Provider Date of Admission: 04/18/18 19:40 Attending physician: Brent Dawson MD Primary care physician: Dr. Sandhu Consults: ID: Dr. Rich Neuro: Dr. Cole Urology: Dr. Olivo Surgery: Dr. Xavier Podiatry: Dr. Miller Time Spent in preparation of Discharge (in minutes): 47 Hospital Course - Lab Results Lab Results: Micro Results 04/20/18 14:15 Blood Blood Culture - Preliminary NO GROWTH AFTER 48 HOURS 04/20/18 13:15 Blood Blood Culture - Preliminary NO GROWTH AFTER 48 HOURS 04/19/18 21:30 Blood Blood Culture - Preliminary NO GROWTH AFTER 48 HOURS 04/19/18 21:00 Blood Blood Culture - Preliminary NO GROWTH AFTER 48 HOURS 04/18/18 18:00 Blood Blood Culture - Final Coagulase Neg Staphylococcus 04/18/18 18:00 Blood Gram Stain - Final 04/18/18 18:25 Blood S.aureus & Coag-Neg Staph PNA FISH - Final 04/18/18 18:25 Blood Blood Culture - Final Coagulase Neg Staphylococcus 04/18/18 18:25 Blood Gram Stain - Final 04/18/18 18:36 Urine Urine Culture - Final MULTIPLE SPECIES. SUGGEST REPEAT SPECIMEN. Most Recent Lab Values WBC 6.9 10^3/uL (4.5-11.0) 04/22/18 06:50 RBC 3.18 10^6/uL (3.5-6.1) L 04/22/18 06:50 Hgb 9.0 g/dL (14.0-18.0) L 04/22/18 06:50 Hct 28.6 % (42.0-52.0) L 04/22/18 06:50 MCV 89.9 fl (80.0-105.0) 04/22/18 06:50 MCH 28.3 pg (25.0-35.0) 04/22/18 06:50 MCHC 31.5 g/dl (31.0-37.0) 04/22/18 06:50 RDW 14.7 % (11.5-14.5) H 04/22/18 06:50 Plt Count 236 10^3/uL (120.0-450.0) 04/22/18 06:50 MPV 8.9 fl (7.0-11.0) 04/22/18 06:50 Gran % 68.9 % (50.0-68.0) H 04/22/18 06:50 Lymph % (Auto) 19.2 % (22.0-35.0) L 04/22/18 06:50 Hart % (Auto) 7.4 % (1.0-6.0) H 04/22/18 06:50 Eos % (Auto) 4.1 % (1.5-5.0) 04/22/18 06:50 Baso % (Auto) 0.4 % (0.0-3.0) 04/22/18 06:50 Gran # 4.74 (1.4-6.5) 04/22/18 06:50 Lymph # (Auto) 1.3 (1.2-3.4) 04/22/18 06:50 Hart # (Auto) 0.5 (0.1-0.6) 04/22/18 06:50 Eos # (Auto) 0.3 (0.0-0.7) 04/22/18 06:50 Baso # (Auto) 0.03 K/mm3 (0.0-2.0) 04/22/18 06:50 PT 11.5 SECONDS (9.4-12.5) 04/18/18 18:25 INR 1.01 04/18/18 18:25 APTT 36.4 Seconds (25.1-36.5) 04/18/18 18:25 pO2 42 mm/Hg (30-55) 04/18/18 18:25 VBG pH 7.37 (7.32-7.43) 04/18/18 18:25 VBG pCO2 50.0 (40-60) 04/18/18 18:25 VBG HCO3 28.9 mmol/l (21-28) H 04/18/18 18:25 VBG Total CO2 30.4 mmol.L (22-28) H 04/18/18 18:25 VBG O2 Sat (Calc) 77.5 % (40-65) H 04/18/18 18:25 VBG Base Excess 2.7 mmol/L (0.0-2.0) H 04/18/18 18:25 VBG Potassium 3.4 mmol/L (3.6-5.2) L 04/18/18 18:25 Sodium 131.0 mmol/L (132-148) L 04/18/18 18:25 Chloride 96.0 mmol/L (98-107) L 04/18/18 18:25 Glucose 115 mg/dl (75-110) H 04/18/18 18:25 Lactate 1.6 mmol/L (0.7-2.1) 04/18/18 18:25 FiO2 21.0 % 04/18/18 18:25 Sodium 138 mmol/L (132-148) 04/22/18 06:50 Potassium 3.8 mmol/L (3.6-5.0) 04/22/18 06:50 Chloride 107 mmol/L (98-107) 04/22/18 06:50 Carbon Dioxide 23 mmol/L (21-33) 04/22/18 06:50 Anion Gap 12 (10-20) 04/22/18 06:50 BUN 11 mg/dL (7-21) 04/22/18 06:50 Creatinine 0.6 mg/dl (0.8-1.5) L 04/22/18 06:50 Est GFR ( Amer) > 60 04/22/18 06:50 Est GFR (Non-Af Amer) > 60 04/22/18 06:50 Random Glucose 81 mg/dL (70-110) 04/22/18 06:50 Calcium 7.3 mg/dL (8.4-10.5) L 04/22/18 06:50 Total Bilirubin 0.4 mg/dL (0.2-1.3) 04/22/18 06:50 AST 17 U/L (17-59) D 04/22/18 06:50 ALT 36 U/L (7-56) 04/22/18 06:50 Alkaline Phosphatase 65 U/L (38-126) 04/22/18 06:50 Lactate Dehydrogenase 393 U/L (333-699) 04/18/18 18:25 Total Creatine Kinase 45 U/L (35-230) 04/18/18 18:25 Troponin I 0.02 ng/mL D 04/18/18 18:25 Total Protein 5.8 g/dL (5.8-8.3) 04/22/18 06:50 Albumin 2.9 g/dL (3.0-4.8) L 04/22/18 06:50 Globulin 2.8 gm/dL 04/22/18 06:50 Albumin/Globulin Ratio 1.0 (1.1-1.8) L 04/22/18 06:50 Venous Blood Potassium 3.4 mmol/L (3.6-5.2) L 04/18/18 18:25 Urine Color Yellow (YELLOW) 04/18/18 18:36 Urine Appearance Cloudy (CLEAR) 04/18/18 18:36 Urine pH 7.0 (4.7-8.0) 04/18/18 18:36 Ur Specific Batson 1.010 (1.005-1.035) 04/18/18 18:36 Urine Protein 30 mg/dL (<30 mg/dL) H 04/18/18 18:36 Urine Glucose (UA) Negative mg/dL (NEGATIVE) 04/18/18 18:36 Urine Ketones Negative mg/dL (NEGATIVE) 04/18/18 18:36 Urine Blood Large (NEGATIVE) H 04/18/18 18:36 Urine Nitrate Positive (NEGATIVE) H 04/18/18 18:36 Urine Bilirubin Negative (NEGATIVE) 04/18/18 18:36 Urine Urobilinogen 0.2 E.U./dL (<1 E.U./dL) 04/18/18 18:36 Ur Leukocyte Esterase Large Dulce/uL (NEGATIVE) H 04/18/18 18:36 Urine RBC 2 - 5 /hpf (0-2) 04/18/18 18:36 Urine WBC 2 - 5 /hpf (0-6) 04/18/18 18:36 Ur Epithelial Cells None /hpf (0-5) 04/18/18 18:36 Urine Bacteria Large (NEG) 04/18/18 18:36 Vancomycin Trough 14.9 ug/mL (5.0-10.0) H 04/21/18 19:30 - Hospital Course Hospital Course: 72 year old male with a past medical history significant for 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 Patient was found to have staph septicemia and was started on IV vancomycin. ID and Urology were consulted. All repeat blood cu ltures are negative. Echo showed no vegetation. Patient will complete 10 day course of IV vancomycin in TCU. All other home medications were continued during admission with appropriate GI and DVT prophylaxis. PT recommended that patient be discharged to TCU upon discharge for further rehabilitation. Patient was discharged to TCU on 04/22/2018. - Date & Time of H&P Date of H&P: 04/18/18 Time of H&P: 20:05 Discharge Exam - Head Exam Head Exam: ATRAUMATIC, NORMOCEPHALIC Additional comments: Approximately 1x1cm circular lesion on left mandibular angle with overlying scabbing; Erythematous base - Eye Exam Eye Exam: EOMI, Normal appearance - ENT Exam ENT Exam: Mucous Membranes Moist - Neck Exam Neck exam: Full Rom - Respiratory Exam Respiratory Exam: Clear to PA & Lateral, NORMAL BREATHING PATTERN, UNREMARKABLE - Cardiovascular Exam Cardiovascular Exam: REGULAR RHYTHM - GI/Abdominal Exam GI & Abdominal Exam: Normal Bowel Sounds, Unremarkable - Exam Additional comments: Shipman catheter with unremarkable yellow drainage - Extremities Exam Extremities exam: normal capillary refill, normal inspection, pedal pulses present - Neurological Exam Neurological exam: Alert, Oriented x3 - Psychiatric Exam Psychiatric exam: Normal Affect, Normal Mood - Skin Skin Exam: Dry, Warm Discharge Plan - Follow Up Plan Condition: FAIR Disposition: HOME/ ROUTINE Instructions: Prostate Cancer, Kidney Infection, Urinary Tract Infection, Adult (DC), Preventing Falls, Pneumococcal Polysaccharide Vaccine (23-Valent), Flu Vaccine, Urinary Tract Infection in Men (DC), Dysuria (GEN), Urinary Tract Infection in Women (DC) Additional Instructions: You have been discharged from [facility] med surg floor. You will be going to Transitional Care unit. Continue to monitor- Day 4 of vancomycin 10 days needed. Continue all medications
== END 2018-04-22 20:06 | DRG 698 ==
LOC: ED 16:21 → ERH 19:40 → 5RSO 22:24
PROVIDERS: ADMIT Family Medicine; ATTEND Family Medicine
DX: T83.518A Infection and inflammatory reaction due to other urinary catheter, initial encounter (principal); A41.2 Sepsis due to unspecified staphylococcus; N39.0 Urinary tract infection, site not specified; C79.51 Secondary malignant neoplasm of bone; D68.59 Other primary thrombophilia; C61 Malignant neoplasm of prostate; G40.909 Epilepsy, unspecified, not intractable, without status epilepticus; J44.9 Chronic obstructive pulmonary disease, unspecified; I25.10 Atherosclerotic heart disease of native coronary artery without angina pectoris; I10 Essential (primary) hypertension; C44.319 Basal cell carcinoma of skin of other parts of face; F03.90 Unspecified dementia, unspecified severity, without behavioral disturbance, psychotic disturbance, mood disturbance, and anxiety; Z86.711 Personal history of pulmonary embolism; Z99.3 Dependence on wheelchair; E78.5 Hyperlipidemia, unspecified; M19.90 Unspecified osteoarthritis, unspecified site; Y84.6 Urinary catheterization as the cause of abnormal reaction of the patient, or of later complication, without mention of misadventure at the time of the procedure; Z92.21 Personal history of antineoplastic chemotherapy; Z92.3 Personal history of irradiation; Z86.718 Personal history of other venous thrombosis and embolism; Z79.02 Long term (current) use of antithrombotics/antiplatelets; Z86.73 Personal history of transient ischemic attack (TIA), and cerebral infarction without residual deficits; Z87.891 Personal history of nicotine dependence

== ENCOUNTER 2018-04-29 09:47 | Day surgery (SDC) | payer MEDICARE, OTHER ==
[2018-04-29 08:47] VITALS: BMI 27.3
[~2018-04-29 09:47] MED LIST: Bupivacaine 0.5% 50 ML IJ ONE; Lidocaine 1% Inj (20ml) ONE
[2018-04-29] MEDS ORDERED: Lidocaine 1% w Epi 1:100,000 Inj ONE (10:18)
[2018-04-29] MEDS ORDERED: CeFAZolin 1 gm in NS 100ml IVPB ONE (10:25)
[2018-04-29] MEDS ORDERED: Morphine 2 mg/ml ISec IVP PRN ×2 (11:04→11:07)
--- NOTE | 2018-04-29 11:13 | PCM.SURG1 ---
Surgeon's Initial Post Op Note - Surgeon's Notes Surgeon: Dr. Xavier Retrimmer: Dr. Simmons PGY1, Zandra Gutierrez OMS4 Type of Anesthesia: IV Sedation, Local Pre-Operative Diagnosis: Left chin skin lesion Operative Findings: see operative note Post-Operative Diagnosis: Left chin skin lesion Operation Performed: wide local excision of left chin skin lesion with advanced flap closure Specimen/Specimens Removed: 8x4 cm left chin skin lesion Estimated Blood Loss: EBL {In ML}: 5 Blood Products Given: N/A Drains Used: No Drains Post-Op Condition: Good Date of Surgery/Procedure: 04/29/18 Time of Surgery/Procedure: 11:13
[2018-04-29] MEDS ORDERED: Lactated Ringer's 1,000 ML IV SCH (11:15)
[2018-04-29] MEDS: METHENAMINE HIPPURATE 1 GM PO SCH (18:48)
--- NOTE | 2018-04-29 22:13 | OP ---
PROCEDURE DATE: 04/29/2018 PREOPERATIVE DIAGNOSIS: Ulcerated lesion on the left cheek. POSTOPERATIVE DIAGNOSIS: Ulcerated lesion on the left cheek. PROCEDURE PERFORMED: 1. Left face lesion excision measuring 4 x 8 cm. 2. Advancement flap closure of the wound 8 x 4 cm in size. SURGEON: Garland Xavier MD. SERVICE CENTER ASSISTANT: Cedric. ANESTHESIA: MAC and local anesthesia. ANESTHESIOLOGIST: As per OR records. INDICATIONS: The patient is a 72-year-old male, who has an ulcerated lesion on the left side of the face just at the site of the angle of the mandible. This was associated with bleeding and ulceration and the patient was scheduled for excision of the lesion. DESCRIPTION OF PROCEDURE: The patient was brought to the operating room, placed on the operating table in a supine position. The patient was connected to the EKG, blood pressure and pulse oximetry monitors. The patient then underwent MAC and local anesthesia and was prepped and draped in usual sterile fashion. Using #15 blade, an elliptical incision was made in order to excise the entire lesion with normal skin margins. Once this was completed and carried down through the subcutaneous fat with electrocautery, the entire specimen was removed and marked with sutures. Next, the wound was carefully evaluated. All the bleeding points were cauterized. In order to be able to close the defect of about 4 cm, we had to raise flap both inferiorly and superiorly in order to be able to mobilize the skin. Once this was completed, the flap closure completed by closing the skin in 2 layers, first for deep dermal layers and 4-0 Monocryl for the subcuticular closure. Once that was done, we proceeded with placing Dermabond dressing on top of it. The patient tolerated the procedure well and there were no complications. The patient was awakened and transferred to recovery room for further observation. Garland Xavier MD
[2018-04-30] MEDS ORDERED: Pantoprazole 40 mg EC Tab PO SCH (10:00)
[2018-04-30] MEDS ORDERED: Arformoterol 15 mcg/2 ml Inh Sol IH SCH (10:00)
[2018-04-30] MEDS ORDERED: Budesonide 0.5 mg/2 ml Inhal Susp UD IH SCH (10:00)
[2018-04-30] MEDS ORDERED: Fluticasone-Salmeterol 250-50mcg Diskus IH SCH (10:00)
[2018-04-30] MEDS ORDERED: Enoxaparin 40 mg Syringe SC SCH (10:00)
[2018-04-30] MEDS: METHENAMINE HIPPURATE 1 GM PO SCH ×2 (13:58→18:41)
[2018-04-30 15:19] VITALS: BP 139/69; PULSE 81; RESP 20; TEMP 98.6; O2SAT 90
== END 2018-04-30 20:26 | disposition home or self-care (01) ==
LOC: SDS 09:47 → 5RNO 12:24 → SDS 12:24 → 5RNO 04-30 16:32 → SDS 04-30 20:26
PROVIDERS: ATTEND Family Medicine
DX: C44.319 Basal cell carcinoma of skin of other parts of face (principal); J43.9 Emphysema, unspecified; E66.9 Obesity, unspecified; Z90.49 Acquired absence of other specified parts of digestive tract; Z68.27 Body mass index [BMI] 27.0-27.9, adult
CPT/HCPCS: 14040; 88305; 94640; 94760; J0690; J2270; J7120 ×2

== ENCOUNTER 2018-05-17 19:28 | Inpatient (IN) | payer MEDICARE, OTHER ==
[2018-05-17 19:49] VITALS: BMI 27.3
--- NOTE | 2018-05-17 20:09 | ED PDOC ---
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 Patient reports he is unable to stand and states every time this happens, he usually results in being diagnosed with a UTI. He does have an indwelling willson catheter, which was last change 2 days ago. Normally whenever he has willson changed, he ends up having a UTI afterwards. Patient denies any abdominal pain, chest pain, dyspnea on exertion, nausea, vomiting, or any other complaints at this time. Also, it is mentioned patient was admitted 2 weeks ago for a UTI. PMD: Dr. Sandhu Oncologist: Dr. Toribio Past Medical History - Provider Review Nursing Documentation Reviewed: Yes - Past History Past History: No Previous - Infectious Disease Hx of Infectious Diseases: None - Tetanus Immunization Tetanus Immunization: Unknown - Cardiac Hx Pacemaker: No - Pulmonary Hx Chronic Obstructive Pulmonary Disease (COPD): Yes - Neurological HX Cerebrovascular Accident: Yes - HEENT Hx HEENT Disorder: No - Renal Hx Renal Disorder: No - Endocrine/Metabolic Hx Endocrine Disorders: No - Hematological/Oncological Hx Blood Transfusions: No - Integumentary Other/Comment: BILATERAL BUTTOCKS WITH REDDENEDRASH. IASD. SKIN FOLDS OF BREAST AND STOMACH FOLD-MASD. Abrasion left frontal face/cheek - Musculoskeletal/Rheumatological Hx Musculoskeletal Disorders: Yes - Gastrointestinal Hx Gastrointestinal Disorders: Yes (GI BLEED) - Genitourinary/Gynecological Hx Reproductive Disorders: No - Psychiatric Hx Emotional Abuse: No Hx Physical Abuse: No Hx Substance Use: No - Surgical History Hx Appendectomy: Yes Hx Orthopedic Surgery: Yes Other/Comment: prostatectomy. decompressed laminectomy - Anesthesia Hx Anesthesia Reactions: No Hx Malignant Hyperthermia: No - Suicidal Assessment Feels Threatened In Home Enviroment: No Family/Social History - Physician Review Nursing Documentation Reviewed: Yes Family/Social History: No Known Family HX Smoking Status: Former Smoker Hx Alcohol Use: No Hx Substance Use: No Hx Substance Use Treatment: No Allergies/Home Meds Allergies/Adverse Reactions: Allergies No Known Allergies Allergy (Verified 04/17/17 19:54) Home Medications: Home Meds Medication Instructions Recorded Confirmed RX: Enoxaparin [Lovenox] 40 mg SC DAILY 11/09/13 05/17/18 RX: Losartan [Cozaar] 25 mg PO DAILY 03/22/14 05/17/18 RX: Ergocalciferol (Vitamin D2) 50,000 unit PO QWK 08/07/16 05/17/18 [Vitamin D] RX: Fluticasone/Salmeterol 250/50 1 dsk IH DAILY 08/07/16 05/17/18 [Advair Diskus 250/50] RX: Abiraterone Acetate [Zytiga] 250 mg PO DAILY 10/09/16 05/17/18 RX: Methenamine Hippurate [Hiprex] 1 gm PO DAILY 05/31/17 05/17/18 Review of Systems - Physician Review All systems were reviewed & negative as marked: Yes - Review of Systems Constitutional: Other (states feeling warm and having generalized weakness) Cardiovascular: absent: Chest Pain, [place] Gastrointestinal: absent: Abdominal Pain, Nausea, Vomiting Physical Exam Vital Signs Reviewed: Yes Vital Signs Temp Pulse Resp BP Pulse Ox 05/17/18 19:44 99.1 F 86 18 124/65 95 Temperature: Afebrile Blood Pressure: Normal Pulse: Regular Respiratory Rate: Normal Appearance: Positive for: Well-Appearing, Non-Toxic, Comfortable Pain Distress: None Mental Status: Positive for: Alert and Oriented X 3 - Systems Exam Head: Present: Atraumatic, Normocephalic Pupils: Present: PERRL Extroacular Muscles: Present: EOMI Conjunctiva: Present: Normal Mouth: Present: Moist Mucous Membranes Neck: Present: Normal Range of Motion Respiratory/Chest: Present: Clear to Auscultation, Good Air Exchange. No: Respiratory Distress, Accessory Muscle Use Cardiovascular: Present: Regular Rate and Rhythm, Normal S1, S2. No: Murmurs Abdomen: Present: Hernias (umbilical region). No: Tenderness, Distention, Peritoneal Signs Genitourinary Male: Present: Other (indwelling willson catheter draining out normal yellow urine.) Back: Present: Normal Inspection Upper Extremity: Present: Normal Inspection. No: Cyanosis, Edema Lower Extremity: Present: Normal Inspection. No: Edema Neurological: Present: GCS=15, CN II-XII Intact, Speech Normal Skin: Present: Warm, Dry, Normal Color. No: Rashes Psychiatric: Present: Alert, Oriented x 3, Normal Insight, Normal Concentration Medical Decision Making ED Course and Treatment: 05/17/18 20:10 Impression: 72 year old male who states he feels warm and experiences generalized weakness. Plan: -- EKG -- Labs -- Chest X-ray -- Venous Blood Gas -- Urinalysis -- Blood Culture -- Urine Culture -- Reassess and disposition Prior Visits: Notes and results from previous visits were reviewed. Patient was last seen in the emergency department on 04/18/2018 for generalized weakness. Patient was admitted. Progress Notes: 05/17/18 19:42 EKG: Ordered, reviewed, and independently interpreted the EKG. Rate : 84 BPM Rhythm : NSR Interpretation : Left interior vesticular block, mildly widened QRS, normal intervals, no ST elevations. Comparison : No previous EKG for comparison. Mild UTI noted however patient with no leukocytosis or lactic acidosis. Vitals normal except for low grade fever. However, case discussed with Dr. Dawson who agrees to admit the patient for IV abx as he has been in urosepsis multiple times. Patient amenable to this plan. 1g rocephin ivpb ordered. - Lab Interpretations I have reviewed the lab results: Yes - RAD Interpretation Radiology Orders: 05/17/18 19:50 CHEST PORTABLE [RAD] Stat - Scribe Statement The provider has reviewed the documentation as recorded by the Laura Alvarez Provider Scribe Attestation: All medical record entries made by the Laura were at my direction and personally dictated by me. I have reviewed the chart and agree that the record accurately reflects my personal performance of the history, physical exam, medical decision making, and the department course for this patient. I have also personally directed, reviewed, and agree with the discharge instructions and disposition. Disposition/Present on Arrival - Present on Arrival Any Indicators Present on Arrival: Yes History of DVT/PE: No History of Uncontrolled Diabetes: No Urinary Catheter: Yes (Changed one day PHOTO TECH) History of Decub. Ulcer: No History Surgical Site Infection Following: None - Disposition Have Diagnosis and Disposition been Completed?: Yes Diagnosis: UTI (urinary tract infection) Disposition: HOSPITALIZED Disposition Time: 21:13 Patient Problems: Current Active Problems Problem Status Onset UTI (urinary tract infection) Acute Condition: STABLE
[2018-05-17 20:17] LABS: BASO # 0.02 K/mm3 (0.0-2.0); BASO % 0.2 % (0.0-3.0); EOS % 0.2 % (1.5-5.0); GRAN # 8.23 (1.4-6.5); GRAN % 85.3 % (50.0-68.0); HEMOGLOBIN 10.4 g/dL (14.0-18.0); LYMPH # 0.8 (1.2-3.4); LYMPH % 8.4 % (22.0-35.0); MEAN CELL VOLUME 87.7 fl (80.0-105.0); MEAN CORPUSCULAR HEMOGLOBIN 28.5 pg (25.0-35.0); MEAN CORPUSCULAR HGB CONC 32.5 g/dl (31.0-37.0); MONO # 0.6 (0.1-0.6); MONO % 5.9 % (1.0-6.0); RBC 3.65 10^6/uL (3.5-6.1); RED CELL DISTRIBUTION WIDTH 15.3 % (11.5-14.5); VENOUS BLOOD GAS BASE EXCESS 1.2 mmol/L (0.0-2.0); VENOUS BLOOD GAS PO2 45 mm/Hg (30-55); VENOUS BLOOD PH 7.39 (7.32-7.43); WHITE BLOOD COUNT 9.7 10^3/uL (4.5-11.0)
[2018-05-17 20:27] LABS: ALB/GLOB RATIO 1.1 (1.1-1.8); ALBUMIN 3.6 g/dL (3.0-4.8); BLOOD UREA NITROGEN 14 mg/dL (7-21); CALCIUM 8.6 mg/dL (8.4-10.5); GFR NON-AFRICAN AMERICAN > 60
[2018-05-17 20:33] LABS: URINE BILIRUBIN NEGATIVE (NEGATIVE); URINE BLOOD MODERATE (NEGATIVE); URINE GLUCOSE (UA) NEGATIVE (NEGATIVE); URINE LEUKOCYTE ESTERASE LARGE Leu/uL (NEGATIVE); URINE PROTEIN TRACE mg/dL (<30 mg/dL); URINE UROBILINOGEN 0.2 E.U./dL (<1 E.U./dL)
[2018-05-17 20:34] LABS: URINE APPEARANCE CLOUDY (CLEAR); URINE COLOR LIGHT YELLOW (YELLOW)
[2018-05-17 20:35] LABS: ALT/SGPT 33 U/L (7-56); AST/SGOT 28 U/L (17-59)
[2018-05-17 20:42] LABS: URINE BACTERIA LARGE (NEG)
[2018-05-17] MEDS ORDERED: cefTRIAXone 1 gm 1 GM/100 ML BAG IVPB STA (21:13)
[2018-05-17] MEDS: Sodium Chloride 0.9% 1,000 ML IV SCH (22:01)
[2018-05-18] MEDS: Pantoprazole 40 mg EC Tab PO SCH (05:30)
[2018-05-18 07:36] LABS: HEMOGLOBIN 10.3 g/dL (14.0-18.0); MEAN CELL VOLUME 87.4 fl (80.0-105.0); MEAN CORPUSCULAR HEMOGLOBIN 27.5 pg (25.0-35.0); MEAN CORPUSCULAR HGB CONC 31.5 g/dl (31.0-37.0); MEAN PLATELET VOLUME 9.1 fl (7.0-11.0); RBC 3.74 10^6/uL (3.5-6.1); RED CELL DISTRIBUTION WIDTH 15.3 % (11.5-14.5); WHITE BLOOD COUNT 8.1 10^3/uL (4.5-11.0)
--- NOTE | 2018-05-18 07:55 | CARD ---
APPROVED REPORT Date of service: 05/17/2018 EKG Measurement Heart [id number] <Conclusion> Normal sinus rhythm Left anterior fascicular block PRWP STTW changes c/w ischemia No change
[2018-05-18] MEDS: Arformoterol 15 mcg/2 ml Inh Sol IH SCH (08:38)
[2018-05-18] MEDS: Budesonide 0.5 mg/2 ml Inhal Susp UD IH SCH (08:38)
[2018-05-18] MEDS: Enoxaparin 40 mg Syringe SC SCH (09:26)
[2018-05-18] MEDS: METHENAMINE HIPPURATE PO SCH (09:34)
[2018-05-18] MEDS: Sodium Chloride 0.9% 1,000 ML IV SCH (10:04)
--- NOTE | 2018-05-18 10:37 | CON ---
DATE OF CONSULTATION: 05/18/2018 The patient is in bed in no acute distress, was seen earlier today in Room 573, Bed 3. CHIEF COMPLAINT: Weakness from several days. HISTORY OF PRESENT ILLNESS: This is a 72-year-old male, known to me from multiple admissions in the past with chronic obstructive lung disease, cerebrovascular accident, gastrointestinal bleed, hypertension. The patient with prostate cancer, on chemotherapy and on radiation therapy, and presents with weakness. The patient does have a chronic Shipman catheter, which was changed 2 days prior to admission. He denies any nausea, vomiting or chest pain. Low-grade fevers present. No headaches or blurred vision. The patient has had coag-negative staph bacteremia. PAST MEDICAL HISTORY: Significant for chronic obstructive lung disease and prostate cancer with metastases, coronary artery disease, cerebrovascular accident, gastrointestinal bleeding, history of pulmonary emboli, osteoarthritis, DVT, hyperlipidemia and seizures. The patient had a history of bacteremia with a Port-A-Cath, which was taken out in the past. PAST SURGICAL HISTORY: The patient also has an IVC filter and laminectomy, appendectomy, cholecystectomy and lumbar surgery. MEDICATIONS AT HOME: Reviewed. ALLERGIES: THE PATIENT HAS NO KNOWN ALLERGIES. REVIEW OF SYSTEMS: A 14-point review of systems is performed and he denies any abdominal pain, diarrhea or constipation, bright red blood per rectum. No melena. PHYSICAL EXAMINATION: GENERAL: The patient is in bed, answering questions appropriately. VITAL SIGNS: Temperature of 99.1, pulse rate of 86, respiratory rate of 20, blood pressure is 112/80. HEENT: Unremarkable. NECK: Supple. LUNGS: Decreased breath sounds. HEART: Normal S1 and S2. ABDOMEN: Soft, nontender. LABORATORY EXAMINATION: White count of 9.7, hemoglobin of 10, platelets of 192, 85% granulocytosis. Chemistries reveal a BUN of 14. LFTs are noted. Urinalysis is noted, 10-15 wbc's, large bacteria, moderate blood, trace protein, large leukocyte esterase. Urine cultures are reviewed. There is Pseudomonas urinary tract infection and yeast urinary tract infection. There is enterococcus urinary tract infections in the blood. The patient did have coag-negative staph in the blood in the past. The patient had a chest x-ray, no report available at this time. ASSESSMENT AND PLAN: This is a 72-year-old male with a chronic Shipman catheter, chronic obstructive lung disease, cerebrovascular accident, coronary artery disease, deep vein thrombosis, pulmonary emboli, GI bleed, hypertension, prostate cancer and metastases with chemotherapy and radiation, seizures, history of coag-negative staph bacteremia, who has a Port-A-Cath in there. #1 presents with a urinary tract infection. Currently, the patient was given a dose of ceftriaxone and the patient is also on prednisone. We will start the patient on Maxipime 1 g IV every 8 hours, pending blood and urine cultures and we will make further recommendations upon availability of initial results. Naman Rich MD
--- NOTE | 2018-05-18 11:10 | RAD ---
HISTORY: Sepsis Patient COMPARISON: Chest x-ray performed 04/29/18 TECHNIQUE: Chest, one view. FINDINGS: Left-sided PICC extends to the SVC. LUNGS: Left basilar atelectasis/infiltrate and or pleural effusion. No definite pneumothorax. Please note that chest x-ray has limited sensitivity for the detection of pulmonary masses. CARDIOVASCULAR: Cardiomegaly. Atherosclerotic calcification present. OSSEOUS STRUCTURES: Lumbar spine hardware, partially imaged. Right rib fracture deformity appears chronic. VISUALIZED UPPER ABDOMEN: Unremarkable. OTHER FINDINGS: None. IMPRESSION: Left basilar atelectasis/infiltrate and or small pleural effusion. Cardiomegaly. Left-sided PICC extends to the SVC.
[2018-05-18] MEDS: Cefepime 1gm in NS 100ml 1 GM/100 ML BAG IVPB SCH ×2 (13:59→22:07)
[2018-05-18] MEDS: [UNRECOGNIZED DRUG - OTHER] PO SCH (17:31)
[2018-05-18 19:08] LABS: URINE BILIRUBIN NEGATIVE (NEGATIVE); URINE BLOOD MODERATE (NEGATIVE); URINE COLOR YELLOW (YELLOW); URINE GLUCOSE (UA) NEGATIVE (NEGATIVE); URINE LEUKOCYTE ESTERASE SMALL Leu/uL (NEGATIVE); URINE PROTEIN TRACE mg/dL (<30 mg/dL); URINE UROBILINOGEN 0.2 E.U./dL (<1 E.U./dL)
[2018-05-18 19:09] LABS: URINE APPEARANCE CLEAR (CLEAR)
[2018-05-18 21:59] LABS: URINE BACTERIA MOD (NEG)
--- NOTE | 2018-05-18 23:31 | HP ---
DATE OF EXAM: 05/18/2018 [facility] floor. For Dr. Clemens. CHIEF COMPLAINT: Fevers. HISTORY OF PRESENT ILLNESS: The patient is a 72-year-old wheelchair-bound male, who transfers from bed to toilet, otherwise with limited ambulation ability with chronic indwelling Shipman catheter with stage IV prostate cancer, admitted multiple times for urosepsis. Now, admitted via the emergency room for fevers of unknown origin probably related to his urinary tract as in the past. With this, the patient is now seen sitting up in bed after IV antibiotics were begun with Infectious Disease consult appreciated. Patient also suffers from seizure disorder and is now resting comfortably, no acute distress and his history is such that he had coagulase negative staph bacteremia. The patient's medications also include Zytiga which is nonformulated and , which is also nonformulated should be brought from home. Patient also has a Port-A-Cath for which labs will be monitored including blood cultures to determine whether the port might be source of his fevers. ALLERGIES: NO KNOWN ALLERGIES. MEDICATIONS: Include Advair Diskus, Keppra, losartan, Lovenox subcutaneously, , Protonix, prednisone, Risperdal, Silvadene cream, Zytiga, and vitamin D weekly. PAST MEDICAL HISTORY: Significant for stage IV prostate cancer with bony metastasis status post Crain tristin placement in the past, medullary rods. History of pulmonary embolism, deep venous thrombosis, hypertension, seizure disorder, mild dementia, COPD, history of septic shock, dehydration, gait disturbance, hypocoagulable state, on Lovenox, hyperlipidemia, depression, ASCVD, history of CVA. FAMILY HISTORY AND SOCIAL HISTORY: Quit smoking after [id number] history. , lives with his and son, nondrinker. Otherwise noncontributory. REVIEW OF SYSTEMS: Twelve-point review of systems was done, which was negative to questioning except for items mentioned in the history of present illness. OBJECTIVE PHYSICAL EXAMINATION: VITAL SIGNS: Temperature 100, pulse 95, respirations 20, blood pressure 147/80, pulse ox 90%. 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 NECK: Supple. HEART: Regular rate. LUNGS: Clear. ABDOMEN: Obese, soft, nontender. EXTREMITIES: Chronic pain, +1 edema of the feet bilateral with decreased strength lower extremities, chronic indwelling Shipman noted. NEUROLOGIC: Awake and alert with weakness to mental tester. SKIN: Warm and dry except for eczematous changes to the face. LABORATORY DATA: The patient's labs were done this morning 05/18/2018; white blood cell count of 8.1, hemoglobin 10.3, hematocrit 32.7, platelet count of 181,000. His chem metabolic panel showed a sodium of 127 with a chloride of 94, otherwise normal chem panel from yesterday. We will repeated it tomorrow. Urinalysis showed moderate amount of blood, large amount of leukocyte esterase. ASSESSMENT: The assessment for this patient is that of fever of unknown origin probably urinary tract infection versus early sepsis as the patient has a history of this, chronic indwelling Shipman catheter, Port-A-Cath, history of cerebrovascular accident, history of pulmonary embolism and deep venous thrombosis on anticoagulation with Lovenox, history of prostate cancer stage IV, hypertension, chronic obstructive pulmonary disease, atherosclerotic cardiovascular disease, gait disturbance, history of gastrointestinal bleed, history of transient ischemic attack, and seizure disorder. PLAN: The plan for this patient after conversation with Dr. Clemens is to continue his present medical regimen with consult and antibiotics as per Dr. Rich. He has hyponatremic indices which was repeated in the morning. We will have to change his Shipman catheter and do culture and sensitivity on urine specimen and the Shipman catheter tip as indicated. We will restart his Zytiga which his will bring from home. We will add salt to the diet. For now, he will be out of bed to the chair with physiotherapy consult to be recommended. This is a complex patient with a comprehensive medically necessary and appropriate visit carried out in excess of 60 minutes with the patient's questions answered to his satisfaction. Brent Dawson MD
[2018-05-19] MEDS: Cefepime 1gm in NS 100ml 1 GM/100 ML BAG IVPB SCH ×3 (05:34→22:07)
[2018-05-19] MEDS: Pantoprazole 40 mg EC Tab PO SCH (05:35)
[2018-05-19 08:00] LABS: BASO # 0.02 K/mm3 (0.0-2.0); BASO % 0.3 % (0.0-3.0); EOS # 0.2 (0.0-0.7); EOS % 2.5 % (1.5-5.0); GRAN # 4.37 (1.4-6.5); GRAN % 68.9 % (50.0-68.0); HEMOGLOBIN 9.4 g/dL (14.0-18.0); LYMPH # 1.1 (1.2-3.4); MEAN CELL VOLUME 88.6 fl (80.0-105.0); MEAN CORPUSCULAR HEMOGLOBIN 27.5 pg (25.0-35.0); MONO # 0.7 (0.1-0.6); MONO % 10.3 % (1.0-6.0); RBC 3.42 10^6/uL (3.5-6.1); RED CELL DISTRIBUTION WIDTH 15.3 % (11.5-14.5); WHITE BLOOD COUNT 6.3 10^3/uL (4.5-11.0)
[2018-05-19] MEDS: Budesonide 0.5 mg/2 ml Inhal Susp UD IH SCH (08:20)
[2018-05-19] MEDS: Arformoterol 15 mcg/2 ml Inh Sol IH SCH (08:20)
[2018-05-19 08:25] LABS: ALBUMIN 3.2 g/dL (3.0-4.8); ALT/SGPT 49 U/L (7-56); AST/SGOT 27 U/L (17-59); BLOOD UREA NITROGEN 12 mg/dL (7-21); CALCIUM 8.4 mg/dL (8.4-10.5); GFR NON-AFRICAN AMERICAN > 60
[2018-05-19] MEDS: Enoxaparin 40 mg Syringe SC SCH (10:07)
[2018-05-19] MEDS: [UNRECOGNIZED DRUG - OTHER] PO SCH (10:08)
[2018-05-19] MEDS: METHENAMINE HIPPURATE PO SCH (10:09)
--- NOTE | 2018-05-19 12:20 | PN ---
DATE: 05/19/2018 SUBJECTIVE: The patient is seen earlier today in 573, bed 3. No fevers. No chills. No nausea. No vomiting. He is doing much better. PHYSICAL EXAMINATION: VITAL SIGNS: On exam, temperature is 98, T-max yesterday was 100, blood pressure of 127/80, respiratory rate of 20. HEENT: Examination of HEENT is unremarkable. NECK: Supple. LUNGS: Have decreased breath sounds. HEART: Normal S1, S2. ABDOMEN: Soft, nontender. LABORATORY DATA: Laboratory examination reveals a white count of 6.3, hemoglobin of 9, platelets of 180. Chemistries reveals a BUN of 12, creatinine of 0.7. Urinalysis is noted. Microbiology reveals the blood cultures are negative. ASSESSMENT AND PLAN: A 72-year-old male with chronic Shipman catheter with chronic obstructive lung disease, cerebrovascular accident, coronary artery disease, deep venous thrombosis, pulmonary emboli, , hypertension, prostate cancer with metastases, status post chemotherapy and radiation; seizures; history of coagulase-negative Staphylococcus with Port-A-Cath. Admitted with urinary tract infection and currently on Maxipime day #2 with negative blood cultures. We are waiting for urine cultures are pending. We will follow closely with you. Naman Rich MD
[2018-05-19] MEDS: Sodium Chloride 0.9% 1,000 ML IV SCH (14:06)
[2018-05-19] MEDS ORDERED: Vitamin A/D oint 60G TP PRN (18:23)
--- NOTE | 2018-05-19 23:04 | PN ---
DATE: 05/19/2018 This is [facility] on the medical floor. For Dr. Clemens. SUBJECTIVE: The patient is a 72-year-old male, seen lying awake in bed, reporting that he was ambulated earlier today; however, he would be recommended to be out of bed to the chair for the better part of the day on a recliner with ambulation for strength of his legs. He is now no longer febrile, history of urosepsis with cultures negative initially with the patient possibly to be discharged soon on oral antibiotics as cultures are pending as per Dr. Rich of Infectious Disease consulted. He appears in no acute distress this visit. PHYSICAL EXAMINATION: VITAL SIGNS: Temperature 98, pulse 85, respirations 20, blood pressure 144/75, pulse ox 94%. HEENT: Unremarkable. NECK: Supple. HEART: Regular rate. LUNGS: Clear. ABDOMEN: Obese, soft, nontender. EXTREMITIES: Faint +1 edema in the feet bilateral with decreased strength. Chronic indwelling Shipman noted. SKIN: Warm, dry, and clear except for eczematous changes to the face. LABORATORY DATA: The patient's labs were done; white blood cell count of 6.3, hemoglobin of 9.4, hematocrit of 30.3, platelet count of 188,000 with a comprehensive metabolic panel within normal range. Urine showed moderate amount of blood, small amount of leukocyte esterase on repeat yesterday after the Shipman catheter was changed. ASSESSMENT: The assessment for this patient is that of urinary tract infection, history of coag-negative staph, history of Port-A-Cath placement, history of sepsis, chronic-indwelling Shipman catheter, chronic obstructive pulmonary disease, history of cerebrovascular accident, history of pulmonary embolism and deep venous thrombosis, on Lovenox, atherosclerotic cardiovascular disease, hypertension, prostate cancer metastasis, seizure disorder, gait disturbance, history of gastrointestinal bleed, and transient ischemic attack history. PLAN: The plan for this patient is to continue present medical regimen with consideration to change to oral antibiotics and discharge home, maximum physical therapy recommended, out of bed to chair recliner for the better part of the day as possible with discharge planning ordered for home needs once he is stable. This is a complex patient with a comprehensive medically necessary and appropriate visit carried out in excess of 20 minutes with the patient's questions answered to his satisfaction with home visiting nurse, in home aide, and home physiotherapy to be addressed by social workers prior to discharge home. Brent Dawson MD
[2018-05-20] MEDS: Cefepime 1gm in NS 100ml 1 GM/100 ML BAG IVPB SCH ×2 (05:47→13:21)
[2018-05-20] MEDS: Pantoprazole 40 mg EC Tab PO SCH (05:47)
[2018-05-20] MEDS: Arformoterol 15 mcg/2 ml Inh Sol IH SCH (07:19)
[2018-05-20] MEDS: Budesonide 0.5 mg/2 ml Inhal Susp UD IH SCH (07:19)
[2018-05-20 07:23] LABS: BASO # 0.02 K/mm3 (0.0-2.0); BASO % 0.4 % (0.0-3.0); EOS # 0.2 (0.0-0.7); EOS % 4.6 % (1.5-5.0); GRAN # 3.32 (1.4-6.5); GRAN % 62.9 % (50.0-68.0); HEMOGLOBIN 9.4 g/dL (14.0-18.0); LYMPH # 1.3 (1.2-3.4); LYMPH % 24.7 % (22.0-35.0); MEAN CELL VOLUME 88.8 fl (80.0-105.0); MEAN CORPUSCULAR HEMOGLOBIN 27.8 pg (25.0-35.0); MEAN CORPUSCULAR HGB CONC 31.3 g/dl (31.0-37.0); MEAN PLATELET VOLUME 8.9 fl (7.0-11.0); MONO # 0.4 (0.1-0.6); MONO % 7.4 % (1.0-6.0); RBC 3.38 10^6/uL (3.5-6.1); RED CELL DISTRIBUTION WIDTH 15.1 % (11.5-14.5); WHITE BLOOD COUNT 5.3 10^3/uL (4.5-11.0)
[2018-05-20 07:44] LABS: ALB/GLOB RATIO 0.9 (1.1-1.8); ALBUMIN 2.9 g/dL (3.0-4.8); ALT/SGPT 39 U/L (7-56); AST/SGOT 18 U/L (17-59); BLOOD UREA NITROGEN 10 mg/dL (7-21); CALCIUM 7.7 mg/dL (8.4-10.5); GFR NON-AFRICAN AMERICAN > 60
--- NOTE | 2018-05-20 09:02 | CP.PCM.PN ---
Subjective - Date & Time of Evaluation Date of Evaluation: 05/20/18 Objective - Vital Signs/Intake and Output Vital Signs (last 24 hours): Temp Pulse Resp BP Pulse Ox 98.4 F 66 18 166/84 H 96 05/20/18 06:00 05/20/18 06:00 05/20/18 06:00 05/20/18 06:00 05/20/18 06:00 Intake and Output: 05/20/18 05/20/18 06:59 18:59 Intake Total 240 Output Total 1200 Balance -960 - Medications Medications: Current Medications Acetaminophen (Tylenol 325mg Tab) 650 mg PO Q4H PRN PRN Reason: Pain, Mild (1-3) Last Admin: 05/19/18 17:53 Dose: 650 mg Arformoterol Tartrate (Brovana) 15 mcg IH 0800 [facility] [place] Last Admin: 05/20/18 07:19 Dose: 15 mcg Budesonide (Pulmicort Respules) 0.5 mg IH 0800 [facility] [place] Last Admin: 05/20/18 07:19 Dose: 0.5 mg Enoxaparin Sodium (Lovenox) 40 mg SC DAILY [facility] [place] Last Admin: 05/19/18 10:07 Dose: 40 mg Home Med (Home Med) 1 unit PO DAILY [facility] [place] Last Admin: 05/19/18 10:09 Dose: Not Given Sodium Chloride (Sodium Chloride 0.9%) 1,000 mls @ 50 mls/hr IV .Q20H [facility] [place] Last Admin: 05/19/18 14:06 Dose: 50 mls/hr Cefepime HCl (Maxipime 1gm) 1 gm in 100 mls @ 100 mls/hr IVPB Q8 [facility] [place]; Protocol Stop: 05/27/18 14:01 Last Admin: 05/20/18 05:47 Dose: 100 mls/hr Levetiracetam (Keppra) 500 mg PO BID [facility] [place] Last Admin: 05/19/18 17:54 Dose: 500 mg Losartan Potassium (Cozaar) 25 mg PO DAILY [facility] [place] Last Admin: 05/19/18 10:06 Dose: 25 mg Home Med - Zytega (250mg) 1 gm PO DAILY [facility] [place] Pantoprazole Sodium (Protonix Ec Tab) 40 mg PO 0600 [facility] [place] Last Admin: 05/20/18 05:47 Dose: 40 mg Prednisone (Prednisone Tab) 5 mg PO BID [facility] [place] Last Admin: 05/19/18 17:55 Dose: 5 mg Risperidone (Risperdal Tab) 0.25 mg PO BID [facility] [place] [place] Last Admin: 05/19/18 17:54 Dose: 0.25 mg Vitamin A (Vitamin A&D) 1 applic TP Q8 PRN PRN Reason: Dry skin Last Admin: 05/19/18 17:55 Dose: 1 applic Zolpidem Tartrate (Ambien) 5 mg PO [facility] Last Admin: 05/19/18 22:05 Dose: 5 mg - Labs Labs: 05/20/18 07:00 05/20/18 07:00
[2018-05-20] MEDS: Sodium Chloride 0.9% 1,000 ML IV SCH (09:53)
[2018-05-20] MEDS: METHENAMINE HIPPURATE PO SCH (09:56)
[2018-05-20] MEDS: Enoxaparin 40 mg Syringe SC SCH (09:56)
[2018-05-20] MEDS: [UNRECOGNIZED DRUG - OTHER] PO SCH ×2 (09:57→15:52)
[2018-05-20] MEDS ORDERED: [UNRECOGNIZED DRUG - OTHER] PO SCH (10:00)
--- NOTE | 2018-05-20 12:42 | CP.PCM.PN ---
Subjective - Date & Time of Evaluation Date of Evaluation: 05/20/18 Time of Evaluation: 09:05 - Subjective Subjective: No fevers, not in distress. Objective - Vital Signs/Intake and Output Vital Signs (last 24 hours): Temp Pulse Resp BP Pulse Ox 98.4 F 66 18 166/84 H 96 05/20/18 06:00 05/20/18 06:00 05/20/18 06:00 05/20/18 06:00 05/20/18 06:00 Intake and Output: 05/20/18 05/20/18 06:59 18:59 Intake Total 240 Output Total 1200 Balance -960 - Medications Medications: Current Medications Acetaminophen (Tylenol 325mg Tab) 650 mg PO Q4H PRN PRN Reason: Pain, Mild (1-3) Last Admin: 05/19/18 17:53 Dose: 650 mg Arformoterol Tartrate (Brovana) 15 mcg IH 0800 [facility] Last Admin: 05/20/18 07:19 Dose: 15 mcg Budesonide (Pulmicort Respules) 0.5 mg IH 0800 [facility] Last Admin: 05/20/18 07:19 Dose: 0.5 mg Enoxaparin Sodium (Lovenox) 40 mg SC DAILY [facility] Last Admin: 05/19/18 10:07 Dose: 40 mg Home Med (Home Med) 1 unit PO DAILY [facility] Last Admin: 05/19/18 10:09 Dose: Not Given Sodium Chloride (Sodium Chloride 0.9%) 1,000 mls @ 50 mls/hr IV .Q20H [facility] Last Admin: 05/19/18 14:06 Dose: 50 mls/hr Cefepime HCl (Maxipime 1gm) 1 gm in 100 mls @ 100 mls/hr IVPB Q8 [facility]; Protocol Stop: 05/27/18 14:01 Last Admin: 05/20/18 05:47 Dose: 100 mls/hr Levetiracetam (Keppra) 500 mg PO BID [facility] Last Admin: 05/19/18 17:54 Dose: 500 mg Losartan Potassium (Cozaar) 25 mg PO DAILY [facility] Last Admin: 05/19/18 10:06 Dose: 25 mg Home Med - Zytega (250mg) 1 gm PO DAILY [facility] Pantoprazole Sodium (Protonix Ec Tab) 40 mg PO 0600 [facility] Last Admin: 05/20/18 05:47 Dose: 40 mg Prednisone (Prednisone Tab) 5 mg PO BID [facility] Last Admin: 05/19/18 17:55 Dose: 5 mg Risperidone (Risperdal Tab) 0.25 mg PO BID [facility] Last Admin: 05/19/18 17:54 Dose: 0.25 mg Vitamin A (Vitamin A&D) 1 applic TP Q8 PRN PRN Reason: Dry skin Last Admin: 05/19/18 17:55 Dose: 1 applic Zolpidem Tartrate (Ambien) 5 mg PO HS [facility] Last Admin: 05/19/18 22:05 Dose: 5 mg - Labs Labs: 05/20/18 07:00 05/20/18 07:00 - Constitutional Appears: Chronically Ill - Head Exam Head Exam: NORMAL INSPECTION - Respiratory Exam Respiratory Exam: Decreased Breath Sounds - Cardiovascular Exam Cardiovascular Exam: +S1, +S2 - GI/Abdominal Exam GI & Abdominal Exam: Soft. absent: Tenderness Assessment and Plan - Assessment and Plan (Free Text) Plan: Assessment UTI with E. 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
--- NOTE | 2018-05-20 14:17 | CP.PCM.DIS ---
Provider - Provider Date of Admission: 05/17/18 21:11 Attending physician: Brent Dawson MD Primary care physician: Ant Clemens MD Time Spent in preparation of Discharge (in minutes): 45 Hospital Course - Lab Results Lab Results: Micro Results 05/17/18 20:27 Urine Urine Culture - Final Escherichia Coli 05/17/18 20:00 Blood Blood Culture - Preliminary NO GROWTH AFTER 48 HOURS 05/17/18 19:45 Blood Blood Culture - Preliminary NO GROWTH AFTER 48 HOURS Most Recent Lab Values WBC 5.3 10^3/uL (4.5-11.0) 05/20/18 07:00 RBC 3.38 10^6/uL (3.5-6.1) L 05/20/18 07:00 Hgb 9.4 g/dL (14.0-18.0) L 05/20/18 07:00 Hct 30.0 % (42.0-52.0) L 05/20/18 07:00 MCV 88.8 fl (80.0-105.0) 05/20/18 07:00 MCH 27.8 pg (25.0-35.0) 05/20/18 07:00 MCHC 31.3 g/dl (31.0-37.0) 05/20/18 07:00 RDW 15.1 % (11.5-14.5) H 05/20/18 07:00 Plt Count 173 10^3/uL (120.0-450.0) 05/20/18 07:00 MPV 8.9 fl (7.0-11.0) 05/20/18 07:00 Gran % 62.9 % (50.0-68.0) 05/20/18 07:00 Lymph % (Auto) 24.7 % (22.0-35.0) 05/20/18 07:00 Cecil % (Auto) 7.4 % (1.0-6.0) H 05/20/18 07:00 Eos % (Auto) 4.6 % (1.5-5.0) 05/20/18 07:00 Baso % (Auto) 0.4 % (0.0-3.0) 05/20/18 07:00 Gran # 3.32 (1.4-6.5) 05/20/18 07:00 Lymph # (Auto) 1.3 (1.2-3.4) 05/20/18 07:00 Cecil # (Auto) 0.4 (0.1-0.6) 05/20/18 07:00 Eos # (Auto) 0.2 (0.0-0.7) 05/20/18 07:00 Baso # (Auto) 0.02 K/mm3 (0.0-2.0) 05/20/18 07:00 pO2 45 mm/Hg (30-55) 05/17/18 20:00 VBG pH 7.39 (7.32-7.43) 05/17/18 20:00 VBG pCO2 44.0 (40-60) 05/17/18 20:00 VBG HCO3 26.6 mmol/l (21-28) 05/17/18 20:00 VBG Total CO2 28.0 mmol.L (22-28) 05/17/18 20:00 VBG O2 Sat (Calc) 82.6 % (40-65) H 05/17/18 20:00 VBG Base Excess 1.2 mmol/L (0.0-2.0) 05/17/18 20:00 VBG Potassium 3.6 mmol/L (3.6-5.2) 05/17/18 20:00 Sodium 129.0 mmol/L (132-148) L 05/17/18 20:00 Chloride 94.0 mmol/L (98-107) L 05/17/18 20:00 Glucose 105 mg/dl (75-110) 05/17/18 20:00 Lactate 1.5 mmol/L (0.7-2.1) 05/17/18 20:00 FiO2 21.0 % 05/17/18 20:00 Sodium 138 mmol/L (132-148) 05/20/18 07:00 Potassium 4.1 mmol/L (3.6-5.0) 05/20/18 07:00 Chloride 108 mmol/L (98-107) H 05/20/18 07:00 Carbon Dioxide 27 mmol/L (21-33) 05/20/18 07:00 Anion Gap 8 (10-20) L 05/20/18 07:00 BUN 10 mg/dL (7-21) 05/20/18 07:00 Creatinine 0.6 mg/dl (0.8-1.5) L 05/20/18 07:00 Est GFR ( Amer) > 60 05/20/18 07:00 Est GFR (Non-Af Amer) > 60 05/20/18 07:00 Random Glucose 91 mg/dL (70-110) 05/20/18 07:00 Calcium 7.7 mg/dL (8.4-10.5) L 05/20/18 07:00 Total Bilirubin 0.2 mg/dL (0.2-1.3) 05/20/18 07:00 AST 18 U/L (17-59) 05/20/18 07:00 ALT 39 U/L (7-56) 05/20/18 07:00 Alkaline Phosphatase 63 U/L (38-126) 05/20/18 07:00 Total Protein 6.0 g/dL (5.8-8.3) 05/20/18 07:00 Albumin 2.9 g/dL (3.0-4.8) L 05/20/18 07:00 Globulin 3.1 gm/dL 05/20/18 07:00 Albumin/Globulin Ratio 0.9 (1.1-1.8) L 05/20/18 07:00 Venous Blood Potassium 3.6 mmol/L (3.6-5.2) 05/17/18 20:00 Urine Color Yellow (YELLOW) 05/18/18 18:45 Urine Appearance Clear (CLEAR) 05/18/18 18:45 Urine pH 6.0 (4.7-8.0) 05/18/18 18:45 Ur Specific [place] 1.015 (1.005-1.035) 05/18/18 18:45 Urine Protein Trace mg/dL (<30 mg/dL) H 05/18/18 18:45 Urine Glucose (UA) Negative mg/dL (NEGATIVE) 05/18/18 18:45 Urine Ketones Negative mg/dL (NEGATIVE) 05/18/18 18:45 Urine Blood Moderate (NEGATIVE) H 05/18/18 18:45 Urine Nitrate Negative (NEGATIVE) 05/18/18 18:45 Urine Bilirubin Negative (NEGATIVE) 05/18/18 18:45 Urine Urobilinogen 0.2 E.U./dL (<1 E.U./dL) 05/18/18 18:45 Ur Leukocyte Esterase Small Dulce/uL (NEGATIVE) H 05/18/18 18:45 Urine RBC 5 - 10 /hpf (0-2) 05/18/18 18:45 Urine WBC 5 - 10 /hpf (0-6) 05/18/18 18:45 Ur Epithelial Cells 6 - 8 /hpf (0-5) 05/18/18 18:45 Urine Bacteria Mod (NEG) 05/18/18 18:45 Discharge Exam - Head Exam Head Exam: NORMAL INSPECTION Discharge Plan - Discharge Medications Prescriptions: Cefpodoxime [Vantin] 100 mg PO Q12 #14 tab - Follow Up Plan Condition: STABLE Disposition: HOME/ ROUTINE Referrals: Ant Clemens MD [Primary Care Provider] -
[2018-05-20 14:44] VITALS: BP 127/78; PULSE 80; RESP 22; TEMP 97.8; O2SAT 94
--- NOTE | 2018-05-20 14:52 | CP.PCM.CON ---
History of Present Illness - History of Present Illness History of Present Illness: Podiatry consult Note for Dr. 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 Denies any other pedal complains, denies f/n/v/sob. ALL: NKDA Review of Systems - Review of Systems All systems: reviewed and no additional remarkable complaints except Review of Systems: As per HPI Past Patient History - Infectious Disease Hx of Infectious Diseases: None - Tetanus Immunizations Tetanus Immunization: Unknown - Past Medical History & Family History Past Medical History?: Yes - Past Social History Smoking Status: Former Smoker - CARDIAC Hx Hypertension: Yes - PULMONARY Hx Chronic Obstructive Pulmonary Disease (COPD): Yes - NEUROLOGICAL HX Cerebrovascular Accident: Yes - HEENT Hx HEENT Problems: No - RENAL Hx Chronic Kidney Disease: No - ENDOCRINE/METABOLIC Hx Endocrine Disorders: No - HEMATOLOGICAL/ONCOLOGICAL Hx Blood Transfusions: No - INTEGUMENTARY Other/Comment: BILATERAL BUTTOCKS WITH REDDENEDRASH. IASD. SKIN FOLDS OF BREAST AND STOMACH FOLD-MASD. Abrasion left frontal face/cheek - MUSCULOSKELETAL/RHEUMATOLOGICAL Hx Musculoskeletal Disorders: Yes - GASTROINTESTINAL Hx Gastrointestinal Disorders: Yes (GI BLEED) - GENITOURINARY/GYNECOLOGICAL Hx Reproductive Disorders: No - PSYCHIATRIC Hx Emotional Abuse: No Hx Physical Abuse: No Hx Substance Use: No - SURGICAL HISTORY Hx Appendectomy: Yes Hx Orthopedic Surgery: Yes Other/Comment: prostatectomy. decompressed laminectomy - ANESTHESIA Hx Anesthesia Reactions: No Hx Malignant Hyperthermia: No Meds Home Medications: Home Medication List Medication Instructions Recorded Confirmed Type Cefpodoxime [Vantin] 100 mg PO Q12 #14 tab 05/20/18 Rx Allergies/Adverse Reactions: Allergies Allergy/AdvReac Type Severity Reaction Status Date / Time No Known Allergies Allergy Verified 10/09/16 19:54 - Medications Medications: Current Medications Acetaminophen (Tylenol 325mg Tab) 650 mg PO Q4H PRN PRN Reason: Pain, Mild (1-3) Last Admin: 05/19/18 17:53 Dose: 650 mg Arformoterol Tartrate (Brovana) 15 mcg IH 0800 [facility] Last Admin: 05/20/18 07:19 Dose: 15 mcg Budesonide (Pulmicort Respules) 0.5 mg IH 0800 [facility] Last Admin: 05/20/18 07:19 Dose: 0.5 mg Enoxaparin Sodium (Lovenox) 40 mg SC DAILY [facility] Last Admin: 05/20/18 09:56 Dose: 40 mg Home Med (Home Med) 1 unit PO DAILY [facility] Last Admin: 05/20/18 09:56 Dose: Not Given Sodium Chloride (Sodium Chloride 0.9%) 1,000 mls @ 50 mls/hr IV .Q20H [facility] Last Admin: 05/20/18 09:53 Dose: 50 mls/hr Cefepime HCl (Maxipime 1gm) 1 gm in 100 mls @ 100 mls/hr IVPB Q8 [facility]; Protocol Stop: 05/27/18 14:01 Last Admin: 05/20/18 13:21 Dose: 100 mls/hr Levetiracetam (Keppra) 500 mg PO BID [facility] Last Admin: 05/20/18 09:56 Dose: 500 mg Losartan Potassium (Cozaar) 25 mg PO DAILY [facility] Last Admin: 05/20/18 09:54 Dose: 25 mg Home Med - Zytega (250mg) 1 gm PO DAILY [facility] Last Admin: 05/20/18 09:57 Dose: Not Given Pantoprazole Sodium (Protonix Ec Tab) 40 mg PO 0600 [facility] Last Admin: 05/20/18 05:47 Dose: 40 mg Prednisone (Prednisone Tab) 5 mg PO BID [facility] Last Admin: 05/20/18 09:56 Dose: 5 mg Risperidone (Risperdal Tab) 0.25 mg PO BID [facility] Last Admin: 05/20/18 09:54 Dose: 0.25 mg Vitamin A (Vitamin A&D) 1 applic TP Q8 PRN PRN Reason: Dry skin Last Admin: 05/19/18 17:55 Dose: 1 applic Zolpidem Tartrate (Ambien) 5 mg PO HS [facility] Last Admin: 05/19/18 22:05 Dose: 5 mg Physical Exam - Constitutional Appears: Well, Non-toxic, No Acute Distress - Head Exam Head Exam: ATRAUMATIC, NORMOCEPHALIC - Extremities Exam Additional comments: LE focused exam: Vascular: DP/PT palpable 2/4 b/l, CFT < 3 seconds to all digits, pedal hair diminished, +1 pitting edema noted to b/l lower extremities Ortho: minimal tenderness on palpation to all toes and foot Neuro: Gross sensation intact Derm: Elongated, mycotic, dystrophic nails x 10. no IDM, no open lesions, no clinical signs of infection. - Neurological Exam Neurological exam: Alert, Oriented x3 - Psychiatric Exam Psychiatric exam: Normal Affect, Normal Mood Results - Vital Signs Recent Vital Signs: Last Vital Signs Temp 97.8 F 05/20/18 14:00 Pulse 80 05/20/18 14:00 Resp 22 05/20/18 14:00 BP 127/78 05/20/18 14:00 Pulse Ox 94 L 05/20/18 14:00 - Labs Result Diagrams: 05/20/18 07:00 05/20/18 07:00 Labs: Laboratory Results - last 24 hr 05/20/18 05/20/18 07:00 07:00 WBC 5.3 RBC 3.38 L Hgb 9.4 L Hct 30.0 L MCV 88.8 MCH 27.8 MCHC 31.3 RDW 15.1 H Plt Count 173 MPV 8.9 Gran % 62.9 Lymph % (Auto) 24.7 [place] % (Auto) 7.4 H Eos % (Auto) 4.6 Baso % (Auto) 0.4 Gran # 3.32 Lymph # (Auto) 1.3 [place] # (Auto) 0.4 Eos # (Auto) 0.2 Baso # (Auto) 0.02 Sodium 138 Potassium 4.1 Chloride 108 H Carbon Dioxide 27 Anion Gap 8 L BUN 10 Creatinine 0.6 L Est GFR ( Amer) > 60 Est GFR (Non-Af Amer) > 60 Random Glucose 91 Calcium 7.7 L Total Bilirubin 0.2 AST 18 ALT 39 Alkaline Phosphatase 63 Total Protein 6.0 Albumin 2.9 L Globulin 3.1 Albumin/Globulin Ratio 0.9 L Assessment & Plan - Assessment and Plan (Free Text) Assessment: 72 yo male patient seen and evaluated for elongated dystrophic painful nails. Plan: Patient seen and evaluated Patient plan discussed in detail with Dr. Cr Chart, ;abs and vitals were reviewed- Afebrile/Absent leukocytosis Elongated, dystrophic nails debrided with a large nail nipper to patient tolerance without incident. Podiatry to sign off at this time Thank you for the consult - Date & Time Date: 05/20/18 Time: 14:52
[2018-05-20] MEDS ORDERED: Pneumococcal 23-Valent Vaccine IM ONE (14:55)
== END 2018-05-20 19:44 | disposition home health service (06) | DRG 690 ==
LOC: ED 19:28 → ERH 21:11 → 5RSO 23:23
PROVIDERS: ADMIT Family Medicine; ATTEND Family Medicine
PROC: 0HBRXZZ Excision of Toe Nail, External Approach (ICD-10-PCS; principal; 2018-05-20)
PROC: 0HBRXZZ Excision of Toe Nail, External Approach (ICD-10-PCS; 2018-05-20)
PROC: 0HBRXZZ Excision of Toe Nail, External Approach (ICD-10-PCS; 2018-05-20)
PROC: 0HBRXZZ Excision of Toe Nail, External Approach (ICD-10-PCS; 2018-05-20)
PROC: 0HBRXZZ Excision of Toe Nail, External Approach (ICD-10-PCS; 2018-05-20)
PROC: 0HBRXZZ Excision of Toe Nail, External Approach (ICD-10-PCS; 2018-05-20)
PROC: 0HBRXZZ Excision of Toe Nail, External Approach (ICD-10-PCS; 2018-05-20)
PROC: 0HBRXZZ Excision of Toe Nail, External Approach (ICD-10-PCS; 2018-05-20)
PROC: 0HBRXZZ Excision of Toe Nail, External Approach (ICD-10-PCS; 2018-05-20)
PROC: 0HBRXZZ Excision of Toe Nail, External Approach (ICD-10-PCS; 2018-05-20)
DX: N39.0 Urinary tract infection, site not specified (principal); C79.51 Secondary malignant neoplasm of bone; E87.1 Hypo-osmolality and hyponatremia; B49 Unspecified mycosis; C61 Malignant neoplasm of prostate; J44.9 Chronic obstructive pulmonary disease, unspecified; I10 Essential (primary) hypertension; G40.909 Epilepsy, unspecified, not intractable, without status epilepticus; Z99.3 Dependence on wheelchair; Z86.73 Personal history of transient ischemic attack (TIA), and cerebral infarction without residual deficits; Z86.711 Personal history of pulmonary embolism; I25.10 Atherosclerotic heart disease of native coronary artery without angina pectoris; B96.20 Unspecified Escherichia coli [E. coli] as the cause of diseases classified elsewhere; Z86.718 Personal history of other venous thrombosis and embolism; Z92.21 Personal history of antineoplastic chemotherapy; Z92.3 Personal history of irradiation; E78.5 Hyperlipidemia, unspecified; F03.90 Unspecified dementia, unspecified severity, without behavioral disturbance, psychotic disturbance, mood disturbance, and anxiety; Z85.46 Personal history of malignant neoplasm of prostate; Z87.891 Personal history of nicotine dependence; Z90.49 Acquired absence of other specified parts of digestive tract; L98.9 Disorder of the skin and subcutaneous tissue, unspecified

== ENCOUNTER 2018-05-29 14:35 | Inpatient (IN) | payer MEDICARE, OTHER ==
[2018-05-29] MEDS ORDERED: Sodium Chloride 0.9% 1,000 ML IV STA (15:12)
--- NOTE | 2018-05-29 15:21 | ED PDOC ---
Arrival/HPI - General Chief Complaint: Fever Time Seen by Provider: 05/29/18 14:36 Historian: Patient - History of Present Illness Narrative History of Present Illness (Text): 05/29/18 15:20 Patient is a 72 year old male, whose past medical history includes hypertension, GI bleed, COPD, CVA, seizures, XRT, and metastatic prostate cancer, on chemotherapy, with willson catheter, who was recently admitted to the hospital for UTI, followed by Dr. Clemens presenting with fever. Patient reports that he began having fever and cough yesterday. He was seen by [facility] who sent him to the ED. Patient completed course of po vantin yesterday. He denies chills, headache, dizziness, chest pain, shortness of breath, dyspnea on exertion, cough, abdominal pain, nausea, vomiting, diarrhea, back pain, neck pain, or any other complaint. PMD: Dr. Clemens Time/Duration: 24 hours Symptom Course: Unchanged Activities at Onset: Light Context: Home Past Medical History - Provider Review Nursing Documentation Reviewed: Yes - Past History Past History: No Previous - Infectious Disease Hx of Infectious Diseases: None - Tetanus Immunization Tetanus Immunization: Unknown - Cardiac Hx Hypertension: Yes - Pulmonary Hx Chronic Obstructive Pulmonary Disease (COPD): Yes - Neurological HX Cerebrovascular Accident: Yes - HEENT Hx HEENT Disorder: No - Renal Hx Renal Disorder: No - Endocrine/Metabolic Hx Endocrine Disorders: No - Hematological/Oncological Hx Blood Transfusions: No - Integumentary Other/Comment: BILATERAL BUTTOCKS WITH REDDENEDRASH. IASD. SKIN FOLDS OF BREAST AND STOMACH FOLD-MASD. Abrasion left frontal face/cheek - Musculoskeletal/Rheumatological Hx Musculoskeletal Disorders: Yes - Gastrointestinal Hx Gastrointestinal Disorders: Yes (GI BLEED) - Genitourinary/Gynecological Hx Reproductive Disorders: No - Psychiatric Hx Emotional Abuse: No Hx Physical Abuse: No Hx Substance Use: No - Surgical History Hx Appendectomy: Yes Hx Orthopedic Surgery: Yes Other/Comment: prostatectomy. decompressed laminectomy - Anesthesia Hx Anesthesia Reactions: No Hx Malignant Hyperthermia: No - Suicidal Assessment Feels Threatened In Home Enviroment: No Family/Social History - Physician Review Nursing Documentation Reviewed: Yes Family/Social History: No Known Family HX Smoking Status: Former Smoker Hx Alcohol Use: No Hx Substance Use: No Hx Substance Use Treatment: No Allergies/Home Meds Allergies/Adverse Reactions: Allergies No Known Allergies Allergy (Verified 05/29/18 14:43) Home Medications: Home Meds Medication Instructions Recorded Confirmed Enoxaparin [Lovenox] 40 mg SC DAILY 11/09/13 05/29/18 Losartan [Cozaar] 25 mg PO DAILY 03/22/14 05/29/18 Ergocalciferol (Vitamin D2) 50,000 unit PO QWK 08/07/16 05/29/18 [Vitamin D] Fluticasone/Salmeterol 250/50 1 dsk IH DAILY 08/07/16 05/29/18 [Advair Diskus 250/50] Abiraterone Acetate [Zytiga] 250 mg PO DAILY 10/09/16 05/29/18 Methenamine Hippurate [Hiprex] 1 gm PO DAILY 05/31/17 05/29/18 Review of Systems - Review of Systems Constitutional: Fevers Eyes: absent: Vision Changes Respiratory: absent: SOB, Cough Cardiovascular: absent: Chest Pain Gastrointestinal: absent: Abdominal Pain, Nausea, Vomiting Genitourinary Male: absent: Dysuria Musculoskeletal: absent: Back Pain, Neck Pain Skin: absent: Rash Neurological: absent: Headache, Dizziness Psychiatric: absent: Anxiety Physical Exam Vital Signs Reviewed: Yes Vital Signs Temp Pulse Resp BP Pulse Ox 05/29/18 15:04 101.0 F H 88 22 130/76 92 L Temperature: Febrile Blood Pressure: Normal Pulse: Regular Respiratory Rate: Normal Appearance: Positive for: Well-Appearing, Non-Toxic, Comfortable Pain Distress: None Mental Status: Positive for: Alert and Oriented X 3 - Systems Exam Head: Present: Atraumatic, Normocephalic Pupils: Present: PERRL Extroacular Muscles: Present: EOMI Conjunctiva: Present: Normal Mouth: Present: Moist Mucous Membranes Neck: Present: Normal Range of Motion Respiratory/Chest: Present: Clear to Auscultation, Good Air Exchange, Rhonchi (left rhonchi at bases ), Other (port noted on left sided of chest). No: Respiratory Distress, Accessory Muscle Use Cardiovascular: Present: Regular Rate and Rhythm, Normal S1, S2. No: Murmurs Abdomen: Present: Other (soft abdomen, bruising noted). No: Tenderness, Distention, Peritoneal Signs Back: Present: Normal Inspection Upper Extremity: Present: Normal Inspection. No: Cyanosis, Edema Lower Extremity: Present: Normal Inspection. No: Edema Neurological: Present: GCS=15, CN II-XII Intact, Speech Normal Skin: Present: Warm, Dry, Pale. No: Rashes Psychiatric: Present: Alert, Oriented x 3, Normal Insight, Normal Concentration Medical Decision Making ED Course and Treatment: 05/29/18 15:30 Impression: 72 year old male who presents to the emergency department complaining of fever. Plan: -- VBG -- Labs -- Chest X-ray -- IV fluids -- Blood Culture -- Urine Culture -- Influenza A B -- Urinalysis -- Reassess and disposition Prior Visits: Notes and results from previous visits were reviewed. Progress Notes: Chest X-ray reviewed, shows: IMPRESSION: Interval improvement in left lower lobe infiltrate. 05/29/18 16:[address] Clemens. He reports that as patient continues to have fever and stopped po antibiotics yesterday, recommends observation remote tele with vancomycin and zosyn given with consults for pulmonary and ID 05/29/18 16:53 Dr. Caban at bedside. Requesting CTA. Patient on lovenox and has IVC filter. They are to follow read 05/29/18 19:24 Unable to get large enough IV to get CTA. Dr. Camilo lacy 05/29/18 19:25 - Lab Interpretations I have reviewed the lab results: Yes - RAD Interpretation Radiology Orders: 05/29/18 15:11 CHEST PORTABLE [RAD] Stat - Medication Orders Current Medication Orders: Sodium Chloride (Sodium Chloride 0.9%) 1,000 mls @ 999 mls/hr IV .Q1H1M [facility] Stop: 05/29/18 16:12 - Scribe Statement The provider has reviewed the documentation as recorded by the Scribe Alicia Cantrell Provider Scribe Attestation: All medical record entries made by the Scribe were at my direction and personally dictated by me. I have reviewed the chart and agree that the record accurately reflects my personal performance of the history, physical exam, medical decision making, and the department course for this patient. I have also personally directed, reviewed, and agree with the discharge instructions and disposition. Disposition/Present on Arrival - Present on Arrival Any Indicators Present on Arrival: No History of DVT/PE: No History of Uncontrolled Diabetes: No Urinary Catheter: Yes (Changed one day [employer]IST) History of Decub. Ulcer: No History Surgical Site Infection Following: None - Disposition Have Diagnosis and Disposition been Completed?: Yes Diagnosis: Fever, Hyponatremia Disposition: HOSPITALIZED Disposition Time: 15:04 Patient Plan: Observation Patient Problems: Current Active Problems Problem Status Onset Fever Acute Hyponatremia Acute Condition: FAIR
--- NOTE | 2018-05-29 15:59 | RAD ---
Date of service: 05/29/2018 HISTORY: Fever. COMPARISON: 05/17/2018. FINDINGS: LUNGS: Improved aeration particularly with respect to retrocardiac left lower lobe infiltrate. PLEURA: No significant pleural effusion identified, no pneumothorax apparent. CARDIOVASCULAR: Atherosclerotic calcifications identified primarily aortic arch. PICC line in satisfactory position unchanged compared to the prior study. Cardiomegaly. No evidence of acute, significant cardiovascular disease. OSSEOUS STRUCTURES: No significant abnormalities. Healed posterior lateral right rib fractures. VISUALIZED UPPER ABDOMEN: Normal. OTHER FINDINGS: None. IMPRESSION: Interval improvement in left lower lobe infiltrate.
[2018-05-29] MEDS ORDERED: Vancomycin 1gm in NS 250ml 1 GM/250 ML BAG IVPB STA (16:12)
[2018-05-29] MEDS ORDERED: Piperacillin/Tazobact 3.375 gm 100 ML IVPB STA (16:12)
[2018-05-29 16:29] LABS: VENOUS BLOOD GAS BASE EXCESS 0.3 mmol/L (0.0-2.0); VENOUS BLOOD GAS PO2 47 mm/Hg (30-55); VENOUS BLOOD PH 7.35 (7.32-7.43)
[2018-05-29 16:36] LABS: BASO # 0.02 K/mm3 (0.0-2.0); BASO % 0.2 % (0.0-3.0); EOS % 0.4 % (1.5-5.0); GRAN # 6.8 (1.4-6.5); GRAN % 82.2 % (50.0-68.0); HEMOGLOBIN 10.4 g/dL (14.0-18.0); LYMPH # 0.8 (1.2-3.4); LYMPH % 9.6 % (22.0-35.0); MEAN CELL VOLUME 85.4 fl (80.0-105.0); MEAN CORPUSCULAR HEMOGLOBIN 28.1 pg (25.0-35.0); MEAN CORPUSCULAR HGB CONC 32.9 g/dl (31.0-37.0); MONO # 0.6 (0.1-0.6); MONO % 7.6 % (1.0-6.0); RBC 3.7 10^6/uL (3.5-6.1); RED CELL DISTRIBUTION WIDTH 15.3 % (11.5-14.5); WHITE BLOOD COUNT 8.3 10^3/uL (4.5-11.0)
[2018-05-29 16:40] LABS: ALB/GLOB RATIO 1.1 (1.1-1.8); ALBUMIN 3.5 g/dL (3.0-4.8); ALT/SGPT 44 U/L (7-56); AST/SGOT 36 U/L (17-59); BLOOD UREA NITROGEN 11 mg/dL (7-21); CALCIUM 8.4 mg/dL (8.4-10.5); GFR NON-AFRICAN AMERICAN > 60
[2018-05-29] MEDS ORDERED: Sodium Chloride 0.9% 500 ML IV SCH (17:30)
[2018-05-29] MEDS ORDERED: Bacitracin Ointment 30 GM TUBE TOP SCH (18:00)
[2018-05-29] MEDS: Enoxaparin 40 mg Syringe SC SCH (20:26)
[2018-05-29] MEDS: Pantoprazole 40 mg EC Tab PO SCH (20:27)
[2018-05-29] MEDS: Clotrimazole/Betamethasone Cream(15 gm) TOP SCH (20:31)
[2018-05-29 20:39] LABS: URINE COLOR YELLOW (YELLOW)
[2018-05-29 20:40] LABS: URINE APPEARANCE SL CLOUDY (CLEAR); URINE BILIRUBIN NEGATIVE (NEGATIVE); URINE BLOOD MODERATE (NEGATIVE); URINE GLUCOSE (UA) NEGATIVE (NEGATIVE); URINE LEUKOCYTE ESTERASE MOD Leu/uL (NEGATIVE); URINE PROTEIN TRACE mg/dL (<30 mg/dL); URINE UROBILINOGEN 0.2 E.U./dL (<1 E.U./dL)
[2018-05-29 20:58] LABS: URINE BACTERIA MOD (NEG)
[2018-05-29] MEDS: Arformoterol 15 mcg/2 ml Inh Sol IH SCH (21:00)
[2018-05-29] MEDS: Budesonide 0.5 mg/2 ml Inhal Susp UD IH SCH (21:00)
--- NOTE | 2018-05-29 22:55 | HP ---
DATE OF EXAM: 05/29/[address] Clemens. CHIEF COMPLAINT: Fevers. HISTORY OF PRESENT ILLNESS: The patient is a 72-year-old male, wheelchair-bound, who transfers from toilet to bed, otherwise limited ambulation with chronic indwelling Shipman with known stage IV prostate cancer, admitted multiple times for urosepsis in the past. Now, the patient is admitted via the emergency room after his home visiting nurse detected temperature of 101 earlier today despite the patient just completing a course of Vantin yesterday. With this, the patient reports that he has been coughing for the past 5 to 7 days with the patient now being febrile. It is known the patient does have a port and chronic indwelling Shipman, suspect the sources of infection with recent chest x-ray showing possible infiltrate and left lower lobe chest x-ray to be repeated today. The patient also has exacerbation of eczema on his face with blanching areas because of the itch the patient scratches with excoriations there noted. At present, he is resting comfortably, in no acute distress, awaiting a hospital bed in the emergency room. ALLERGIES: NO KNOWN ALLERGIES. MEDICATIONS: Include Risperdal, prednisone, Keppra, Ambien, Protonix, Cozaar, Hiprex, Advair Diskus, vitamin D, Lovenox, Zytiga and Vantin, which was discontinued yesterday. He was also restarted on Nizoral cream and an ointment for his face, which will be determined, it is not available at present. PAST MEDICAL HISTORY: Significant for stage IV prostate cancer, with bony metastasis status post Crain tristin, medullary tristin placement with dramatic improvement of his intractable pain of his back few years prior. He also has history of pulmonary embolism, deep venous thrombosis status post vena cava filter placement, hypertension, seizure disorder, mild dementia, COPD, history of septic shock, dehydration, gait disturbance, wheelchair bound mostly, hypercoagulable state on Lovenox on a daily basis, hyperlipidemia, depression, ASCVD, history of CVA, and cardiomegaly. FAMILY HISTORY AND SOCIAL HISTORY: Quit smoking after [id number] history. , lives with his and son, nondrinker. Otherwise noncontributory. REVIEW OF SYSTEMS: Twelve-point review of systems was done, which was negative to questioning except for items mentioned in the history of present illness as above. OBJECTIVE/PHYSICAL EXAMINATION: VITAL SIGNS: Temperature 101 with repeat of 100.8 in the emergency room, pulse 88, respirations 22, blood pressure 130/76, pulse ox 92%. 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 NECK: Supple. HEART: Regular rate. LUNGS: Minimal decreased breath sounds. Faint crackles on the left base. ABDOMEN: Obese, soft, nontender. EXTREMITIES: No edema, decreased range of motion, decreased strength. Chronic indwelling Shipman noted. NEUROLOGIC: Awake and alert,h weakness to outreach coordinator. SKIN: Warm and dry except for eczema to the face and a yeast infection in the groin. LABORATORY DATA: The patient's labs were done; white blood cell count 8.3, hemoglobin 10.4, hematocrit 31.6, platelet count 269,000 with a chem metabolic panel showing a sodium of 124, chloride of 90 with an VBG showing a pH of 7.35. Serology showed influenza nasal swab negative. The patient had a repeat chest x-ray done earlier today, it was read as interval improvement in the left lower lobe infiltrate with a PICC line noted. ASSESSMENT: The assessment for this patient is that of fever of unknown origin, possibly influenza versus pertussis. These titers will be drawn as the patient was on antibiotics including Vantin and IV antibiotics in the recent past versus port infection versus urinary tract infection with chronic indwelling Shipman. It is also suspicion of possible pulmonary embolism despite the patient having vena cava filter placement, possible collateral circulation, may have developed since the patient's filter was placed. History of cerebrovascular accident, history of pulmonary embolism and deep venous thrombosis, on Lovenox anticoagulation, history of prostate cancer stage IV, hypertension, chronic obstructive pulmonary disease, atherosclerotic cardiovascular disease, gait disturbance, history of gastrointestinal bleed, history of transient ischemic attack, and seizure disorder, now with hyponatremia, anemia of chronic disease, gait disturbance, patient is mostly wheelchair bound. Also candidiasis and eczema. PLAN: The plan for this patient after conversation with Dr. Clemens is to, he has to consult with Dr. Dickson Pulmonology and Dr. Rich, Infectious Disease. We will continue his present medical regimen. We will give normal saline to correct his hyponatremia. In the interim, Tylenol as needed for pain or temperature with a CT angiogram to be done. We will also ask for pertussis and influenza and parainfluenza titers to be drawn. We will monitor clinically. This is a complex patient with a comprehensive medically necessary and appropriate visit carried out in excess of 40 minutes with the patient's questions answered to his satisfaction. Brent Dawson MD
[2018-05-29] MEDS ORDERED: Vancomycin 1gm in NS 250ml 1 GM/250 ML BAG IVPB SCH (23:15)
[2018-05-30 00:37] VITALS: BMI 27.3
[2018-05-30] MEDS: Meropenem IV 1 gm in NS 1 GM/50 ML BAG IVPB SCH ×4 (00:46→21:26)
[2018-05-30 06:38] LABS: BASO # 0.01 K/mm3 (0.0-2.0); BASO % 0.2 % (0.0-3.0); EOS % 0.2 % (1.5-5.0); GRAN # 3.55 (1.4-6.5); GRAN % 76.1 % (50.0-68.0); HEMOGLOBIN 8.9 g/dL (14.0-18.0); LYMPH # 0.8 (1.2-3.4); LYMPH % 16.9 % (22.0-35.0); MEAN CELL VOLUME 85.6 fl (80.0-105.0); MEAN CORPUSCULAR HEMOGLOBIN 27.8 pg (25.0-35.0); MEAN CORPUSCULAR HGB CONC 32.5 g/dl (31.0-37.0); MEAN PLATELET VOLUME 8.7 fl (7.0-11.0); MONO # 0.3 (0.1-0.6); MONO % 6.6 % (1.0-6.0); RBC 3.2 10^6/uL (3.5-6.1); RED CELL DISTRIBUTION WIDTH 14.9 % (11.5-14.5); WHITE BLOOD COUNT 4.7 10^3/uL (4.5-11.0)
[2018-05-30 07:01] LABS: ALB/GLOB RATIO 1.1 (1.1-1.8); ALT/SGPT 39 U/L (7-56); AST/SGOT 28 U/L (17-59); BLOOD UREA NITROGEN 8 mg/dL (7-21); CALCIUM 8.4 mg/dL (8.4-10.5); GFR NON-AFRICAN AMERICAN > 60
[2018-05-30] MEDS: Arformoterol 15 mcg/2 ml Inh Sol IH SCH ×2 (07:26→19:58)
[2018-05-30] MEDS: Budesonide 0.5 mg/2 ml Inhal Susp UD IH SCH ×2 (07:26→19:59)
[2018-05-30] MEDS ORDERED: Potassium Chloride 40 mEq/30 ml LIQ UD PO ONE (08:44)
--- NOTE | 2018-05-30 09:05 | CP.PCM.PN ---
Subjective - Date & Time of Evaluation Date of Evaluation: 05/30/18 Time of Evaluation: 08:00 - Subjective Subjective: Yonis Krishnan Internal Medicine Resident- Heme/Onc Progress Note Subjective: Patient seen and examined. No acute events overnight. Admits to productive cough and sneezing which remain at baseline. Offers no new complaints at this time. Denies fever, chills, chest pain, shortness of breath, abdominal valencia, nausea, vomiting. 12 point ROS negative except as indicated in HPI Physical Examination: - Constitutional Additional comments: Non-toxic, No Acute Distress - Head Exam Additional comments: erythematous rash on face/cheek - Eye Exam Eye Exam: EOMI - ENT Exam ENT Exam: Mucous Membranes Moist - Neck Exam Neck Exam: Full ROM - Respiratory Exam Respiratory Exam: Rhonchi at bases bilaterally, NORMAL BREATHING PATTERN. absent: Rales, Rhonchi, Wheezes - Cardiovascular Exam Cardiovascular Exam: RRR, +S1, +S2 - GI/Abdominal Exam GI & Abdominal Exam: Soft, Normal Bowel Sounds. 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 Upper Respiratory Infection - CXR - Interval improvement in left lower lobe infiltrate - 05/30/2018 CT Chest with IV Contrast ordered and pending - Blood cultures x 2 - B. pertussis AB IgG ordered and pending - Influenza type A and parainfluenza ordered and pending - Continue home doxycycline and vancomycin - Continue guaifenesin dextromethorphan - Discontinue IVF NS @ 100cc/hr - Infectious disease consulted- appreciate recommendations - Pulmonology consulted- appreciate recommendations Hyponatremia - Patient already given IVF NS @100cc/hr- stop as patient's serum sodium and PO intake has improved - serum osmolality, urine osmolality, and urine sodium will be changed due to IVF already being started- hold off on studies at this point - serum sodium improved from 124 to 132 - will monitor closely via CMP Eczematous Rash - hydrocortisone cream on face/cheek - lotrisone cream on the groin History of Stage IV Prostate Cancer - Continue home Zytiga - Continue home Methenamine History of Seizure Disorder - Continue home Keppra History of DVT/PE - Continue home Lovenox History of COPD - Continue Brovana and Pulmicort - Continue duonebs q2prn SOB - Continue prednisone 5 mg PO daily (home med) will change to IVF solumedrol pending pulmn recs History of HTN - Continue home Cozaar Prophylaxis - GI Prophylaxis: Protonix - DVT Prophylaxis: Lovenox Patient case discussed with and plan approved by attending physician, Dr. Clemens. Objective - Vital Signs/Intake and Output Vital Signs (last 24 hours): Temp Pulse Resp BP Pulse Ox 100.8 F H 78 20 130/76 92 L 05/29/18 16:55 05/30/18 06:00 05/30/18 00:42 05/29/18 15:04 05/29/18 15:04 Intake and Output: 05/30/18 05/30/18 06:59 18:59 Intake Total 700 Output Total 2000 Balance -1300 - Medications Medications: Current Medications Acetaminophen (Tylenol 325mg Tab) 650 mg PO Q4 PRN PRN Reason: Fever >100.4 F Arformoterol Tartrate (Brovana) 15 mcg IH [id number] [facility] Last Admin: 05/30/18 07:26 Dose: 15 mcg Bacitracin (Bacitracin) 0 gm TOP BID [facility] Last Admin: 05/29/18 20:27 Dose: 1 appl Betamethasone/Clotrimazole (Lotrisone) 0 gm TOP BID [facility] Last Admin: 05/29/18 20:31 Dose: 1 anti Budesonide (Pulmicort Respules) 0.5 mg IH [id number] [facility] Last Admin: 05/30/18 07:26 Dose: 0.5 mg Doxycycline Hyclate (Doryx) 100 mg PO Q12 [facility]; Protocol Enoxaparin Sodium (Lovenox) 40 mg SC Q24H [facility]; Protocol Last Admin: 05/29/18 20:26 Dose: 40 mg Guaifenesin/Dextromethorphan (Robitussin Dm) 10 ml PO Q4H PRN PRN Reason: Cough Hydroxyzine HCl (Atarax) 10 mg PO QID PRN PRN Reason: Itching / Pruritus Sodium Chloride (Sodium Chloride 0.9%) 500 mls @ 100 mls/hr IV .Q5H [facility] Meropenem (Merrem Iv 1 Gm Premix) 1 gm in 50 mls @ 100 mls/hr IVPB Q8 [facility]; Protocol Last Admin: 05/30/18 05:39 Dose: 100 mls/hr Vancomycin HCl (Vancomycin 1gm) 1 gm in 250 mls @ 167 mls/hr IVPB Q12H [facility]; Protocol Levetiracetam (Keppra) 500 mg PO BID [facility] Last Admin: 05/29/18 20:30 Dose: 500 mg Losartan Potassium (Cozaar) 25 mg PO DAILY [facility] Non-Formulary Medication (Zytega) 250 mg PO DAILY [facility] Pantoprazole Sodium (Protonix Ec Tab) 40 mg PO DAILY [facility] Last Admin: 05/29/18 20:27 Dose: 40 mg Prednisone (Prednisone Tab) 5 mg PO BID [facility] Last Admin: 05/29/18 20:31 Dose: 5 mg Risperidone (Risperdal Tab) 0.25 mg PO BID [facility]; Protocol Last Admin: 05/29/18 20:47 Dose: 0.25 mg Zolpidem Tartrate (Ambien) 5 mg PO HS PRN; Protocol PRN Reason: Insomnia Last Admin: 05/30/18 00:46 Dose: 5 mg - Labs Labs: 05/30/18 06:15 05/30/18 06:15
[2018-05-30] MEDS: Hydrocortisone 1% Cream (30 GM) TOP SCH ×2 (11:34→17:42)
[2018-05-30] MEDS: Home Med 1 UNIT PO SCH ×2 (11:36→17:56)
[2018-05-30] MEDS: Pantoprazole 40 mg EC Tab PO SCH (11:37)
[2018-05-30] MEDS: [UNRECOGNIZED DRUG - OTHER] PO SCH (11:38)
[2018-05-30] MEDS: guaiFENesin DM 200 mg-20 mg/10 ml UD PO PRN ×3 (11:41→23:28)
[2018-05-30] MEDS: Albuterol-Ipratrop 3 mg / 0.5 (3 ml) UD IH PRN ×2 (11:57→18:02)
[2018-05-30] MEDS: Clotrimazole/Betamethasone Cream(15 gm) TOP SCH ×2 (12:15→17:42)
[2018-05-30] MEDS ORDERED: Iohexol 350 MG/100 ML VIAL ONE (12:55)
--- NOTE | 2018-05-30 13:52 | CON ---
DATE: 05/30/2018 PULMONARY CONSULT NOTE REFERRING PHYSICIAN: Brent Dawson MD REASON FOR CONSULT: Fever, metastatic prostate cancer, left lower lobe infiltrate. HISTORY OF PRESENT ILLNESS: This is a 72-year-old male with past medical history of stage IV prostate cancer with bony metastasis, status post Crain tristin, medullary tristin placement with dramatic improvement of intractable back pain, history of pulmonary embolism, deep venous thrombosis, status post vena cava filter placement, hypertension, seizure disorder, mild dementia, COPD, history of septic shock, dehydration, gait disturbance, wheelchair bound, hyperlipidemia, depression, ASCVD, history of CVA, cardiomegaly, history of obstructive sleep apnea. The patient reports he does not use a CPAP machine and does not want to use CPAP machine. The patient came to hospital after visiting nurse noted a temperature of 101; this by the patient completing antibiotic course of Vantin. Chest x-ray shows interval improvement in left lower lobe infiltrate. PAST MEDICAL HISTORY: As mentioned above in HPI. ALLERGIES: NO KNOWN DRUG ALLERGIES. SOCIAL HISTORY: The patient is a former smoker, quit seven years ago. No EtOH. No drug use. FAMILY HISTORY: No cardiopulmonary disease reported. MEDICATIONS: Reviewed. Tylenol 650 mg every four hours as needed for fever greater than 100.4, DuoNeb 3 mL inhalation every two hours as needed, Brovana 15 mcg inhalation every 12 hours, Lotrisone topically twice a day to affected area, Pulmicort 0.5 mg inhalation every 12 hours, doxycycline 100 mg every 12 hours, Lovenox 40 mg subcutaneously daily, Robitussin DM 10 mL by mouth every four hours as needed, hydrocortisone topically twice a day to affected area, Atarax 10 mg four times a day as needed, Keppra 500 mg twice a day, Cozaar 25 mg by mouth daily, meropenem 1 g IV every eight hours, Zytiga 250 mg by mouth daily, Protonix 40 mg daily, prednisone 5 mg twice a day, Risperdal 0.25 mg twice a day, vancomycin 1 g every 12 hours, Ambien 5 mg at bedtime as needed. REVIEW OF SYSTEMS: No headache, rhinitis, chest pain, abdominal pain, nausea, vomiting, diarrhea, leg pain, leg swelling reported. The patient does report having cough with sputum production. Denies shortness of breath. PHYSICAL EXAMINATION VITAL SIGNS: Blood pressure 142/80, pulse 80, oxygen saturation 94% on 2 liters nasal cannula. GENERAL: No acute distress, sitting up in bed, eating breakfast. HEENT: Moist mucous membrane. Mallampati of 4. Crowded airway. NECK: Supple. No JVD. CARDIOVASCULAR: S1, S2 audible. LUNGS: A few rhonchi bilaterally. Decreased breath sounds on the left. ABDOMEN: Soft, nontender. No distention. No organomegaly. EXTREMITIES: No bilateral edema. Decreased strength bilaterally. GENITOURINARY: Chronic indwelling Shipman catheter. NEUROLOGIC: Awake, alert. Verbally responsive. Essential tremors noted, upper extremities. LABORATORY DATA: Reviewed. WBC 4.7, RBC 3.2, hemoglobin 8.9, hematocrit 27.4, platelets 245. Sodium 132, potassium 3.5, chloride 98, carbon dioxide 28, anion gap 10, BUN 8, creatinine 0.6, GFR greater than 60, random glucose 106. Calcium 8.4, magnesium 1.8. Total bilirubin 0.4, AST 28, ALT 39, alkaline phosphatase 77, total protein , albumin 3.0, globulin 2.9, albumin-globulin ratio 1.1. Influenza A and B negative. IMPRESSION AND PLAN: Stage IV prostate cancer, seizure disorder, eczema, chronic obstructive pulmonary disease, hypertension, upper respiratory infection, possible pneumonia. Possibility of metastatic cancer to lung cannot not be ruled out. We will do procalcitonin, proBNP, assess for potential heart failure. The patient does have obstructive sleep apnea, refusing presently to use continuous positive airway pressure machine. Sleep apnea precaution should be in place. Head of bed elevated to 45 degrees. Deep venous thrombosis prophylaxis, gastric prophylaxis. Continue antibiotic therapy. Continue inhaled bronchodilators. Continue steroids. We will follow up with CTA when report is available. This patient was seen and examined with Dr. Dickson. Discussed assessment and plan as described above. Thank you for this consult and we will follow with you. Chance Prudence, RN ANESTHETIST Chris Dickson MD MTDD
--- NOTE | 2018-05-30 14:24 | CT ---
Date of service: 05/30/2018 PROCEDURE: CT Chest with contrast HISTORY: productive cough COMPARISON: None available. TECHNIQUE: Contiguous axial images were obtained through the chest with intravenous contrast enhancement. Sagittal and coronal reconstructions were performed. IV contrast: 100 cc of Omni 350 Radiation dose: Total exam DLP = 684.08 mGy-cm. This CT exam was performed using one or more of the following dose reduction techniques: Automated exposure control, adjustment of the mA and/or kV according to patient size, and/or use of iterative reconstruction technique. FINDINGS: LUNGS: There is peribronchial thickening of both lung bases left greater than right. There is no evidence of pneumonia MEDIASTINUM: Unremarkable thoracic aorta. No aneurysm or dissection. Mild cardiomegaly. There is a large amount of fat in the mediastinum which produces some widening of the mediastinal silhouette. This is not clinically significant. Main pulmonary artery unremarkable. No vascular congestion. No lymphadenopathy. Aortic and coronary artery calcification PLEURA: No pleural fluid. No pneumothorax. BONES: Previous fusion in the lower thoracic spine with a severe compression fracture UPPER ABDOMEN: Grossly unremarkable. OTHER FINDINGS: None. IMPRESSION: No evidence of pneumonia
--- NOTE | 2018-05-30 15:33 | CON ---
DATE: 05/30/2018 The patient seen in room 369, bed 1. CHIEF COMPLAINT: Fevers and chills x1 day duration. HISTORY OF PRESENT ILLNESS: A 72-year-old male known to me with multiple recent admissions with history of hypertension, prostate cancer with metastases, chronic obstructive lung disease, GI bleed, history of cerebrovascular accident, seizures and metastatic prostate on chemotherapy and chronic Shipman catheter, who is admitted because of fevers and chills and Infectious Disease consultation requested. The patient in the emergency room had fever of 101 and Infectious Disease consultation requested. REVIEW OF SYSTEMS: Reveals no abdominal pain or headaches. There is minimal cough, mild shortness of breath and a 14-point review of systems is performed. PAST MEDICAL HISTORY: Significant for chronic obstructive lung disease, prostate cancer metastases, coronary artery disease, cerebrovascular accident, gastrointestinal bleeding, history of pulmonary emboli, osteoarthritis, history of DVT, hyperlipidemia and seizures. PAST SURGICAL HISTORY: The patient had a Port-A-Cath in the past which was taken out in the past and now has another one. The patient also with an IVC filter, had a laminectomy, appendectomy and cholecystectomy. ALLERGIES: THE PATIENT HAS NO KNOWN ALLERGIES. MEDICATIONS: At home are reviewed and include Risperdal, prednisone, Keppra, Ambien, Lovenox and Protonix. PHYSICAL EXAMINATION: GENERAL: The patient is in bed. He is awake and alert. He is answering questions appropriately. VITAL SIGNS: Temperature of 101, blood pressure is 140/80, respiratory rate of 18 it is up to 22 and pulse is up to 88. Examination of the blood pressure is 142/89. HEENT: Unremarkable. NECK: Supple. LUNGS: Have decreased breath sounds. HEART: Normal S1 and S2. ABDOMEN: Soft and nontender. No organomegaly. No rebound or guarding. LABORATORY EXAMINATION: Reveals a white count of 8.3, hemoglobin of 10 and platelets of 269. Chemistry reveals a BUN of 11 and creatinine of 0.7. Urinalysis is noted and the patient has 10-15 wbcs, moderate bacteria and there is moderate leukocyte esterase and blood, trace proteinuria and influenza serology is negative. Microbiology reveals E. coli which is pansensitive in the past. The patient also had a coag-negative staph in the blood in March. The patient's chest x-ray has improvement. ASSESSMENT AND PLAN: This is a 72-year-old male with sepsis with the complicated urinary tract infection. We will treat the patient with Maxipime 1 g every 8 hours, pending blood cultures, urine cultures and I will make further recommendations. Naman Rich MD
[2018-05-30] MEDS: Enoxaparin 40 mg Syringe SC SCH (17:36)
[2018-05-31 05:05] LABS: ALBUMIN 2.8 g/dL (3.0-4.8); ALT/SGPT 42 U/L (7-56); AST/SGOT 23 U/L (17-59); BLOOD UREA NITROGEN 9 mg/dL (7-21); CALCIUM 7.9 mg/dL (8.4-10.5); GFR NON-AFRICAN AMERICAN > 60
[2018-05-31] MEDS: Meropenem IV 1 gm in NS 1 GM/50 ML BAG IVPB SCH ×3 (05:31→23:35)
[2018-05-31] MEDS: Arformoterol 15 mcg/2 ml Inh Sol IH SCH ×2 (07:32→19:58)
[2018-05-31] MEDS: Budesonide 0.5 mg/2 ml Inhal Susp UD IH SCH ×2 (07:33→19:58)
[2018-05-31 08:07] LABS: BASO # 0.02 K/mm3 (0.0-2.0); BASO % 0.5 % (0.0-3.0); EOS % 0.5 % (1.5-5.0); GRAN # 2.79 (1.4-6.5); GRAN % 71.6 % (50.0-68.0); LYMPH # 0.8 (1.2-3.4); LYMPH % 19.7 % (22.0-35.0); MEAN CELL VOLUME 88.1 fl (80.0-105.0); MEAN CORPUSCULAR HEMOGLOBIN 28.1 pg (25.0-35.0); MEAN CORPUSCULAR HGB CONC 31.9 g/dl (31.0-37.0); MONO # 0.3 (0.1-0.6); MONO % 7.7 % (1.0-6.0); RBC 2.85 10^6/uL (3.5-6.1); RED CELL DISTRIBUTION WIDTH 15.2 % (11.5-14.5); WHITE BLOOD COUNT 3.9 10^3/uL (4.5-11.0)
--- NOTE | 2018-05-31 08:19 | CP.PCM.PN ---
Subjective - Date & Time of Evaluation Date of Evaluation: 05/31/18 Time of Evaluation: 08:50 - Subjective Subjective: Yonis Krishnan Internal Medicine Resident- Heme/Onc Progress Note Subjective: Patient seen and examined. No acute events overnight. States productive cough and sneezing have improved relative to baseline. Offers no new complaints at this time. Denies fever, chills, chest pain, shortness of breath, abdominal valencia, nausea, vomiting. 12 point ROS negative except as indicated in HPI Physical Examination: - Constitutional Additional comments: Non-toxic, No Acute Distress - Head Exam Additional comments: erythematous rash on face/cheek - Eye Exam Eye Exam: EOMI - ENT Exam ENT Exam: Mucous Membranes Moist - Neck Exam Neck Exam: Full ROM - Respiratory Exam Respiratory Exam: NORMAL BREATHING PATTERN. absent: Rales, Rhonchi, Wheezes - Cardiovascular Exam Cardiovascular Exam: RRR, +S1, +S2 - GI/Abdominal Exam GI & Abdominal Exam: Soft, Normal Bowel Sounds. 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 Upper Respiratory Infection - CXR - Interval improvement in left lower lobe infiltrate - 05/30/2018 CT Chest with IV Contrast ordered and pending - Blood cultures x 2 - B. pertussis AB IgG ordered and pending - Influenza type A and parainfluenza ordered and pending - Continue home doxycycline and vancomycin - Continue guaifenesin dextromethorphan - Infectious disease consulted- appreciate recommendations - Pulmonology consulted- appreciate recommendations Hyponatremia - Patient already given IVF NS @100cc/hr- stop as patient's serum sodium and PO intake has improved - serum osmolality, urine osmolality, and urine sodium will be changed due to IVF already being started- hold off on studies at this point - serum sodium improved from 124 to 132 to 135 - will monitor closely via CMP Eczematous Rash - hydrocortisone cream on face/cheek - lotrisone cream on the groin Anemia - Normocytic - H/H drop noted ~ 10.4--8.9--8.0 - UA positive for hematuria - FOBT ordered and pending - 2 units typed and screened - Fe, TIBC, Ferritin, Iron Saturation, Vitamin B12, Folate ordered and pending History of Stage IV Prostate Cancer - Continue home Zytiga - Continue home Methenamine History of Seizure Disorder - Continue home Keppra History of DVT/PE - Continue home Lovenox History of COPD - Continue Brovana and Pulmicort - Continue duonebs q2prn SOB - Continue prednisone 5 mg PO daily (home med) will change to IVF solumedrol pending pulmn recs History of HTN - Continue home Cozaar Prophylaxis - GI Prophylaxis: Protonix - DVT Prophylaxis: Lovenox Patient case discussed with and plan approved by attending physician, Dr. Clemens. Objective - Vital Signs/Intake and Output Vital Signs (last 24 hours): Temp Pulse Resp BP Pulse Ox 98.5 F 83 20 131/73 94 L 05/31/18 06:00 05/31/18 06:00 05/31/18 06:00 05/31/18 06:00 05/31/18 06:00 Intake and Output: 05/31/18 05/31/18 06:59 18:59 Intake Total 200 Output Total 700 Balance -500 - Medications Medications: Current Medications Acetaminophen (Tylenol 325mg Tab) 650 mg PO Q4 PRN PRN Reason: Fever >100.4 F Last Admin: 05/30/18 16:02 Dose: 650 mg Albuterol/Ipratropium (Duoneb 3 Mg/0.5 Mg (3 Ml) Ud) 3 ml IH Q2H PRN PRN Reason: Shortness of Breath Last Admin: 05/30/18 18:02 Dose: 3 ml Arformoterol Tartrate (Brovana) 15 mcg IH [id number] Last Admin: 05/31/18 07:32 Dose: 15 mcg Betamethasone/Clotrimazole (Lotrisone) 0 gm TOP BID [facility] Last Admin: 05/30/18 17:42 Dose: 1 appful Budesonide (Pulmicort Respules) 0.5 mg IH [id number] [facility] Last Admin: 05/31/18 07:33 Dose: 0.5 mg Doxycycline Hyclate (Doryx) 100 mg PO Q12 [facility]; Protocol Last Admin: 05/30/18 21:26 Dose: 100 mg Enoxaparin Sodium (Lovenox) 40 mg SC Q24H [facility]; Protocol Last Admin: 05/30/18 17:36 Dose: 40 mg Guaifenesin/Dextromethorphan (Robitussin Dm) 10 ml PO Q4H PRN PRN Reason: Cough Last Admin: 05/30/18 23:28 Dose: 10 ml Home Med (Home Med) 1 unit PO BID [facility] Last Admin: 05/30/18 17:56 Dose: Not Given Hydrocortisone (Cortizone 1% Cream) 0 gm TOP BID [facility] Last Admin: 05/30/18 17:42 Dose: 1 appful Hydroxyzine HCl (Atarax) 10 mg PO QID PRN PRN Reason: Itching / Pruritus Meropenem (Merrem Iv 1 Gm Premix) 1 gm in 50 mls @ 100 mls/hr IVPB Q8 [facility]; Protocol Last Admin: 05/31/18 05:31 Dose: 100 mls/hr Vancomycin HCl (Vancomycin 1gm) 1 gm in 250 mls @ 167 mls/hr IVPB Q12H [facility]; Protocol Last Admin: 05/30/18 14:30 Dose: 167 mls/hr Levetiracetam (Keppra) 500 mg PO BID [facility] Last Admin: 05/30/18 17:36 Dose: 500 mg Losartan Potassium (Cozaar) 25 mg PO DAILY [facility] Last Admin: 05/30/18 11:35 Dose: 25 mg Non-Formulary Medication (Zytega) 250 mg PO DAILY [facility] Last Admin: 05/30/18 11:38 Dose: Not Given Pantoprazole Sodium (Protonix Ec Tab) 40 mg PO DAILY [facility] Last Admin: 05/30/18 11:37 Dose: 40 mg Prednisone (Prednisone Tab) 5 mg PO BID [facility] Last Admin: 05/30/18 17:43 Dose: 5 mg Risperidone (Risperdal Tab) 0.25 mg PO BID [facility]; Protocol Last Admin: 05/30/18 17:36 Dose: 0.25 mg Zolpidem Tartrate (Ambien) 5 mg PO HS PRN; Protocol PRN Reason: Insomnia Last Admin: 05/30/18 00:46 Dose: 5 mg - Labs Labs: 05/31/18 05:30 05/31/18 04:30
[2018-05-31] MEDS: Pantoprazole 40 mg EC Tab PO SCH (09:18)
[2018-05-31] MEDS: guaiFENesin DM 200 mg-20 mg/10 ml UD PO PRN ×2 (09:19→17:48)
[2018-05-31] MEDS: [UNRECOGNIZED DRUG - OTHER] PO SCH (09:19)
[2018-05-31] MEDS: Home Med 1 UNIT PO SCH (09:20)
[2018-05-31] MEDS: Hydrocortisone 1% Cream (30 GM) TOP SCH ×2 (09:20→17:49)
[2018-05-31] MEDS: Clotrimazole/Betamethasone Cream(15 gm) TOP SCH ×2 (09:20→17:49)
[2018-05-31 11:22] LABS: IRON 16 ug/dL (45-180)
[2018-05-31 11:32] LABS: % IRON SATURATION 7 % (20-55); TOTAL IRON BINDING CAPACITY 226 ug/dL (261-462)
--- NOTE | 2018-05-31 13:15 | PN ---
DATE: 05/31/2018 PULMONARY PROGRESS NOTE REFERRING PHYSICIAN: Brent Dawson MD SUBJECTIVE: The patient is sitting up in bed, reports having productive cough and some sneezing. No headache, rhinitis, shortness of breath, chest pain, abdominal pain, nausea, vomiting, leg pain, leg swelling reported. OBJECTIVE VITAL SIGNS: Blood pressure 131/73, pulse 99, oxygen saturation 94 on room air, temperature 98.5. GENERAL: No acute distress. HEENT: Moist mucous membranes. Mallampati score of 4. Crowded airway. NECK: Supple. No JVD. CARDIOVASCULAR: S1, S2 audible. LUNGS: Rhonchi bilaterally. ABDOMEN: Soft, nontender, no distention. No organomegaly. EXTREMITIES: No bilateral edema. GENITOURINARY: Chronic indwelling Shipman catheter. NEUROLOGIC: Awake, alert, verbally responsive. LABORATORY DATA: Reviewed. WBC 3.9, RBC 2.85, hemoglobin 8.0, hematocrit 35.1, platelets 198. Sodium 135, potassium 3.9, chloride 103, carbon dioxide 28, anion gap 8, BUN 9, creatinine 0.7, GFR greater than 60, random glucose 99. Calcium 7.9, phosphorus 2.6, magnesium 1.9, iron 16. Total bilirubin 0.1, AST 23, ALT 42, alkaline phosphatase 65, total protein 5.7, albumin 2.8, globulin 2.9, albumin-globulin ratio 1.0. DIAGNOSTIC DATA: Chest CT shows no evidence of pneumonia. There is peribronchial thickening of both lung bases, left greater than right. MEDICATIONS: Reviewed. Tylenol 650 mg every four hours as needed for fever greater than 100.4, DuoNeb 3 mL inhalation every two hours as needed, Brovana 15 mcg inhalation every 12 hours, Lotrisone topically twice a day, Pulmicort 0.5 mg inhalation every 12 hours, doxycycline 100 mg by mouth every 12 hours, Lovenox 40 mg subcutaneously daily, Robitussin 10 mg by mouth every four hours as needed, hydrocortisone topically twice a day to the affected area, Atarax 10 mg by mouth four times a day as needed, Keppra 500 mg by mouth twice a day, Cozaar 25 mg by mouth daily, meropenem 1 g IV piggyback every eight hours, Zytiga 250 mg by mouth daily, Protonix 40 mg by mouth daily, prednisone 5 mg by mouth twice a day, Risperdal 0.25 mg by mouth twice a day, Ambien 5 mg by mouth as needed at bedtime. IMPRESSION AND PLAN: Stage IV prostate cancer, seizure disorder, eczema, chronic obstructive pulmonary disease, hypertension, bronchitis, upper respiratory infection, procalcitonin level pending, sleep apnea syndrome. The patient presently refusing to use continuous positive airway pressure machine. Sleep apnea precaution. Head of bed elevated to 45 degrees. Deep venous thrombosis prophylaxis, gastric prophylaxis. Continue antibiotic therapy. Continue inhaled bronchodilators. Iron workup pending. This patient was seen and examined with Dr. Dickson. Discussed assessment and plan as described above. Thank you for this consult and we will follow with you. Chance Driscoll APN Chris Dickson MD
--- NOTE | 2018-05-31 13:43 | CP.PCM.PN ---
Subjective - Date & Time of Evaluation Date of Evaluation: 05/31/18 Time of Evaluation: 10:10 - Subjective Subjective: No fevers, not in distress, no dysuria currently, no suprapubic pain, no nausea. Objective - Vital Signs/Intake and Output Vital Signs (last 24 hours): Temp Pulse Resp BP Pulse Ox 98.5 F 96 H 20 131/73 94 L 05/31/18 06:00 05/31/18 10:00 05/31/18 06:00 05/31/18 09:18 05/31/18 10:00 Intake and Output: 05/31/18 05/31/18 06:59 18:59 Intake Total 200 Output Total 700 Balance -500 - Medications Medications: Current Medications Acetaminophen (Tylenol 325mg Tab) 650 mg PO Q4 PRN PRN Reason: Fever >100.4 F Last Admin: 05/30/18 16:02 Dose: 650 mg Albuterol/Ipratropium (Duoneb 3 Mg/0.5 Mg (3 Ml) Ud) 3 ml IH Q2H PRN PRN Reason: Shortness of Breath Last Admin: 05/30/18 18:02 Dose: 3 ml Arformoterol Tartrate (Brovana) 15 mcg IH [id number] [facility] Last Admin: 05/31/18 07:32 Dose: 15 mcg Betamethasone/Clotrimazole (Lotrisone) 0 gm TOP BID [facility] Last Admin: 05/31/18 09:20 Dose: 1 appful Budesonide (Pulmicort Respules) 0.5 mg IH [id number] [facility] Last Admin: 05/31/18 07:33 Dose: 0.5 mg Doxycycline Hyclate (Doryx) 100 mg PO Q12 [facility]; Protocol Last Admin: 05/31/18 09:19 Dose: 100 mg Enoxaparin Sodium (Lovenox) 40 mg SC Q24H [facility]; Protocol Last Admin: 05/30/18 17:36 Dose: 40 mg Guaifenesin/Dextromethorphan (Robitussin Dm) 10 ml PO Q4H PRN PRN Reason: Cough Last Admin: 05/31/18 09:19 Dose: 10 ml Home Med (Home Med) 1 unit PO BID [facility] Last Admin: 05/31/18 09:20 Dose: Not Given Hydrocortisone (Cortizone 1% Cream) 0 gm TOP BID [facility] Last Admin: 05/31/18 09:20 Dose: 1 appful Hydroxyzine HCl (Atarax) 10 mg PO QID PRN PRN Reason: Itching / Pruritus Meropenem (Merrem Iv 1 Gm Premix) 1 gm in 50 mls @ 100 mls/hr IVPB Q8 [facility]; Protocol Last Admin: 05/31/18 05:31 Dose: 100 mls/hr Levetiracetam (Keppra) 500 mg PO BID [facility] Last Admin: 05/31/18 09:18 Dose: 500 mg Losartan Potassium (Cozaar) 25 mg PO DAILY [facility] Last Admin: 05/31/18 09:18 Dose: 25 mg Non-Formulary Medication (Zytega) 250 mg PO DAILY [facility] Last Admin: 05/31/18 09:19 Dose: Not Given Pantoprazole Sodium (Protonix Ec Tab) 40 mg PO DAILY [facility] Last Admin: 05/31/18 09:18 Dose: 40 mg Prednisone (Prednisone Tab) 5 mg PO BID [facility] Last Admin: 05/31/18 09:17 Dose: 5 mg Risperidone (Risperdal Tab) 0.25 mg PO BID [facility]; Protocol Last Admin: 05/31/18 09:18 Dose: 0.25 mg Zolpidem Tartrate (Ambien) 5 mg PO HS PRN; Protocol PRN Reason: Insomnia Last Admin: 05/30/18 00:46 Dose: 5 mg - Labs Labs: 05/31/18 05:30 05/31/18 04:30 - Constitutional Appears: Chronically Ill - Head Exam Head Exam: NORMAL INSPECTION - Respiratory Exam Respiratory Exam: Decreased Breath Sounds - Cardiovascular Exam Cardiovascular Exam: +S1, +S2 - GI/Abdominal Exam GI & Abdominal Exam: Soft. absent: Tenderness Assessment and Plan - Assessment and Plan (Free Text) Plan: Assessment sepsis due to complicated UTI with gram negative bacilli history of UTI with E. 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
[2018-05-31] MEDS: Albuterol-Ipratrop 3 mg / 0.5 (3 ml) UD IH PRN (13:49)
[2018-05-31] MEDS: METHENAMINE 1 GM PO SCH (17:50)
[2018-05-31] MEDS: Enoxaparin 40 mg Syringe SC SCH (17:51)
[2018-05-31 19:15] LABS: FOLATE 12.7 ng/mL
--- NOTE | 2018-05-31 22:34 | CON ---
DATE: 05/31/2018 GENITOURINARY CONSULTATION CHIEF COMPLAINT: Gross hematuria. HISTORY OF PRESENT ILLNESS: This is a 72-year-old male who is well known to me from multiple prior admissions. The patient has widely metastatic prostate cancer stage IV. He has an indwelling Shipman catheter which has been changed monthly for many years. He has had recurrent episodes of urosepsis as well as other complications. He is currently wheelchair bound and non-ambulatory. He was found to have a fever of 101 and was sent to the hospital even though he had just completed a course of Vantin. The patient has been complaining of a cough for about 1 week and he has multiple possible sources of infection. A consultation was requested regarding prostate cancer and the indwelling Shipman catheter. The patient reports Shipman catheter was just changed approximately 1 week ago. PAST MEDICAL HISTORY: Significant for stage IV prostate cancer, recurrent episodes of sepsis, seizures, pulmonary embolism, DVT, hypertension, mild dementia, COPD, wheelchair bound, hypercoagulable state, hyperlipidemia, depression, CVA and cardiomegaly. MEDICATIONS: Currently include Ambien, Atarax, Brovana, cortisone, Cozaar, DuoNeb, Keppra, Lotrisone, Lovenox, Merrem, prednisone, Protonix, Pulmicort, risperidone, Robitussin, Tylenol, was on Doryx, vancomycin, and he does take Zytiga and prednisone at home. ALLERGIES: NO KNOWN DRUG ALLERGIES. FAMILY HISTORY: Noncontributory. SOCIAL HISTORY: Positive for smoking, although quit years ago. Denies EtOH use. REVIEW OF SYSTEMS: Positive for fever. Denies chills. Positive for cough and some shortness of breath. Positive for skin itching. Positive for urinary retention and indwelling Shipman. Positive for low back pain, joint pain and unable to ambulate. Other systems are currently negative. PHYSICAL EXAMINATION: GENERAL: The patient is awake and alert and answering questions. VITAL SIGNS: He is currently afebrile, temperature of 98.5, pulse of 96, BP 131/71, respirations 18. NECK: Supple with no adenopathy. CHEST: Exam of the chest reveals a slightly increased inspiratory effort, some rhonchi noted. CARDIAC: Positive S1, S2. There is moderate peripheral edema noted. ABDOMEN: The abdomen is obese, soft, nontender, nondistended. There is no hepatosplenomegaly or costovertebral angle tenderness. GENITOURINARY: Phallus has a Shipman catheter in place. The urethral meatus is hypospadiac with a split open penis down to the level of the proximal penile shaft where the Shipman catheter is entering. Scrotum has mild edema. Testes bilaterally are descended, nontender, no masses. Epididymides are normal. EXTREMITIES: There is moderate peripheral edema noted. No cyanosis. LABORATORY EXAM: WBC count 3.9, was 8.3 on admission. GFR greater than 60. Procalcitonin was 0.09. Urinalysis showed positive for yeast, 2-5 rbc's, 10-15 wbc's, nitrites were negative. On microbiology, Gram stain showed no growth after 24 hours. Urine culture is positive for gram-negative rods. On radiologic exam, the patient had a chest x-ray showing there is improvement in the left lower lobe infiltrate. CT of the chest showed no evidence of pneumonia. There is peribronchial thickening of both lung bases, left greater than right. IMPRESSION AND PLAN: This is a 72-year-old male with stage IV prostate cancer, the patient is on chemotherapy and has been stable from that end. The patient has had recurrent episodes of sepsis from multiple different sources. It appeared to be possibly pulmonary at this point. His urine culture is positive as it always will be given the patient has had an indwelling Shipman catheter changed monthly for many many years. Urologically, the urine is clear and the Shipman catheter was recently changed. I will continue antibiotics as per Infectious Disease recommendation and continue with monthly Shipman catheter changes. Could consider a cystoscopy at some point; however, I will discuss this with Dr. Clemens and it does not seem necessary at this time. Unfortunately, given the patient's overall status, it is likely that he will continue to have recurrent infections as he has multiple possible sources and he will need to be followed closely. Lonnie Olivo MD
[2018-06-01] MEDS: Meropenem IV 1 gm in NS 1 GM/50 ML BAG IVPB SCH ×3 (05:18→22:17)
[2018-06-01] MEDS: Budesonide 0.5 mg/2 ml Inhal Susp UD IH SCH ×2 (08:10→21:52)
[2018-06-01 08:13] LABS: HEMOGLOBIN 10.5 g/dL (14.0-18.0); MEAN CORPUSCULAR HEMOGLOBIN 27.9 pg (25.0-35.0); MEAN CORPUSCULAR HGB CONC 31.7 g/dl (31.0-37.0); MEAN PLATELET VOLUME 9.1 fl (7.0-11.0); RBC 3.76 10^6/uL (3.5-6.1); RED CELL DISTRIBUTION WIDTH 14.9 % (11.5-14.5); WHITE BLOOD COUNT 5.1 10^3/uL (4.5-11.0)
[2018-06-01 08:38] LABS: ALBUMIN 2.9 g/dL (3.0-4.8); ALT/SGPT 38 U/L (7-56); AST/SGOT 22 U/L (17-59); BLOOD UREA NITROGEN 11 mg/dL (7-21); CALCIUM 7.8 mg/dL (8.4-10.5); GFR NON-AFRICAN AMERICAN > 60
[2018-06-01] MEDS: guaiFENesin DM 200 mg-20 mg/10 ml UD PO PRN (09:36)
[2018-06-01] MEDS: Pantoprazole 40 mg EC Tab PO SCH (09:36)
[2018-06-01] MEDS: METHENAMINE 1 GM PO SCH ×2 (09:36→17:14)
[2018-06-01] MEDS: Hydrocortisone 1% Cream (30 GM) TOP SCH ×2 (09:37→17:14)
[2018-06-01] MEDS: Clotrimazole/Betamethasone Cream(15 gm) TOP SCH ×2 (09:37→17:14)
[2018-06-01] MEDS: ZYTIGA 250 MG PO SCH (09:38)
[2018-06-01] MEDS: Arformoterol 15 mcg/2 ml Inh Sol IH SCH ×2 (10:30→21:52)
--- NOTE | 2018-06-01 12:49 | PN ---
PULMONARY PROGRESS NOTE DATE: 06/01/2018 REFERRING PHYSICIAN: Brent Dawson MD SUBJECTIVE: The patient lying in bed, no acute distress. No headache, rhinitis, shortness of breath, chest pain, abdominal pain, nausea, vomiting, diarrhea, leg pain, or leg swelling reported. The patient does report having cough. PHYSICAL EXAMINATION: VITAL SIGNS: Blood pressure 140/85, pulse 68, temp 98, oxygen saturation 95%. GENERAL: No acute distress. HEENT: Moist mucous membranes. Mallampati score IV. Crowded airway. NECK: Supple. No JVD. CARDIOVASCULAR: S1, S2 audible. LUNGS: Rhonchi bilaterally. ABDOMEN: Soft, nontender. No distention. No organomegaly. EXTREMITIES: No bilateral edema. GENITOURINARY: Chronic indwelling Shipman catheter. No hematuria noted. NEUROLOGIC: Awake, alert, verbally responsive. Follows simple commands. LABORATORY DATA: Reviewed. WBC 5.1, RBC 3.76, hemoglobin 10.5, hematocrit 33.1, and platelets 197,000. Sodium 135, potassium 3.9, chloride 103, carbon dioxide 28, anion gap 9, BUN 11, creatinine 0.6, GFR greater than 60, random glucose 83, calcium 7.8, magnesium 1.8, total bilirubin 0.3, AST 22, ALT 38, total protein 5.9, alkaline phosphatase 66, albumin 2.9, globulin 3.1, albumin-globulin ratio of 1. Urine culture, positive Pseudomonas aeruginosa. MEDICATIONS: Reviewed. Tylenol 650 mg p.o. every 4 hours p.r.n. for fever, DuoNeb 3 mL inhalation every 2 hours p.r.n., Brovana 15 mcg inhalation every 12 hours, Lotrisone topically twice a day, Pulmicort 0.5 mg inhalation every 12 hours, Lovenox 40 mg daily, Robitussin 10 mL every 4 hours p.r.n., hydrocortisone topically twice a day to the affected area, Atarax 10 mg 4 times a day p.r.n., Keppra 500 mg p.o. twice a day, Cozaar 25 mg p.o. daily, meropenem 1 g IV piggyback every 8 hours, Protonix 40 mg p.o. daily, prednisone 5 mg p.o. twice a day, Risperdal 0.25 mg twice a day, Ambien 5 mg p.o. at bedtime as needed. IMPRESSION AND PLAN: Stage IV prostate cancer, seizure disorder, eczema, chronic obstructive pulmonary disease, hypertension, bronchitis, upper respiratory infection, negative procalcitonin level, sleep apnea syndrome. The patient is presently refusing continuous positive airway pressure machine. Sleep apnea precaution. Head of bed elevated to 45 degrees. Deep venous thrombosis prophylaxis, gastric prophylaxis. Continue antibiotic therapy. Continue followup with Infectious Disease. Continue inhaled bronchodilators. May use supplemental oxygen. Physical therapy, out of bed to chair. This patient was seen and examined with Dr. Dickson. Discussed assessment and plan as described above. Thank you for this consult and we will follow with you. Chance Driscoll APN Chris Dickson MD
[2018-06-01] MEDS: Enoxaparin 40 mg Syringe SC SCH (17:15)
--- NOTE | 2018-06-02 02:14 | PN ---
DATE: 06/01/2018 SUBJECTIVE: The patient is seen in bed, in no acute distress, and nontoxic. PHYSICAL EXAMINATION: VITAL SIGNS: Temperature is 98, blood pressure is 140/80, and respiratory rate is 16. HEENT: Unremarkable. NECK: Supple. LUNGS: Have decreased breath sounds. HEART: Normal S1 and S2. ABDOMEN: Soft. LABORATORY DATA: Reveals a white count of 5.1 and hemoglobin of 10. Chemistries are noted. Creatinine is 0.6. Procalcitonin is negative. Microbiology reveals the blood cultures are negative. Urine cultures, Pseudomonas sensitivity is sensitive to cefepime, Cipro, and meropenem. Review of orders reveals the patient to be on meropenem and prednisone. ASSESSMENT AND PLAN: A 72-year-old male with sepsis with Pseudomonas, complicated urinary tract infection in the patient who has a history of gastrointestinal bleed, history of prostate cancer, metastasis, appendectomy, cholecystectomy, currently on day #3 of meropenem and with a normal creatinine. Pseudomonas is sensitive to cefepime. We will discontinue the meropenem, deescalate cefepime for now in a patient who has NO KNOWN ALLERGIES. The patient is on prednisone IV every 8 hours. Naman Rich MD
[2018-06-02] MEDS: Cefepime 1gm in NS 100ml 1 GM/100 ML BAG IVPB SCH ×3 (05:59→21:37)
[2018-06-02] MEDS: Arformoterol 15 mcg/2 ml Inh Sol IH SCH (08:15)
[2018-06-02] MEDS: Budesonide 0.5 mg/2 ml Inhal Susp UD IH SCH (08:16)
[2018-06-02] MEDS: Pantoprazole 40 mg EC Tab PO SCH (09:05)
[2018-06-02] MEDS: Hydrocortisone 1% Cream (30 GM) TOP SCH ×2 (09:06→17:53)
[2018-06-02] MEDS: Clotrimazole/Betamethasone Cream(15 gm) TOP SCH ×2 (09:06→17:52)
[2018-06-02] MEDS: METHENAMINE 1 GM PO SCH ×2 (09:07→17:53)
[2018-06-02] MEDS: ZYTIGA 250 MG PO SCH (09:08)
--- NOTE | 2018-06-02 14:02 | PN ---
DATE: 06/02/2018 SUBJECTIVE: The patient is in bed in no acute distress, nontoxic. PHYSICAL EXAMINATION: VITAL SIGNS: Temperature is 97, blood pressure is 140/70, respiratory rate of 16. HEENT: Unremarkable. NECK: Supple. LUNGS: Have decreased breath sounds. HEART: Normal S1, S2. ABDOMEN: Soft. LABORATORY EXAMINATION: Reveals the patient's white count is 5.1, hemoglobin of 10. BUN of 11, creatinine of 0.6 and procalcitonin 0.09. Urinalysis is noted and Pseudomonas aeruginosa cefepime, Cipro, and meropenem. ASSESSMENT AND PLAN: This is a 72-year-old male with sepsis with Pseudomonas, complicated with urinary tract infection, history of gastrointestinal bleeding, history of prostate cancer with metastases, appendectomy and cholecystectomy. On day #4 of cefepime with Pseudomonas in the urine, sensitive to cefepime. Dr. Olivo's consultation is reviewed. With a complicated Pseudomonas urinary tract infection.. The Pseudomonas is sensitive to Cipro upon discharge, that is one option. Naman Rich MD
[2018-06-02] MEDS: Enoxaparin 40 mg Syringe SC SCH (17:52)
--- NOTE | 2018-06-02 20:06 | PN ---
DATE: 06/02/2018 LOCATION: The patient is in room 371, bed 1. SUBJECTIVE: The patient is seen sitting up in bed, in no acute distress, nontoxic. Denies any history of fevers, chills, nausea, vomiting. Coughing has improved immensely. PHYSICAL EXAMINATION VITAL SIGNS: T-max is 98.4, blood pressure is 140/70, respirations 16. HEENT: Head is normocephalic, atraumatic. The patient's rash appears to be better. Examination of the oropharynx reveals poor dentition. Tongue is moist. No ulcerations are noted. No evidence of any fungal infection. NECK: Supple. There is no adenopathy. No jugular venous distention noted. LUNGS: Reveal decreased breath sounds at the bases with scattered wheezes. HEART: Reveals PMI to be in the 5th intercostal space inside the midclavicular line. S1 and S2 are normal. No gallop or murmur is heard. ABDOMEN: Protuberant, soft, nontender. The patient has a Shipman catheter on examination, which is attached to a leg bag. EXTREMITIES: Examination of the lower extremities reveals no significant edema. NEUROLOGIC: Examination reveals higher functions to be normal. No focal deficits are noted. GENITOURINARY/RECTAL: Deferred except for the mentioned the patient has a Shipman catheter in place. LABORATORY DATA: Reviewed. The patient's white count is 5.1, hemoglobin 10. BUN 11, creatinine 0.6. Procalcitonin is 0.09. The patient's urinalysis has shown Pseudomonas in the urine. MEDICATIONS: The patient is on cefepime, Cipro, and meropenem. ASSESSMENT NOTES AND PLAN: A 72-year-old male who came into the hospital with fevers and chills with suggestion that may be the patient could have a bowel syndrome as the patient had been treated with antibiotics about 2 weeks prior to this admission, was admitted with complications of Pseudomonas with urinary tract infection and currently is on the aforementioned antibiotics. The patient is on day 4 of the cefepime, sensitive to cefepime. The patient has been seen by Urology, Dr. Olivo, as well. Plan will be to send the patient home on Cipro upon discharge once the patient is stable. Since the patient is doing well, plan is to give the patient another 2 days to see how he is doing before we plan on discharge. The patient would like to get home by 06/04/2020 as [birth year] is his birthday. Had detailed discussion with the patient, spoke to him about getting the visiting nurses involved at home as well. He was concerned since his son apparently had an infection in the lung whether the visiting nurses would be able to come to visit him, and I assured him that what his son had is not infectious and that he should not be concerned nor should the visiting nurses be concerned about cross-contamination. Routine post exam instructions have been given to the patient. Labs for a.m. have been requested. Ant Clemens MD
--- NOTE | 2018-06-03 01:38 | PN ---
DATE: 06/02/2018 PULMONARY PROGRESS NOTE REFERRING PHYSICIAN: Dr. Ant Clemens. SUBJECTIVE: He is lying in the bed, head 45 degrees. On and off has cough. No sputum production. No nausea, vomiting, no diarrhea, leg pain, leg swelling. OBJECTIVE: VITAL SIGNS: Temperature is 98, heart rate 85, respiratory rate is 20, blood pressure 163/89, pulse ox 99% on 2 liters nasal cannula. HEENT: Moist mucous membrane. Crowded airway. Mallampati score is 4. NECK: Supple. No JVD. LUNGS: Have a fair airflow with few rhonchi. HEART: S1 and S2. ABDOMEN: Soft, nontender, no organomegaly. EXTREMITIES: There is no edema. NEUROLOGIC: Awake and follows simple commands. MEDICATIONS: He is on Ambien 5 mg at bedtime p.r.n., Atarax 10 mg q.i.d. p.r.n., Brovana inhaled twice a day, hydrocortisone cream effected area twice a day, losartan 25 mg daily, albuterol/Atrovent nebulizer every 2 hours p.r.n., Keppra 500 mg twice a day, Lotrisone twice a day affected area, Lovenox 40 mg subcu every 24 hours, cefepime 1 g IV every 8 hours, Zytiga 1000 mg daily, prednisone 5 mg twice a day, Protonix 40 mg daily, Pulmicort inhaled twice a day, Risperdal 0.25 mg twice a day, Robitussin DM 10 mL every 4 hours p.r.n., Tessalon Perles 200 mg every 8 hours, Tylenol p.r.n. basis. LABORATORY DATA. Reviewed. No new lab is available since yesterday. Urine culture has a Pseudomonas. Blood culture is negative. IMPRESSION AND PLAN: Prostate cancer, seizure disorder, eczema, chronic obstructive lung disease, hypertension, may have aspiration-related bronchitis, negative procalcitonin, sleep apnea syndrome, urinary tract infection, may have a component of sleep apnea syndrome. I had a long discussion with the patient about lying down and eating specially taking liquids and risk of aspiration, expressed understanding. Refusing to use CPAP/BiPAP. Continue antibiotics as per Infectious Disease. Gastric prophylaxis, cough suppressor. Aspiration precaution. Out of bed to chair if possible, physical therapy. Thank you and we will follow with you. Chris Dickson MD
[2018-06-03] MEDS: Cefepime 1gm in NS 100ml 1 GM/100 ML BAG IVPB SCH ×2 (05:21→14:52)
[2018-06-03 08:04] VITALS: RESP 19
[2018-06-03] MEDS: Arformoterol 15 mcg/2 ml Inh Sol IH SCH (08:23)
[2018-06-03] MEDS: Albuterol-Ipratrop 3 mg / 0.5 (3 ml) UD IH PRN (08:24)
[2018-06-03] MEDS: Budesonide 0.5 mg/2 ml Inhal Susp UD IH SCH (08:24)
--- NOTE | 2018-06-03 09:41 | PN ---
DATE: 06/01/2018 ONCOLOGY PROGRESS NOTE LOCATION: The patient is in room 371, bed 1. SUBJECTIVE: The patient is lying in bed, in no acute distress. Denies any headaches, shortness of breath, chest pain, abdominal pain, nausea, vomiting, diarrhea, leg pain, or leg swelling at this time. The patient reports having cough, but feels overall much improved. PHYSICAL EXAMINATION VITAL SIGNS: Stable. Blood pressure is 140/85, pulse is 68, T-max is 98.4, and O2 saturation is 96% on room air. HEENT: Head is normocephalic, atraumatic. Conjunctivae pale. Sclerae are anicteric. Pupils are equally reactive to light and accommodation. Examination of the oropharynx reveals poor dentition. No oropharyngeal lesions are noted. NECK: Supple. There is no adenopathy. No jugular venous distention noted. CARDIOVASCULAR SYSTEM: Reveals S1 and S2 to be normal. No gallop or murmur is heard. LUNGS: Reveal bilateral rhonchi. ABDOMEN: Soft and nontender. No distention is noted. Bowel sounds are present. No rebound, rigidity, or guarding is noted. No other masses are felt. EXTREMITIES: Reveal no cyanosis, clubbing, or edema. GENITOURINARY: The patient has a chronic indwelling catheter with a leg bag. NEUROLOGIC: Reveals the patient to be awake, alert, and oriented, able to move all four extremities. No neurologic distress at this point in time. LABORATORY DATA: Reviewed. White count is 5.1, hemoglobin is 10.5, hematocrit is 33.1, and platelet count is 197,000. Sodium is 135, K is 3.9, chloride is 103, CO2 is 28, anion gap of 9, BUN 11, creatinine 0.6. Random sugar 83, calcium 7.8, magnesium 1.8. Total bilirubin of 0.3, AST of 22, ALT of 38, total protein of 5.9, alkaline phosphate 66, albumin 2.9, globulin 3.1. Urine culture is positive for Pseudomonas. MEDICATIONS: Reviewed. He is on Tylenol 650 mg every 4 hours p.r.n., DuoNeb 3 mL inhaled every 2 hours, Brovana 50 mcg inhaled every 12 hours, Lotrisone topically twice a day to the buttock areas and to the posterior aspect of his thighs, Pulmicort 0.5 mg inhalation every 12 hours, Lovenox 40 mg subcu daily, Robitussin 10 mL every 4 hours as needed, hydrocortisone topically to the affected areas on the face, Atarax 10 mg p.o. 4 times a day p.r.n., Keppra 500 mg p.o. b.i.d., Cozaar 25 mg daily, Merrem 1 g IV every 8 hours, Protonix 40 mg p.o. daily, prednisone 5 mg p.o. b.i.d., risperidone 0.25 mg p.o. b.i.d., Ambien 5 mg p.o. at bedtime as needed. ASSESSMENT, NOTES AND PLAN: The patient has stage IV metastatic progressive prostate cancer, currently on a combination of Zoladex, Zytiga, prednisone, and Xgeva; eczema, on topical treatment; chronic obstructive pulmonary disease, on multiple bronchodilators; hypertension; bronchitis; upper respiratory infection with a negative procalcitonin; sleep apnea syndrome. The patient is on deep venous thrombosis prophylaxis for his hypercoagulable state. He is on gastric prophylaxis as well. We will continue current antibiotic therapy and check with Infectious Disease what the further treatment plan should be. Urinary cultures being positive, may be a contaminant, but again we will check with Infectious Disease on this. Since the procalcitonin is normal, I do not think it is a real pathogen. The patient continues to use supplemental oxygen. Physical therapy, out of bed to the chair has been requested. Routine post-exam instructions have been given to the patient, labs for a.m. have been requested. Please make a note that this is a complex patient with multiple comorbid medical issues. Time taken with the patient is about 35 minutes. Ant Clemens MD
--- NOTE | 2018-06-03 10:05 | CP.PCM.DIS ---
Provider - Provider Date of Admission: 05/30/18 16:24 Attending physician: Brent Dawson MD Primary care physician: Ant Clemens MD Consults: 05/29/18 16:13 Consult [Physician Consult] Stat Comment: Consulting Provider: Naman Rich Consulting Physician: Naman Rich Reason for Consult: pneumonia, fever Consult [Physician Consult] Stat Comment: Consulting Provider: Chris Corona Consulting Physician: Chris Corona Reason for Consult: pneumonia, fever 05/30/18 04:59 Nursing Referral for Wound Care Routine Comment: Physician Instructions: Reason For Exam: stage 1 to sacrum 05/31/18 11:43 TCU [Evaluation for TRCU] Routine Comment: Physician Instructions: Reason For Exam: iv antibiotics 05/31/18 12:02 Physician Consult Routine Comment: Consulting Provider: Lonnie Olivo Consulting Physician: Lonnie Olivo Reason for Consult: hematuria Time Spent in preparation of Discharge (in minutes): 45 Diagnosis - Discharge Diagnosis (1) Viral upper respiratory infection Status: Acute Priority: Medium (2) UTI (urinary tract infection) Status: Chronic Priority: Medium (3) Prostate carcinoma Status: Chronic Priority: High (4) Indwelling Shipman catheter present Status: Acute (5) COPD (chronic obstructive pulmonary disease) Status: Chronic Priority: Medium (6) Hypertension Status: Chronic Priority: Medium (7) Seizure Status: Chronic Priority: Medium Hospital Course - Lab Results Lab Results: Micro Results 05/29/18 16:40 Blood Blood Culture - Preliminary NO GROWTH AFTER 4 DAYS 05/29/18 16:15 Blood Blood Culture - Preliminary NO GROWTH AFTER 4 DAYS 05/29/18 20:12 Urine Urine Culture - Final Pseudomonas Aeruginosa 05/30/18 12:18 Naris MRSA Culture (Admit) - Final MRSA NOT DETECTED Most Recent Lab Values WBC 5.1 10^3/uL (4.5-11.0) D 06/01/18 08:06 RBC 3.76 10^6/uL (3.5-6.1) 06/01/18 08:06 Hgb 10.5 g/dL (14.0-18.0) L D 06/01/18 08:06 Hct 33.1 % (42.0-52.0) L 06/01/18 08:06 MCV 88.0 fl (80.0-105.0) 06/01/18 08:06 MCH 27.9 pg (25.0-35.0) 06/01/18 08:06 MCHC 31.7 g/dl (31.0-37.0) 06/01/18 08:06 RDW 14.9 % (11.5-14.5) H 06/01/18 08:06 Plt Count 197 10^3/uL (120.0-450.0) 06/01/18 08:06 MPV 9.1 fl (7.0-11.0) 06/01/18 08:06 Gran % 71.6 % (50.0-68.0) H 05/31/18 05:30 Lymph % (Auto) 19.7 % (22.0-35.0) L 05/31/18 05:30 [place] % (Auto) 7.7 % (1.0-6.0) H 05/31/18 05:30 Eos % (Auto) 0.5 % (1.5-5.0) L 05/31/18 05:30 Baso % (Auto) 0.5 % (0.0-3.0) 05/31/18 05:30 Gran # 2.79 (1.4-6.5) 05/31/18 05:30 Lymph # (Auto) 0.8 (1.2-3.4) L 05/31/18 05:30 [place] # (Auto) 0.3 (0.1-0.6) 05/31/18 05:30 Eos # (Auto) 0.0 (0.0-0.7) 05/31/18 05:30 Baso # (Auto) 0.02 K/mm3 (0.0-2.0) 05/31/18 05:30 pO2 47 mm/Hg (30-55) 05/29/18 16:15 VBG pH 7.35 (7.32-7.43) 05/29/18 16:15 VBG pCO2 48.0 (40-60) 05/29/18 16:15 VBG HCO3 26.5 mmol/l (21-28) 05/29/18 16:15 VBG Total CO2 28.0 mmol.L (22-28) 05/29/18 16:15 VBG O2 Sat (Calc) 83.1 % (40-65) H 05/29/18 16:15 VBG Base Excess 0.3 mmol/L (0.0-2.0) 05/29/18 16:15 VBG Potassium 3.5 mmol/L (3.6-5.2) L 05/29/18 16:15 Sodium 124.0 mmol/L (132-148) L 05/29/18 16:15 Chloride 91.0 mmol/L (98-107) L 05/29/18 16:15 Glucose 114 mg/dl (75-110) H 05/29/18 16:15 Lactate 1.8 mmol/L (0.7-2.1) 05/29/18 16:15 FiO2 21.0 % 05/29/18 16:15 Sodium 135 mmol/L (132-148) 06/01/18 08:01 Potassium 3.9 mmol/L (3.6-5.0) 06/01/18 08:01 Chloride 103 mmol/L (98-107) 06/01/18 08:01 Carbon Dioxide 28 mmol/L (21-33) 06/01/18 08:01 Anion Gap 9 (10-20) L 06/01/18 08:01 BUN 11 mg/dL (7-21) 06/01/18 08:01 Creatinine 0.6 mg/dl (0.8-1.5) L 06/01/18 08:01 Est GFR ( Amer) > 60 06/01/18 08:01 Est GFR (Non-Af Amer) > 60 06/01/18 08:01 Random Glucose 83 mg/dL (70-110) 06/01/18 08:01 Calcium 7.8 mg/dL (8.4-10.5) L 06/01/18 08:01 Phosphorus 2.6 mg/dL (2.5-4.5) 05/31/18 04:30 Magnesium 1.8 mg/dL (1.7-2.2) 06/01/18 08:01 Iron 16 ug/dL (45-180) L 05/31/18 04:30 TIBC 226 ug/dL (261-462) L 05/31/18 04:30 % Saturation 7 % (20-55) L 05/31/18 04:30 Ferritin 206.0 ng/mL 05/31/18 04:30 Total Bilirubin 0.3 mg/dL (0.2-1.3) 06/01/18 08:01 AST 22 U/L (17-59) 06/01/18 08:01 ALT 38 U/L (7-56) 06/01/18 08:01 Alkaline Phosphatase 66 U/L (38-126) 06/01/18 08:01 Total Protein 5.9 g/dL (5.8-8.3) 06/01/18 08:01 Albumin 2.9 g/dL (3.0-4.8) L 06/01/18 08:01 Globulin 3.0 gm/dL 06/01/18 08:01 Albumin/Globulin Ratio 1.0 (1.1-1.8) L 06/01/18 08:01 Vitamin B12 222 pg/mL (239-931) L 05/31/18 04:30 Folate 12.7 ng/mL 05/31/18 04:30 Procalcitonin 0.09 NG/ML (0.19-0.49) L 05/31/18 04:30 Venous Blood Potassium 3.5 mmol/L (3.6-5.2) L 05/29/18 16:15 Urine Color Yellow (YELLOW) 05/29/18 20:12 Urine Appearance Sl cloudy (CLEAR) 05/29/18 20:12 Urine pH 6.0 (4.7-8.0) 05/29/18 20:12 Ur Specific Bliss 1.020 (1.005-1.035) 05/29/18 20:12 Urine Protein Trace mg/dL (<30 mg/dL) H 05/29/18 20:12 Urine Glucose (UA) Negative mg/dL (NEGATIVE) 05/29/18 20:12 Urine Ketones Negative mg/dL (NEGATIVE) 05/29/18 20:12 Urine Blood Moderate (NEGATIVE) H 05/29/18 20:12 Urine Nitrate Negative (NEGATIVE) 05/29/18 20:12 Urine Bilirubin Negative (NEGATIVE) 05/29/18 20:12 Urine Urobilinogen 0.2 E.U./dL (<1 E.U./dL) 05/29/18 20:12 Ur Leukocyte Esterase Mod Dulce/uL (NEGATIVE) H 05/29/18 20:12 Urine RBC 2 - 5 /hpf (0-2) 05/29/18 20:12 Urine WBC 10 - 15 /hpf (0-6) 05/29/18 20:12 Ur Epithelial Cells 6 - 8 /hpf (0-5) 05/29/18 20:12 Urine Bacteria Mod (NEG) 05/29/18 20:12 Urine Other Uyeast 05/29/18 20:12 Stool Occult Blood Negative (NEGATIVE) 05/31/18 16:30 Influenza Typ A,B (EIA) Negative for flu a/b (NEGATIVE) 05/29/18 16:15 Blood Type A POSITIVE 05/31/18 04:30 Antibody Screen Negative 05/31/18 04:30 Crossmatch See Detail 05/31/18 04:30 BBK History Checked Patient has bt 05/31/18 04:30 - Hospital Course Hospital Course: Patient is a 72 year old male with a past medical history significant for 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 With the use of physical examinations, lab work, and imaging the patient was diagnosed with and treated for a viral upper respiratory infection and urinary tract infection. During their hospital stay the patient was seen by infectious disease (Dr. Vargas), pulmonology (Dr. Dickson), and urology (Dr. Olivo) whose recommendations were reviewed, appreciated, and implemented in the patients care. Infectious disease treated the UTI with cefepime and approved PO ciprofloxacin in the outpatient stetting. Urology was consulted for management of hematuria which required no acute intervention during this hospital visit. Pulmonology recommended duonebs, CPAP (which the patient refuses), and keeping head of bed 45 degrees. During their hospital stay the patient underwent a a chest xray and CT Chest which was reviewed, appreciated, and utilized in the management of the patients clinical course. The chest xray revealed interval improvement in left lower lobe infiltrate. The chest CT revealed no evidence of pneumonia. Patient was treated with IV cefepime, methenamine, duobnebs, brovana, benzonate, pulmnicort, robutassian DM, losartan, keppra, prednisone, respiradol, ambien, and zytega. At this time the patient is medically stable for discharge to TCU where he will continue IV antibiotics and receive physical rehabilitation. Patient understands and appreciates discharge plan. Patient instructed to follow up with primary care physicians and referrals within one week from discharge. Furthermore the patient is instructed to take medications as prescribed and to return to emergency room for evaluation of intractable headache, fever, chills, dizziness, chest pain, shortness of breath, abdominal pain, nausea, vomiting, diarrhea, constipation, and urinary symptoms. This is a brief summary of the patient hospital course. Please see patient chart for full details. Discharge Exam - Additional Findings Additional findings: - Head Exam Head Exam: atraumatic - Eye Exam Eye Exam: EOMI, Normal appearance - ENT Exam ENT Exam: Mucous Membranes Moist - Neck Exam Neck exam: Full Rom, Normal Inspection - Respiratory Exam Respiratory Exam: Clear to auscultation PA & Lateral, NORMAL BREATHING PATTERN - Cardiovascular Exam Cardiovascular Exam: REGULAR RHYTHM - GI/Abdominal Exam GI & Abdominal Exam: Normal Bowel Sounds, soft, nonguarding, no rebound tender ness Exam exam: indwelling catheter - Extremities Exam Extremities exam: normal capillary refill, normal inspection, pedal pulses present - Neurological Exam Neurological exam: Alert, Oriented x3 - Psychiatric Exam Psychiatric exam: Normal Affect, Normal Mood - Skin Skin Exam: Dry, Warm Discharge Plan - Follow Up Plan Condition: FAIR Disposition: REHAB FACILITY/REHAB UNIT Instructions: Viral Upper Respiratory Infection, Adult (DC), Shipman Catheter, Male, Hyponatremia (DC) Additional Instructions: Patient Instructions: 1. Please follow up with primary care physician within 7 days from discharge. 2. Please take medications as prescribed 3. Please return to the emergency room for evaluation and treatment of new or worsening symptoms including but not limited to fever, chills, dizziness, headache, visual/auditory changes, chest pain, shortness of breath, abdominal pain, nausea, vomiting, diarrhea, constipation, and urinary symptoms. . Referrals: Ant Clemens MD [Primary Care Provider] - Chris Corona MD [Staff Provider] -
[2018-06-03] MEDS: Pantoprazole 40 mg EC Tab PO SCH (10:59)
[2018-06-03] MEDS: ZYTIGA 250 MG PO SCH (11:01)
[2018-06-03] MEDS: METHENAMINE 1 GM PO SCH ×2 (11:02→18:00)
[2018-06-03] MEDS: Hydrocortisone 1% Cream (30 GM) TOP SCH ×2 (11:03→17:59)
[2018-06-03] MEDS: Clotrimazole/Betamethasone Cream(15 gm) TOP SCH ×2 (11:03→17:58)
--- NOTE | 2018-06-03 12:24 | CP.PCM.PN ---
Subjective - Date & Time of Evaluation Date of Evaluation: 06/03/18 Time of Evaluation: 09:30 - Subjective Subjective: Comfortable in bed, not in distress, afebrile, no nausea or abdominal pain. Objective - Vital Signs/Intake and Output Vital Signs (last 24 hours): Temp Pulse Resp BP Pulse Ox 97.4 F L 85 20 163/89 H 99 06/02/18 18:00 06/02/18 18:00 06/02/18 18:00 06/02/18 18:00 06/02/18 18:00 Intake and Output: 06/02/18 06/03/18 18:59 06:59 Intake Total 1360 Output Total 1600 Balance -240 - Medications Medications: Current Medications Acetaminophen (Tylenol 325mg Tab) 650 mg PO Q4 PRN PRN Reason: Fever >100.4 F Last Admin: 05/30/18 16:02 Dose: 650 mg Albuterol/Ipratropium (Duoneb 3 Mg/0.5 Mg (3 Ml) Ud) 3 ml IH Q2H PRN PRN Reason: Shortness of Breath Last Admin: 05/31/18 13:49 Dose: 3 ml Arformoterol Tartrate (Brovana) 15 mcg IH [id number] [facility] Last Admin: 06/02/18 08:15 Dose: 15 mcg Benzonatate (Tessalon Perles) 200 mg PO Q8 [facility] Last Admin: 06/02/18 21:37 Dose: 200 mg Betamethasone/Clotrimazole (Lotrisone) 0 gm TOP BID [facility] Last Admin: 06/02/18 17:52 Dose: 1 applic Budesonide (Pulmicort Respules) 0.5 mg IH [id number] [facility] Last Admin: 06/02/18 08:16 Dose: 0.5 mg Enoxaparin Sodium (Lovenox) 40 mg SC Q24H [facility]; Protocol Last Admin: 06/02/18 17:52 Dose: 40 mg Guaifenesin/Dextromethorphan (Robitussin Dm) 10 ml PO Q4H PRN PRN Reason: Cough Last Admin: 06/01/18 09:36 Dose: 10 ml Home Med (Home Med) 0 unit PO BID [facility] Last Admin: 06/02/18 17:53 Dose: 1 unit Hydrocortisone (Cortizone 1% Cream) 0 gm TOP BID [facility] Last Admin: 06/02/18 17:53 Dose: 1 applic Hydroxyzine HCl (Atarax) 10 mg PO QID PRN PRN Reason: Itching / Pruritus Cefepime HCl (Maxipime 1gm) 1 gm in 100 mls @ 100 mls/hr IVPB Q8 [facility]; Protocol Stop: 06/11/18 06:01 Last Admin: 06/02/18 21:37 Dose: 100 mls/hr Levetiracetam (Keppra) 500 mg PO BID [facility] Last Admin: 06/02/18 17:51 Dose: 500 mg Losartan Potassium (Cozaar) 25 mg PO DAILY [facility] Last Admin: 06/02/18 09:05 Dose: 25 mg Non Formulary Medication (Zytiga 250 Mg) 1,000 mg PO DAILY [facility] Last Admin: 06/02/18 09:08 Dose: 1,000 mg Pantoprazole Sodium (Protonix Ec Tab) 40 mg PO DAILY [facility] Last Admin: 06/02/18 09:05 Dose: 40 mg Prednisone (Prednisone Tab) 5 mg PO BID [facility] Last Admin: 06/02/18 17:52 Dose: 5 mg Risperidone (Risperdal Tab) 0.25 mg PO BID [facility]; Protocol Last Admin: 06/02/18 17:51 Dose: 0.25 mg Zolpidem Tartrate (Ambien) 5 mg PO HS PRN; Protocol PRN Reason: Insomnia Last Admin: 06/01/18 23:55 Dose: 5 mg - Labs Labs: 06/01/18 08:06 06/01/18 08:01 - Constitutional Appears: Chronically Ill - Head Exam Head Exam: NORMAL INSPECTION - Respiratory Exam Respiratory Exam: Decreased Breath Sounds - Cardiovascular Exam Cardiovascular Exam: +S1, +S2 - GI/Abdominal Exam GI & Abdominal Exam: Soft. absent: Tenderness Assessment and Plan - Assessment and Plan (Free Text) Plan: Assessment sepsis due to complicated UTI with Pseudomonas history of UTI with E. 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
--- NOTE | 2018-06-03 14:34 | PN ---
DATE: 06/03/2018 PULMONARY PROGRESS NOTE REFERRING PHYSICIAN: Dr. Dawson. SUBJECTIVE: The patient is lying down in bed. No acute distress noted. No overnight events reported. No headaches, rhinitis, shortness of breath, chest pain, abdominal pain, nausea, vomiting, diarrhea, leg pain, leg swelling reported. The patient does report on and off cough. OBJECTIVE: GENERAL: No acute distress. VITAL SIGNS: Blood pressure 150/84, pulse 77, temperature 97.5, oxygen saturation 96 percent on room air. HEENT: Moist mucous membranes. Mallampati score IV. Crowded airway. NECK: Supple. No JVD. LUNGS: Few rhonchi bilaterally. CARDIOVASCULAR: S1 and S2 audible. ABDOMEN: Soft and nontender. No distention. No organomegaly. EXTREMITIES: No bilateral lower extremity edema. GENITOURINARY: Chronic indwelling Shipman catheter. No hematuria noted. NEUROLOGIC: Awake, alert, verbally responsive, follows simple commands. MEDICATIONS: Reviewed. Tylenol 650 mg orally every 4 hours as needed for fever greater than 100.4, DuoNeb 3 mL inhalation every 2 hours as needed, Brovana 15 mcg inhalation every 12 hours, Tessalon Perles 200 mg orally every 8 hours, Lotrisone topically twice a day, Pulmicort 0.5 mg inhalation every 12 hours, cefepime 1 g IV piggyback every 8 hours, Lovenox 40 mg subcutaneous 24 hours, Robitussin DM 10 mL orally every 4 hours as needed for cough, hydrocortisone topically twice a day, Atarax 10 mg orally four times a day as needed, Keppra 500 mg orally twice a day, Cozaar 25 mg orally daily, Zytiga 1000 mg orally daily, Protonix 40 mg orally daily, prednisone 5 mg orally twice a day, Risperdal 0.25 mg orally twice a day and Ambien 5 mg orally as needed at bedtime. LABORATORY DATA: Reviewed. No new labs. IMPRESSION AND PLAN: Prostate cancer, seizure disorder, eczema, chronic obstructive lung disease, hypertension, may have aspiration-related bronchitis, sleep apnea syndrome, urinary tract infection. Discussed with patient to with head of bed elevated, aspiration precaution. The patient is refusing to use continuous positive airway pressure for sleep apnea, gastric prophylaxis, aspiration precaution, deep venous thrombosis prophylaxis. Continue antibiotic therapy per Infectious Disease, seizure precautions, continue inhaled bronchodilators. The patient was seen and examined with Dr. Dickson. Discussed assessment and plan as described above. Thank you for this consult and we will follow with you. Chance Driscoll APN Chris Dickson MD
[2018-06-03 16:37] VITALS: BP 153/98; PULSE 94; TEMP 98.6; O2SAT 95
[2018-06-03] MEDS: Enoxaparin 40 mg Syringe SC SCH (17:59)
--- NOTE | 2018-06-03 18:06 | CARD ---
APPROVED REPORT Date of service: 06/03/2018 EKG Measurement Heart [id number] <Conclusion> Normal sinus rhythm Left anterior fascicular block Prolonged QT Abnormal ECG
== END 2018-06-03 21:30 | DRG 698 ==
LOC: ED 14:35 → ERH 17:34 → 3RNO 22:45 → 3RSO 05-30 12:20 → OBSVTOIN 05-30 16:24
PROVIDERS: ADMIT Family Medicine; ATTEND Family Medicine
PROC: 3E0F7GC Introduction of Other Therapeutic Substance into Respiratory Tract, Via Natural or Artificial Opening (ICD-10-PCS; principal; 2018-05-30)
DX: T83.518A Infection and inflammatory reaction due to other urinary catheter, initial encounter (principal); A41.52 Sepsis due to Pseudomonas; N39.0 Urinary tract infection, site not specified; E87.1 Hypo-osmolality and hyponatremia; C79.51 Secondary malignant neoplasm of bone; C61 Malignant neoplasm of prostate; J44.9 Chronic obstructive pulmonary disease, unspecified; J06.9 Acute upper respiratory infection, unspecified; I11.9 Hypertensive heart disease without heart failure; I25.10 Atherosclerotic heart disease of native coronary artery without angina pectoris; D63.8 Anemia in other chronic diseases classified elsewhere; G47.33 Obstructive sleep apnea (adult) (pediatric); G40.909 Epilepsy, unspecified, not intractable, without status epilepticus; F03.90 Unspecified dementia, unspecified severity, without behavioral disturbance, psychotic disturbance, mood disturbance, and anxiety; L30.9 Dermatitis, unspecified; B37.9 Candidiasis, unspecified; R31.0 Gross hematuria; Z99.3 Dependence on wheelchair; Z86.73 Personal history of transient ischemic attack (TIA), and cerebral infarction without residual deficits; Z86.718 Personal history of other venous thrombosis and embolism; Z86.711 Personal history of pulmonary embolism; Z87.891 Personal history of nicotine dependence

== ENCOUNTER 2018-06-03 21:22 | Inpatient (IN) | payer OTHER ==
[2018-06-03] MEDS ORDERED: Albuterol-Ipratrop 3 mg / 0.5 (3 ml) UD IH PRN (21:48)
[2018-06-03] MEDS ORDERED: guaiFENesin DM 200 mg-20 mg/10 ml UD PO PRN (21:48)
[2018-06-03] MEDS: Cefepime 1gm in NS 100ml 1 GM/100 ML BAG IVPB SCH (23:38)
[2018-06-04 00:26] VITALS: BMI 27.4
[2018-06-04] MEDS: Enoxaparin 40 mg Syringe SC SCH (05:02)
[2018-06-04] MEDS: Cefepime 1gm in NS 100ml 1 GM/100 ML BAG IVPB SCH ×3 (05:02→21:54)
[2018-06-04] MEDS: Pantoprazole 40 mg EC Tab PO SCH (05:03)
[2018-06-04] MEDS: Budesonide 0.5 mg/2 ml Inhal Susp UD IH SCH ×2 (07:30→20:22)
[2018-06-04] MEDS: Arformoterol 15 mcg/2 ml Inh Sol IH SCH ×2 (07:30→20:22)
[2018-06-04] MEDS ORDERED: Arformoterol 15 mcg/2 ml Inh Sol IH SCH (08:00)
--- NOTE | 2018-06-04 09:41 | CP.PCM.CON ---
History of Present Illness - History of Present Illness History of Present Illness: 73 year old male with PMH of Methicillin resistant Coagulase negative Staph bacteremia, E. 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 Patient has significant history of recurrent UTI. He has been doing well and is now transferred to [facility] for continuation of antibiotic therapy and physical rehab. Infectious Diseases consult is requested for antibiotic management. He is currently resting comfortably in bed, not in distress, no fever or chills, no dysuria, no suprapubic pain, no flank pain, no nausea or vomiting, no abdominal pain, no cough or rhinorrhea, no headache or dizziness, no chest pain, no diarrhea, no dysuria. Review of Systems - Review of Systems All systems: reviewed and no additional remarkable complaints except (as per HPI) Past Patient History - Infectious Disease Hx of Infectious Diseases: None - Tetanus Immunizations Tetanus Immunization: Unknown - Past Medical History & Family History Past Medical History?: Yes - Past Social History Smoking Status: Former Smoker - CARDIAC Hx Cardiac Disorders: Yes Hx Hypercholesterolemia: Yes (HLD,) Hx Hypertension: Yes - PULMONARY Hx Chronic Obstructive Pulmonary Disease (COPD): Yes - NEUROLOGICAL Hx Neurological Disorder: Yes HX Cerebrovascular Accident: Yes Hx Seizures: Yes - HEENT Hx HEENT Problems: No - RENAL Hx Chronic Kidney Disease: No - ENDOCRINE/METABOLIC Hx Endocrine Disorders: No - HEMATOLOGICAL/ONCOLOGICAL Hx Blood Disorders: Yes Hx AIDS: No Hx Anemia: No Hx Cancer: Yes (Prostate) Hx Chemotherapy: Yes Hx Cirrhosis: No Hx Hepatitis A: No Hx Hepatitis B: No Hx Hepatitis C: No Hx Human Immunodeficiency Virus (HIV): No Hx Metastesis: No Hx Shingles: Yes Hx Unexplained Bleeding: No - INTEGUMENTARY Hx Dermatological Problems: Yes Hx Eczema: Yes Other/Comment: BILATERAL BUTTOCKS WITH REDDENEDRASH. IASD. SKIN FOLDS OF BREAST AND STOMACH FOLD-MASD. Abrasion left frontal face/cheek - MUSCULOSKELETAL/RHEUMATOLOGICAL Hx Falls: No - GASTROINTESTINAL Hx Gastrointestinal Disorders: No - GENITOURINARY/GYNECOLOGICAL Hx Genitourinary Disorders: Yes Hx Reproductive Disorders: Yes - PSYCHIATRIC Hx Psychophysiologic Disorder: Yes Hx Anxiety: Yes Hx Depression: Yes - SURGICAL HISTORY Hx Surgeries: Yes Hx Appendectomy: Yes Hx Orthopedic Surgery: Yes Other/Comment: prostatectomy. decompressed laminectomy - ANESTHESIA Hx Anesthesia Reactions: No Hx Malignant Hyperthermia: No Meds Allergies/Adverse Reactions: Allergies Allergy/AdvReac Type Severity Reaction Status Date / Time No Known Allergies Allergy Verified 06/03/18 21:38 - Medications Medications: Current Medications Acetaminophen (Tylenol 325mg Tab) 650 mg PO Q4H PRN; Protocol PRN Reason: Fever >100.4 F Albuterol/Ipratropium (Duoneb 3 Mg/0.5 Mg (3 Ml) Ud) 3 ml IH Q2H PRN; Protocol PRN Reason: Shortness of Breath Arformoterol Tartrate (Brovana) 15 mcg IH [id number] NIALL Benzonatate (Tessalon Perles) 200 mg PO TID NIALL; Protocol Betamethasone/Clotrimazole (Lotrisone) 0 gm TOP BID NIALL; Protocol Budesonide (Pulmicort Respules) 0.5 mg IH [id number] NIALL; Protocol Enoxaparin Sodium (Lovenox) 40 mg SC 0600 NIALL; Protocol Last Admin: 06/04/18 05:02 Dose: 40 mg Guaifenesin/Dextromethorphan (Robitussin Dm) 10 ml PO Q4H PRN; Protocol PRN Reason: Cough Last Admin: 06/03/18 23:39 Dose: 10 ml Home Med (Home Med) 1 unit PO BID NIALL; Protocol Hydrocortisone (Cortizone 1% Cream) 0 gm TOP BID NIALL; Protocol Hydroxyzine HCl (Atarax) 10 mg PO QID PRN; Protocol PRN Reason: pruritis Cefepime HCl (Maxipime 1gm) 1 gm in 100 mls @ 100 mls/hr IVPB Q8 NIALL; Protocol Last Admin: 06/04/18 05:02 Dose: 100 mls/hr Levetiracetam (Keppra) 500 mg PO BID NIALL; Protocol Losartan Potassium (Cozaar) 25 mg PO DAILY NIALL; Protocol Non-Formulary Medication (Abiraterone Acetate [Zytiga]) 1,000 mg PO DAILY NIALL Pantoprazole Sodium (Protonix Ec Tab) 40 mg PO 0600 NIALL; Protocol Last Admin: 06/04/18 05:03 Dose: 40 mg Prednisone (Prednisone Tab) 5 mg PO 0800,1700 NIALL; Protocol Risperidone (Risperdal Tab) 0.25 mg PO BID NIALL; Protocol Zolpidem Tartrate (Ambien) 5 mg PO HS PRN; Protocol PRN Reason: Insomnia Last Admin: 06/03/18 23:39 Dose: 5 mg Physical Exam - Constitutional Appears: Non-toxic, No Acute Distress, Chronically Ill - Head Exam Head Exam: NORMAL INSPECTION - Respiratory Exam Respiratory Exam: Decreased Breath Sounds - Cardiovascular Exam Cardiovascular Exam: +S1, +S2 - GI/Abdominal Exam GI & Abdominal Exam: Soft. absent: Tenderness Results - Vital Signs Recent Vital Signs: Last Vital Signs Temp 98.2 F 06/04/18 00:07 Pulse 79 06/04/18 00:07 Resp 18 06/04/18 00:07 BP 139/95 H 06/04/18 00:07 Pulse Ox Assessment & Plan - Assessment and Plan (Free Text) Plan: Assessment sepsis due to complicated UTI with Pseudomonas, slowly improving clinically history of UTI with E. 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
[2018-06-04] MEDS: Hydrocortisone 1% Cream (30 GM) TOP SCH ×2 (10:24→17:40)
[2018-06-04] MEDS: METHENAMINE PO SCH ×2 (11:00→17:41)
[2018-06-04] MEDS: Clotrimazole/Betamethasone Cream(15 gm) TOP SCH ×2 (11:00→17:42)
--- NOTE | 2018-06-04 14:00 | CON ---
DATE: 06/04/2018 PULMONARY CONSULT NOTE REFERRING PHYSICIAN: Brent Dawson MD REASON FOR CONSULT: Metastatic prostate cancer, left lower lobe infiltrate, cough, shortness of breath. 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 The patient refuses to wear CPAP machine. The patient presently reports feeling well, has occasional cough. PAST MEDICAL HISTORY: As mentioned above in HPI. ALLERGIES: NO KNOWN DRUG ALLERGIES. SOCIAL HISTORY: Former smoker, quit 7 years ago. No EtOH or drug use. FAMILY HISTORY: No cardiopulmonary disease reported. MEDICATIONS: Medication reviewed. Tylenol 650 mg every 4 hours p.r.n. fever greater than 100.4, DuoNeb 3 mL inhalation every 2 hours p.r.n., Brovana 15 mcg every 12 hours, Tessalon Perles 200 mg p.o. three times a day, Lotrisone topically in affected area, Pulmicort 0.5 mg inhalation every 12 hours, Cefepime 1 g every 8 hours, Lovenox 40 mg daily, Robitussin DM 10 mL every 4 hours p.r.n., hydrocortisone topically affected areas twice a day, Atarax 10 mg 4 times a day p.r.n., Keppra 500 mg twice a day, Cozaar 25 mg daily, Zytiga 1000 mg daily, Protonix 40 mg daily, prednisone 5 mg twice a day, Risperdal 0.25 mg twice a day, Ambien 5 mg at bedtime as needed. REVIEW OF SYSTEMS: No headache, rhinitis, shortness of breath, chest pain, abdominal pain, nausea, vomiting, diarrhea, leg pain, or leg swelling reported. The patient does report having mild occasional cough. Denies shortness of breath. PHYSICAL EXAMINATION: VITAL SIGNS: Blood pressure 149/94, pulse 81, temperature 98.2, oxygen 96% on 2 liters nasal cannula. GENERAL: In no acute distress, sitting at bedside with physical therapy in room. HEENT: Moist mucous membranes. Mallampati score is 4. Crowded airway. NECK: Supple. No JVD. CARDIOVASCULAR: S1 and S2 audible. LUNGS: Few rhonchi bilaterally. ABDOMEN: Soft, nontender. No distention. No organomegaly. EXTREMITIES: No bilateral edema, decreased strength bilaterally. GENITOURINARY: Chronic indwelling Shipman catheter, patent, intact. NEUROLOGIC: Awake, alert, appropriately responsive. Follows simple commands. LABORATORY DATA: No new laboratory data. IMPRESSION AND PLAN: Stage IV prostate cancer, seizure disorder, eczema, chronic obstructive pulmonary disease, bronchitis, hypertension, upper respiratory infection. Pulmonary point of view discussed with the patient using CPAP machine, the patient continues to refuse CPAP machine for obstructive sleep apnea. Sleep apnea precaution should be in place, head of bed elevated at 45 degrees, deep venous thrombosis prophylaxis, gastric prophylaxis, continue inhaled bronchodilators, continue inhaled steroids. We will add leukotriene inhibitor and antihistamine. The patient should have head of bed elevated at 45 degrees. The patient should continue to have head of bead elevated one hour after eating, aspiration precautions, continue pulmonary toileting. This patient was seen and examined with Dr. Dickson, discussed assessment and plan as described above. Thank you for this consult. We will follow with you. Chance Prudence, ELECT[employer] MECH[employer]IC APPRENTICE Chris Dickson MD [facility]INA
--- NOTE | 2018-06-04 16:00 | CP.PCM.HP ---
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 With the use of physical examinations, lab work, and imaging the patient was diagnosed with and treated for a viral upper respiratory infection and urinary tract infection. During their hospital stay the patient was seen by infectious disease (Dr. Vargas), pulmonology (Dr. Sandy morrison), and urology (Dr. Olivo) whose recommendations were reviewed, appreciated, and implemented in the patients care. Infectious disease treated the UTI with cefepime and approved PO ciprofloxacin in the outpatient stetting. Urology was consulted for management of hematuria which required no acute intervention during this hospital visit. Pulmonology recommended duonebs, CPAP (which the patient refuses), and keeping head of bed 45 degrees. During their hospital stay the patient underwent a a chest xray and CT Chest which was reviewed, appreciated, and utilized in the management of the patients clinical course. The chest xray revealed interval improvement in left lower lobe infiltrate. The chest CT revealed no evidence of pneumonia. Patient was treated with IV cefepime, methenamine, duobnebs, brovana, benzonate, pulmnicort, robutassian DM, losartan, keppra, prednisone, respiradol, ambien, and zytega. At this time the patient is medically stable for discharge to TCU where he will continue IV antibiotics and receive physical rehabilitation. Patient understands and appreciates discharge plan. Patient instructed to follow up with primary care physicians and referrals within one week from discharge. Furthermore the patient is instructed to take medications as prescribed and to return to emergency room for evaluation of intractable headache, fever, chills, dizziness, chest pain, shortness of breath, abdominal pain, nausea, vomiting, diarrhea, constipation, and urinary symptoms. This is a brief summary of the patient hospital course. Patient will be re-admitted to TCU for re-conditioning. PMH: See above PSH: Appendectomy, cholecystectomy, prostate surgery, hip surgery and decompressive laminectomy. Family History: Non-Contributory Social History: former tobacco use, denies alcohol or illicit drug use. Allergies: NKDA Home Medications: As per MAR Present on Admission - Present on Admission Any Indicators Present on Admission: No Review of Systems - Review of Systems All systems: reviewed and no additional remarkable complaints except (as per) Past Patient History - Infectious Disease Hx of Infectious Diseases: None - Tetanus Immunizations Tetanus Immunization: Unknown - Past Medical History & Family History Past Medical History?: Yes - Past Social History Smoking Status: Former Smoker - CARDIAC Hx Hypertension: Yes - PULMONARY Hx Chronic Obstructive Pulmonary Disease (COPD): Yes - NEUROLOGICAL HX Cerebrovascular Accident: Yes - HEENT Hx HEENT Problems: No - RENAL Hx Chronic Kidney Disease: No - ENDOCRINE/METABOLIC Hx Endocrine Disorders: No - HEMATOLOGICAL/ONCOLOGICAL Hx Blood Disorders: Yes Hx AIDS: No Hx Anemia: No Hx Cancer: Yes (Prostate) Hx Chemotherapy: Yes Hx Cirrhosis: No Hx Hepatitis A: No Hx Hepatitis B: No Hx Hepatitis C: No Hx Human Immunodeficiency Virus (HIV): No Hx Metastesis: No Hx Shingles: Yes Hx Unexplained Bleeding: No - INTEGUMENTARY Hx Dermatological Problems: Yes Hx Eczema: Yes Other/Comment: BILATERAL BUTTOCKS WITH REDDENEDRASH. IASD. SKIN FOLDS OF BREAST AND STOMACH FOLD-MASD. Abrasion left frontal face/cheek - MUSCULOSKELETAL/RHEUMATOLOGICAL Hx Falls: No - GASTROINTESTINAL Hx Gastrointestinal Disorders: No - GENITOURINARY/GYNECOLOGICAL Hx Genitourinary Disorders: Yes Hx Reproductive Disorders: Yes - PSYCHIATRIC Hx Psychophysiologic Disorder: Yes Hx Anxiety: Yes Hx Depression: Yes - SURGICAL HISTORY Hx Surgeries: Yes Hx Appendectomy: Yes Hx Orthopedic Surgery: Yes Other/Comment: prostatectomy. decompressed laminectomy - ANESTHESIA Hx Anesthesia Reactions: No Hx Malignant Hyperthermia: No Meds Allergies/Adverse Reactions: Allergies Allergy/AdvReac Type Severity Reaction Status Date / Time No Known Allergies Allergy Verified 06/03/18 21:38 Physical Exam - Constitutional Appears: Well, Non-toxic - Head Exam Head Exam: ATRAUMATIC, NORMOCEPHALIC - Eye Exam Eye Exam: EOMI, Normal appearance - ENT Exam ENT Exam: Mucous Membranes Moist, Normal Oropharynx - Neck Exam Neck exam: Positive for: Normal Inspection - Respiratory Exam Respiratory Exam: Clear to Auscultation Bilateral, NORMAL BREATHING PATTERN. absent: Accessory Muscle Use - Cardiovascular Exam Cardiovascular Exam: RRR, +S1, +S2 - GI/Abdominal Exam GI & Abdominal Exam: Normal Bowel Sounds, Soft - Extremities Exam Extremities exam: Positive for: normal inspection. Negative for: calf tenderness - Back Exam Back exam: NORMAL INSPECTION. 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 He is now admitted to TCU for re- condition. He is with Shipman and will be getting IV antibiotics Cefepime day 6 of 10. QTc was prolonged prohibiting use of Ciprofloxacin. Upper Respiratory Infection - CXR - Interval improvement in left lower lobe infiltrate - 05/30/2018 CT Chest with IV Contrast ordered and pending - Blood cultures x 2 - B. pertussis AB IgG ordered and pending - Influenza type A and parainfluenza ordered and pending - Continue home doxycycline and vancomycin - Continue guaifenesin dextromethorphan - Infectious disease consulted- appreciate recommendations - Pulmonology consulted- appreciate recommendations Hyponatremia - Patient already given IVF NS @100cc/hr- stop as patient's serum sodium and PO intake has improved - serum osmolality, urine osmolality, and urine sodium will be changed due to IVF already being started- hold off on studies at this point - serum sodium improved from 124 to 132 to 135 - will monitor closely via CMP Eczematous Rash - hydrocortisone cream on face/cheek - lotrisone cream on the groin Anemia - Normocytic - H/H drop noted ~ 10.4--8.9--8.0 - UA positive for hematuria - FOBT ordered and pending - 2 units typed and screened - Fe, TIBC, Ferritin, Iron Saturation, Vitamin B12, Folate ordered and pending History of Stage IV Prostate Cancer - Continue home Zytiga - Continue home Methenamine History of Seizure Disorder - Continue home Keppra History of DVT/PE - Continue home Lovenox History of COPD - Continue Brovana and Pulmicort - Continue duonebs q2prn SOB - Continue prednisone 5 mg PO daily (home med) will change to IVF solumedrol pending pulmn recs History of HTN - Continue home Cozaar Prophylaxis - GI Prophylaxis: Protonix - DVT Prophylaxis: Lovenox Patient case discussed with and plan approved by attending physician, Dr. Clemens. - Date & Time Date: 06/04/18 Time: 16:10 <Ant Clemens P - Last Filed: 06/08/18 19:43> Results - Vital Signs Recent Vital Signs: Last Vital Signs Temp 97.5 F L 06/08/18 16:00 Pulse 89 06/08/18 16:00 Resp 17 06/08/18 16:00 BP 144/83 06/08/18 16:00 Pulse Ox 93 L 06/08/18 16:00 - Labs Result Diagrams: 06/07/18 06:30 06/07/18 06:30 Attending/Attestation - Attestation I have personally seen and examined this patient.: Yes I have fully participated in the care of the patient.: Yes I have reviewed all pertinent clinical information: Yes
--- NOTE | 2018-06-04 18:50 | CON ---
DATE: 06/04/2018 HISTORY OF PRESENT ILLNESS: In short, the patient is a 73-year-old male with multiple medical problems including stage IV hormone-refractory prostate cancer with bone metastasis and cord compression, status post decompressive laminectomy and thoracic spine, many more problems. Psych consult was called for evaluation of medication. The patient was on Risperdal. This technical proposal writer is very familiar with this patient from the previous admissions on the medical site and consultation services. The patient was seen and examined, discussed with the nursing staff as well as medical students and residents. The patient presented to be alert and oriented, in good spirit. The patient remembered this technical proposal writer by name. The patient reported that he is on Risperdal for his mood swings as well as irritability and mind racing. The patient reported that he does not hear voices, does not see anything unusual. The patient denied being depressed. Denied thoughts of harming himself or others. The patient presented very well from the psychiatric standpoint. PHYSICAL EXAMINATION: VITAL SIGNS: Seemed to be stable. Temperature 98.2, pulse 70, blood pressure 119/68, respirations 16, oxygen saturation is 93. MEDICATIONS: Reviewed. The patient is on Keppra as well as Risperdal 0.25 mg twice a day as well as Ambien 5 mg at the nighttime and please see medication list for medical issues. Microbiology reviewed. Collateral information obtained from the patient's , who is next to him. The patient was functioning at his regular baseline. The patient never verbalized any thoughts of killing himself or others. More over, today is the patient's birthday. MENTAL STATUS EXAMINATION: As this technical proposal writer described above, the patient is in good spirit. Denied being depressed. Denied thoughts of harming himself or others. Thought process was coherent and goal directed. Thought content, the patient denied visual, auditory, or hallucinations. Denied paranoid ideation. The patient denied thoughts of harming herself or others. Denied intents or plans. Denied hearing voices, denied seeing things, and the patient does not present to be psychotic. Insight and judgment seemed to be fair. Impulses are well controlled. IMPRESSION: Rule out mood disorder due to general medical condition, rule out adjustment disorder. PLAN: Continue Ambien, continue Risperdal as it is. The patient was provided emotional support and empathic listening. The patient is not suicidal, not homicidal, not psychotic and poses no imminent danger to self or others. This technical proposal writer will sign off. Thank you very much for letting me participate in care of your patient. Angela Quintero MD
[2018-06-05] MEDS: Enoxaparin 40 mg Syringe SC SCH (05:03)
[2018-06-05] MEDS: Pantoprazole 40 mg EC Tab PO SCH (05:03)
[2018-06-05] MEDS: Cefepime 1gm in NS 100ml 1 GM/100 ML BAG IVPB SCH ×3 (05:03→21:38)
[2018-06-05] MEDS: Arformoterol 15 mcg/2 ml Inh Sol IH SCH ×2 (08:16→20:51)
[2018-06-05] MEDS: Budesonide 0.5 mg/2 ml Inhal Susp UD IH SCH ×2 (08:16→20:51)
--- NOTE | 2018-06-05 09:55 | CP.PCM.PN ---
<Yonis Krishnan - Last Filed: 06/05/18 09:42> Subjective - Date & Time of Evaluation Date of Evaluation: 06/05/18 Time of Evaluation: 09:30 - Subjective Subjective: Yonis Krishnan Internal Medicine Resident- Heme/Onc Progress Note Subjective: Patient seen and examined. No acute events overnight. States productive cough has significantly improved relative to baseline. Offers no new complaints at this time. Denies fever, chills, chest pain, shortness of breath, abdominal valencia, nausea, vomiting. 12 point ROS negative except as indicated in HPI Physical Examination: - Constitutional Additional comments: Non-toxic, No Acute Distress - Head Exam Additional comments: erythematous rash on face/cheek - Eye Exam Eye Exam: EOMI - ENT Exam ENT Exam: Mucous Membranes Moist - Neck Exam Neck Exam: Full ROM - Respiratory Exam Respiratory Exam: NORMAL BREATHING PATTERN. absent: Rales, Rhonchi, Wheezes - Cardiovascular Exam Cardiovascular Exam: RRR, +S1, +S2 - GI/Abdominal Exam GI & Abdominal Exam: Soft, Normal Bowel Sounds. 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 Patient was transferred to TCU for physical rehab. Upper Respiratory Infection - CXR - Interval improvement in left lower lobe infiltrate - 05/30/2018 CT Chest with IV Contrast- no evidence of pneumonia - Blood cultures- no growth after 5 days in both tubes - Influenza type b antibody positive - Continue guaifenesin dextromethorphan - Infectious disease consulted- appreciate recommendations Urinary Tract Infection - Urine culture- positive for pseudomonas - Continue course of cefepime, cannot send patient home with ciprofloxacin due to prolonged QTc Hyponatremia - serum sodium improved from 124 to 132 to 135 upon transfer from inpatient to TCU - will monitor closely via CMP Eczematous Rash - hydrocortisone cream on face/cheek - lotrisone cream on the groin Anemia - Normocytic - Hgb responded from 8 to 10.5 s/p 2 units transfused - Fe- low TIBC- low Ferritin- high, Iron Saturation- low, points to anemia of c hronic disease - Vitamin B12- low, Folate- normal History of Stage IV Prostate Cancer - Continue home Zytiga - Continue home Methenamine History of Seizure Disorder - Continue home Keppra History of DVT/PE - Continue home Lovenox History of COPD - Continue Brovana and Pulmicort - Continue duonebs q2prn SOB - Continue prednisone 5 mg PO daily (home med) will change to IVF solumedrol pending pulmn recs History of HTN - Continue home Cozaar Deconditioned State - continue physical therapy in TCU setting Prophylaxis - GI Prophylaxis: Protonix - DVT Prophylaxis: Lovenox Patient case discussed with and plan approved by attending physician, Dr. Clemens. Objective - Vital Signs/Intake and Output Vital Signs (last 24 hours): Temp Pulse Resp BP Pulse Ox 97.8 F 64 18 129/75 95 06/05/18 06:00 06/05/18 06:00 06/05/18 06:00 06/05/18 06:00 06/05/18 06:00 Intake and Output: 06/05/18 06/05/18 06:59 18:59 Output Total 1400 Balance -1400 - Medications Medications: Current Medications Acetaminophen (Tylenol 325mg Tab) 650 mg PO Q4H PRN; Protocol PRN Reason: Fever >100.4 F Albuterol/Ipratropium (Duoneb 3 Mg/0.5 Mg (3 Ml) Ud) 3 ml IH Q2H PRN; Protocol PRN Reason: Shortness of Breath Arformoterol Tartrate (Brovana) 15 mcg IH [id number] [facility]ALL Last Admin: 06/05/18 08:16 Dose: 15 mcg Benzonatate (Tessalon Perles) 200 mg PO TID [facility]; Protocol Last Admin: 06/04/18 17:44 Dose: 200 mg Betamethasone/Clotrimazole (Lotrisone) 0 gm TOP BID [facility]; Protocol Last Admin: 06/04/18 17:42 Dose: 1 applic Budesonide (Pulmicort Respules) 0.5 mg IH [id number] [facility]ALL; Protocol Last Admin: 06/05/18 08:16 Dose: 0.5 mg Enoxaparin Sodium (Lovenox) 40 mg SC 0600 [facility]; Protocol Last Admin: 06/05/18 05:03 Dose: 40 mg Guaifenesin/Dextromethorphan (Robitussin Dm) 10 ml PO Q4H PRN; Protocol PRN Reason: Cough Last Admin: 06/03/18 23:39 Dose: 10 ml Home Med (Home Med) 1 unit PO BID [facility]; Protocol Last Admin: 06/04/18 17:41 Dose: 1 unit Hydrocortisone (Cortizone 1% Cream) 0 gm TOP BID [facility]; Protocol Last Admin: 06/04/18 17:40 Dose: 1 applic Hydroxyzine HCl (Atarax) 10 mg PO QID PRN; Protocol PRN Reason: pruritis Cefepime HCl (Maxipime 1gm) 1 gm in 100 mls @ 100 mls/hr IVPB Q8 [facility]; Protocol Last Admin: 06/05/18 05:03 Dose: 100 mls/hr Levetiracetam (Keppra) 500 mg PO BID [facility]; Protocol Last Admin: 06/04/18 17:42 Dose: 500 mg Loratadine (Claritin) 10 mg PO DAILY [facility] Last Admin: 06/04/18 21:54 Dose: 10 mg Losartan Potassium (Cozaar) 25 mg PO DAILY [facility]; Protocol Montelukast Sodium (Singulair) 10 mg PO HS NIALL Last Admin: 06/04/18 21:54 Dose: 10 mg Non-Formulary Medication (Abiraterone Acetate [Zytiga]) 1,000 mg PO DAILY [facility] Last Admin: 06/04/18 11:00 Dose: 1,000 mg Pantoprazole Sodium (Protonix Ec Tab) 40 mg PO 0600 [facility]; Protocol Last Admin: 06/05/18 05:03 Dose: 40 mg Prednisone (Prednisone Tab) 5 mg PO 0800,1700 [facility]; Protocol Last Admin: 06/05/18 08:48 Dose: 5 mg Risperidone (Risperdal Tab) 0.25 mg PO BID [facility]; Protocol Last Admin: 06/04/18 17:43 Dose: 0.25 mg Zolpidem Tartrate (Ambien) 5 mg PO HS PRN; Protocol PRN Reason: Insomnia Last Admin: 06/04/18 23:51 Dose: 5 mg <Ant Clemens P - Last Filed: 06/08/18 19:42> Objective - Vital Signs/Intake and Output Vital Signs (last 24 hours): Temp Pulse Resp BP Pulse Ox 97.5 F L 89 17 144/83 93 L 06/08/18 16:00 06/08/18 16:00 06/08/18 16:00 06/08/18 16:00 06/08/18 16:00 - Medications Medications: Current Medications Acetaminophen (Tylenol 325mg Tab) 650 mg PO Q4H PRN; Protocol PRN Reason: Fever >100.4 F Albuterol/Ipratropium (Duoneb 3 Mg/0.5 Mg (3 Ml) Ud) 3 ml IH Q2H PRN; Protocol PRN Reason: Shortness of Breath Arformoterol Tartrate (Brovana) 15 mcg IH [id number] NIALL Last Admin: 06/08/18 07:37 Dose: 15 mcg Benzonatate (Tessalon Perles) 200 mg PO TID [facility]; Protocol Last Admin: 06/08/18 17:42 Dose: 200 mg Betamethasone/Clotrimazole (Lotrisone) 0 gm TOP BID [facility]; Protocol Last Admin: 06/08/18 17:41 Dose: 1 applic Budesonide (Pulmicort Respules) 0.5 mg IH [id number] NIALL; Protocol Last Admin: 06/08/18 07:37 Dose: 0.5 mg Enoxaparin Sodium (Lovenox) 40 mg SC 0600 [facility]; Protocol Last Admin: 06/08/18 05:15 Dose: 40 mg Guaifenesin/Dextromethorphan (Robitussin Dm) 10 ml PO Q4H PRN; Protocol PRN Reason: Cough Last Admin: 06/03/18 23:39 Dose: 10 ml Home Med (Home Med) 1 unit PO BID [facility]ALL; Protocol Last Admin: 06/08/18 17:38 Dose: 1 unit Hydrocortisone (Cortizone 1% Cream) 0 gm TOP BID [facility]; Protocol Last Admin: 06/08/18 17:38 Dose: 1 applic Hydroxyzine HCl (Atarax) 10 mg PO QID PRN; Protocol PRN Reason: pruritis Cefepime HCl (Maxipime 1gm) 1 gm in 100 mls @ 100 mls/hr IVPB Q8 [facility]; Protocol Last Admin: 06/08/18 14:45 Dose: 100 mls/hr Levetiracetam (Keppra) 500 mg PO BID [facility]; Protocol Last Admin: 06/08/18 17:39 Dose: 500 mg Loratadine (Claritin) 10 mg PO DAILY [facility] Last Admin: 06/08/18 09:38 Dose: 10 mg Losartan Potassium (Cozaar) 25 mg PO DAILY [facility]; Protocol Last Admin: 06/08/18 09:45 Dose: 25 mg Montelukast Sodium (Singulair) 10 mg PO HS NIALL Last Admin: 06/07/18 21:27 Dose: 10 mg Non-Formulary Medication (Abiraterone Acetate [Zytiga]) 1,000 mg PO DAILY [facility] Last Admin: 06/08/18 09:36 Dose: 1,000 mg Pantoprazole Sodium (Protonix Ec Tab) 40 mg PO 0600 [facility]ALL; Protocol Last Admin: 06/08/18 05:15 Dose: 40 mg Prednisone (Prednisone Tab) 5 mg PO 0800,1700 NIALL; Protocol Last Admin: 06/08/18 17:41 Dose: 5 mg Risperidone (Risperdal Tab) 0.25 mg PO BID NIALL; Protocol Last Admin: 06/08/18 17:41 Dose: 0.25 mg Trimethoprim/Sulfamethoxazole (Bactrim Ds Tab) 1 tab PO BID NIALL; Protocol Stop: 06/13/18 10:01 Last Admin: 06/08/18 17:37 Dose: 1 tab Zolpidem Tartrate (Ambien) 5 mg PO HS PRN; Protocol PRN Reason: Insomnia Last Admin: 06/07/18 23:15 Dose: 5 mg - Labs Labs: 06/07/18 06:30 06/07/18 06:30 Attending/Attestation - Attestation I have personally seen and examined this patient.: Yes I have fully participated in the care of the patient.: Yes I have reviewed all pertinent clinical information, including history, physical exam and plan: Yes
[2018-06-05] MEDS: METHENAMINE PO SCH ×2 (10:36→17:37)
[2018-06-05] MEDS: Hydrocortisone 1% Cream (30 GM) TOP SCH ×2 (11:53→17:32)
[2018-06-05] MEDS: Clotrimazole/Betamethasone Cream(15 gm) TOP SCH ×2 (11:54→17:34)
--- NOTE | 2018-06-05 13:38 | PN ---
PULMONARY PROGRESS NOTE DATE: 06/05/2018 SUBJECTIVE: The patient is sitting up in bed. No acute distress. No overnight events reported. The patient reports cough is better, denies shortness of breath. No rhinitis. No chest pain. No abdominal pain, nausea, vomiting, diarrhea, leg pain or leg swelling reported. OBJECTIVE: GENERAL: No acute distress. VITAL SIGNS: Blood pressure 129/72, pulse 67, temperature 97.8, and oxygen saturation 95% on room air. HEENT: Moist mucous membranes. Mallampati score of 4. Crowded airway. NECK: Supple. No JVD. CARDIOVASCULAR: S1 and S2 audible. LUNGS: Few scattered rhonchi. ABDOMEN: Soft and nontender. No distention. No organomegaly. EXTREMITIES: No bilateral lower extremity edema. GENITOURINARY: Chronic indwelling Shipman catheter. No hematuria. NEUROLOGIC: Awake and alert. Follows simple commands. LABORATORY DATA: Reviewed. No new labs. MEDICATIONS: Reviewed. Tylenol 650 mg every 4 hours p.r.n. fever greater than 100.4, DuoNeb 3 mL inhalation every 2 hours p.r.n., Brovana 15 mcg inhalation every 12 hours, Tessalon Perles 200 mg p.o. three times a day, Lotrisone topically twice a day, Pulmicort 0.5 mg inhalation every 12 hours, Cefepime 1 g every 8 hours, Lovenox 40 mg daily, Robitussin DM 10 mL every 4 hours p.r.n., hydrocortisone topically twice a day to affected area, Atarax 10 mg four times a day p.r.n., Keppra 500 mg twice a day, Claritin 10 mg p.o. daily, Cozaar 25 mg p.o. daily, Singulair 10 mg p.o. at bedtime, Zytiga 1000 mg p.o. daily, Protonix 40 mg daily, prednisone 5 mg twice a day, Risperdal 0.25 mg twice a day, Ambien 5 mg p.r.n. at bedtime. IMPRESSION AND PLAN: Stage IV prostate cancer, seizure disorder, eczema, chronic obstructive lung disease, bronchitis, hypertension, upper respiratory infection. Pulmonary point of view, the patient is doing well. Continues to refuse continuous positive airway pressure machine for obstructive sleep apnea. Sleep apnea precaution, head of bed elevated at 45 degrees, deep venous thrombosis prophylaxis, gastric prophylaxis. Continue inhaled bronchodilators. Continue inhaled steroids. Continue leukotriene inhibitors and antihistamine, aspiration precaution. The patient should keep head of bed elevated for 1 hour after eating and during meals. Continue pulmonary toileting. This patient was seen and examined with Dr. Dickson, discussed assessment and plan as described above. Thank you for this consult . Chance Driscoll APN Chris Dickson MD
--- NOTE | 2018-06-05 20:36 | CP.PCM.PN ---
Subjective - Date & Time of Evaluation Date of Evaluation: 06/05/18 Time of Evaluation: 11:15 - Subjective Subjective: Comfortable in bed, no fevers, not in distress. Objective - Vital Signs/Intake and Output Vital Signs (last 24 hours): Temp Pulse Resp BP Pulse Ox 98.2 F 79 18 139/95 H 06/04/18 00:07 06/04/18 07:34 06/04/18 00:07 06/04/18 00:07 Intake and Output: 06/04/18 06/04/18 06:59 18:59 Output Total 1100 Balance -1100 - Medications Medications: Current Medications Acetaminophen (Tylenol 325mg Tab) 650 mg PO Q4H PRN; Protocol PRN Reason: Fever >100.4 F Albuterol/Ipratropium (Duoneb 3 Mg/0.5 Mg (3 Ml) Ud) 3 ml IH Q2H PRN; Protocol PRN Reason: Shortness of Breath Arformoterol Tartrate (Brovana) 15 mcg IH [id number] NIALL Last Admin: 06/04/18 07:30 Dose: 15 mcg Benzonatate (Tessalon Perles) 200 mg PO TID NIALL; Protocol Betamethasone/Clotrimazole (Lotrisone) 0 gm TOP BID [facility]ALL; Protocol Budesonide (Pulmicort Respules) 0.5 mg IH [id number] NIALL; Protocol Last Admin: 06/04/18 07:30 Dose: 0.5 mg Enoxaparin Sodium (Lovenox) 40 mg SC 0600 NIALL; Protocol Last Admin: 06/04/18 05:02 Dose: 40 mg Guaifenesin/Dextromethorphan (Robitussin Dm) 10 ml PO Q4H PRN; Protocol PRN Reason: Cough Last Admin: 06/03/18 23:39 Dose: 10 ml Home Med (Home Med) 1 unit PO BID [facility]ALL; Protocol Hydrocortisone (Cortizone 1% Cream) 0 gm TOP BID [facility]ALL; Protocol Hydroxyzine HCl (Atarax) 10 mg PO QID PRN; Protocol PRN Reason: pruritis Cefepime HCl (Maxipime 1gm) 1 gm in 100 mls @ 100 mls/hr IVPB Q8 NIALL; Protocol Last Admin: 06/04/18 05:02 Dose: 100 mls/hr Levetiracetam (Keppra) 500 mg PO BID [facility]; Protocol Losartan Potassium (Cozaar) 25 mg PO DAILY [facility]; Protocol Non-Formulary Medication (Abiraterone Acetate [Zytiga]) 1,000 mg PO DAILY [facility] Pantoprazole Sodium (Protonix Ec Tab) 40 mg PO 0600 [facility]; Protocol Last Admin: 06/04/18 05:03 Dose: 40 mg Prednisone (Prednisone Tab) 5 mg PO 0800,1700 NIALL; Protocol Last Admin: 06/04/18 08:27 Dose: 5 mg Risperidone (Risperdal Tab) 0.25 mg PO BID [facility]; Protocol Zolpidem Tartrate (Ambien) 5 mg PO HS PRN; Protocol PRN Reason: Insomnia Last Admin: 06/03/18 23:39 Dose: 5 mg - Constitutional Appears: Chronically Ill - Head Exam Head Exam: NORMAL INSPECTION - Respiratory Exam Respiratory Exam: Decreased Breath Sounds - Cardiovascular Exam Cardiovascular Exam: +S1, +S2 - GI/Abdominal Exam GI & Abdominal Exam: Soft, Tenderness Assessment and Plan - Assessment and Plan (Free Text) Plan: Assessment sepsis due to complicated UTI with Pseudomonas, slowly improving clinically history of UTI with E. 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
[2018-06-06] MEDS: Cefepime 1gm in NS 100ml 1 GM/100 ML BAG IVPB SCH ×3 (05:36→21:23)
[2018-06-06] MEDS: Enoxaparin 40 mg Syringe SC SCH (05:36)
[2018-06-06] MEDS: Pantoprazole 40 mg EC Tab PO SCH (05:36)
[2018-06-06] MEDS: Budesonide 0.5 mg/2 ml Inhal Susp UD IH SCH ×2 (08:35→20:32)
[2018-06-06] MEDS: Arformoterol 15 mcg/2 ml Inh Sol IH SCH ×2 (08:35→20:32)
[2018-06-06] MEDS: Hydrocortisone 1% Cream (30 GM) TOP SCH ×2 (09:36→17:27)
[2018-06-06] MEDS: METHENAMINE PO SCH ×2 (09:37→17:28)
[2018-06-06] MEDS: Clotrimazole/Betamethasone Cream(15 gm) TOP SCH ×2 (09:38→17:29)
--- NOTE | 2018-06-06 10:30 | CP.PCM.PN ---
<Yonis Krishnan - Last Filed: 06/06/18 10:28> Subjective - Date & Time of Evaluation Date of Evaluation: 06/06/18 Time of Evaluation: 09:00 - Subjective Subjective: Yonis Krishnan Internal Medicine Resident- Heme/Onc Progress Note Subjective: Patient seen and examined. No acute events overnight. States productive cough has resolved. Offers no new complaints at this time. Denies fever, chills, chest pain, shortness of breath, abdominal valencia, nausea, vomiting. 12 point ROS negative except as indicated in HPI Physical Examination: - Constitutional Additional comments: Non-toxic, No Acute Distress - Head Exam Additional comments: erythematous rash on face/cheek - Eye Exam Eye Exam: EOMI - ENT Exam ENT Exam: Mucous Membranes Moist - Neck Exam Neck Exam: Full ROM - Respiratory Exam Respiratory Exam: NORMAL BREATHING PATTERN. absent: Rales, Rhonchi, Wheezes - Cardiovascular Exam Cardiovascular Exam: RRR, +S1, +S2 - GI/Abdominal Exam GI & Abdominal Exam: Soft, Normal Bowel Sounds. 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 Patient was transferred to TCU for physical rehab. Upper Respiratory Infection - CXR - Interval improvement in left lower lobe infiltrate - 05/30/2018 CT Chest with IV Contrast- no evidence of pneumonia - Blood cultures- no growth after 5 days in both tubes - Influenza type b antibody positive - Continue guaifenesin dextromethorphan - Infectious disease consulted- appreciate recommendations Urinary Tract Infection - Urine culture- positive for pseudomonas - Continue course of cefepime day 8 of 10, cannot send patient home with cip rofloxacin due to prolonged QTc Hyponatremia - serum sodium improved from 124 to 132 to 135 upon transfer from inpatient to TCU - will monitor closely via CMP Eczematous Rash - hydrocortisone cream on face/cheek - lotrisone cream on the groin Anemia - Normocytic - Hgb responded from 8 to 10.5 s/p 2 units transfused - Fe- low TIBC- low Ferritin- high, Iron Saturation- low, points to anemia of chronic disease - Vitamin B12- low, Folate- normal History of Stage IV Prostate Cancer - Continue home Zytiga - Continue home Methenamine History of Seizure Disorder - Continue home Keppra History of DVT/PE - Continue home Lovenox History of COPD - Continue Brovana and Pulmicort - Continue duonebs q2prn SOB - Continue prednisone 5 mg PO daily (home med) will change to IVF solumedrol pending pulmn recs History of HTN - Continue home Cozaar Deconditioned State - continue physical therapy in TCU setting Prophylaxis - GI Prophylaxis: Protonix - DVT Prophylaxis: Lovenox Patient case discussed with and plan approved by attending physician, Dr. Clemens. Objective - Vital Signs/Intake and Output Vital Signs (last 24 hours): Temp Pulse Resp BP Pulse Ox 98.8 F 95 H 18 145/85 94 L 06/05/18 16:00 06/05/18 16:00 06/05/18 16:00 06/06/18 09:37 06/05/18 16:00 Intake and Output: 06/06/18 06/06/18 06:59 18:59 Output Total 2200 Balance -2200 - Medications Medications: Current Medications Acetaminophen (Tylenol 325mg Tab) 650 mg PO Q4H PRN; Protocol PRN Reason: Fever >100.4 F Albuterol/Ipratropium (Duoneb 3 Mg/0.5 Mg (3 Ml) Ud) 3 ml IH Q2H PRN; Protocol PRN Reason: Shortness of Breath Arformoterol Tartrate (Brovana) 15 mcg IH [id number] NIALL Last Admin: 06/06/18 08:35 Dose: 15 mcg Benzonatate (Tessalon Perles) 200 mg PO TID [facility]ALL; Protocol Last Admin: 06/06/18 09:39 Dose: 200 mg Betamethasone/Clotrimazole (Lotrisone) 0 gm TOP BID [facility]; Protocol Last Admin: 06/06/18 09:38 Dose: 1 applic Budesonide (Pulmicort Respules) 0.5 mg IH [id number] NIALL; Protocol Last Admin: 06/06/18 08:35 Dose: 0.5 mg Enoxaparin Sodium (Lovenox) 40 mg SC 0600 [facility]; Protocol Last Admin: 06/06/18 05:36 Dose: 40 mg Guaifenesin/Dextromethorphan (Robitussin Dm) 10 ml PO Q4H PRN; Protocol PRN Reason: Cough Last Admin: 06/03/18 23:39 Dose: 10 ml Home Med (Home Med) 1 unit PO BID [facility]; Protocol Last Admin: 06/06/18 09:37 Dose: 1 unit Hydrocortisone (Cortizone 1% Cream) 0 gm TOP BID [facility]; Protocol Last Admin: 06/06/18 09:36 Dose: 1 applic Hydroxyzine HCl (Atarax) 10 mg PO QID PRN; Protocol PRN Reason: pruritis Cefepime HCl (Maxipime 1gm) 1 gm in 100 mls @ 100 mls/hr IVPB Q8 [facility]; Protocol Last Admin: 06/06/18 05:36 Dose: 100 mls/hr Levetiracetam (Keppra) 500 mg PO BID [facility]; Protocol Last Admin: 06/06/18 09:38 Dose: 500 mg Loratadine (Claritin) 10 mg PO DAILY [facility] Last Admin: 06/06/18 09:36 Dose: 10 mg Losartan Potassium (Cozaar) 25 mg PO DAILY [facility]; Protocol Last Admin: 06/06/18 09:37 Dose: 25 mg Montelukast Sodium (Singulair) 10 mg PO HS [facility] Last Admin: 06/05/18 21:38 Dose: 10 mg Non-Formulary Medication (Abiraterone Acetate [Zytiga]) 1,000 mg PO DAILY [facility] Last Admin: 06/06/18 09:35 Dose: 1,000 mg Pantoprazole Sodium (Protonix Ec Tab) 40 mg PO 0600 NIALL; Protocol Last Admin: 06/06/18 05:36 Dose: 40 mg Prednisone (Prednisone Tab) 5 mg PO 0800,1700 [facility]; Protocol Last Admin: 06/06/18 08:42 Dose: 5 mg Risperidone (Risperdal Tab) 0.25 mg PO BID [facility]; Protocol Last Admin: 06/06/18 09:39 Dose: 0.25 mg Zolpidem Tartrate (Ambien) 5 mg PO HS PRN; Protocol PRN Reason: Insomnia Last Admin: 06/05/18 21:37 Dose: 5 mg <Ant Clemens P - Last Filed: 06/08/18 19:42> Objective - Vital Signs/Intake and Output Vital Signs (last 24 hours): Temp Pulse Resp BP Pulse Ox 97.5 F L 89 17 144/83 93 L 06/08/18 16:00 06/08/18 16:00 06/08/18 16:00 06/08/18 16:00 06/08/18 16:00 - Medications Medications: Current Medications Acetaminophen (Tylenol 325mg Tab) 650 mg PO Q4H PRN; Protocol PRN Reason: Fever >100.4 F Albuterol/Ipratropium (Duoneb 3 Mg/0.5 Mg (3 Ml) Ud) 3 ml IH Q2H PRN; Protocol PRN Reason: Shortness of Breath Arformoterol Tartrate (Brovana) 15 mcg IH [id number] NIALL Last Admin: 06/08/18 07:37 Dose: 15 mcg Benzonatate (Tessalon Perles) 200 mg PO TID [facility]; Protocol Last Admin: 06/08/18 17:42 Dose: 200 mg Betamethasone/Clotrimazole (Lotrisone) 0 gm TOP BID [facility]; Protocol Last Admin: 06/08/18 17:41 Dose: 1 applic Budesonide (Pulmicort Respules) 0.5 mg IH [id number] NIALL; Protocol Last Admin: 06/08/18 07:37 Dose: 0.5 mg Enoxaparin Sodium (Lovenox) 40 mg SC 0600 [facility]; Protocol Last Admin: 06/08/18 05:15 Dose: 40 mg Guaifenesin/Dextromethorphan (Robitussin Dm) 10 ml PO Q4H PRN; Protocol PRN Reason: Cough Last Admin: 06/03/18 23:39 Dose: 10 ml Home Med (Home Med) 1 unit PO BID [facility]; Protocol Last Admin: 06/08/18 17:38 Dose: 1 unit Hydrocortisone (Cortizone 1% Cream) 0 gm TOP BID [facility]; Protocol Last Admin: 06/08/18 17:38 Dose: 1 applic Hydroxyzine HCl (Atarax) 10 mg PO QID PRN; Protocol PRN Reason: pruritis Cefepime HCl (Maxipime 1gm) 1 gm in 100 mls @ 100 mls/hr IVPB Q8 [facility]; Protocol Last Admin: 06/08/18 14:45 Dose: 100 mls/hr Levetiracetam (Keppra) 500 mg PO BID [facility]; Protocol Last Admin: 06/08/18 17:39 Dose: 500 mg Loratadine (Claritin) 10 mg PO DAILY [facility] Last Admin: 06/08/18 09:38 Dose: 10 mg Losartan Potassium (Cozaar) 25 mg PO DAILY [facility]; Protocol Last Admin: 06/08/18 09:45 Dose: 25 mg Montelukast Sodium (Singulair) 10 mg PO HS NIALL Last Admin: 06/07/18 21:27 Dose: 10 mg Non-Formulary Medication (Abiraterone Acetate [Zytiga]) 1,000 mg PO DAILY [facility] Last Admin: 06/08/18 09:36 Dose: 1,000 mg Pantoprazole Sodium (Protonix Ec Tab) 40 mg PO 0600 [facility]; Protocol Last Admin: 06/08/18 05:15 Dose: 40 mg Prednisone (Prednisone Tab) 5 mg PO 0800,1700 NI[facility]; Protocol Last Admin: 06/08/18 17:41 Dose: 5 mg Risperidone (Risperdal Tab) 0.25 mg PO BID [facility]; Protocol Last Admin: 06/08/18 17:41 Dose: 0.25 mg Trimethoprim/Sulfamethoxazole (Bactrim Ds Tab) 1 tab PO BID [facility]; Protocol Stop: 06/13/18 10:01 Last Admin: 06/08/18 17:37 Dose: 1 tab Zolpidem Tartrate (Ambien) 5 mg PO HS PRN; Protocol PRN Reason: Insomnia Last Admin: 06/07/18 23:15 Dose: 5 mg - Labs Labs: 06/07/18 06:30 06/07/18 06:30 Attending/Attestation - Attestation I have personally seen and examined this patient.: Yes I have fully participated in the care of the patient.: Yes I have reviewed all pertinent clinical information, including history, physical exam and plan: Yes
--- NOTE | 2018-06-06 11:18 | PN ---
DATE: 06/06/2018 SUBJECTIVE: The patient is in bed, in no acute distress, nontoxic. PHYSICAL EXAMINATION: VITAL SIGNS: Temperature is 98, blood pressure is 150/90, respiratory rate of 18. Examination of HEENT is unremarkable. NECK: Supple. LUNGS: Have decreased breath sounds. HEART: Normal S1, S2. ABDOMEN: Soft. LABORATORY EXAMINATION: Reveals the patient's labs are reviewed. ASSESSMENT AND PLAN: A -cjst-[id number] male with sepsis, complicated urinary tract infection with Pseudomonas, improving slowly with a history of urinary tract infections with Escherichia coli, status post coag-negative Staph bacteremia, facial skin lesions on biopsy, prostate cancer with metastases and chronic obstructive lung disease. History of pulmonary emboli; coronary artery disease on cefepime, day number 8, may complete 10-14 days of antibiotics. The patient has a prolonged QTc, unable to switch to p.o. Review of orders reveals the patient to be on cefepime. Naman Rich MD
--- NOTE | 2018-06-06 13:00 | PN ---
PULMONARY PROGRESS NOTE DATE: 06/06/2018 REFERRING PHYSICIAN: Dr. Dawson. SUBJECTIVE: The patient is lying in bed, watching TV. No acute distress noted. No overnight events reported. Reports cough is much better. No headache, rhinitis, shortness of breath, chest pain, abdominal pain, nausea, vomiting, diarrhea, leg pain, or leg swelling reported. OBJECTIVE: GENERAL: No acute distress. VITAL SIGNS: Blood pressure 131/73, pulse 71, temperature 97.5, and oxygen saturation 96% on nasal cannula. HEENT: Moist mucous membranes. NECK: Supple. No JVD. CARDIOVASCULAR: S1 and S2 audible. RESPIRATORY: Clear bilaterally. ABDOMEN: Soft, nontender. No distention. No organomegaly. EXTREMITIES: No bilateral lower extremity edema. GENITOURINARY: Chronic indwelling Shipman catheter. No hematuria. NEUROLOGIC: Awake, alert, and verbal. Follows simple commands. LABORATORY DATA: Reviewed. No new labs. MEDICATIONS: Reviewed. Tylenol 650 mg every 4 hours p.r.n. fever greater than 100.4, DuoNeb 3 mL inhalation every 2 hours p.r.n., Brovana 15 mcg inhalation every 12 hours, Tessalon Perles 200 mg p.o. three times a day, Lotrisone topically to affected area twice a day, Pulmicort 0.5 mg inhalation every 12 hours, Cefepime 1 g every 8 hours, Lovenox 40 mg daily, Robitussin DM 10 mL every 4 hours p.r.n. for cough, hydrocortisone cream topically twice a day to affected area, Atarax 10 mg four times a day p.r.n., Keppra 500 mg twice a day, loratadine 10 mg p.o. daily, Cozaar 25 mg p.o. daily, Singulair 10 mg p.o. at bedtime, Zytiga 1000 mg p.o. daily, Protonix 40 mg daily, prednisone 5 mg twice a day, Risperdal 0.25 mg twice a day, and Ambien 5 mg p.o. p.r.n. at bedtime. IMPRESSION AND PLAN: Stage IV prostate cancer, seizure disorder, eczema, chronic obstructive lung disease, bronchitis, hypertension, and upper respiratory infection. Pulmonary point of view, the patient is doing well. Continues to refuse his continuous positive airway pressure for obstructive sleep apnea. Sleep apnea precaution, head of bed elevated at 45 degrees, gastric prophylaxis, and deep venous thrombosis prophylaxis. Continue inhaled bronchodilators. Continue inhaled steroids. Continue leukotriene inhibitors and antihistamine, aspiration precaution. The patient should keep head of bed elevated for 1 hour after eating and to keep head elevated during meals. This patient was seen and examined with Dr. Dickson. Discussed assessment and plan as described above. Thank you for this consult. We will follow with you. Chance Driscoll APN Chris Dickson MD MTDHenry
[2018-06-07] MEDS: Pantoprazole 40 mg EC Tab PO SCH (05:39)
[2018-06-07] MEDS: Enoxaparin 40 mg Syringe SC SCH (05:39)
[2018-06-07] MEDS: Cefepime 1gm in NS 100ml 1 GM/100 ML BAG IVPB SCH ×3 (05:40→21:26)
[2018-06-07 07:06] LABS: BASO # 0.04 K/mm3 (0.0-2.0); BASO % 0.6 % (0.0-3.0); EOS # 0.2 (0.0-0.7); EOS % 2.7 % (1.5-5.0); GRAN # 4.07 (1.4-6.5); GRAN % 62.2 % (50.0-68.0); HEMOGLOBIN 10.7 g/dL (14.0-18.0); LYMPH # 1.6 (1.2-3.4); MEAN CELL VOLUME 90.2 fl (80.0-105.0); MEAN CORPUSCULAR HEMOGLOBIN 27.6 pg (25.0-35.0); MEAN CORPUSCULAR HGB CONC 30.6 g/dl (31.0-37.0); MEAN PLATELET VOLUME 9.3 fl (7.0-11.0); MONO # 0.6 (0.1-0.6); MONO % 9.5 % (1.0-6.0); RBC 3.88 10^6/uL (3.5-6.1); RED CELL DISTRIBUTION WIDTH 15.2 % (11.5-14.5); WHITE BLOOD COUNT 6.6 10^3/uL (4.5-11.0)
[2018-06-07 07:23] LABS: ALBUMIN 3.3 g/dL (3.0-4.8); ALT/SGPT 23 U/L (7-56); AST/SGOT 22 U/L (17-59); BLOOD UREA NITROGEN 21 mg/dL (7-21); CALCIUM 8.7 mg/dL (8.4-10.5); GFR NON-AFRICAN AMERICAN > 60
[2018-06-07] MEDS: Arformoterol 15 mcg/2 ml Inh Sol IH SCH ×2 (07:24→20:07)
[2018-06-07] MEDS: Budesonide 0.5 mg/2 ml Inhal Susp UD IH SCH ×2 (07:24→20:07)
[2018-06-07] MEDS: METHENAMINE PO SCH ×2 (09:46→17:14)
[2018-06-07] MEDS: Hydrocortisone 1% Cream (30 GM) TOP SCH ×2 (09:46→17:13)
[2018-06-07] MEDS: Clotrimazole/Betamethasone Cream(15 gm) TOP SCH ×2 (09:48→17:14)
--- NOTE | 2018-06-07 10:05 | CP.PCM.PN ---
<Yonis Krishnan - Last Filed: 06/07/18 10:02> Subjective - Date & Time of Evaluation Date of Evaluation: 06/07/18 Time of Evaluation: 09:00 - Subjective Subjective: Yonis Krishnan Internal Medicine Resident- Heme/Onc Progress Note Subjective: Patient seen and examined. No acute events overnight. Offers no new complaints at this time. Denies fever, chills, chest pain, shortness of breath, abdominal valencia, nausea, vomiting. 12 point ROS negative except as indicated in HPI Physical Examination: - Constitutional Additional comments: Non-toxic, No Acute Distress - Head Exam Additional comments: erythematous rash on face/cheek - Eye Exam Eye Exam: EOMI - ENT Exam ENT Exam: Mucous Membranes Moist - Neck Exam Neck Exam: Full ROM - Respiratory Exam Respiratory Exam: NORMAL BREATHING PATTERN. absent: Rales, Rhonchi, Wheezes - Cardiovascular Exam Cardiovascular Exam: RRR, +S1, +S2 - GI/Abdominal Exam GI & Abdominal Exam: Soft, Normal Bowel Sounds. 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 Patient was transferred to TCU for physical rehab. Upper Respiratory Infection - CXR - Interval improvement in left lower lobe infiltrate - 05/30/2018 CT Chest with IV Contrast- no evidence of pneumonia - Blood cultures- no growth after 5 days in both tubes - Influenza type b antibody positive - Continue guaifenesin dextromethorphan - Infectious disease consulted- appreciate recommendations Urinary Tract Infection - Urine culture- positive for pseudomonas - Continue course of cefepime day 9 of , cannot send patient home with ciprofloxacin due to prolonged QTc Hyponatremia - serum sodium improved from 124 to 132 to 135 upon transfer from inpatient to TCU, stable at 137 - will monitor closely via CMP Eczematous Rash - hydrocortisone cream on face/cheek - lotrisone cream on the groin Anemia - Normocytic - Hgb responded from 8 to 10.5 s/p 2 units transfused, stable at ~ 10.7 L - Fe- low TIBC- low Ferritin- high, Iron Saturation- low, points to anemia of chronic disease - Vitamin B12- low, Folate- normal History of Stage IV Prostate Cancer - Continue home Zytiga - Continue home Methenamine History of Seizure Disorder - Continue home Keppra History of DVT/PE - Continue home Lovenox History of COPD - Continue Brovana and Pulmicort - Continue duonebs q2prn SOB - Continue prednisone 5 mg PO daily (home med) will change to IVF solumedrol pending pulmn recs History of HTN - Continue home Cozaar Deconditioned State - continue physical therapy in TCU setting Prophylaxis - GI Prophylaxis: Protonix - DVT Prophylaxis: Lovenox Patient case discussed with and plan approved by attending physician, Dr. Clemens. Objective - Vital Signs/Intake and Output Vital Signs (last 24 hours): Temp Pulse Resp BP Pulse Ox 98.7 F 78 20 131/81 93 L 06/06/18 16:00 06/06/18 16:00 06/06/18 16:00 06/07/18 09:47 06/06/18 16:00 Intake and Output: 06/07/18 06/07/18 06:59 18:59 Intake Total 680 Output Total 700 Balance -20 - Medications Medications: Current Medications Acetaminophen (Tylenol 325mg Tab) 650 mg PO Q4H PRN; Protocol PRN Reason: Fever >100.4 F Albuterol/Ipratropium (Duoneb 3 Mg/0.5 Mg (3 Ml) Ud) 3 ml IH Q2H PRN; Protocol PRN Reason: Shortness of Breath Arformoterol Tartrate (Brovana) 15 mcg IH [id number] [facility] Last Admin: 06/07/18 07:24 Dose: 15 mcg Benzonatate (Tessalon Perles) 200 mg PO TID [facility]; Protocol Last Admin: 06/07/18 09:49 Dose: 200 mg Betamethasone/Clotrimazole (Lotrisone) 0 gm TOP BID [facility]; Protocol Last Admin: 06/07/18 09:48 Dose: 1 applic Budesonide (Pulmicort Respules) 0.5 mg IH [id number] [facility]; Protocol Last Admin: 06/07/18 07:24 Dose: 0.5 mg Enoxaparin Sodium (Lovenox) 40 mg SC 0600 [facility]; Protocol Last Admin: 06/07/18 05:39 Dose: 40 mg Guaifenesin/Dextromethorphan (Robitussin Dm) 10 ml PO Q4H PRN; Protocol PRN Reason: Cough Last Admin: 06/03/18 23:39 Dose: 10 ml Home Med (Home Med) 1 unit PO BID [facility]; Protocol Last Admin: 06/07/18 09:46 Dose: 1 unit Hydrocortisone (Cortizone 1% Cream) 0 gm TOP BID [facility]; Protocol Last Admin: 06/07/18 09:46 Dose: 1 applic Hydroxyzine HCl (Atarax) 10 mg PO QID PRN; Protocol PRN Reason: pruritis Cefepime HCl (Maxipime 1gm) 1 gm in 100 mls @ 100 mls/hr IVPB Q8 [facility]; Protocol Last Admin: 06/07/18 05:40 Dose: 100 mls/hr Levetiracetam (Keppra) 500 mg PO BID [facility]; Protocol Last Admin: 06/07/18 09:47 Dose: 500 mg Loratadine (Claritin) 10 mg PO DAILY [facility] Last Admin: 06/07/18 09:46 Dose: 10 mg Losartan Potassium (Cozaar) 25 mg PO DAILY [facility]; Protocol Last Admin: 06/07/18 09:47 Dose: 25 mg Montelukast Sodium (Singulair) 10 mg PO HS [facility] Last Admin: 06/06/18 21:23 Dose: 10 mg Non-Formulary Medication (Abiraterone Acetate [Zytiga]) 1,000 mg PO DAILY [facility] Last Admin: 06/07/18 09:45 Dose: 1,000 mg Pantoprazole Sodium (Protonix Ec Tab) 40 mg PO 0600 [facility]; Protocol Last Admin: 06/07/18 05:39 Dose: 40 mg Prednisone (Prednisone Tab) 5 mg PO 0800,1700 [facility]; Protocol Last Admin: 06/07/18 08:17 Dose: 5 mg Risperidone (Risperdal Tab) 0.25 mg PO BID [facility]; Protocol Last Admin: 06/07/18 09:48 Dose: 0.25 mg Zolpidem Tartrate (Ambien) 5 mg PO HS PRN; Protocol PRN Reason: Insomnia Last Admin: 06/06/18 23:08 Dose: 5 mg - Labs Labs: 06/07/18 06:30 06/07/18 06:30 <Ant Clemens P - Last Filed: 06/08/18 19:41> Objective - Vital Signs/Intake and Output Vital Signs (last 24 hours): Temp Pulse Resp BP Pulse Ox 97.5 F L 89 17 144/83 93 L 06/08/18 16:00 06/08/18 16:00 06/08/18 16:00 06/08/18 16:00 06/08/18 16:00 - Medications Medications: Current Medications Acetaminophen (Tylenol 325mg Tab) 650 mg PO Q4H PRN; Protocol PRN Reason: Fever >100.4 F Albuterol/Ipratropium (Duoneb 3 Mg/0.5 Mg (3 Ml) Ud) 3 ml IH Q2H PRN; Protocol PRN Reason: Shortness of Breath Arformoterol Tartrate (Brovana) 15 mcg IH [id number] [facility] Last Admin: 06/08/18 07:37 Dose: 15 mcg Benzonatate (Tessalon Perles) 200 mg PO TID [facility]; Protocol Last Admin: 06/08/18 17:42 Dose: 200 mg Betamethasone/Clotrimazole (Lotrisone) 0 gm TOP BID [facility]; Protocol Last Admin: 06/08/18 17:41 Dose: 1 applic Budesonide (Pulmicort Respules) 0.5 mg IH [id number] [facility]; Protocol Last Admin: 06/08/18 07:37 Dose: 0.5 mg Enoxaparin Sodium (Lovenox) 40 mg SC 0600 [facility]; Protocol Last Admin: 06/08/18 05:15 Dose: 40 mg Guaifenesin/Dextromethorphan (Robitussin Dm) 10 ml PO Q4H PRN; Protocol PRN Reason: Cough Last Admin: 06/03/18 23:39 Dose: 10 ml Home Med (Home Med) 1 unit PO BID [facility]; Protocol Last Admin: 06/08/18 17:38 Dose: 1 unit Hydrocortisone (Cortizone 1% Cream) 0 gm TOP BID [facility]; Protocol Last Admin: 06/08/18 17:38 Dose: 1 applic Hydroxyzine HCl (Atarax) 10 mg PO QID PRN; Protocol PRN Reason: pruritis Cefepime HCl (Maxipime 1gm) 1 gm in 100 mls @ 100 mls/hr IVPB Q8 [facility]; Protocol Last Admin: 06/08/18 14:45 Dose: 100 mls/hr Levetiracetam (Keppra) 500 mg PO BID [facility]; Protocol Last Admin: 06/08/18 17:39 Dose: 500 mg Loratadine (Claritin) 10 mg PO DAILY [facility] Last Admin: 06/08/18 09:38 Dose: 10 mg Losartan Potassium (Cozaar) 25 mg PO DAILY [facility]; Protocol Last Admin: 06/08/18 09:45 Dose: 25 mg Montelukast Sodium (Singulair) 10 mg PO HS [facility] Last Admin: 06/07/18 21:27 Dose: 10 mg Non-Formulary Medication (Abiraterone Acetate [Zytiga]) 1,000 mg PO DAILY [facility] Last Admin: 06/08/18 09:36 Dose: 1,000 mg Pantoprazole Sodium (Protonix Ec Tab) 40 mg PO 0600 [facility]; Protocol Last Admin: 06/08/18 05:15 Dose: 40 mg Prednisone (Prednisone Tab) 5 mg PO 0800,1700 [facility]; Protocol Last Admin: 06/08/18 17:41 Dose: 5 mg Risperidone (Risperdal Tab) 0.25 mg PO BID [facility]; Protocol Last Admin: 06/08/18 17:41 Dose: 0.25 mg Trimethoprim/Sulfamethoxazole (Bactrim Ds Tab) 1 tab PO BID [facility]; Protocol Stop: 06/13/18 10:01 Last Admin: 06/08/18 17:37 Dose: 1 tab Zolpidem Tartrate (Ambien) 5 mg PO HS PRN; Protocol PRN Reason: Insomnia Last Admin: 06/07/18 23:15 Dose: 5 mg - Labs Labs: 06/07/18 06:30 06/07/18 06:30 Attending/Attestation - Attestation I have personally seen and examined this patient.: Yes I have fully participated in the care of the patient.: Yes I have reviewed all pertinent clinical information, including history, physical exam and plan: Yes
--- NOTE | 2018-06-07 13:02 | PN ---
PULMONARY PROGRESS NOTE DATE: 06/07/2018 REFERRING PHYSICIAN: Dr. Dawson. SUBJECTIVE: The patient is lying in bed. No acute distress. No overnight events reported. No headache, rhinitis, shortness of breath, chest pain, abdominal pain, nausea, vomiting, diarrhea, leg pain, or leg swelling reported. Reports no cough, it is improved. OBJECTIVE GENERAL: No acute distress. VITAL SIGNS: Blood pressure 137/83, pulse 73, temperature 98.7 and oxygen saturation 96%. HEENT: Moist mucous membranes. NECK: Supple. No JVD. CARDIOVASCULAR: S1 and S2 audible. RESPIRATORY: Lungs are clear bilaterally. ABDOMEN: Soft and nontender. No distention. No organomegaly. EXTREMITIES: No bilateral lower extremity edema. GENITOURINARY: Chronic indwelling Shipman catheter. No hematuria. NEUROLOGIC: Awake, alert, and verbal. Follows simple commands. LABORATORY DATA: Reviewed. WBC 6.6, RBC 3.88, hemoglobin 10.7, hematocrit 37 and platelets 247. Sodium 137, potassium 4.2, chloride 102, carbon dioxide 29, anion gap 10, BUN 21, creatinine 0.5, GFR greater than 60, random glucose 88, calcium 8.7, total bilirubin 0.2, AST 22, ALT 23 and alkaline phosphatase 60. Total protein 6.5, albumin 3.3, globulin 3.2 and albumin-globulin ratio of 1.0. MEDICATIONS: Reviewed. Tylenol 650 mg every 4 hours p.r.n. fever greater than 100.4, DuoNeb 3 mL inhalation every 2 hours p.r.n., Brovana 15 mcg every 12 hours, Tessalon Perles 200 mg p.o. three times a day, Lotrisone topically twice a day to affected area, Pulmicort 0.5 mg inhalation every 12 hours, cefepime 1 g every 8 hours, Lovenox 40 mg daily, Robitussin 10 mL every 4 hours p.r.n., hydrocortisone topically to affected area twice a day, Atarax 10 mg four times a day p.r.n., Keppra 500 mg p.o. twice a day, loratadine 10 mg p.o. daily, Cozaar 25 mg daily, Singulair 10 mg at bedtime, Zytiga 1000 mg p.o. daily, Protonix 40 mg daily, prednisone 5 mg twice a day, Risperdal 0.25 mg twice a day and Ambien 5 mg p.o. p.r.n. at bedtime. IMPRESSION AND PLAN: Stage IV prostate cancer, seizure disorder, eczema, chronic obstructive lung disease, bronchitis, hypertension, upper respiratory infection. Pulmonary point of view, the patient is doing well. Continue inhaled bronchodilators. Continue inhaled steroids. Continue leukotriene inhibitors and antihistamine. Aspiration precaution. The patient continues to refuse continuous positive airway pressure for sleep apnea syndrome. Sleep apnea precaution. Head of bed elevated at 45 degrees. The patient should keep head of bed elevated for meals and for 1 hour after eating. We recommend the patient not be fed while in bed. This patient was seen and examined with Dr. Dickson. Discussed assessment and plan as described above. Thank you for this consult. We will follow with you. Chance Driscoll APN Chris Dickson MD
--- NOTE | 2018-06-07 13:51 | CP.PCM.PN ---
Subjective - Date & Time of Evaluation Date of Evaluation: 06/07/18 Time of Evaluation: 10:35 - Subjective Subjective: Comfortable, no cough currently, no fevers. Objective - Vital Signs/Intake and Output Vital Signs (last 24 hours): Temp Pulse Resp BP Pulse Ox 98.8 F 95 H 18 158/94 H 94 L 06/05/18 16:00 06/05/18 16:00 06/05/18 16:00 06/05/18 16:00 06/05/18 16:00 - Medications Medications: Current Medications Acetaminophen (Tylenol 325mg Tab) 650 mg PO Q4H PRN; Protocol PRN Reason: Fever >100.4 F Albuterol/Ipratropium (Duoneb 3 Mg/0.5 Mg (3 Ml) Ud) 3 ml IH Q2H PRN; Protocol PRN Reason: Shortness of Breath Arformoterol Tartrate (Brovana) 15 mcg IH [id number] [facility] Last Admin: 06/05/18 08:16 Dose: 15 mcg Benzonatate (Tessalon Perles) 200 mg PO TID [facility]; Protocol Last Admin: 06/05/18 17:35 Dose: 200 mg Betamethasone/Clotrimazole (Lotrisone) 0 gm TOP BID [facility]; Protocol Last Admin: 06/05/18 17:34 Dose: 1 applic Budesonide (Pulmicort Respules) 0.5 mg IH [id number] [facility]; Protocol Last Admin: 06/05/18 08:16 Dose: 0.5 mg Enoxaparin Sodium (Lovenox) 40 mg SC 0600 [facility]; Protocol Last Admin: 06/05/18 05:03 Dose: 40 mg Guaifenesin/Dextromethorphan (Robitussin Dm) 10 ml PO Q4H PRN; Protocol PRN Reason: Cough Last Admin: 06/03/18 23:39 Dose: 10 ml Home Med (Home Med) 1 unit PO BID [facility]; Protocol Last Admin: 06/05/18 17:37 Dose: 1 unit Hydrocortisone (Cortizone 1% Cream) 0 gm TOP BID [facility]; Protocol Last Admin: 06/05/18 17:32 Dose: 1 applic Hydroxyzine HCl (Atarax) 10 mg PO QID PRN; Protocol PRN Reason: pruritis Cefepime HCl (Maxipime 1gm) 1 gm in 100 mls @ 100 mls/hr IVPB Q8 [facility]; Protocol Last Admin: 06/05/18 13:49 Dose: 100 mls/hr Levetiracetam (Keppra) 500 mg PO BID [facility]; Protocol Last Admin: 06/05/18 17:32 Dose: 500 mg Loratadine (Claritin) 10 mg PO DAILY [facility] Last Admin: 06/05/18 10:36 Dose: 10 mg Losartan Potassium (Cozaar) 25 mg PO DAILY [facility]; Protocol Last Admin: 06/05/18 10:33 Dose: 25 mg Montelukast Sodium (Singulair) 10 mg PO HS [facility] Last Admin: 06/04/18 21:54 Dose: 10 mg Non-Formulary Medication (Abiraterone Acetate [Zytiga]) 1,000 mg PO DAILY [facility] Last Admin: 06/05/18 10:35 Dose: 1,000 mg Pantoprazole Sodium (Protonix Ec Tab) 40 mg PO 0600 [facility]; Protocol Last Admin: 06/05/18 05:03 Dose: 40 mg Prednisone (Prednisone Tab) 5 mg PO 0800,1700 [facility]; Protocol Last Admin: 06/05/18 17:30 Dose: 5 mg Risperidone (Risperdal Tab) 0.25 mg PO BID [facility]; Protocol Last Admin: 06/05/18 17:35 Dose: 0.25 mg Zolpidem Tartrate (Ambien) 5 mg PO HS PRN; Protocol PRN Reason: Insomnia Last Admin: 06/04/18 23:51 Dose: 5 mg - Constitutional Appears: Chronically Ill - Head Exam Head Exam: NORMAL INSPECTION - Respiratory Exam Respiratory Exam: Decreased Breath Sounds - Cardiovascular Exam Cardiovascular Exam: +S1, +S2 - GI/Abdominal Exam GI & Abdominal Exam: Soft. absent: Tenderness Assessment and Plan - Assessment and Plan (Free Text) Plan: Assessment sepsis due to complicated UTI with Pseudomonas, slowly improving clinically positive titers for pertussis history of UTI with E. 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
[2018-06-08] MEDS: Cefepime 1gm in NS 100ml 1 GM/100 ML BAG IVPB SCH ×3 (05:14→21:38)
[2018-06-08] MEDS: Enoxaparin 40 mg Syringe SC SCH (05:15)
[2018-06-08] MEDS: Pantoprazole 40 mg EC Tab PO SCH (05:15)
[2018-06-08] MEDS: Arformoterol 15 mcg/2 ml Inh Sol IH SCH ×2 (07:37→20:00)
[2018-06-08] MEDS: Budesonide 0.5 mg/2 ml Inhal Susp UD IH SCH ×2 (07:37→20:00)
[2018-06-08] MEDS: METHENAMINE PO SCH ×2 (09:36→17:38)
[2018-06-08] MEDS: Tmp-Smz 800 mg-160 mg DS Tab PO SCH ×2 (09:38→17:37)
[2018-06-08] MEDS: Hydrocortisone 1% Cream (30 GM) TOP SCH ×2 (09:44→17:38)
[2018-06-08] MEDS: Clotrimazole/Betamethasone Cream(15 gm) TOP SCH ×2 (09:46→17:41)
--- NOTE | 2018-06-08 12:40 | CP.PCM.PN ---
Subjective - Date & Time of Evaluation Date of Evaluation: 06/08/18 Time of Evaluation: 10:25 - Subjective Subjective: No fevers, not much cough. Objective - Vital Signs/Intake and Output Vital Signs (last 24 hours): Temp Pulse Resp BP Pulse Ox 98.7 F 78 20 131/81 93 L 06/06/18 16:00 06/06/18 16:00 06/06/18 16:00 06/07/18 09:47 06/06/18 16:00 Intake and Output: 06/07/18 06/07/18 06:59 18:59 Intake Total 680 600 Output Total 700 Balance -20 600 - Medications Medications: Current Medications Acetaminophen (Tylenol 325mg Tab) 650 mg PO Q4H PRN; Protocol PRN Reason: Fever >100.4 F Albuterol/Ipratropium (Duoneb 3 Mg/0.5 Mg (3 Ml) Ud) 3 ml IH Q2H PRN; Protocol PRN Reason: Shortness of Breath Arformoterol Tartrate (Brovana) 15 mcg IH [id number] [facility] Last Admin: 06/07/18 07:24 Dose: 15 mcg Benzonatate (Tessalon Perles) 200 mg PO TID [facility]; Protocol Last Admin: 06/07/18 13:24 Dose: 200 mg Betamethasone/Clotrimazole (Lotrisone) 0 gm TOP BID [facility]; Protocol Last Admin: 06/07/18 09:48 Dose: 1 applic Budesonide (Pulmicort Respules) 0.5 mg IH [id number] [facility]; Protocol Last Admin: 06/07/18 07:24 Dose: 0.5 mg Enoxaparin Sodium (Lovenox) 40 mg SC 0600 [facility]; Protocol Last Admin: 06/07/18 05:39 Dose: 40 mg Guaifenesin/Dextromethorphan (Robitussin Dm) 10 ml PO Q4H PRN; Protocol PRN Reason: Cough Last Admin: 06/03/18 23:39 Dose: 10 ml Home Med (Home Med) 1 unit PO BID [facility]; Protocol Last Admin: 06/07/18 09:46 Dose: 1 unit Hydrocortisone (Cortizone 1% Cream) 0 gm TOP BID [facility]; Protocol Last Admin: 06/07/18 09:46 Dose: 1 applic Hydroxyzine HCl (Atarax) 10 mg PO QID PRN; Protocol PRN Reason: pruritis Cefepime HCl (Maxipime 1gm) 1 gm in 100 mls @ 100 mls/hr IVPB Q8 [facility]; Protocol Last Admin: 06/07/18 13:23 Dose: 100 mls/hr Levetiracetam (Keppra) 500 mg PO BID [facility]; Protocol Last Admin: 06/07/18 09:47 Dose: 500 mg Loratadine (Claritin) 10 mg PO DAILY [facility] Last Admin: 06/07/18 09:46 Dose: 10 mg Losartan Potassium (Cozaar) 25 mg PO DAILY [facility]; Protocol Last Admin: 06/07/18 09:47 Dose: 25 mg Montelukast Sodium (Singulair) 10 mg PO HS [facility] Last Admin: 06/06/18 21:23 Dose: 10 mg Non-Formulary Medication (Abiraterone Acetate [Zytiga]) 1,000 mg PO DAILY [facility] Last Admin: 06/07/18 09:45 Dose: 1,000 mg Pantoprazole Sodium (Protonix Ec Tab) 40 mg PO 0600 [facility]; Protocol Last Admin: 06/07/18 05:39 Dose: 40 mg Prednisone (Prednisone Tab) 5 mg PO 0800,1700 [facility]; Protocol Last Admin: 06/07/18 08:17 Dose: 5 mg Risperidone (Risperdal Tab) 0.25 mg PO BID [facility]; Protocol Last Admin: 06/07/18 09:48 Dose: 0.25 mg Zolpidem Tartrate (Ambien) 5 mg PO HS PRN; Protocol PRN Reason: Insomnia Last Admin: 06/06/18 23:08 Dose: 5 mg - Labs Labs: 06/07/18 06:30 06/07/18 06:30 - Constitutional Appears: Chronically Ill - Head Exam Head Exam: NORMAL INSPECTION - Neck Exam Neck Exam: absent: Meningismus - Respiratory Exam Respiratory Exam: Decreased Breath Sounds - Cardiovascular Exam Cardiovascular Exam: +S1, +S2 - GI/Abdominal Exam GI & Abdominal Exam: Soft. absent: Tenderness Assessment and Plan - Assessment and Plan (Free Text) Plan: Assessment sepsis due to complicated UTI with Pseudomonas, slowly improving clinically positive titers for pertussis history of UTI with E. 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
--- NOTE | 2018-06-09 01:17 | PN ---
DATE: 06/08/2018 PULMONARY PROGRESS NOTE REFERRING PHYSICIAN: Brent Dawson MD SUBJECTIVE: The patient is lying in bed, family at bedside, feels much better this morning. Cough has improved. No overnight events recorded. No headache, chest pain, nausea or vomiting, leg pain, leg swelling reported. OBJECTIVE: VITAL SIGNS: Temperature 97.5, pulse 89, blood pressure 144/83, respirations 17, pulse ox 93% on room air. GENERAL: No acute distress. HEENT: Moist mucous membranes. Carotid airway. NECK: Supple. No JVD. LUNGS: Clear. CARDIOVASCULAR: S1, S2. ABDOMEN: Soft, nontender. No organomegaly. EXTREMITIES: No edema. NEUROLOGIC: Awake and alert. Follows simple commands. LABORATORY DATA: Laboratory reports reviewed. No new data since yesterday. MEDICATIONS: Reviewed. Bactrim one tab twice a day, added to medications. No other changes since yesterday. IMPRESSION AND PLAN: State IV prostate cancer, seizure disorder, eczema, chronic obstructive lung disease, bronchitis, hypertension, upper respiratory infection. Pulmonary point of view, continue inhaled bronchodilators and inhaled steroids, leukotriene inhibitors, antihistamine, sleep apnea precaution, careful with nocturnal sedation. Keep head elevated at 45 degrees. Gastroesophageal reflux disease precaution, fall precaution. Gastric prophylaxis. DVT prophylaxis. The patient was examined with Dr. Dickson and discussed assessment and plan as described above. Thank you for this consult and we will follow with you. Savannah Sotomayor APN Chris Dickson MD KATRINA
[2018-06-09] MEDS: Enoxaparin 40 mg Syringe SC SCH (05:37)
[2018-06-09] MEDS: Pantoprazole 40 mg EC Tab PO SCH (05:37)
[2018-06-09] MEDS: Cefepime 1gm in NS 100ml 1 GM/100 ML BAG IVPB SCH ×3 (05:38→21:26)
[2018-06-09 06:18] VITALS: RESP 18
[2018-06-09] MEDS: Arformoterol 15 mcg/2 ml Inh Sol IH SCH ×2 (07:40→19:39)
[2018-06-09] MEDS: Budesonide 0.5 mg/2 ml Inhal Susp UD IH SCH ×2 (07:40→19:39)
[2018-06-09] MEDS: METHENAMINE PO SCH ×2 (09:17→17:18)
[2018-06-09] MEDS: Tmp-Smz 800 mg-160 mg DS Tab PO SCH ×2 (09:18→17:18)
[2018-06-09] MEDS: Hydrocortisone 1% Cream (30 GM) TOP SCH ×2 (09:18→17:18)
[2018-06-09] MEDS: Clotrimazole/Betamethasone Cream(15 gm) TOP SCH ×2 (09:19→17:20)
[2018-06-09 11:11] LABS: ALB/GLOB RATIO 1.1 (1.1-1.8); ALBUMIN 3.6 g/dL (3.0-4.8); ALT/SGPT 28 U/L (7-56); AST/SGOT 20 U/L (17-59); BLOOD UREA NITROGEN 26 mg/dL (7-21); CALCIUM 8.6 mg/dL (8.4-10.5); GFR NON-AFRICAN AMERICAN > 60
--- NOTE | 2018-06-09 19:03 | CP.PCM.PN ---
Subjective - Date & Time of Evaluation Date of Evaluation: 06/09/18 Time of Evaluation: 10:20 - Subjective Subjective: Comfortable, improved cough, no fevers. Objective - Vital Signs/Intake and Output Vital Signs (last 24 hours): Temp Pulse Resp BP Pulse Ox 97.6 F 74 18 138/93 H 95 06/08/18 06:00 06/08/18 06:00 06/08/18 06:00 06/08/18 09:45 06/08/18 06:00 Intake and Output: 06/08/18 06/08/18 06:59 18:59 Output Total 500 Balance -500 - Medications Medications: Current Medications Acetaminophen (Tylenol 325mg Tab) 650 mg PO Q4H PRN; Protocol PRN Reason: Fever >100.4 F Albuterol/Ipratropium (Duoneb 3 Mg/0.5 Mg (3 Ml) Ud) 3 ml IH Q2H PRN; Protocol PRN Reason: Shortness of Breath Arformoterol Tartrate (Brovana) 15 mcg IH [id number] [facility] Last Admin: 06/08/18 07:37 Dose: 15 mcg Benzonatate (Tessalon Perles) 200 mg PO TID [facility]; Protocol Last Admin: 06/08/18 09:37 Dose: 200 mg Betamethasone/Clotrimazole (Lotrisone) 0 gm TOP BID [facility]; Protocol Last Admin: 06/08/18 09:46 Dose: 1 applic Budesonide (Pulmicort Respules) 0.5 mg IH [id number] [facility]; Protocol Last Admin: 06/08/18 07:37 Dose: 0.5 mg Enoxaparin Sodium (Lovenox) 40 mg SC 0600 [facility]; Protocol Last Admin: 06/08/18 05:15 Dose: 40 mg Guaifenesin/Dextromethorphan (Robitussin Dm) 10 ml PO Q4H PRN; Protocol PRN Reason: Cough Last Admin: 06/03/18 23:39 Dose: 10 ml Home Med (Home Med) 1 unit PO BID [facility]; Protocol Last Admin: 06/08/18 09:36 Dose: 1 unit Hydrocortisone (Cortizone 1% Cream) 0 gm TOP BID [facility]; Protocol Last Admin: 06/08/18 09:44 Dose: 1 applic Hydroxyzine HCl (Atarax) 10 mg PO QID PRN; Protocol PRN Reason: pruritis Cefepime HCl (Maxipime 1gm) 1 gm in 100 mls @ 100 mls/hr IVPB Q8 [facility]; Protocol Last Admin: 06/08/18 05:14 Dose: 100 mls/hr Levetiracetam (Keppra) 500 mg PO BID [facility]; Protocol Last Admin: 06/08/18 09:45 Dose: 500 mg Loratadine (Claritin) 10 mg PO DAILY [facility] Last Admin: 06/08/18 09:38 Dose: 10 mg Losartan Potassium (Cozaar) 25 mg PO DAILY [facility]; Protocol Last Admin: 06/08/18 09:45 Dose: 25 mg Montelukast Sodium (Singulair) 10 mg PO HS [facility] Last Admin: 06/07/18 21:27 Dose: 10 mg Non-Formulary Medication (Abiraterone Acetate [Zytiga]) 1,000 mg PO DAILY [facility] Last Admin: 06/08/18 09:36 Dose: 1,000 mg Pantoprazole Sodium (Protonix Ec Tab) 40 mg PO 0600 [facility]; Protocol Last Admin: 06/08/18 05:15 Dose: 40 mg Prednisone (Prednisone Tab) 5 mg PO 0800,1700 [facility]; Protocol Last Admin: 06/08/18 08:21 Dose: 5 mg Risperidone (Risperdal Tab) 0.25 mg PO BID [facility]; Protocol Last Admin: 06/08/18 09:37 Dose: 0.25 mg Trimethoprim/Sulfamethoxazole (Bactrim Ds Tab) 1 tab PO BID [facility]; Protocol Stop: 06/13/18 10:01 Last Admin: 06/08/18 09:38 Dose: 1 tab Zolpidem Tartrate (Ambien) 5 mg PO HS PRN; Protocol PRN Reason: Insomnia Last Admin: 06/07/18 23:15 Dose: 5 mg - Labs Labs: 06/07/18 06:30 06/07/18 06:30 - Constitutional Appears: Chronically Ill - Head Exam Head Exam: NORMAL INSPECTION - Respiratory Exam Respiratory Exam: Decreased Breath Sounds - Cardiovascular Exam Cardiovascular Exam: +S1, +S2 - GI/Abdominal Exam GI & Abdominal Exam: Soft. absent: Tenderness Assessment and Plan - Assessment and Plan (Free Text) Plan: Assessment sepsis due to complicated UTI with Pseudomonas, slowly improving clinically positive titers for pertussis history of UTI with E. 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
--- NOTE | 2018-06-09 20:13 | PN ---
DATE: 06/09/2018 REFERRING PHYSICIAN: Dr. Clemens. SUBJECTIVE: He is lying in the bed at 45 degrees. Night was unremarkable, sleepy, arousable. Therapies ready to get him out of bed to stand and walk. Cough is improving. No nausea, no vomiting, no diarrhea, leg pain or leg swelling. OBJECTIVE GENERAL: Not in distress. VITAL SIGNS: Temperature is 98, heart rate 84, respiratory rate is 18, blood pressure 130/77, pulse ox 93% room air. HEENT: Moist mucous membrane. Crowded. Mallampati score is 4. Short thick neck. LUNGS: Have fair airflow with rhonchi. ABDOMEN: Soft, nontender, no organomegaly. EXTREMITIES: Trace edema. NEUROLOGIC: Awake and alert, follows simple command. MEDICATIONS: He is on Zytiga 1000 mg daily, Ambien 5 mg at bedtime p.r.n., Atarax 10 mg four times a day p.r.n., Bactrim Double Strength 1 tablet twice a day, Brovana inhaled twice a day, Claritin 10 mg daily, Cozaar 25 mg daily, DuoNeb every 2 hours p.r.n., Keppra 500 mg twice a day, Lotrisone affected area twice a day, Lovenox 40 mg daily, cefepime 1 g IV every 8 hours, prednisone 5 mg twice a day, Protonix 40 mg daily, Pulmicort inhaled twice a day, Risperdal 0.25 mg twice a day, Singulair 10 mg daily, Tessalon Perles every 8 hours, Tylenol p.r.n. basis. LABORATORY DATA: Reviewed, noted sodium 135, potassium 4.3, chloride 101, bicarbonate 28, BUN 26, creatinine 0.8, glucose 121, calcium 8.6. AST 20, ALT 28, alk phos is 67. Albumin is 3.6. IMPRESSION AND PLAN: Stage IV prostate cancer, seizure disorder, eczema, chronic obstructive lung disease, bronchitis, hypertension, upper respiratory infection, has pertussis antibody positive. Pulmonary point of view, doing okay. Antibiotics as per Infectious Disease. Bronchodilator, gastric prophylaxis, deep venous thrombosis prophylaxis. Gastroesophageal reflux disease precaution, sleep apnea precaution. Careful with sedation. Continue therapy. Thank you and we will follow with you. Chris Dickson MD [facility] # [id number]
--- NOTE | 2018-06-09 20:40 | PN ---
DATE: 06/09/2018 LOCATION: The patient is in room 321, bed 1. SUBJECTIVE: The patient is examined, lying in bed, is better, less coughing, has been able to ambulate with assistance. The patient tells me his cough has improved. No overnight events recorded. The patient's nurse and the patient tell me that Shipman catheter has been leaking this a.m. and they are requested for us to put in a consult with Dr. Olivo to evaluate him. The patient has a Shipman catheter and may have to be exchanged. OBJECTIVE: VITAL SIGNS: Stable as stated in the chart. T-max is 98.4, pulse rate is 84, blood pressure is 136/77, and O2 saturation is 93% on room air. HEENT: Head is normocephalic, atraumatic. Conjunctivae pale. Sclerae are anicteric. Examination of the oropharynx reveals no oropharyngeal lesions. The patient has poor dentition. NECK: Supple. There is no adenopathy. Previously noted rashes on his face and neck appeared improved. LUNGS: Clear to percussion and auscultation. Decreased breath sounds on both sides posteriorly. CARDIOVASCULAR SYSTEM: Reveals S1 and S2 to be normal. No gallop or murmurs heard. ABDOMEN: Soft, nontender. Protuberant. EXTREMITIES: Reveal no cyanosis, clubbing, or edema. GENITOURINARY: The patient has a Shipman catheter with a leg bag attached to it, which has been leaking. NEUROLOGIC: Reveals higher functions to be normal. No focal deficits are noted. LABORATORY DATA: From two days ago reveals hemoglobin of 10.7, hematocrit 35, and platelet count of 246,000. Chemistries from today reveal electrolytes to be normal, BUN is 26, creatinine 0.1. Total protein 7.1, with an albumin of 3.6. MEDICATIONS: The patient's medications were reviewed. He is on Zytiga 1000 mg daily, Ambien 5 mg p.o. at bedtime p.r.n., Atarax 10 mg 4 times a day, he is on Bactrim DS 1 tab b.i.d., Brovana 50 mcg inhaled every 12 hours, Claritin 10 mg daily. He is on cortisone 1% cream to topical areas in the face and the neck as needed. Cozaar 25 mg daily. He is on DuoNeb 3 mL inhaled every 2 hours p.r.n. He is on Keppra 500 b.i.d. He is on Lotrisone topically to affected areas in the inner thigh and in the posterior aspect of his buttocks with those lesions appearing to have improved. He is on Lovenox 40 mg subcu daily. He is on cefepime 1 g IV piggyback every 8 hours, prednisone 5 mg p.o. daily, pantoprazole 40 mg p.o. daily, Pulmicort Respules 0.5 mg every 12 hours, Risperdal 0.25 mg p.o. b.i.d., guaifenesin, dextromethorphan, Robitussin-DM 10 mL every 4 hours p.r.n. He is on Singulair 10 mg p.o. at bedtime p.r.n., Tessalon Perles 200 mg t.i.d. ASSESSMENT, NOTES, AND PLAN: Stage IV metastatic carcinoma of the prostate, currently on intravenous antibiotics for resisting infection, but would only respond to oral Cipro, the patient could not get it because of ____ of the QT interval. The patient will complete the antibiotics hopefully by tomorrow, in which case we can make plans for early discharge. Currently, the patient is on physical therapy for deconditioning. We will continue all his other medicines. Gastrointestinal and deep venous thrombosis prophylaxis. I have spoken in detail with the patient, spoke to the family as well. Plan is early discharge tomorrow or Sunday and then arrange for outpatient management. Routine post exam instructions have been given to the patient. Please make a note, this is a complex patient with multiple comorbid medical issues. Time spent with the patient is greater than 40 minutes. Labs per a.m. have been requested. Ant Clemens MD
[2018-06-10] MEDS: Cefepime 1gm in NS 100ml 1 GM/100 ML BAG IVPB SCH (06:23)
[2018-06-10] MEDS: Enoxaparin 40 mg Syringe SC SCH (06:23)
[2018-06-10] MEDS: Pantoprazole 40 mg EC Tab PO SCH (06:23)
[2018-06-10] MEDS: Budesonide 0.5 mg/2 ml Inhal Susp UD IH SCH ×2 (07:31→19:22)
[2018-06-10] MEDS: Arformoterol 15 mcg/2 ml Inh Sol IH SCH ×2 (07:31→19:22)
[2018-06-10] MEDS: Tmp-Smz 800 mg-160 mg DS Tab PO SCH ×2 (10:43→17:45)
[2018-06-10] MEDS: Hydrocortisone 1% Cream (30 GM) TOP SCH ×2 (10:44→17:45)
[2018-06-10] MEDS: METHENAMINE PO SCH ×2 (10:45→17:46)
[2018-06-10] MEDS: Clotrimazole/Betamethasone Cream(15 gm) TOP SCH ×2 (10:46→17:47)
--- NOTE | 2018-06-10 12:58 | PN ---
DATE: 06/10/2018 REFERRING PHYSICIAN: Brent Dawson MD. SUBJECTIVE: The patient is sitting up in bed. No acute distress. No overnight events reported. The patient reports feeling well today. No headache, rhinitis, shortness of breath, chest pain, abdominal pain, nausea, vomiting, diarrhea, leg pain, or leg swelling reported. The patient does report improving cough. OBJECTIVE: VITAL SIGNS: Blood pressure 143/58, pulse 71, temperature 97.8, and oxygen saturation 93%. GENERAL: No acute distress. HEENT: Moist mucous membranes, crowded airway. Mallampati score is 4. LUNGS: Fair air slow bilaterally, few rhonchi. CARDIOVASCULAR: S1 and S2 audible. ABDOMEN: Soft and nontender. No distention, no organomegaly. EXTREMITIES: No bilateral lower extremity edema. NEUROLOGIC: Awake, alert, and verbal, follows commands. MEDICATIONS: Reviewed. Tylenol 650 mg every 4 hours p.r.n. for fever greater than 100.4, DuoNeb 3 mL inhalation every 2 hours p.r.n., Brovana 15 mcg inhalation every 12 hours, Tessalon Perles 200 mg p.o. 3 times a day, Lotrisone topical twice a day to the affected area, Pulmicort 0.5 mg inhalation every 12 hours, Lovenox 40 mg subcutaneously daily, Robitussin 10 mL every 4 hours p.r.n.,hydrocortisone topically twice a day to the affected area, Atarax 10 mg 4 times a day p.r.n., Keppra 500 mg twice a day, Claritin 10 mg p.o. daily, Cozaar 25 mg p.o. daily, Singulair 10 mg p.o. at bedtime, Zytiga 1000 mg p.o. daily, Protonix 40 mg daily, prednisone 5 mg twice a day, Risperdal 0.25 mg twice a day , Bactrim DS twice a day, and Ambien 5 mg p.o. at bedtime p.r.n. LABORATORY DATA: Reviewed. No new labs. IMPRESSION AND PLAN: Stage IV prostate cancer, seizure disorder, eczema, chronic obstructive lung disease, bronchitis, hypertension, upper respiratory infection, and pertussis antibody positive. Pulmonary point of view, the patient is doing well. Continue antibiotics as per Infectious Disease, bronchodilator, gastric prophylaxis, deep venous thrombosis prophylaxis, gastroesophageal reflux disease prophylaxis, sleep apnea precaution, and careful with nighttime sedation. Continue physical therapy. The patient was seen and examined with Dr. Dickson. Discussed assessment and plan as described above. Thank you for this consult and we will follow with you. Chance Driscoll APN <Chris Dickson MD>
--- NOTE | 2018-06-10 13:15 | CP.PCM.PN ---
Subjective - Date & Time of Evaluation Date of Evaluation: 06/10/18 Time of Evaluation: 10:15 - Subjective Subjective: Afebrile, comfortable. Objective - Vital Signs/Intake and Output Vital Signs (last 24 hours): Temp Pulse Resp BP Pulse Ox 97.8 F 71 18 143/58 L 93 L 06/09/18 16:00 06/09/18 16:00 06/09/18 16:00 06/09/18 16:00 06/09/18 16:00 - Medications Medications: Current Medications Acetaminophen (Tylenol 325mg Tab) 650 mg PO Q4H PRN; Protocol PRN Reason: Fever >100.4 F Albuterol/Ipratropium (Duoneb 3 Mg/0.5 Mg (3 Ml) Ud) 3 ml IH Q2H PRN; Protocol PRN Reason: Shortness of Breath Last Admin: 06/08/18 20:00 Dose: 3 ml Arformoterol Tartrate (Brovana) 15 mcg IH [id number] [facility] Last Admin: 06/09/18 07:40 Dose: 15 mcg Benzonatate (Tessalon Perles) 200 mg PO TID [facility]; Protocol Last Admin: 06/09/18 17:22 Dose: 200 mg Betamethasone/Clotrimazole (Lotrisone) 0 gm TOP BID [facility]; Protocol Last Admin: 06/09/18 17:20 Dose: 1 applic Budesonide (Pulmicort Respules) 0.5 mg IH [id number] [facility]; Protocol Last Admin: 06/09/18 07:40 Dose: 0.5 mg Enoxaparin Sodium (Lovenox) 40 mg SC 0600 [facility]; Protocol Last Admin: 06/09/18 05:37 Dose: 40 mg Guaifenesin/Dextromethorphan (Robitussin Dm) 10 ml PO Q4H PRN; Protocol PRN Reason: Cough Last Admin: 06/03/18 23:39 Dose: 10 ml Home Med (Home Med) 1 unit PO BID [facility]; Protocol Last Admin: 06/09/18 17:18 Dose: 1 unit Hydrocortisone (Cortizone 1% Cream) 0 gm TOP BID [facility]; Protocol Last Admin: 06/09/18 17:18 Dose: 1 applic Hydroxyzine HCl (Atarax) 10 mg PO QID PRN; Protocol PRN Reason: pruritis Cefepime HCl (Maxipime 1gm) 1 gm in 100 mls @ 100 mls/hr IVPB Q8 [facility]; Protocol Last Admin: 06/09/18 13:21 Dose: 100 mls/hr Levetiracetam (Keppra) 500 mg PO BID [facility]; Protocol Last Admin: 06/09/18 17:19 Dose: 500 mg Loratadine (Claritin) 10 mg PO DAILY [facility] Last Admin: 06/09/18 09:18 Dose: 10 mg Losartan Potassium (Cozaar) 25 mg PO DAILY [facility]; Protocol Last Admin: 06/09/18 09:17 Dose: 25 mg Montelukast Sodium (Singulair) 10 mg PO HS [facility] Last Admin: 06/08/18 21:41 Dose: 10 mg Non-Formulary Medication (Abiraterone Acetate [Zytiga]) 1,000 mg PO DAILY [facility] Last Admin: 06/09/18 09:17 Dose: 1,000 mg Pantoprazole Sodium (Protonix Ec Tab) 40 mg PO 0600 [facility]; Protocol Last Admin: 06/09/18 05:37 Dose: 40 mg Prednisone (Prednisone Tab) 5 mg PO 0800,1700 [facility]; Protocol Last Admin: 06/09/18 17:21 Dose: 5 mg Risperidone (Risperdal Tab) 0.25 mg PO BID [facility]; Protocol Last Admin: 06/09/18 17:21 Dose: 0.25 mg Trimethoprim/Sulfamethoxazole (Bactrim Ds Tab) 1 tab PO BID [facility]; Protocol Stop: 06/13/18 10:01 Last Admin: 06/09/18 17:18 Dose: 1 tab Zolpidem Tartrate (Ambien) 5 mg PO HS PRN; Protocol PRN Reason: Insomnia Last Admin: 06/07/18 23:15 Dose: 5 mg - Labs Labs: 06/07/18 06:30 06/09/18 10:20 - Constitutional Appears: Chronically Ill - Head Exam Head Exam: NORMAL INSPECTION - Neck Exam Neck Exam: absent: Meningismus - Respiratory Exam Respiratory Exam: Decreased Breath Sounds - Cardiovascular Exam Cardiovascular Exam: +S1, +S2 - GI/Abdominal Exam GI & Abdominal Exam: Soft. absent: Tenderness Assessment and Plan - Assessment and Plan (Free Text) Plan: Assessment sepsis due to complicated UTI with Pseudomonas, clinically improved positive titers for pertussis history of UTI with E. 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 Clemens on PO Bactrim for the pertussis (Day 3 of 5-7 days)
--- NOTE | 2018-06-11 02:58 | PN ---
DATE: 06/10/2018 ONCOLOGY PROGRESS NOTE LOCATION: The patient is in room 321, bed 1. SUBJECTIVE: The patient is sitting up in bed, in no acute distress. No overnight events were reported. The patient's Shipman catheter is still leaking and may have to be exchanged today. The patient otherwise reports feeling well. Coughing is decreased; and denies any headaches, rhinitis, shortness of breath, chest pain, abdominal pain, nausea, vomiting, leg pain, or leg swelling. PHYSICAL EXAMINATION: VITAL SIGNS: The patient's vital signs to be stable. Blood pressure is 143/58, pulse is 71, T-max is 98.4, O2 sat is 93%. HEENT: Head is normocephalic, atraumatic. Conjunctivae pale. Sclerae are anicteric. Pupils are equally reactive to light and accommodation. Examination of the oropharynx reveals no oropharyngeal lesions. The patient has poor dentition. NECK: Supple. There is no adenopathy. LUNGS: Clear to percussion and auscultation with few rhonchi posteriorly bilaterally. CARDIOVASCULAR SYSTEM: Reveals S1 and S2 to be normal. No gallop or murmurs heard. EXTREMITIES: Reveal no significant edema to the lower extremities NEUROLOGIC: Reveals higher functions to be normal. No focal deficits are noted. SKIN: Reveals the eczema. There was a mole in his face. Neck and chest appears to be better with the application of the hydrocortisone cream. The patient's inner aspect of his thighs and posterior aspect of his buttocks also appear to be improved with Nizoral cream. MEDICATIONS: The patient's medications have reviewed and they are unchanged at this time. LABORATORY DATA: Lab data was reviewed and they are stable at this time. No new labs have been requested. 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 In this background, the patient also has history of hypertension and the patient with pertussis antibody positive. Pulmonary point of view, the patient is doing well on the current antibiotics. I spoke to the Infectious Disease specialist today with ____ dose of his antibiotics and the patient could be discharged tomorrow on oral Bactrim b.i.d. Arrangement will be made for the patient to be discharged tomorrow with the help of visiting nurses at home. Catheter will be exchanged before his discharge. Routine post exam instructions have been given to the patient. Discussed my plans with the discharging planning nurse and the nurse in charge of his cath today. Time taken greater than 45 minutes. Please make a note, this is a complex patient with multiple comorbid medical issues. Time spent with the patient is an excess of 45 minutes. Ant Clemens MD
[2018-06-11] MEDS: Enoxaparin 40 mg Syringe SC SCH (06:12)
[2018-06-11] MEDS: Pantoprazole 40 mg EC Tab PO SCH (06:12)
[2018-06-11] MEDS: Arformoterol 15 mcg/2 ml Inh Sol IH SCH (08:30)
[2018-06-11] MEDS: Budesonide 0.5 mg/2 ml Inhal Susp UD IH SCH (08:30)
[2018-06-11 08:49] LABS: BASO # 0.06 K/mm3 (0.0-2.0); BASO % 0.6 % (0.0-3.0); EOS # 0.4 (0.0-0.7); EOS % 3.9 % (1.5-5.0); GRAN # 7.39 (1.4-6.5); GRAN % 76.9 % (50.0-68.0); HEMOGLOBIN 10.9 g/dL (14.0-18.0); LYMPH # 1.2 (1.2-3.4); LYMPH % 12.7 % (22.0-35.0); MEAN CELL VOLUME 89.6 fl (80.0-105.0); MEAN CORPUSCULAR HEMOGLOBIN 28.2 pg (25.0-35.0); MEAN CORPUSCULAR HGB CONC 31.5 g/dl (31.0-37.0); MEAN PLATELET VOLUME 9.4 fl (7.0-11.0); MONO # 0.6 (0.1-0.6); MONO % 5.9 % (1.0-6.0); RBC 3.86 10^6/uL (3.5-6.1); RED CELL DISTRIBUTION WIDTH 15.7 % (11.5-14.5); WHITE BLOOD COUNT 9.6 10^3/uL (4.5-11.0)
[2018-06-11 09:18] LABS: ALBUMIN 3.4 g/dL (3.0-4.8); ALT/SGPT 30 U/L (7-56); AST/SGOT 20 U/L (17-59); BLOOD UREA NITROGEN 28 mg/dL (7-21); CALCIUM 8.8 mg/dL (8.4-10.5); GFR NON-AFRICAN AMERICAN > 60
[2018-06-11 10:18] VITALS: BP 138/81; PULSE 83; TEMP 97.6; O2SAT 94
[2018-06-11] MEDS: Tmp-Smz 800 mg-160 mg DS Tab PO SCH (10:18)
[2018-06-11] MEDS: Hydrocortisone 1% Cream (30 GM) TOP SCH (10:19)
[2018-06-11] MEDS: METHENAMINE PO SCH (10:21)
[2018-06-11] MEDS: Clotrimazole/Betamethasone Cream(15 gm) TOP SCH (10:22)
--- NOTE | 2018-06-11 12:48 | PN ---
PULMONARY PROGRESS NOTE DATE: 06/11/2018 REFERRING PHYSICIAN: Dr. Dawson. SUBJECTIVE: The patient is sitting up in bed. No acute distress. No overnight events reported. No headache, rhinitis, shortness of breath, cough, chest pain, abdominal pain, nausea, vomiting, diarrhea, leg pain or leg swelling reported. OBJECTIVE: GENERAL: No acute distress. VITAL SIGNS: Blood pressure 138/81, pulse 83, temperature 97.6, and oxygen saturation 94%. HEENT: Moist mucous membranes. Crowded airway. Mallampati score is 4. LUNGS: Clear bilaterally. CARDIOVASCULAR: S1 and S2 audible. ABDOMEN: Soft and nontender. No distention. No organomegaly. EXTREMITIES: No bilateral lower extremity edema. NEUROLOGIC: Awake, alert, and verbal. Follows commands. MEDICATIONS: Reviewed. Tylenol 650 mg every 4 hours p.r.n. for fever greater than 100.4, DuoNeb 3 mL inhalation every 2 hours p.r.n., Brovana 15 mcg inhalation every 12 hours, Tessalon Perles 200 mg 3 times a day, Lotrisone topically to affected area twice a day, Pulmicort 0.5 mg inhalation every 12 hours, Lovenox 40 mg subcutaneously daily, Robitussin DM 10 mL every 4 hours p.r.n.,hydrocortisone cream topically twice a day to the affected area, Atarax 10 mg 4 times a day p.r.n., Keppra 500 mg twice a day, Claritin 10 mg p.o. daily, Cozaar 25 mg p.o. daily, Singulair 10 mg at bedtime, Zytiga 1000 mg p.o. daily, Protonix 40 mg daily, prednisone 5 mg twice a day, Risperdal 0.25 mg twice a day, Bactrim DS one tab twice a day, and Ambien 5 mg p.o. at bedtime p.r.n. LABORATORY DATA: Reviewed. WBC 9.6, RBC 3.86, hemoglobin 10.6, hematocrit 34.6 and platelets 232. Sodium 139, potassium 4.2, chloride 105, carbon dioxide 27, anion gap 11, BUN 28, creatinine 0.9, GFR greater than 60, random glucose 102, calcium 8.8, total bilirubin 0.4, AST 20, ALT 30, alkaline phosphatase 70, total protein 6.8, albumin 3.4, globulin 3.4 and albumin-globulin ratio of 1. IMPRESSION AND PLAN: Stage IV prostate cancer, seizure disorder, eczema, chronic obstructive lung disease, bronchitis, hypertension, upper respiratory infection and pertussis antibody positive. Pulmonary point of view, the patient is doing well. Continue antibiotics per Infectious Disease, continue inhaled bronchodilators, gastric prophylaxis, deep venous thrombosis prophylaxis, sleep apnea precaution, and careful with nocturnal sedation. The patient should be sitting up in bed to eat and should remain sitting up 1 hour after meals. Continue physical therapy. This patient was seen and examined with Dr. Dickson. Discussed assessment and plan as described above. Thank you for this consult. We will follow with you. Chance Driscoll APN Chris Dickson, MDDD: 06/11/2018 12:09:09
--- NOTE | 2018-06-11 13:12 | CP.PCM.PN ---
Subjective - Date & Time of Evaluation Date of Evaluation: 06/11/18 Time of Evaluation: 09:45 - Subjective Subjective: Comfortable in bed, no fevers. Objective - Vital Signs/Intake and Output Vital Signs (last 24 hours): Temp Pulse Resp BP Pulse Ox 97.6 F 83 18 138/81 94 L 06/11/18 10:00 06/11/18 10:19 06/11/18 10:00 06/11/18 10:19 06/11/18 10:00 - Medications Medications: Current Medications Acetaminophen (Tylenol 325mg Tab) 650 mg PO Q4H PRN; Protocol PRN Reason: Fever >100.4 F Albuterol/Ipratropium (Duoneb 3 Mg/0.5 Mg (3 Ml) Ud) 3 ml IH Q2H PRN; Protocol PRN Reason: Shortness of Breath Last Admin: 06/08/18 20:00 Dose: 3 ml Arformoterol Tartrate (Brovana) 15 mcg IH [id number] NIALL Last Admin: 06/11/18 08:30 Dose: 15 mcg Benzonatate (Tessalon Perles) 200 mg PO TID NIALL; Protocol Last Admin: 06/11/18 10:24 Dose: 200 mg Betamethasone/Clotrimazole (Lotrisone) 0 gm TOP BID NIALL; Protocol Last Admin: 06/11/18 10:22 Dose: 1 applic Budesonide (Pulmicort Respules) 0.5 mg IH [id number] NIALL; Protocol Last Admin: 06/11/18 08:30 Dose: 0.5 mg Enoxaparin Sodium (Lovenox) 40 mg SC 0600 [facility]; Protocol Last Admin: 06/11/18 06:12 Dose: 40 mg Guaifenesin/Dextromethorphan (Robitussin Dm) 10 ml PO Q4H PRN; Protocol PRN Reason: Cough Last Admin: 06/03/18 23:39 Dose: 10 ml Home Med (Home Med) 1 unit PO BID NIALL; Protocol Last Admin: 06/11/18 10:21 Dose: 1 unit Hydrocortisone (Cortizone 1% Cream) 0 gm TOP BID NIALL; Protocol Last Admin: 06/11/18 10:19 Dose: 1 applic Hydroxyzine HCl (Atarax) 10 mg PO QID PRN; Protocol PRN Reason: pruritis Levetiracetam (Keppra) 500 mg PO BID [facility]; Protocol Last Admin: 06/11/18 10:21 Dose: 500 mg Loratadine (Claritin) 10 mg PO DAILY [facility] Last Admin: 06/11/18 10:18 Dose: 10 mg Losartan Potassium (Cozaar) 25 mg PO DAILY [facility]; Protocol Last Admin: 06/11/18 10:19 Dose: 25 mg Montelukast Sodium (Singulair) 10 mg PO HS [facility] Last Admin: 06/10/18 21:32 Dose: 10 mg Non-Formulary Medication (Abiraterone Acetate [Zytiga]) 1,000 mg PO DAILY [facility] Last Admin: 06/11/18 10:17 Dose: 1,000 mg Pantoprazole Sodium (Protonix Ec Tab) 40 mg PO 0600 [facility]; Protocol Last Admin: 06/11/18 06:12 Dose: 40 mg Prednisone (Prednisone Tab) 5 mg PO 0800,1700 [facility]; Protocol Last Admin: 06/11/18 08:28 Dose: 5 mg Risperidone (Risperdal Tab) 0.25 mg PO BID [facility]; Protocol Last Admin: 06/11/18 10:23 Dose: 0.25 mg Trimethoprim/Sulfamethoxazole (Bactrim Ds Tab) 1 tab PO BID NIALL; Protocol Stop: 06/13/18 10:01 Last Admin: 06/11/18 10:18 Dose: 1 tab Zolpidem Tartrate (Ambien) 5 mg PO HS PRN; Protocol PRN Reason: Insomnia Last Admin: 06/10/18 21:32 Dose: 5 mg - Labs Labs: 06/11/18 05:00 06/11/18 05:00 - Constitutional Appears: Chronically Ill - Head Exam Head Exam: NORMAL INSPECTION - Respiratory Exam Respiratory Exam: Decreased Breath Sounds - Cardiovascular Exam Cardiovascular Exam: +S1, +S2 - GI/Abdominal Exam GI & Abdominal Exam: Soft. absent: Tenderness Assessment and Plan - Assessment and Plan (Free Text) Plan: Assessment sepsis due to complicated UTI with Pseudomonas, clinically improved positive titers for pertussis history of UTI with E. 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
== END 2018-06-11 15:30 | disposition home health service (06) | DRG 872 ==
LOC: TRCU 21:22
PROVIDERS: ADMIT Family Medicine; ATTEND Family Medicine
PROC: F07Z9FZ Gait Training/Functional Ambulation Treatment using Assistive, Adaptive, Supportive or Protective Equipment (ICD-10-PCS; principal; 2018-06-04)
PROC: F07M6ZZ Therapeutic Exercise Treatment of Musculoskeletal System - Whole Body (ICD-10-PCS; 2018-06-04)
PROC: F08Z1ZZ Dressing Techniques Treatment (ICD-10-PCS; 2018-06-04)
PROC: F08Z2ZZ Grooming/Personal Hygiene Treatment (ICD-10-PCS; 2018-06-04)
PROC: F08Z0ZZ Bathing/Showering Techniques Treatment (ICD-10-PCS; 2018-06-04)
DX: A41.9 Sepsis, unspecified organism (principal); N39.0 Urinary tract infection, site not specified; A37.90 Whooping cough, unspecified species without pneumonia; C79.51 Secondary malignant neoplasm of bone; E87.1 Hypo-osmolality and hyponatremia; K92.2 Gastrointestinal hemorrhage, unspecified; C61 Malignant neoplasm of prostate; D63.8 Anemia in other chronic diseases classified elsewhere; E11.9 Type 2 diabetes mellitus without complications; E78.00 Pure hypercholesterolemia, unspecified; E78.5 Hyperlipidemia, unspecified; F03.90 Unspecified dementia, unspecified severity, without behavioral disturbance, psychotic disturbance, mood disturbance, and anxiety; G40.909 Epilepsy, unspecified, not intractable, without status epilepticus; G47.33 Obstructive sleep apnea (adult) (pediatric); I11.9 Hypertensive heart disease without heart failure; I25.10 Atherosclerotic heart disease of native coronary artery without angina pectoris; I45.81 Long QT syndrome; J10.1 Influenza due to other identified influenza virus with other respiratory manifestations; J44.9 Chronic obstructive pulmonary disease, unspecified; L30.9 Dermatitis, unspecified; Z79.02 Long term (current) use of antithrombotics/antiplatelets; B96.5 Pseudomonas (aeruginosa) (mallei) (pseudomallei) as the cause of diseases classified elsewhere; Z86.711 Personal history of pulmonary embolism; Z86.718 Personal history of other venous thrombosis and embolism; Z86.73 Personal history of transient ischemic attack (TIA), and cerebral infarction without residual deficits; Z87.440 Personal history of urinary (tract) infections; Z87.891 Personal history of nicotine dependence; Z90.49 Acquired absence of other specified parts of digestive tract; Z99.3 Dependence on wheelchair

== ENCOUNTER 2018-11-21 17:25 | Emergency (ER) | payer MEDICARE, OTHER ==
[2018-11-21 17:26] VITALS: BMI 27.3
--- NOTE | 2018-11-21 18:34 | ED PDOC ---
Arrival/HPI - General Chief Complaint: Weakness/Neurological Deficit Historian: Patient - History of Present Illness Narrative History of Present Illness (Text): 11/21/18 18:17 A 73 year old male, whose past medical history includes stage 4 prostatic cancer with metastasis to the bones (on chemo), COPD and seizures, presents to the ED four a cough. According to Dr. Dawson, patient has had this cough accompanied with increasing productive sputum for the past 3 weeks. Patient was not given any antibiotics. Also, patient saw Dr. Dawson today, who had CBC done on patient, reports white blood cell count of 10.7 with no shifts, but patient has bronchitis at left lower base of lungs. Dr. Graf sent patient to ED to rule out pneumonia. PMD: Dr. Sandhu Specialist: Dr. Clemens(oncologist) Time/Duration: > week (3 weeks) Symptom Onset: Gradual Symptom Course: Unchanged Activities at Onset: Light Context: Home Past Medical History - Provider Review Nursing Documentation Reviewed: Yes - Past History Past History: No Previous - Infectious Disease Hx of Infectious Diseases: None - Tetanus Immunization Tetanus Immunization: Unknown - Cardiac Hx Hypertension: Yes - Pulmonary Hx Chronic Obstructive Pulmonary Disease (COPD): Yes - Neurological HX Cerebrovascular Accident: Yes - HEENT Hx HEENT Disorder: No - Renal Hx Renal Disorder: No - Endocrine/Metabolic Hx Endocrine Disorders: No - Hematological/Oncological Hx Blood Disorders: Yes Hx AIDS: No Hx Anemia: No Hx Cancer: Yes (Prostate) Hx Chemotherapy: Yes Hx Cirrhosis: No Hx Hepatitis A: No Hx Hepatitis B: No Hx Hepatitis C: No Hx Metastasis: No Hx Shingles: Yes Hx Unexplained Bleeding: No - Integumentary Hx Dermatological Disorder: Yes Hx Eczema: Yes Other/Comment: BILATERAL BUTTOCKS WITH REDDENEDRASH. IASD. SKIN FOLDS OF BREAST AND STOMACH FOLD-MASD. Abrasion left frontal face/cheek - Musculoskeletal/Rheumatological Hx Falls: No - Gastrointestinal Hx Gastrointestinal Disorders: No - Genitourinary/Gynecological Hx Genitourinary Disorders: Yes Hx Reproductive Disorders: Yes - Psychiatric Hx Psychophysiologic Disorder: Yes Hx Anxiety: Yes Hx Depression: Yes Hx Substance Use: No - Surgical History Hx Appendectomy: Yes Hx Orthopedic Surgery: Yes Other/Comment: prostatectomy. decompressed laminectomy - Anesthesia Hx Anesthesia Reactions: No Hx Malignant Hyperthermia: No - Suicidal Assessment Feels Threatened In Home Enviroment: No Family/Social History - Physician Review Nursing Documentation Reviewed: Yes Family/Social History: No Known Family HX Smoking Status: Former Smoker Hx Alcohol Use: No Hx Substance Use: No Hx Substance Use Treatment: No Allergies/Home Meds Allergies/Adverse Reactions: Allergies No Known Allergies Allergy (Verified 06/03/18 21:38) Home Medications: Home Meds Medication Instructions Recorded Confirmed Enoxaparin [Lovenox] 40 mg SC DAILY 11/09/13 06/03/18 Losartan [Cozaar] 25 mg PO DAILY 03/22/14 06/03/18 Ergocalciferol (Vitamin D2) 50,000 unit PO QWK 08/07/16 06/03/18 [Vitamin D] Fluticasone/Salmeterol 250/50 1 dsk IH DAILY 08/07/16 06/03/18 [Advair Diskus 250/50] Abiraterone Acetate [Zytiga] 250 mg PO DAILY 10/09/16 06/03/18 Methenamine Hippurate [Hiprex] 1 gm PO DAILY 05/31/17 06/03/18 Review of Systems - Physician Review All systems were reviewed & negative as marked: Yes - Review of Systems Constitutional: absent: Fevers Respiratory: Cough Gastrointestinal: absent: Nausea Physical Exam Vital Signs Reviewed: Yes Vital Signs Pulse Resp BP Pulse Ox 11/21/18 18:12 78 18 127/88 95 Temperature: Afebrile Appearance: Positive for: Non-Toxic, Comfortable Pain Distress: None Mental Status: Positive for: Alert and Oriented X 3 - Systems Exam Head: Present: Atraumatic, Normocephalic Pupils: Present: PERRL Extroacular Muscles: Present: EOMI Conjunctiva: Present: Normal Mouth: Present: Dry (Dry Mucous membranes. ), Other (Poor dentition) Respiratory/Chest: Present: Clear to Auscultation (with some unappreciable rhonchi). No: Wheezes, Rales Cardiovascular: Present: Regular Rate and Rhythm Abdomen: Present: Other (Soft). No: Tenderness, Distention, Peritoneal Signs Lower Extremity: No: Edema (No pitting edema.) Medical Decision Making ED Course and Treatment: 11/21/18 18:40 Impression: 73 year old male presents to the ED for a cough with productive sputum for the past 3 weeks. Plan: -- Labs --Azithromycin -- VBG -- EKG -- Chest X-Ray -- Blood Culture -- Urinalysis -- Reassess and disposition Prior Visits: Notes and results from previous visits were reviewed. Patient was last seen in the emergency department on 05/30/18. Progress Notes: 11/21/18 19:54 Labs reviewed with no acute infiltrate or consolidation worrisome for PNA. Labs show no evidence of leukopenia or electrolyte abnormalities. Discussed case with Dr. Leger(oncology) who agrees with patient is amenable to going home and following up in office. Plan communicated to patient who is in amenable to discharge. - Lab Interpretations Lab Results: 11/21/18 19:15 11/21/18 19:15 Lab Results 11/21/18 19:15: D-Dimer, Quantitative 210 11/21/18 19:15: Sodium 135, Chloride 104, Potassium 3.5 L, Carbon Dioxide 22, An ion Gap 12, BUN 15, Creatinine 0.6 L, Est GFR ( Amer) > 60, Est GFR (Non- Af Amer) > 60, Random Glucose 105, Calcium 8.6, Magnesium 2.1, Total Bilirubin 0.5, AST 23, ALT 28, Alkaline Phosphatase 90, Troponin I 0.01 D, NT-Pro-B Natriuret Pep 355, Total Protein 6.8, Albumin 3.5, Globulin 3.3, Albumin/Globulin Ratio 1.1 11/21/18 19:15: pO2 135 H, VBG pH 7.45 H, VBG pCO2 36.0 L, VBG HCO3 25.0, VBG Total CO2 26.1, VBG O2 Sat (Calc) 98.4 H, VBG Base Excess 1.3, VBG Potassium 3.4 L, Sodium 136.0, Chloride 105.0, Glucose 107, Lactate 1.7, FiO2 21.0, Venous Blood Potassium 3.4 L 11/21/18 19:15: WBC 10.0, RBC 3.90, Hgb 11.2 L, Hct 35.1 L, MCV 90.0, MCH 28.7, MCHC 31.9, RDW 14.0, Plt Count 218, MPV 9.1, Neut % (Auto) 82.8 H, Lymph % (Auto) 11.5 L, Andrews % (Auto) 4.7, Eos % (Auto) 0.6 L, Baso % (Auto) 0.4, Lymph # (Auto) 1.2, Andrews # (Auto) 0.5, Eos # (Auto) 0.1, Baso # (Auto) 0.04, Absolute Neuts (auto) 8.29 H I have reviewed the lab results: Yes - Scribe Statement The provider has reviewed the documentation as recorded by the Scribe Lucien Marrero Provider Scribe Attestation: All medical record entries made by the Scribe were at my direction and personally dictated by me. I have reviewed the chart and agree that the record accurately reflects my personal performance of the history, physical exam, medical decision making, and the department course for this patient. I have also personally directed, reviewed, and agree with the discharge instructions and disposition. Disposition/Present on Arrival - Present on Arrival Any Indicators Present on Arrival: Yes History of DVT/PE: No History of Uncontrolled Diabetes: No Urinary Catheter: Yes History of Decub. Ulcer: No History Surgical Site Infection Following: None - Disposition Have Diagnosis and Disposition been Completed?: Yes Diagnosis: Bronchitis Disposition: HOME/ ROUTINE Disposition Time: 20:05 Patient Plan: Discharge Discharge Instructions (ExitCare): Acute Bronchitis, Adult (DC) Print Language: PARAGUAYAN Additional Instructions: All medical record entries made by the Scribe were at my direction and personally dictated by me. I have reviewed the chart and agree that the record accurately reflects my personal performance of the history, physical exam, medical decision making, and the department course for this patient. I have also personally directed, reviewed, and agree with the discharge instructions and disposition. Please take medications as prescribed Please follow up with your oncologist Prescriptions: Azithromycin [Z-Gregorio] 250 mg PO DAILY #6 tab Methylprednisolone [Medrol Dose Pack (21 tabs)] 4 mg PO DAILY #21 mg Referrals: Jaswinder Leger MD [Staff Provider] - Follow up with primary Forms: [employer] (Sami)
--- NOTE | 2018-11-21 19:14 | RAD ---
Date of service: 11/21/2018 HISTORY: persistent cough w/ PNA r/o COMPARISON: 05/29/2018. FINDINGS: LUNGS: No active pulmonary disease. PLEURA: No significant pleural effusion identified, no pneumothorax apparent. CARDIOVASCULAR: No radiographic findings to suggest acute or significant cardiovascular disease. Atherosclerotic calcifications identified primarily aortic arch. Venous access catheter in stable, satisfactory position. OSSEOUS STRUCTURES: No significant abnormalities. VISUALIZED UPPER ABDOMEN: Normal. OTHER FINDINGS: None. IMPRESSION: No active disease. No significant interval change compared to the prior examination(s).
--- NOTE | 2018-11-21 19:26 | CARD ---
APPROVED REPORT Date of service: 11/21/2018 EKG Measurement Heart [id number] <Conclusion> Normal sinus rhythm Left anterior fascicular block Left ventricular hypertrophy with repolarization abnormality Abnormal ECG
[2018-11-21 19:30] LABS: BASO # 0.04 K/mm3 (0.0-2.0); BASO % 0.4 % (0.0-3.0); EOS # 0.1 (0.0-0.7); EOS % 0.6 % (1.5-5.0); HEMOGLOBIN 11.2 g/dL (14.0-18.0); LYMPH # 1.2 (1.2-3.4); LYMPH % 11.5 % (22.0-35.0); MEAN CORPUSCULAR HEMOGLOBIN 28.7 pg (25.0-35.0); MEAN CORPUSCULAR HGB CONC 31.9 g/dl (31.0-37.0); MEAN PLATELET VOLUME 9.1 fl (7.0-11.0); MONO # 0.5 (0.1-0.6); MONO % 4.7 % (1.0-6.0); RBC 3.9 10^6/uL (3.5-6.1)
[2018-11-21 19:39] LABS: VENOUS BLOOD GAS BASE EXCESS 1.3 mmol/L (0.0-2.0); VENOUS BLOOD GAS PO2 135 mm/Hg (30-55); VENOUS BLOOD PH 7.45 (7.32-7.43)
[2018-11-21 19:51] LABS: ALB/GLOB RATIO 1.1 (1.1-1.8); ALBUMIN 3.5 g/dL (3.0-4.8); ALT/SGPT 28 U/L (7-56); AST/SGOT 23 U/L (17-59); BLOOD UREA NITROGEN 15 mg/dL (7-21); CALCIUM 8.6 mg/dL (8.4-10.5); GFR NON-AFRICAN AMERICAN > 60
[2018-11-21 20:03] LABS: B-TYPE NATRIURETIC PEPTIDE 355 pg/mL (0-450); TROPONIN I 0.01 ng/mL
[2018-11-21 20:42] VITALS: PULSE 69; TEMP 98.4
[2018-11-21 23:58] VITALS: O2SAT 95
[2018-11-22 02:05] VITALS: BP 149/73; RESP 16
== END 2018-11-22 02:15 | disposition home or self-care (01) ==
LOC: ED 17:25
DX: J40 Bronchitis, not specified as acute or chronic (principal); I10 Essential (primary) hypertension; Z86.73 Personal history of transient ischemic attack (TIA), and cerebral infarction without residual deficits; Z85.46 Personal history of malignant neoplasm of prostate; Z87.891 Personal history of nicotine dependence